=== PATIENT | male | born 1965 | race Caucasian/White ===

== ENCOUNTER 2020-03-08 07:31 | Inpatient (IN) | payer OTHER, SELFPAY ==
[2020-03-08] VITALS (8 sets, daily range): BP systolic 118–150; BP diastolic 80–86; PULSE 86–126; RESP 12–18; TEMP 37.1–37.5; O2SAT 96–98; BMI 35.8
--- NOTE | 2020-03-08 | ECG_ITS ---
Test Reason : TACHYCARDIA Blood Pressure : / mmHG Vent. Rate : 101 BPM Atrial Rate : 101 BPM P-R Int : 160 ms QRS Dur : 086 ms QT Int : 360 ms P-R-T Axes : 025 -28 022 degrees QTc Int : 466 ms Sinus tachycardia Inferior infarct , age undetermined Possible Anterior infarct , age undetermined Abnormal ECG No previous ECGs available Referred By: Dayne Reyes Electronically Signed By:POOL ROJAS
--- NOTE | 2020-03-08 07:58 | ED_ITS ---
HPI - Psych General Chief Complaint: Psychiatric Symptoms Stated Complaint: anxiety Time Seen by Provider: 03/08/20 07:55 Source: patient Mode of arrival: ambulatory Limitations: no limitations History of Present Illness HPI Narrative: patient's history of generalized anxiety disorder was at crisis stabilization unit for last 1 week broke the rule and left against medical advice yesterday was very anxious and depressed had vodka and took 400 mg of his trazodone between 1-7 pm. felt suicidal at that time still feels hopeless and looking for some help Related Data Allergies Allergy/AdvReac Type Severity Reaction Status Date / Time No Known Allergies Allergy Unverified 02/19/20 16:54 [No Known Allergies*] Review of Systems Review of Systems: Yes all other systems are reviewed and are negative Respiratory: Respiratory: Reports no additional respiratory complaints Gastrointestinal: Gastrointestinal: Reports no additional gastrointestinal complaints Genitourinary: Genitourinary: Reports no additional male genitourinary complaints Musculoskeletal: Musculoskeletal: Reports no additional musculoskeletal complaints Neurologic: Reports system reviewed and no additional complaints, except as documented and Reports Abnormal speech present Psychiatric: Psychiatric: Reports as per HPI, Reports anxiety, Reports depression, Reports difficulty concentrating, Reports hopelessness, Reports irritability, Reports anhedonia, Denies visual hallucinations, Denies hallucinations, Denies tactile hallucinations, Denies homicidal ideation and Denies suicidal ideation [facility] Past Medical History Attestation statement: The following information was validated with the patient. Medical History Depression Generalized anxiety disorder HTN (hypertension) Surgical History History of left hip replacement Social History Social History Alcohol intake: current Smoking Status: Current every day smoker Substance Use Type Other:: recovering opiate abuse Advance Directives: No Advance Directives Information Provided: Yes Suicidal Behavior: History of suicide attemps Current/Past Psychiatric Disorders: Psychotic disorder and Substance abuse [place] Symptoms: Anxiety Access to Firearms: No Physical Exam Vital Signs and I&O and Narrative: Vital Signs and I&O: Vital Signs Temp 99.0 F 03/08/20 15:33 Pulse 94 03/08/20 15:33 Resp 16 03/08/20 15:33 BP 118/83 03/08/20 15:33 Pulse Ox 96 03/08/20 15:33 Intake & Output 03/07/20 03/08/20 03/08/20 18:59 06:59 18:59 Weight 110.005 kg Body Mass Index 35.8 Const: General: cooperative and anxious Orientation/consciousness: oriented to person, oriented to place and oriented to time Limitations: no limitations HENMT: Head: Yes normal to inspection Ears: hearing grossly normal bilaterally General nose exam: Normal external nose present Eyes: General: appearance normal, both eyes and all related structures Neck: Neck: Yes normal visual inspection Resp: Effort & Inspection: normal respiratory effort Auscultation: clear to auscultation bilaterally Cardio: Palpation: normal PMI Rate: tachycardic Rhythm: regular rhythm Heart sounds: S1 normal heart sound present and S2 normal heart sound present GI: Inspection: Yes normal to inspection Palpation (GI): Soft to palpation and nontender Percussion: Yes normal to percussion Neuro: General: oriented to person, oriented to place and oriented to time Cranial nerves: Yes CN's II-XII intact bilaterally Cognition (Neuro): normal cognition Speech: Abnormal speech present Gait exam (Neuro): Normal gait present Motor exam (neuro): 5/5 motor strength present throughout Psych: Appearance: grossly normal Mental Status: mental status grossly normal Speech and movement: Normal speech and movement present Affect: Anxious affect present Attitude: cooperative Thought process: Normal thought process present Thought content: Normal thought content present Insight: Good insight present (Psych) Judgement: Good judgement present (Psych) Course Course Course Narrative: patient with depression and anxiety took a nontoxic dose of t razodone 400 mg yesterday with alcohol at that time patient was suicidal at this time patient is anxious denies any suicidal ideation. Scared of his home situation as he does not have any job him he lose apartment will consult crisis for evaluation Reevaluation(s) Reevaluation #1: patient seen by therapist will be admitted to for depression and anxiety patient is medically cleared MDM - Psych Restraints Face to Face Assessment: Face to Face Assessment: Current Situation: After assessment of the patient, a review of the pertinent medical record and a discussion with nursing staff, I feel the patient requires a restrain intervention. Reaction To: [] Medical Condition: [] Behavioral State: [] Continued Need: [] Lab Data Result diagrams: 03/08/20 08:43 10/05/20 08:43 Labs: Lab Results 03/08/20 03/08/20 03/08/20 Range/Units 08:43 08:43 08:43 WBC 9.9 (4.8-10.8) X10*3/uL RBC 5.29 (4.60-5.80) X10*6/uL Hgb 15.0 (14.0-18.0) g/dl Hct 44.0 (42-52) % MCV 83.2 (80-98) fL MCH 28.4 (27.0-33.0) pg MCHC 34.1 (31.0-36.0) g/dl RDW 13.4 (11.0-16.0) % Plt Count 231 (160-400) X10*3/uL MPV 10.3 (9.4-12.4) fL Immature Gran % (Auto) 0.7 H (0.0-0.4) % Neut % (Auto) 75.2 H (45-73) % Lymph % (Auto) 10.9 L (20-40) % [place] % (Auto) 8.9 (2-11) % Eos % (Auto) 4.1 H (0-4) % Baso % (Auto) 0.2 (0-2) % Neut # (Auto) 7.4 (2.0-8.3) X10*3/uL Lymph # (Auto) 1.1 L (1.2-4.9) X10*3/uL [place] # (Auto) 0.9 (0.1-1.2) X10*3/uL Eos # (Auto) 0.4 (0.0-0.4) X10*3/uL Baso # (Auto) 0.0 (0.0-0.2) X10*3/uL Abs Immat Gran (auto) 0.07 H (0.00-0.03) X10*3/uL Absolute Nucleated RBC 0.000 (0.0-0.012) X10*3/uL Nucleated RBC % (auto) 0.0 (0.0-0.2) /100WBC Sodium 140 (135-145) mmol/L Potassium 4.2 (3.3-5.1) mmol/l Chloride 108 (96-108) mmol/L Carbon Dioxide 23 (22-29) mmol/L Anion Gap 13 (12-20) BUN 27 H (9-16) mg/dL Creatinine 1.20 (0.5-1.4) mg/dL Estim Creat Clear Calc 88.0 Estimated GFR > 60 Random Glucose 103 (60-115) mg/dL Calcium 9.2 (8.4-10.2) mg/dL Total Bilirubin 1.8 H (0.0-1.0) mg/dL AST 20 (5-37) U/L ALT 39 (0-40) U/L Alkaline Phosphatase 131 H (39-117) U/L Total Protein 7.2 (6.5-8.0) g/dL Albumin 4.2 (3.5-5.0) g/dL Ethyl Alcohol < 10 mg/dL Coronavirus (PCR) (Negative) 03/08/20 Range/Units 12:39 WBC (4.8-10.8) X10*3/uL RBC (4.60-5.80) X10*6/uL Hgb (14.0-18.0) g/dl Hct (42-52) % MCV (80-98) fL MCH (27.0-33.0) pg MCHC (31.0-36.0) g/dl RDW (11.0-16.0) % Plt Count (160-400) X10*3/uL MPV (9.4-12.4) fL Immature Gran % (Auto) (0.0-0.4) % Neut % (Auto) (45-73) % Lymph % (Auto) (20-40) % [place] % (Auto) (2-11) % Eos % (Auto) (0-4) % Baso % (Auto) (0-2) % Neut # (Auto) (2.0-8.3) X10*3/uL Lymph # (Auto) (1.2-4.9) X10*3/uL [place] # (Auto) (0.1-1.2) X10*3/uL Eos # (Auto) (0.0-0.4) X10*3/uL Baso # (Auto) (0.0-0.2) X10*3/uL Abs Immat Gran (auto) (0.00-0.03) X10*3/uL Absolute Nucleated RBC (0.0-0.012) X10*3/uL Nucleated RBC % (auto) (0.0-0.2) /100WBC Sodium (135-145) mmol/L Potassium (3.3-5.1) mmol/l Chloride (96-108) mmol/L Carbon Dioxide (22-29) mmol/L Anion Gap (12-20) BUN (9-16) mg/dL Creatinine (0.5-1.4) mg/dL Estim Creat Clear Calc Estimated GFR Random Glucose (60-115) mg/dL Calcium (8.4-10.2) mg/dL Total Bilirubin (0.0-1.0) mg/dL AST (5-37) U/L ALT (0-40) U/L Alkaline Phosphatase (39-117) U/L Total Protein (6.5-8.0) g/dL Albumin (3.5-5.0) g/dL Ethyl Alcohol mg/dL Coronavirus (PCR) NEGATIVE (Negative) ECG Data Attestation: I personally reviewed and interpreted this ECG as follows: ECG interpretation date: 03/08/20 ECG interpretation time: 08:47 Prior ECG tracings: not available for review Interpretation: sinus tachycardia heart rate [address] T wave changes impression sinus tachycardia Discharge Plan Discharge Clinical Impression: Acute anxiety Depression Qualifiers: Depression Type: major depressive disorder Major depression recurrence: recurrent Active/Remission status: currently active Major depression episode severity: moderate Qualified Code(s): F33.1 - Major depressive disorder, recurrent, moderate Patient Disposition: er Psychiatric Hosp
--- NOTE | 2020-03-08 08:16 | PC.NURSE ---
PT ALERT AND ORIENTED X4. SKIN WPD. RESPIRATIONS EVEN AND NON LABORED. HYPERVERBAL, RESTLESS. REPORTS INCREASEING ANXIETY; UNABLE TO REPORT A CLEAR TIMELINE. PT ALSO EXPRESSED PARANOIA, FEELING NERVOUS ABOUT IDENTITY OF ED STAFF AROUND HIM. STATES HE WAS AT A PSYCHIATRIC STABILIZATION UNIT YESTERDAY, BUT WAS TRIGGERED BY STAFF REACTION AFTER BEING CAUGHT LENDING MONEY TO SOMEONE. STATES SI WITH PLAN TO OVERDOSE ON ANYTHING I CAN GET MY HANDS ON. REPORTS DRINKING 1L HARD ALCOHOL AND TAKING TOTAL 400MG TRAZADONE (LEFTOVER TABS FROM D/C'D PRESCRIPTION). SUPERFICIAL LACS TO LEFT LOWER ARM, OUTER SIDE; REPORTS CUTTING HIMSELF MANY TIMES WITH KNIFE YESTERDAY. PT CHANGED INTO HOSPTIAL ATTIRE. BELONGINGS LOCKED IN POD CLOSET. I NCLEAR VIEW OF 1:1 PATIENT OBSERVER. EV[address] DR. EAGLE. PLAN FOR EKG, BLOOD WORK.
[2020-03-08 08:50] LABS: MANUAL DIFF FLAG NO
[2020-03-08 08:52] LABS: Basophils Percent Auto 0.2 % (0-2); Eosinophils Absolute Auto 0.4 X10*3/uL (0.0-0.4); Eosinophils Percent Auto 4.1 % (0-4); Imm Gran Abs Auto 0.07 X10*3/uL (0.00-0.03); Imm Gran Pct Auto 0.7 % (0.0-0.4); Lymphocytes Absolute Auto 1.1 X10*3/uL (1.2-4.9); Lymphocytes Percent Auto 10.9 % (20-40); Mean Corpuscular HGB Conc 34.1 g/dl (31.0-36.0); Mean Corpuscular Hemoglobin 28.4 pg (27.0-33.0); Mean Corpuscular Volume 83.2 fL (80-98); Mean Platelet Volume 10.3 fL (9.4-12.4); Monocytes Absolute Auto 0.9 X10*3/uL (0.1-1.2); Monocytes Percent Auto 8.9 % (2-11); Neutrophils Absolute Auto 7.4 X10*3/uL (2.0-8.3); Neutrophils Percent Auto 75.2 % (45-73); Platelet Count 231 X10*3/uL (160-400); Red Blood Count 5.29 X10*6/uL (4.60-5.80); Red Cell Distribution Width 13.4 % (11.0-16.0); White Blood Count 9.9 X10*3/uL (4.8-10.8)
[2020-03-08 09:13] LABS: Ethanol < 10 mg/dL
[2020-03-08 09:15] LABS: Alanine Aminotransferase 39 U/L (0-40); Albumin Level 4.2 g/dL (3.5-5.0); Alkaline Phosphatase 131 U/L (39-117); Anion Gap 13 (12-20); Aspartate Amino Transferase 20 U/L (5-37); Bilirubin Total 1.8 mg/dL (0.0-1.0); Blood Urea Nitrogen 27 mg/dL (9-16); Calcium 9.2 mg/dL (8.4-10.2); Carbon Dioxide 23 mmol/L (22-29); Chloride 108 mmol/L (96-108); Estimated Glomerular Filt Rate > 60; Glucose Random 103 mg/dL (60-115); Potassium 4.2 mmol/l (3.3-5.1); Sodium 140 mmol/L (135-145); Total Protein 7.2 g/dL (6.5-8.0)
--- NOTE | 2020-03-08 09:32 | PC.NURSE ---
CARE TEAM AT BEDSIDE FOR EVAL
--- NOTE | 2020-03-08 12:55 | MHC.CARE ---
CARE Team met with Pt to review plan of care. Pt will be psychiatrically admitted to [facility]. Pt reitrated to t/w I can't be safe if I am discharged. RN and MD aware of plan of care.
[2020-03-08 14:00] LABS: SARS COV2 PCR INHOUSE NEGATIVE (Negative)
[2020-03-08] MEDS: LORazepam 1 MG TABLET 2 MG PO ×2 (14:28)
--- NOTE | 2020-03-08 16:13 | PC.NURSE ---
patient c/o continued chest discomfort, physician aware and repeat EKG obtained
--- NOTE | 2020-03-08 16:48 | ECG_ITS ---
Test Reason : CHEST DISCOMFORT Blood Pressure : / mmHG Vent. Rate : 088 BPM Atrial Rate : 088 BPM P-R Int : 160 ms QRS Dur : 088 ms QT Int : 372 ms P-R-T Axes : 043 -12 039 degrees QTc Int : 450 ms Normal sinus rhythm Low voltage QRS Nonspecific T wave abnormality Abnormal ECG When compared with ECG of 08-MAR-2020 08:30, Heart rate has decreased Nonspecific T wave abnormality is now Present Referred By: Dayne Reyes Electronically Signed By:POOL ROJAS
--- NOTE | 2020-03-08 18:40 | PC.NURSE ---
report given to Ava RAGLAND on [facility] patient admit. [facility] not ready for patient to be transferred at this time
--- NOTE | 2020-03-08 19:22 | PC.NURSE ---
RUSSO sent it the lab. Called [facility] for status of transferring to patient. Per [facility] RN, RUSSO needed to be done. Will await for the result.
[2020-03-08 19:49] LABS: Amphetamine Screen Urine Not Detected (Not Detect); Barbiturates, Urine Not Detected (Not Detect); Benzodiazepines Screen Urine Not Detected (Not Detect); Cannabinoid Screen Urine POSITIVE (Not Detect); Cocaine Screen Urine Not Detected (Not Detect); Opiate Screen Urine Not Detected (Not Detect); Phencyclidine Screen Urine Not Detected (Not Detect)
--- NOTE | 2020-03-08 20:10 | PC.NURSE ---
CALLED [facility]. WILL CALL PROVIDER TO PUT IN TRANSFER ORDERS.
[2020-03-09] VITALS (8 sets, daily range): BP systolic 118–137; BP diastolic 73–90; PULSE 79–106; RESP 18–20; TEMP 36.1–36.9; O2SAT 95–98; BMI 77.3
[2020-03-09] MEDS: LORazepam 1 MG TABLET PO ×5 (01:37→23:05)
[2020-03-09] MEDS: hydrOXYzine HCL 25 MG TABLET PO ×2 (01:37→22:16)
--- NOTE | 2020-03-09 01:40 | PC.ADMIT ---
patient is a 54 year old Slovak speaking male admitted to on 03/08/20. Patient arrived on the unit by 1950 and is admitted for anxiety and SI. Patient reports that he was drinking a pint of blackberry jordon and poping some pills which was 8 50 mg of his own trazadone on 03/07/20 and slept until 4 in the next morning, woke up and drove himself to ED for help. Patient also reports that he was at crisis stabbilization from past sunday to Sunday and left AMA. Patient reports that he has been experience increase in anxiety in the past 5 years but not receive any tx. Patient claims that his current job where he was mistreated made the anxiety worse. Patient has no contact with his 25 year-old daughter x1 year and he tried to call her the other day but she is not returning the call which makes him feel really sad. Patient feel stress about job security and has financial difficulty which all contribute to this presentation. Medical hx: HTN, high cholesterol, , rupture disk repair, insomnia, sleep apnea, L hip replacement. Psychiatric hx: mood disorder/depression, anxiety, opitate use d/o. Patient denies alcohol or drinking problems but smoke MJ daily. Patient reports that he has hx of 10 times detox admission for opiates: methadone, heroin, oxycodone, percecet, morphine, ecstasy, mushroom, samantha which patient reports that he is currently sober for couple years. Patient appears anxious, but pleasant and cooperative on admission. full range affect, no SI/HI/AH and do not appear to be psychotic. VSs stable and WNL, HR 106, denied pain or discomfort feeling. He denied SI/HI/AH/VH on admission, contracted for safety, agree to seek safe if he feels like hurting himself or others. Patient score moderate on universal suicide risk screening. Patient is on 15 min checks, signed CV, not sure nurse to nurse reports done by evening staff, nurse to DOC reports done by evening admitting nurse.
--- NOTE | 2020-03-09 02:15 | PC.NURSE ---
patient is patient, understandable for the delay for the admission process due to IT issues with the new systerm, cooperative. Patient is aware that he are fasting for morning labs. Given Ativan 1 mg and Atarax 25 mg prior to come to to bed around 0200. Continue to monitor for safety during 15 min checks
[2020-03-09 04:18] LABS: Estimated Average Glucose 108 mg/dL; Hemoglobin A1c % 5.4 %
--- NOTE | 2020-03-09 09:34 | HO.PSYADMNOT ---
HPI Chief Complaint: anxiety Sources of Information: patient interviewed, chart reviewed and crisis/core team assessment reviewed Additional Sources of Information: nursing assessment HPI Narrative: 54-year-old single man presented to the ED complaining of suicidality and increased anxiety patient had made multiple superficial cuts on his left forearm. Patient had drank a pt of liquor aunt taken extra tablets of trazodone with intent to overdose. 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 Also his 25-year-old daughter has been estranged from him. Patient endorses significant anxiety including for somatic and physical anxiety and marked apprehension patient's legs were bouncing throughout his interview. Patient endorses all symptoms of depression including anhedonia helplessness hopelessness and impulsively asked for ECT. Patient denies any psychotic symptoms or PTSD. Patient denies any panic attacks but describes generalized anxiety which appears to be of severe intensity. Past Psychiatric History: Patient has providers at [facility] in [place]. he was briefly at [facility] in [place] but left against medical advice after an argument with staff and he felt disrespected. Recently his provider had switched medications and increase Lexapro to 30 mg and added risperidone. Patient remembers being on Effexor which caused tinnitus. 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 Patient thinks he has lost his job. Patient is single has a 25-year-old daughter who does not return his calls. Patient is from [place] and has family in this area Substance History: history of heroin use many years ago and had been sober for 10 years till 2016 when he had relapse briefly after surgery and got back on the wagon. remains abstinent Trauma History: denies Diagnostics Vital Signs (24Hr): Vital Signs - 24 hr 03/08/20 10:51 03/08/20 11:49 03/08/20 13:58 Temperature 99.2 F 99.5 F Pulse Rate 112 H 99 90 Respiratory Rate 18 18 17 Blood Pressure 140/81 H 140/86 H 139/84 Pulse Oximetry 97 96 96 03/08/20 15:33 03/08/20 17:23 03/08/20 19:25 Temperature 99.0 F 99.0 F 99.1 F Pulse Rate 94 86 101 H Respiratory Rate 16 12 16 Blood Pressure 118/83 150/80 H 136/85 Pulse Oximetry 96 97 96 03/09/20 00:05 03/09/20 06:00 Temperature 97.8 F 98.4 F Pulse Rate 106 H 79 Respiratory Rate 18 18 Blood Pressure 118/85 129/73 Pulse Oximetry 98 Body Mass Index 77.3 Labs Results: 03/08/20 08:43 03/08/20 08:43 Labs: Laboratory Results - last 48 hr 03/08/20 03/08/20 03/08/20 08:43 08:43 08:43 WBC 9.9 RBC 5.29 Hgb 15.0 Hct 44.0 MCV 83.2 MCH 28.4 MCHC 34.1 RDW 13.4 Plt Count 231 MPV 10.3 Immature Gran % (Auto) 0.7 H Neut % (Auto) 75.2 H Lymph % (Auto) 10.9 L [place] % (Auto) 8.9 Eos % (Auto) 4.1 H Baso % (Auto) 0.2 Neut # (Auto) 7.4 Lymph # (Auto) 1.1 L [place] # (Auto) 0.9 Eos # (Auto) 0.4 Baso # (Auto) 0.0 Abs Immat Gran (auto) 0.07 H Absolute Nucleated RBC 0.000 Nucleated RBC % (auto) 0.0 Sodium 140 Potassium 4.2 Chloride 108 Carbon Dioxide 23 Anion Gap 13 BUN 27 H Creatinine 1.20 Estim Creat Clear Calc 88.0 Estimated GFR > 60 Random Glucose 103 Estimat Average Glucose Hemoglobin A1c % Calcium 9.2 Total Bilirubin 1.8 H AST 20 ALT 39 Alkaline Phosphatase 131 H Total Protein 7.2 Albumin 4.2 Urine Opiates Screen Ur Barbiturates Screen Ur Phencyclidine Scrn Ur Amphetamines Screen U Benzodiazepines Scrn Urine Cocaine Screen U Marijuana (THC) Screen Ethyl Alcohol < 10 Coronavirus (PCR) 03/08/20 03/08/20 03/08/20 12:39 19:13 23:21 WBC RBC Hgb Hct MCV MCH MCHC RDW Plt Count MPV Immature Gran % (Auto) Neut % (Auto) Lymph % (Auto) [place] % (Auto) Eos % (Auto) Baso % (Auto) Neut # (Auto) Lymph # (Auto) [place] # (Auto) Eos # (Auto) Baso # (Auto) Abs Immat Gran (auto) Absolute Nucleated RBC Nucleated RBC % (auto) Sodium Potassium Chloride Carbon Dioxide Anion Gap BUN Creatinine Estim Creat Clear Calc Estimated GFR Random Glucose Estimat Average Glucose 108 Hemoglobin A1c % 5.4 Calcium Total Bilirubin AST ALT Alkaline Phosphatase Total Protein Albumin Urine Opiates Screen Not Detected Ur Barbiturates Screen Not Detected Ur Phencyclidine Scrn Not Detected Ur Amphetamines Screen Not Detected U Benzodiazepines Scrn Not Detected Urine Cocaine Screen Not Detected U Marijuana (THC) Screen POSITIVE H Ethyl Alcohol Coronavirus (PCR) NEGATIVE Meds/Allergies Meds Home Medications Medication Instructions Recorded Confirmed Type atorvastatin 40 mg PO BEDTIME 03/09/20 03/09/20 History escitalopram oxalate 30 mg PO DAILY 03/09/20 03/09/20 History hydroxyzine HCl 50 mg PO TID PRN 03/09/20 03/09/20 History lisinopril 40 mg PO DAILY 03/09/20 03/09/20 History risperidone 1 mg PO BEDTIME 03/09/20 03/09/20 History Allergies Allergies Allergy/AdvReac Type Severity Reaction Status Date / Time No Known Allergies Allergy Unverified 02/19/20 16:54 [No Known Allergies*] Mental Status Exam Mental Status Exam Patient Appearance: Well Grooomed and Unkempt Patient Orientation: Person, Place, Time and Situation Level of Consciousness: Awake and Restless Patient Behavior: Restless and Anxious Mood Description: Depressed, Anxious, Labile and Sad Patient Cognition Impaired: No Ability to Follow Directions: Excellent Speech Pattern: Rapid and Excessive Memory Description: Intact Hallucinations: None Delusions: Not Present Thought Process: Intact, Racing and Linear Thought Content: positive for Intact, positive for Racing and positive for Suicidal Ideation Depressive Symptoms: Increased Anxiety, Diff. Making Decisions, Muscle Tension, Feelings of Worthlessness, Hopelessness, Feelings of Guilt, Unhappiness and Thoughts of /Suicide Judgement: Poor Assessment & Plan Assessment & Plan (1) Acute anxiety: Status: Acute Code(s): F41.9 - Anxiety disorder, unspecified Assessment and Plan: add propranolol taper off Lexapro increase risperidone start Cymbalta (2) Depression: Status: Acute Qualifiers: Active/Remission status: currently active Depression Type: major depressive disorder Major depression episode severity: moderate Major depression recurrence: recurrent Qualified Code(s): F33.1 - Major depressive disorder, recurrent, moderate Code(s): F32.9 - Major depressive disorder, single episode, unspecified Assessment and Plan: same as above Patient educated on: diagnosis Informed Consent: understands Reason for continued inpatient stay Substantial Risk for: harm to self, inability to function and rapid decompensation
[2020-03-09 11:27] LABS: Cholesterol 136 mg/dL; HDL Cholesterol 40 mg/dL; LDL Cholesterol Calculated 74 mg/dl; Triglycerides 114 mg/dL
[2020-03-09] MEDS: Propranolol HCL 10 MG TABLET PO ×2 (16:59→20:37)
[2020-03-09] MEDS: lisinopriL 40 MG TABLET PO (17:02)
[2020-03-09] MEDS: Atorvastatin Calcium 40 MG TABLET PO (20:37)
[2020-03-09] MEDS: risperiDONE 1 MG TABLET PO (20:38)
[2020-03-09] MEDS: traZODone HCL 50 MG TABLET PO (23:06)
[2020-03-10 06:05] VITALS: BP 137/74; PULSE 84; RESP 18; TEMP 36.2
[2020-03-10] MEDS: Escitalopram Oxalate 20 MG TABLET PO (08:41)
[2020-03-10] MEDS: DULoxetine HCl 20 MG CAPSULE.DR PO (08:41)
[2020-03-10 08:42] VITALS: BP 137/74; PULSE 84
[2020-03-10] MEDS: lisinopriL 40 MG TABLET PO (08:42)
[2020-03-10] MEDS: Propranolol HCL 10 MG TABLET PO ×3 (08:42→20:28)
[2020-03-10] MEDS: LORazepam 1 MG TABLET PO ×3 (09:10→17:12)
--- NOTE | 2020-03-10 09:31 | P.PNPSI_ITS ---
Assessment & Plan Assessment & Plan (1) Acute anxiety: Status: Acute Code(s): F41.9 - Anxiety disorder, unspecified Assessment and Plan: increase risperidone (2) Depression: Qualifiers: Active/Remission status: currently active Depression Type: major depressive disorder Major depression episode severity: moderate Major depression recurrence: recurrent Qualified Code(s): F33.1 - Major depressive disorder, recurrent, moderate Status: Acute Code(s): F32.9 - Major depressive disorder, single episode, unspecified Assessment and Plan: ct meds. early dw pt re ect Greater than 50% of the session was spent on counseling and/or coordination of c are Subjective Subjective Date of Service: 03/10/20 Reason For Visit: anxiety Subjective Notes: Conditional Voluntary Interim History: patient continues to exhibit marked agitation restlessness. His leg was bouncing. anhedonia helplessness hopelessness patient again inquires about ECT. Feels that his life will be destroyed if he does not improve. We discussed medication changes and will increase dose of risperidone. patient was noted to have cut himself yesterday with a plastic medication cup Medication Compliance: Yes Side effects from medications: No Attending Groups: Yes Mental Status Exam Mental Status Exam Patient Appearance: Disheveled Patient Orientation: Person, Place, Time and Situation Level of Consciousness: Awake Patient Behavior: Restless, Anxious and Fearful Mood Description: Depressed, Fearful and Labile Affect Description: Depressed and Fearful Patient Cognition Impaired: No Speech Pattern: Coherent, Excessive and Animated Memory Description: Intact Hallucinations: None Delusions: Not Present Thought Process: Intact and Rumination Thought Content: positive for Goal Oriented Depressive Symptoms: Muscle Tension, Crying Spells, Feelings of Worthlessness, Hopelessness and Thoughts of /Suicide Judgement: Poor Diagnostics Vital Signs (24Hr): Vital Signs - 24 hr 03/09/20 15:29 03/09/20 16:59 03/09/20 17:02 Temperature Pulse Rate 92 106 H 106 H Respiratory Rate Blood Pressure 137/90 H 126/84 126/84 Pulse Oximetry 03/09/20 18:00 03/09/20 20:37 03/09/20 21:21 Temperature 97.2 F 97 F Pulse Rate 106 H 106 H 106 H Respiratory Rate 20 Blood Pressure 126/84 126/84 126/84 Pulse Oximetry 95 03/10/20 06:05 03/10/20 08:42 Temperature 97.2 F Pulse Rate 84 84 Respiratory Rate 18 Blood Pressure 137/74 137/74 Pulse Oximetry Body Mass Index 77.3 Labs Results: 03/08/20 08:43 03/08/20 08:43 Labs: Laboratory Results - last 48 hr 03/08/20 03/08/20 03/08/20 12:39 19:13 23:21 Estimat Average Glucose 108 Hemoglobin A1c % 5.4 Triglycerides Cholesterol LDL Cholesterol, Calc HDL Cholesterol Urine Opiates Screen Not Detected Ur Barbiturates Screen Not Detected Ur Phencyclidine Scrn Not Detected Ur Amphetamines Screen Not Detected U Benzodiazepines Scrn Not Detected Urine Cocaine Screen Not Detected U Marijuana (THC) Screen POSITIVE H Coronavirus (PCR) NEGATIVE 03/08/20 23:22 Estimat Average Glucose Hemoglobin A1c % Triglycerides 114 Cholesterol 136 LDL Cholesterol, Calc 74 HDL Cholesterol 40 Urine Opiates Screen Ur Barbiturates Screen Ur Phencyclidine Scrn Ur Amphetamines Screen U Benzodiazepines Scrn Urine Cocaine Screen U Marijuana (THC) Screen Coronavirus (PCR) Medications Medications Current Medications Generic Name Dose Route Start Last Admin Trade Name Freq PRN Reason Stop Dose Admin Acetaminophen 650 mg 03/08/20 20:39 Acetaminophen 325 Mg Tablet PO Q6H PRN Headache/Pain Mild Scale (1-3) Al Hydroxide/Mg Hydroxide 30 ml 03/08/20 20:39 Magnesium Hydrox/Alum Hydrox 30 Ml Oral.Susp PO Q6H PRN Heartburn/Nausea Atorvastatin Calcium 40 mg 03/09/20 21:00 03/09/20 20:37 Atorvastatin Calcium 40 Mg Tablet PO 40 mg BEDTIME ASHISH Administration Duloxetine HCl 20 mg 03/10/20 09:00 03/10/20 08:41 Duloxetine Hcl 20 Mg Capsule.Dr PO 20 mg DAILY ASHISH Administration Escitalopram Oxalate 20 mg 03/10/20 09:00 03/10/20 08:41 Escitalopram Oxalate 20 Mg Tablet PO 20 mg DAILY ASHISH Administration Hydroxyzine HCl 25 mg 03/08/20 20:39 03/09/20 22:16 Hydroxyzine Hcl 25 Mg Tablet PO 25 mg BEDTIME PRN Administration Anxiety Lisinopril 40 mg 03/09/20 17:00 03/10/20 08:42 Lisinopril 40 Mg Tablet PO 40 mg DAILY ASHISH Administration Protocol Lorazepam 1 mg 03/08/20 22:59 03/10/20 09:10 Lorazepam 1 Mg Tablet PO 1 mg Q4H PRN Administration Anxiety Magnesium Hydroxide 30 ml 03/08/20 20:39 Milk Of Magnesia 30 Ml Oral.Susp PO DAILY PRN Constipation Propranolol HCl 10 mg 03/09/20 16:05 03/10/20 08:42 Propranolol Hcl 10 Mg Tablet PO 10 mg BID SAHISH Administration Protocol Risperidone 1 mg 03/09/20 21:00 03/09/20 20:38 Risperidone 1 Mg Tablet PO 1 mg BEDTIME ASHISH Administration Trazodone HCl 50 mg 03/08/20 20:39 03/09/20 23:06 Trazodone Hcl 50 Mg Tablet PO 50 mg BEDTIME PRN Administration Insomnia Allergies Allergies Allergy/AdvReac Type Severity Reaction Status Date / Time No Known Allergies Allergy Unverified 02/19/20 16:54 [No Known Allergies*]
[2020-03-10] MEDS: Bacitracin Oint 14 GM TUBE 1 APPL TOPICAL (14:31)
[2020-03-10] MEDS: risperiDONE 1 MG TABLET PO ×2 (17:00→20:28)
[2020-03-10 17:02] VITALS: BP 116/68; PULSE 108
[2020-03-10] MEDS: Flu Vacc QS2020-21(6mos up)/PF 0.5 ML SYRINGE IM (17:07)
[2020-03-10 18:00] VITALS: BP 114/63; PULSE 89; TEMP 36.3
[2020-03-10] MEDS: Atorvastatin Calcium 40 MG TABLET PO (20:27)
[2020-03-10 20:28] VITALS: BP 114/63; PULSE 89
[2020-03-10] MEDS: traZODone HCL 50 MG TABLET PO (20:50)
[2020-03-10] MEDS: hydrOXYzine HCL 25 MG TABLET PO (20:51)
[2020-03-11 06:30] VITALS: BP 111/57; PULSE 81; RESP 16; O2SAT 96
[2020-03-11 07:00] VITALS: BMI 35.6
--- NOTE | 2020-03-11 07:05 | P.PNPSI_ITS ---
Subjective Subjective Reason For Visit: anxiety Interim History: patient continues to exhibit marked agitation restlessness. His leg was bouncing. anhedonia helplessness hopelessness patient Feels that his life will be destroyed if he does not improve. Talks about wanting to be . We discussed medication changes and will switch to Haldol. Helpless/hopeless. Mental Status Exam Mental Status Exam Patient Appearance: Disheveled Patient Orientation: Person, Place, Time and Situation Level of Consciousness: Awake Patient Behavior: Restless, Anxious and Fearful Mood Description: Depressed, Fearful and Labile Affect Description: Depressed and Fearful Patient Cognition Impaired: No Ability to Follow Directions: Excellent Speech Pattern: Coherent, Excessive and Animated Memory Description: Intact Diagnostics Vital Signs (24Hr): Vital Signs - 24 hr 03/10/20 08:42 03/10/20 17:02 03/10/20 18:00 Temperature 97.4 F Pulse Rate 84 108 H 89 Blood Pressure 137/74 116/68 114/63 03/10/20 20:28 Temperature Pulse Rate 89 Blood Pressure 114/63 Body Mass Index 77.3 Labs Results: 03/08/20 08:43 03/08/20 08:43 Labs: Laboratory Results - last 48 hr 03/08/20 23:22 Triglycerides 114 Cholesterol 136 LDL Cholesterol, Calc 74 HDL Cholesterol 40 Medications Medications Current Medications Generic Name Dose Route Start Last Admin Trade Name Kipq PRN Reason Stop Dose Admin Acetaminophen 650 mg 03/08/20 20:39 Acetaminophen 325 Mg Tablet PO Q6H PRN Headache/Pain Mild Scale (1-3) Al Hydroxide/Mg Hydroxide 30 ml 03/08/20 20:39 Magnesium Hydrox/Alum Hydrox 30 Ml Oral.Susp PO Q6H PRN Heartburn/Nausea Atorvastatin Calcium 40 mg 03/09/20 21:00 03/10/20 20:27 Atorvastatin Calcium 40 Mg Tablet PO 40 mg BEDTIME ASHISH Administration Bacitracin 1 appl 03/10/20 10:40 03/10/20 23:37 Bacitracin Oint 14 Gm Tube TOPICAL Not Given BID [facility] Protocol Duloxetine HCl 20 mg 03/10/20 09:00 03/10/20 08:41 Duloxetine Hcl 20 Mg Capsule.Dr PO 20 mg DAILY ASHISH Administration Escitalopram Oxalate 15 mg 03/11/20 09:00 Escitalopram Oxalate 10 Mg Tablet PO DAILY ASHISH Hydroxyzine HCl 25 mg 03/08/20 20:39 03/10/20 20:51 Hydroxyzine Hcl 25 Mg Tablet PO 25 mg BEDTIME PRN Administration Anxiety Lisinopril 40 mg 03/09/20 17:00 03/10/20 08:42 Lisinopril 40 Mg Tablet PO 40 mg DAILY ASHISH Administration Protocol Lorazepam 1 mg 03/08/20 22:59 03/10/20 17:12 Lorazepam 1 Mg Tablet PO 1 mg Q4H PRN Administration Anxiety Magnesium Hydroxide 30 ml 03/08/20 20:39 Milk Of Magnesia 30 Ml Oral.Susp PO DAILY PRN Constipation Propranolol HCl 10 mg 03/10/20 16:30 03/10/20 20:28 Propranolol Hcl 10 Mg Tablet PO 10 mg TID ASHISH Administration Protocol Risperidone 1 mg 03/10/20 16:45 03/10/20 20:28 Risperidone 1 Mg Tablet PO 1 mg TID ASHISH Administration Trazodone HCl 50 mg 03/08/20 20:39 03/10/20 20:50 Trazodone Hcl 50 Mg Tablet PO 50 mg BEDTIME PRN Administration Insomnia Allergies Allergies Allergy/AdvReac Type Severity Reaction Status Date / Time No Known Allergies Allergy Unverified 02/19/20 16:54 [No Known Allergies*] Assessment & Plan Assessment & Plan (1) Acute anxiety: Status: Acute Code(s): F41.9 - Anxiety disorder, unspecified Assessment and Plan: increase risperidone (2) Depression: Qualifiers: Active/Remission status: currently active Depression Type: major depressive disorder Major depression episode severity: moderate Major depression recurrence: recurrent Qualified Code(s): F33.1 - Major depressive disorder, recurrent, moderate Status: Acute Code(s): F32.9 - Major depressive disorder, single episode, unspecified Assessment and Plan: ct meds. early dw pt re ect Greater than 50% of the session was spent on counseling and/or coordination of care
[2020-03-11 08:53] VITALS: BP 111/57; PULSE 81
[2020-03-11] MEDS: lisinopriL 40 MG TABLET PO (08:53)
[2020-03-11 08:54] VITALS: BP 111/57; PULSE 81
[2020-03-11] MEDS: risperiDONE 1 MG TABLET PO (08:54)
[2020-03-11] MEDS: Propranolol HCL 10 MG TABLET PO ×3 (08:54→20:07)
[2020-03-11] MEDS: Escitalopram Oxalate 10 MG TABLET PO (08:55)
[2020-03-11] MEDS: DULoxetine HCl 20 MG CAPSULE.DR PO (08:56)
[2020-03-11] MEDS: Bacitracin Oint 14 GM TUBE 1 APPL TOPICAL ×2 (09:55→20:14)
[2020-03-11] MEDS: LORazepam 1 MG TABLET PO ×3 (10:21→19:32)
[2020-03-11] MEDS: haloperidoL 5 MG TABLET PO ×2 (13:23→20:07)
[2020-03-11 14:59] VITALS: BP 105/66; PULSE 106
--- NOTE | 2020-03-11 17:13 | HO.PSYCHPN ---
Subjective Subjective Reason For Visit: anxiety Diagnostics Vital Signs (24Hr): Vital Signs - 24 hr 03/10/20 18:00 03/10/20 20:28 03/11/20 06:30 Temperature 97.4 F Pulse Rate 89 89 81 Respiratory Rate 16 Blood Pressure 114/63 114/63 111/57 L Pulse Oximetry 96 03/11/20 08:53 03/11/20 08:54 03/11/20 14:59 Temperature Pulse Rate 81 81 106 H Respiratory Rate Blood Pressure 111/57 L 111/57 L 105/66 Pulse Oximetry Body Mass Index 35.6 Labs Results: 03/08/20 08:43 03/08/20 08:43 Medications Medications Current Medications Generic Name Dose Route Start Last Admin Trade Name Freq PRN Reason Stop Dose Admin Acetaminophen 650 mg 03/08/20 20:39 Acetaminophen 325 Mg Tablet PO Q6H PRN Headache/Pain Mild Scale (1-3) Al Hydroxide/Mg Hydroxide 30 ml 03/08/20 20:39 Magnesium Hydrox/Alum Hydrox 30 Ml Oral.Susp PO Q6H PRN Heartburn/Nausea Atorvastatin Calcium 40 mg 03/09/20 21:00 03/10/20 20:27 Atorvastatin Calcium 40 Mg Tablet PO 40 mg BEDTIME ASHISH Administration Bacitracin 1 appl 03/10/20 10:40 03/11/20 09:55 Bacitracin Oint 14 Gm Tube TOPICAL 1 appl BID ASHISH Administration Protocol Benztropine Mesylate 1 mg 03/11/20 12:27 Benztropine Mesylate 1 Mg Tablet PO TID PRN Extrapyramidal Effects Duloxetine HCl 20 mg 03/10/20 09:00 03/11/20 08:56 Duloxetine Hcl 20 Mg Capsule.Dr PO 20 mg DAILY ASHISH Administration Escitalopram Oxalate 10 mg 03/11/20 09:00 03/11/20 08:55 Escitalopram Oxalate 10 Mg Tablet PO 10 mg DAILY ASHISH Administration Haloperidol 5 mg 03/11/20 13:15 03/11/20 13:23 Haloperidol 5 Mg Tablet PO 5 mg BID ASHISH Administration Haloperidol 2.5 mg 03/11/20 13:16 Haloperidol 5 Mg Tablet PO BID PRN Anxiety Hydroxyzine HCl 25 mg 03/08/20 20:39 03/10/20 20:51 Hydroxyzine Hcl 25 Mg Tablet PO 25 mg BEDTIME PRN Administration Anxiety Lisinopril 40 mg 03/09/20 17:00 03/11/20 08:53 Lisinopril 40 Mg Tablet PO 40 mg DAILY ASHISH Administration Protocol Lorazepam 1 mg 03/08/20 22:59 03/11/20 15:02 Lorazepam 1 Mg Tablet PO 1 mg Q4H PRN Administration Anxiety Magnesium Hydroxide 30 ml 03/08/20 20:39 Milk Of Magnesia 30 Ml Oral.Susp PO DAILY PRN Constipation Propranolol HCl 10 mg 03/10/20 16:30 03/11/20 14:59 Propranolol Hcl 10 Mg Tablet PO 10 mg TID ASHISH Administration Protocol Trazodone HCl 50 mg 03/08/20 20:39 03/10/20 20:50 Trazodone Hcl 50 Mg Tablet PO 50 mg BEDTIME PRN Administration Insomnia Allergies Allergies Allergy/AdvReac Type Severity Reaction Status Date / Time No Known Allergies Allergy Unverified 02/19/20 16:54 [No Known Allergies*] Assessment & Plan Greater than 50% of the session was spent on counseling and/or coordination of care
[2020-03-11 18:00] VITALS: BP 139/71; PULSE 100; RESP 18; TEMP 36.8
[2020-03-11] MEDS: Atorvastatin Calcium 40 MG TABLET PO (20:06)
[2020-03-11] MEDS: traZODone HCL 50 MG TABLET PO (20:06)
[2020-03-11 20:07] VITALS: BP 139/71; PULSE 100
[2020-03-11] MEDS: hydrOXYzine HCL 25 MG TABLET PO (20:07)
[2020-03-12 06:22] VITALS: BP 106/68; PULSE 69; RESP 16; TEMP 36.6; O2SAT 95
--- NOTE | 2020-03-12 08:03 | P.PNPSI_ITS ---
Subjective Subjective Date of Service: 03/12/20 Reason For Visit: anxiety Subjective Notes: Conditional Voluntary Interim History: Remains restless. HHW. Easily agitated. Bouncing legs. Racing thoughts. I have thoughts of dying....i need to feel better. Fears homel essness. No response yet to Haldol. May increase. Transition to [facility] Medication Compliance: Yes Side effects from medications: No Attending Groups: Yes Mental Status Exam Mental Status Exam Patient Appearance: Disheveled Patient Orientation: Person, Place, Time and Situation Level of Consciousness: Awake Patient Behavior: Restless, Anxious and Fearful Mood Description: Depressed, Fearful and Labile Affect Description: Depressed and Fearful Patient Cognition Impaired: No Ability to Follow Directions: Excellent Speech Pattern: Coherent, Excessive and Animated Memory Description: Intact Diagnostics Vital Signs (24Hr): Vital Signs - 24 hr 03/11/20 08:53 03/11/20 08:54 03/11/20 14:59 Temperature Pulse Rate 81 81 106 H Respiratory Rate Blood Pressure 111/57 L 111/57 L 105/66 Pulse Oximetry 03/11/20 18:00 03/11/20 20:07 03/12/20 06:22 Temperature 98.2 F 97.8 F Pulse Rate 100 100 69 Respiratory Rate 18 16 Blood Pressure 139/71 139/71 106/68 Pulse Oximetry 95 Body Mass Index 35.6 Labs Results: 03/08/20 08:43 03/08/20 08:43 Medications Medications Current Medications Generic Name Dose Route Start Last Admin Trade Name Freq PRN Reason Stop Dose Admin Acetaminophen 650 mg 03/08/20 20:39 Acetaminophen 325 Mg Tablet PO Q6H PRN Headache/Pain Mild Scale (1-3) Al Hydroxide/Mg Hydroxide 30 ml 03/08/20 20:39 Magnesium Hydrox/Alum Hydrox 30 Ml Oral.Susp PO Q6H PRN Heartburn/Nausea Atorvastatin Calcium 40 mg 03/09/20 21:00 03/11/20 20:06 Atorvastatin Calcium 40 Mg Tablet PO 40 mg BEDTIME ASHISH Administration Bacitracin 1 appl 03/10/20 10:40 03/11/20 20:14 Bacitracin Oint 14 Gm Tube TOPICAL 1 appl BID ASHISH Administration Protocol Benztropine Mesylate 1 mg 03/11/20 12:27 Benztropine Mesylate 1 Mg Tablet PO TID PRN Extrapyramidal Effects Duloxetine HCl 20 mg 03/10/20 09:00 03/11/20 08:56 Duloxetine Hcl 20 Mg Capsule.Dr PO 20 mg DAILY ASHISH Administration Escitalopram Oxalate 10 mg 03/11/20 09:00 03/11/20 08:55 Escitalopram Oxalate 10 Mg Tablet PO 10 mg DAILY ASHISH Administration Haloperidol 5 mg 03/11/20 13:15 03/11/20 20:07 Haloperidol 5 Mg Tablet PO 5 mg BID ASHISH Administration Haloperidol 2.5 mg 03/11/20 13:16 Haloperidol 5 Mg Tablet PO BID PRN Anxiety Hydroxyzine HCl 25 mg 03/08/20 20:39 03/11/20 20:07 Hydroxyzine Hcl 25 Mg Tablet PO 25 mg BEDTIME PRN Administration Anxiety Lisinopril 40 mg 03/09/20 17:00 03/11/20 08:53 Lisinopril 40 Mg Tablet PO 40 mg DAILY ASHISH Administration Protocol Lorazepam 1 mg 03/08/20 22:59 03/11/20 19:32 Lorazepam 1 Mg Tablet PO 1 mg Q4H PRN Administration Anxiety Magnesium Hydroxide 30 ml 03/08/20 20:39 Milk Of Magnesia 30 Ml Oral.Susp PO DAILY PRN Constipation Propranolol HCl 10 mg 03/10/20 16:30 03/11/20 20:07 Propranolol Hcl 10 Mg Tablet PO 10 mg TID ASHISH Administration Protocol Trazodone HCl 50 mg 03/08/20 20:39 03/11/20 20:06 Trazodone Hcl 50 Mg Tablet PO 50 mg BEDTIME PRN Administration Insomnia Allergies Allergies Allergy/AdvReac Type Severity Reaction Status Date / Time No Known Allergies Allergy Unverified 02/19/20 16:54 [No Known Allergies*] Assessment & Plan Assessment & Plan (1) Acute anxiety: Status: Acute Code(s): F41.9 - Anxiety disorder, unspecified Assessment and Plan: Monitor Haldol for agitation. (2) Depression: Qualifiers: Active/Remission status: currently active Depression Type: major depressive disorder Major depression episode severity: moderate Major depression recurrence: recurrent Qualified Code(s): F33.1 - Major depressive disorder, recurrent, moderate Status: Acute Code(s): F32.9 - Major depressive disorder, single episode, unspecified Assessment and Plan: ct meds. early dw pt re ect. Consult for Med clearance Greater than 50% of the session was spent on counseling and/or coordination of care
[2020-03-12 08:52] VITALS: BP 106/68; PULSE 69
[2020-03-12] MEDS: DULoxetine HCl 20 MG CAPSULE.DR PO (08:52)
[2020-03-12] MEDS: lisinopriL 40 MG TABLET PO (08:52)
[2020-03-12 08:53] VITALS: BP 106/68; PULSE 69
[2020-03-12] MEDS: Escitalopram Oxalate 10 MG TABLET PO (08:53)
[2020-03-12] MEDS: haloperidoL 5 MG TABLET PO ×2 (08:53→20:18)
[2020-03-12] MEDS: Propranolol HCL 10 MG TABLET PO ×3 (08:53→20:19)
[2020-03-12] MEDS: LORazepam 1 MG TABLET PO ×3 (10:13→18:37)
[2020-03-12] MEDS: Bacitracin Oint 14 GM TUBE 1 APPL TOPICAL ×2 (10:13→22:10)
--- NOTE | 2020-03-12 13:08 | P.PNPSI_ITS ---
Subjective Subjective Reason For Visit: anxiety Interim History: Remains restless. HHW. Easily agitated. Bouncing legs. Racing thoughts. I have thoughts of dying....i need to feel better. Fears homelessness. No response yet to Haldol. May increase. Transition to [facility] Mental Status Exam Mental Status Exam Patient Appearance: Disheveled Patient Orientation: Person, Place, Time and Situation Level of Consciousness: Awake Patient Behavior: Restless, Anxious and Fearful Mood Description: Depressed, Fearful and Labile Affect Description: Depressed and Fearful Patient Cognition Impaired: No Ability to Follow Directions: Excellent Speech Pattern: Coherent, Excessive and Animated Memory Description: Intact Diagnostics Vital Signs (24Hr): Vital Signs - 24 hr 03/11/20 14:59 03/11/20 18:00 03/11/20 20:07 Temperature 98.2 F Pulse Rate 106 H 100 100 Respiratory Rate 18 Blood Pressure 105/66 139/71 139/71 Pulse Oximetry 03/12/20 06:22 03/12/20 08:52 03/12/20 08:53 Temperature 97.8 F Pulse Rate 69 69 69 Respiratory Rate 16 Blood Pressure 106/68 106/68 106/68 Pulse Oximetry 95 Body Mass Index 35.6 Labs Results: 03/08/20 08:43 03/08/20 08:43 Medications Medications Current Medications Generic Name Dose Route Start Last Admin Trade Name Freq PRN Reason Stop Dose Admin Acetaminophen 650 mg 03/08/20 20:39 Acetaminophen 325 Mg Tablet PO Q6H PRN Headache/Pain Mild Scale (1-3) Al Hydroxide/Mg Hydroxide 30 ml 03/08/20 20:39 Magnesium Hydrox/Alum Hydrox 30 Ml Oral.Susp PO Q6H PRN Heartburn/Nausea Atorvastatin Calcium 40 mg 03/09/20 21:00 03/11/20 20:06 Atorvastatin Calcium 40 Mg Tablet PO 40 mg BEDTIME ASHISH Administration Bacitracin 1 appl 03/10/20 10:40 03/12/20 10:13 Bacitracin Oint 14 Gm Tube TOPICAL 1 appl BID ASHISH Administration Protocol Benztropine Mesylate 1 mg 03/11/20 12:27 Benztropine Mesylate 1 Mg Tablet PO TID PRN Extrapyramidal Effects Duloxetine HCl 20 mg 03/10/20 09:00 03/12/20 08:52 Duloxetine Hcl 20 Mg Capsule.Dr PO 20 mg DAILY ASHISH Administration Escitalopram Oxalate 5 mg 03/13/20 09:00 Escitalopram Oxalate 5 Mg Tablet PO DAILY ASHISH Haloperidol 5 mg 03/11/20 13:15 03/12/20 08:53 Haloperidol 5 Mg Tablet PO 5 mg BID ASHISH Administration Haloperidol 2.5 mg 03/11/20 13:16 Haloperidol 5 Mg Tablet PO BID PRN Anxiety Hydroxyzine HCl 25 mg 03/08/20 20:39 03/11/20 20:07 Hydroxyzine Hcl 25 Mg Tablet PO 25 mg BEDTIME PRN Administration Anxiety Lisinopril 40 mg 03/09/20 17:00 03/12/20 08:52 Lisinopril 40 Mg Tablet PO 40 mg DAILY ASHISH Administration Protocol Lorazepam 1 mg 03/08/20 22:59 03/12/20 10:13 Lorazepam 1 Mg Tablet PO 1 mg Q4H PRN Administration Anxiety Magnesium Hydroxide 30 ml 03/08/20 20:39 Milk Of Magnesia 30 Ml Oral.Susp PO DAILY PRN Constipation Propranolol HCl 10 mg 03/10/20 16:30 03/12/20 08:53 Propranolol Hcl 10 Mg Tablet PO 10 mg TID ASHISH Administration Protocol Trazodone HCl 50 mg 03/08/20 20:39 03/11/20 20:06 Trazodone Hcl 50 Mg Tablet PO 50 mg BEDTIME PRN Administration Insomnia Allergies Allergies Allergy/AdvReac Type Severity Reaction Status Date / Time No Known Allergies Allergy Unverified 02/19/20 16:54 [No Known Allergies*] Assessment & Plan Assessment & Plan (1) Acute anxiety: Status: Acute Code(s): F41.9 - Anxiety disorder, unspecified Assessment and Plan: Monitor Haldol for agitation. (2) Depression: Qualifiers: Active/Remission status: currently active Depression Type: major depressive disorder Major depression episode severity: moderate Major depression recurrence: recurrent Qualified Code(s): F33.1 - Major depressive disorder, recurrent, moderate Status: Acute Code(s): F32.9 - Major depressive disorder, single episode, unspecified Assessment and Plan: ct meds. early dw pt re ect. Consult for Med clearance Greater than 50% of the session was spent on counseling and/or coordination of care
[2020-03-12] MEDS: Benztropine Mesylate 1 MG TABLET PO (13:59)
[2020-03-12] MEDS: haloperidoL 5 MG TABLET 2.5 MG PO (13:59)
--- NOTE | 2020-03-12 13:59 | PM.IMCN ---
History of Present Illness Data of Consult Service Date: 03/12/20 <GARRETT Ricci - Last Filed: 03/12/20 14:29> Requesting physician: Rudi Manuel <GARRETT Ricci - Last Filed: 03/12/20 14:29> Primary Care Provider: Nael Muir MD <GARRETT Ricci - Last Filed: 03/12/20 14:29> HPI Reason for consult: Evaluation for ECT <GARRETT Ricci - Last Filed: 03/12/20 14:29> this is a 54-year-old male with a history of hypertension, dyslipidemia, ?CHF who is admitted to for management of anxiety, depression and suicidal ideation. the hospitalists were asked to see him in consultation for ECT evaluation. Patient has no history of seizures, CAD or lung disease. has had no adverse reaction to anesthesia. Denies chest pain or shortness of breath. <GARRETT Ricci - Last Filed: 03/12/20 14:29> Review of Systems Review of Systems: Yes all other systems are reviewed and are negative <GARRETT Ricci - Last Filed: 03/12/20 14:29> Constitutional: Constitutional: Denies chills and Denies fever(s) <GARRETT Ricci - Last Filed: 03/12/20 14:29> Cardiovascular: Cardiovascular: Denies chest pain <GARRETT Ricci - Last Filed: 03/12/20 14:29> Respiratory: Respiratory: Denies cough <GARRETT Ricci - Last Filed: 03/12/20 14:29> Gastrointestinal: Gastrointestinal: Denies abdominal pain <GARRETT Ricci - Last Filed: 03/12/20 14:29> Neurologic: Reports system reviewed and no additional complaints, except as documented and Reports Abnormal speech present <GARRETT Ricci - Last Filed: 03/12/20 14:29> ON LICENSE OF [facility] Medical History: Medical History CHF (congestive heart failure) Depression Essential hypertension Generalized anxiety disorder History of congestive heart failure HTN (hypertension) Hyperlipidemia <GARRETT Ricci - Last Filed: 03/12/20 14:29> Surgical History: Surgical History History of left hip replacement <GARRETT Ricci - Last Filed: 03/12/20 14:29> Social History: Social History Household Members: None Housing: House Do you presently have visiting nurse or other home services: No Alcohol intake: current Smoking Status: Light tobacco smoker Smoked in Last 30 Days: No Patient Interested in Nicotine Replacement: No Patient Given Instructions on How to Stop Smoking: No Date Education Initiated: 03/09/20 Second Hand Smoke Exposure: No Use of substances other than those prescribed or required for medical reasons: Yes Substance Use Type: Marijuana Substance Use Type Other:: recovering opiate abuse Substance Use Frequency: Monthly Last Used Substance: Just Prior to Admission Currently Displaying Signs/Symptoms of Drug Intoxication Withdrawal: No Any prior treatment program specific to substance use: Yes (was in detox facility for opiates use x10 times) Have you been hit, kicked, punched, or otherwise hurt by someone within the past year? If so, by whom?: No Do you feel safe in your current relationship?: No Current Relationship Is there a partner from a previous relationship who is making you feel unsafe now?: No Are you made to feel afraid or neglected: No Advance Directives: No Advance Directives Information Provided: Yes Advance Directives on File: No Suicidal Behavior: Self-injurious behavior Current/Past Psychiatric Disorders: Mood disorder and Substance abuse [place] Symptoms: Anxiety, Hopelessness and Impulsivity Access to Firearms: No Do you have thoughts of harming others: None Do you have a plan to hurt others: No Plan Recently lost weight without trying: No service: No Sexual orientation: Straight/Heterosexual <GARRETT Ricci - Last Filed: 03/12/20 14:29> Meds Allergies/Adverse reactions: Allergies Allergy/AdvReac Type Severity Reaction Status Date / Time No Known Allergies Allergy Verified 03/19/20 09:17 [No Known Allergies*] <GARRETT Ricci - Last Filed: 03/12/20 14:29> Home medications: Home Medications Medication Instructions Recorded Confirmed Type atorvastatin 40 mg PO BEDTIME 03/09/20 03/09/20 History escitalopram oxalate 30 mg PO DAILY 03/09/20 03/09/20 History hydroxyzine HCl 50 mg PO TID PRN 03/09/20 03/09/20 History lisinopril 40 mg PO DAILY 03/09/20 03/09/20 History risperidone 1 mg PO BEDTIME 03/09/20 03/09/20 History <GARRETT Ricci Last Filed: 03/12/20 14:29> Physical Exam Vital Signs and Narrative: Vital Signs: Last Vital Signs Temp 97.8 F 03/12/20 06:22 Pulse 69 03/12/20 08:53 Resp 16 03/12/20 06:22 BP 106/68 03/12/20 08:53 Pulse Ox 95 03/12/20 06:22 Body Mass Index 35.6 <GARRETT Ricci Last Filed: 03/12/20 14:29> Const: Nutritional Appearance: well nourished <GARRETT Ricci Last Filed: 03/12/20 14:29> Orientation/consciousness: patient oriented x3 <GARRETT Ricci Last Filed: 03/12/20 14:29> HENMT: Head: Yes normocephalic and Yes atraumatic <GARRETT Ricci Last Filed: 03/12/20 14:29> Eyes: Sclerae: sclerae normal <GARRETT Ricci Last Filed: 03/12/20 14:29> Chest: Chest palpation & inspection: normal inspection of the chest <GARRETT Ricci Last Filed: 03/12/20 14:29> Resp: Effort & Inspection: normal respiratory effort and no respiratory distress <GARRETT Ricci Last Filed: 03/12/20 14:29> Auscultation: clear to auscultation bilaterally <GARRETT Ricci Last Filed: 03/12/20 14:29> Cardio: Rate: regular rate <GARRETT Ricci Last Filed: 03/12/20 14:29> Rhythm: regular rhythm <GARRETT Ricci Last Filed: 03/12/20 14:29> Skin: General skin exam: no rashes or lesions noted <GARRETT Ricci - Last Filed: 03/12/20 14:29> Neuro: General: patient oriented x3 <GARRETT Ricci - Last Filed: 03/12/20 14:29> Cranial nerves: Yes CN's II-XII intact bilaterally and Yes Bilaterally intact EOM present <GARRETT Ricci Last Filed: 03/12/20 14:29> Speech: Abnormal speech present <GARRETT Ricci - Last Filed: 03/12/20 14:29> Results Labs Labs: Laboratory Tests 03/08/20 03/08/20 03/08/20 08:43 08:43 08:43 WBC 9.9 RBC 5.29 Hgb 15.0 Hct 44.0 MCV 83.2 MCH 28.4 MCHC 34.1 RDW 13.4 Plt Count 231 MPV 10.3 Immature Gran % (Auto) 0.7 H Neut % (Auto) 75.2 H Lymph % (Auto) 10.9 L [place] % (Auto) 8.9 Eos % (Auto) 4.1 H Baso % (Auto) 0.2 Neut # (Auto) 7.4 Lymph # (Auto) 1.1 L [place] # (Auto) 0.9 Eos # (Auto) 0.4 Baso # (Auto) 0.0 Abs Immat Gran (auto) 0.07 H Absolute Nucleated RBC 0.000 Nucleated RBC % (auto) 0.0 Sodium 140 Potassium 4.2 Chloride 108 Carbon Dioxide 23 Anion Gap 13 BUN 27 H Creatinine 1.20 Estim Creat Clear Calc 88.0 Estimated GFR > 60 Random Glucose 103 Estimat Average Glucose Hemoglobin A1c % Calcium 9.2 Total Bilirubin 1.8 H AST 20 ALT 39 Alkaline Phosphatase 131 H Total Protein 7.2 Albumin 4.2 Triglycerides Cholesterol LDL Cholesterol, Calc HDL Cholesterol Urine Opiates Screen Ur Barbiturates Screen Ur Phencyclidine Scrn Ur Amphetamines Screen U Benzodiazepines Scrn Urine Cocaine Screen U Marijuana (THC) Screen Ethyl Alcohol < 10 Coronavirus (PCR) 03/08/20 03/08/20 03/08/20 12:39 19:13 23:21 WBC RBC Hgb Hct MCV MCH MCHC RDW Plt Count MPV Immature Gran % (Auto) Neut % (Auto) Lymph % (Auto) [place] % (Auto) Eos % (Auto) Baso % (Auto) Neut # (Auto) Lymph # (Auto) [place] # (Auto) Eos # (Auto) Baso # (Auto) Abs Immat Gran (auto) Absolute Nucleated RBC Nucleated RBC % (auto) Sodium Potassium Chloride Carbon Dioxide Anion Gap BUN Creatinine Estim Creat Clear Calc Estimated GFR Random Glucose Estimat Average Glucose 108 Hemoglobin A1c % 5.4 Calcium Total Bilirubin AST ALT Alkaline Phosphatase Total Protein Albumin Triglycerides Cholesterol LDL Cholesterol, Calc HDL Cholesterol Urine Opiates Screen Not Detected Ur Barbiturates Screen Not Detected Ur Phencyclidine Scrn Not Detected Ur Amphetamines Screen Not Detected U Benzodiazepines Scrn Not Detected Urine Cocaine Screen Not Detected U Marijuana (THC) Screen POSITIVE H Ethyl Alcohol Coronavirus (PCR) NEGATIVE 03/08/20 23:22 WBC RBC Hgb Hct MCV MCH MCHC RDW Plt Count MPV Immature Gran % (Auto) Neut % (Auto) Lymph % (Auto) [place] % (Auto) Eos % (Auto) Baso % (Auto) Neut # (Auto) Lymph # (Auto) [place] # (Auto) Eos # (Auto) Baso # (Auto) Abs Immat Gran (auto) Absolute Nucleated RBC Nucleated RBC % (auto) Sodium Potassium Chloride Carbon Dioxide Anion Gap BUN Creatinine Estim Creat Clear Calc Estimated GFR Random Glucose Estimat Average Glucose Hemoglobin A1c % Calcium Total Bilirubin AST ALT Alkaline Phosphatase Total Protein Albumin Triglycerides 114 Cholesterol 136 LDL Cholesterol, Calc 74 HDL Cholesterol 40 Urine Opiates Screen Ur Barbiturates Screen Ur Phencyclidine Scrn Ur Amphetamines Screen U Benzodiazepines Scrn Urine Cocaine Screen U Marijuana (THC) Screen Ethyl Alcohol Coronavirus (PCR) <GARRETT Ricci - Last Filed: 03/12/20 14:29> Assessment and Plan (1) Depression: Qualifiers: Active/Remission status: currently active Depression Type: major depressive disorder Major depression episode severity: moderate Major depression recurrence: recurrent Qualified Code(s): F33.1 - Major depressive disorder, recurrent, moderate <GARRETT Ricci - Last Filed: 03/12/20 14:29> Status: Acute <GARRETT Ricci - Last Filed: 03/12/20 14:29> (2) Acute anxiety: Status: Acute <GARRETT Ricci - Last Filed: 03/12/20 14:29> This is a 54 year old male admitted to for management of anxiety, depression and suicidal ideation being evaluated for ECT treatments. ECT No known history of cad. Reports a history of CHF although does not take diuretics. Cardiac risk factors including HTN, HLD and obesity. EKG showing twave inversions. No previous EKGs for comparison. Would recommend cardiology evaluation prior to ECT. Thank you for allowing us to participate in the care of this patient. This case was discussed with Dr. Saleem <Ana Jaramillo, PA - Last Filed: 03/12/20 14:29>
[2020-03-12 14:00] VITALS: PULSE 100
[2020-03-12 18:00] VITALS: BP 105/61; PULSE 101; TEMP 36.3
[2020-03-12 20:19] VITALS: BP 105/61; PULSE 101
[2020-03-12] MEDS: Atorvastatin Calcium 40 MG TABLET PO (20:19)
[2020-03-13 08:41] VITALS: BP 116/73; PULSE 76
[2020-03-13] MEDS: Propranolol HCL 10 MG TABLET PO ×3 (08:41→20:37)
[2020-03-13] MEDS: Escitalopram Oxalate 5 MG TABLET PO (08:41)
[2020-03-13 08:42] VITALS: BP 116/73; PULSE 76
[2020-03-13] MEDS: haloperidoL 5 MG TABLET PO ×2 (08:42→20:37)
[2020-03-13] MEDS: lisinopriL 40 MG TABLET PO (08:42)
[2020-03-13] MEDS: DULoxetine HCl 20 MG CAPSULE.DR PO (08:42)
[2020-03-13] MEDS: Bacitracin Oint 14 GM TUBE 1 APPL TOPICAL ×2 (08:43→20:36)
[2020-03-13] MEDS: LORazepam 1 MG TABLET PO ×2 (11:00→22:28)
[2020-03-13 12:00] VITALS: BP 116/73; PULSE 76; TEMP 36.1
[2020-03-13] MEDS: Benztropine Mesylate 1 MG TABLET PO (14:09)
[2020-03-13] MEDS: haloperidoL 5 MG TABLET 2.5 MG PO (14:09)
[2020-03-13 14:10] VITALS: PULSE 100
[2020-03-13 18:00] VITALS: BP 105/55; PULSE 101; TEMP 36.3
--- NOTE | 2020-03-13 19:25 | HO.PSYCHPN ---
Subjective Subjective Date of Service: 03/13/20 Reason For Visit: anxiety Subjective Notes: Conditional Voluntary Interim History: Juan was focused on his depression and determined that he would get ECT He had no psychotic symptoms. He had many appropriate quesitons about ECT Cardiology consult is pending Medication Compliance: Yes Side effects from medications: No Attending Groups: Intermittent Review of Systems Acute medical concerns: No Medical Review of Systems: unchanged Review of Systems Review of Systems Yes all other systems are reviewed and are negative Reports system reviewed and no additional complaints, except as documented and Reports Abnormal speech present Mental Status Exam Mental Status Exam Patient Appearance: Disheveled Patient Orientation: Person, Place, Time and Situation Level of Consciousness: Awake Patient Behavior: Restless, Anxious and Fearful Mood Description: Depressed, Fearful and Labile Affect Description: Depressed and Fearful Patient Cognition Impaired: No Ability to Follow Directions: Excellent Speech Pattern: Coherent, Excessive and Animated Memory Description: Intact Hallucinations: None Delusions: Not Present Thought Process: Intact and Goal Oriented Thought Content: positive for Intact, positive for Circumstantial, negative for Suicidal Ideation and negative for Homicidal Ideation Depressive Symptoms: Increased Anxiety, Insomnia, Diff. Making Decisions, Difficulty Sleeping, Feelings of Worthlessness and Hopelessness Judgement: Fair Diagnostics Vital Signs (24Hr): Vital Signs - 24 hr 03/12/20 20:19 03/13/20 08:41 03/13/20 08:42 Temperature Pulse Rate 101 H 76 76 Blood Pressure 105/61 116/73 116/73 03/13/20 12:00 03/13/20 14:10 Temperature 96.9 F Pulse Rate 76 100 Blood Pressure 116/73 Body Mass Index 35.6 Labs Results: 03/08/20 08:43 03/08/20 08:43 Medications Medications Current Medications Generic Name Dose Route Start Last Admin Trade Name Freq PRN Reason Stop Dose Admin Acetaminophen 650 mg 03/08/20 20:39 Acetaminophen 325 Mg Tablet PO Q6H PRN Headache/Pain Mild Scale (1-3) Al Hydroxide/Mg Hydroxide 30 ml 03/08/20 20:39 Magnesium Hydrox/Alum Hydrox 30 Ml Oral.Susp PO Q6H PRN Heartburn/Nausea Atorvastatin Calcium 40 mg 03/09/20 21:00 03/12/20 20:19 Atorvastatin Calcium 40 Mg Tablet PO 40 mg BEDTIME ASHISH Administration Bacitracin 1 appl 03/10/20 10:40 03/13/20 08:43 Bacitracin Oint 14 Gm Tube TOPICAL 1 appl BID ASHISH Administration Protocol Benztropine Mesylate 1 mg 03/11/20 12:27 03/13/20 14:09 Benztropine Mesylate 1 Mg Tablet PO 1 mg TID PRN Administration Extrapyramidal Effects Duloxetine HCl 20 mg 03/10/20 09:00 03/13/20 08:42 Duloxetine Hcl 20 Mg Capsule.Dr PO 20 mg DAILY ASHISH Administration Escitalopram Oxalate 5 mg 03/13/20 09:00 03/13/20 08:41 Escitalopram Oxalate 5 Mg Tablet PO 5 mg DAILY ASHISH Administration Haloperidol 5 mg 03/11/20 13:15 03/13/20 08:42 Haloperidol 5 Mg Tablet PO 5 mg BID ASHISH Administration Haloperidol 2.5 mg 03/11/20 13:16 03/13/20 14:09 Haloperidol 5 Mg Tablet PO 2.5 mg BID PRN Administration Anxiety Hydroxyzine HCl 25 mg 03/08/20 20:39 03/11/20 20:07 Hydroxyzine Hcl 25 Mg Tablet PO 25 mg BEDTIME PRN Administration Anxiety Lisinopril 40 mg 03/09/20 17:00 03/13/20 08:42 Lisinopril 40 Mg Tablet PO 40 mg DAILY ASHISH Administration Protocol Lorazepam 1 mg 03/08/20 22:59 03/13/20 11:00 Lorazepam 1 Mg Tablet PO 1 mg Q4H PRN Administration Anxiety Magnesium Hydroxide 30 ml 03/08/20 20:39 Milk Of Magnesia 30 Ml Oral.Susp PO DAILY PRN Constipation Propranolol HCl 10 mg 03/10/20 16:30 03/13/20 14:10 Propranolol Hcl 10 Mg Tablet PO 10 mg TID ASHISH Administration Protocol Trazodone HCl 50 mg 03/08/20 20:39 03/11/20 20:06 Trazodone Hcl 50 Mg Tablet PO 50 mg BEDTIME PRN Administration Insomnia Allergies Allergies Allergy/AdvReac Type Severity Reaction Status Date / Time No Known Allergies Allergy Unverified 02/19/20 16:54 [No Known Allergies*] Assessment & Plan Assessment & Plan (1) Major depression: Status: Acute Code(s): F32.9 - Major depressive disorder, single episode, unspecified Assessment and Plan: CT medications Consider ECT Greater than 50% of the session was spent on counseling and/or coordination of care
[2020-03-13 20:37] VITALS: BP 105/55; PULSE 101
[2020-03-13] MEDS: Atorvastatin Calcium 40 MG TABLET PO (20:37)
[2020-03-13] MEDS: traZODone HCL 50 MG TABLET PO (21:32)
[2020-03-14 07:18] VITALS: BP 111/68; PULSE 62; TEMP 36.6
[2020-03-14 08:50] VITALS: BP 111/60; PULSE 62
[2020-03-14] MEDS: Propranolol HCL 10 MG TABLET PO ×3 (08:50→20:54)
[2020-03-14 08:51] VITALS: BP 111/60; PULSE 62
[2020-03-14] MEDS: haloperidoL 5 MG TABLET PO ×2 (08:51→20:54)
[2020-03-14] MEDS: Escitalopram Oxalate 5 MG TABLET PO (08:51)
[2020-03-14] MEDS: lisinopriL 40 MG TABLET PO (08:51)
[2020-03-14] MEDS: DULoxetine HCl 20 MG CAPSULE.DR PO (08:51)
[2020-03-14] MEDS: Bacitracin Oint 14 GM TUBE 1 APPL TOPICAL ×2 (08:52→20:55)
[2020-03-14] MEDS: LORazepam 1 MG TABLET PO ×3 (10:30→18:04)
--- NOTE | 2020-03-14 12:06 | PM.CNCAR ---
History of Present Illness History of Present Illness Date of Consult: March 14, 2020 Requesting physician: Rudi Manuel Consult reason: pre-op evaluation Chief complaint: anxiety Narrative: This is a cardiology consultation regarding preoperative risk stratification for ECT therapy. Patient has a history of depression. From the cardiac standpoint, there is a question of congestive heart failure. Patient states that he had seen a beef selector in [place] many years ago. At that time, apparently underwent stress testing. The reasoning was that he was getting short of breath during went at times. However, he is no longer having any shortness of breath or angina or any other cardiac symptoms. Based on the stress test in many years ago, he was told to have ' low EF'. However, patient is not really able to give any further information in this regard. There is no history of any coronary disease or myocardial infarction. Review of Systems Review of Systems: Cardiology-negative for angina, shortness of breath, palpitations, dizzy spells or syncopal episodes. Psychiatric -positive for anxiety and depression. Remainder of the 10 system review is negative. FOR[facility]LY [facility], [facility] Past Medical History Medical History CHF (congestive heart failure) Depression Generalized anxiety disorder HTN (hypertension) Hyperlipidemia Family History Pertinent family history: Per patient, cardiac issues run in his father side but he is not able to give any further details. Surgical History Surgical History History of left hip replacement Social History Social History Household Members: None Housing: House Do you presently have visiting nurse or other home services: No Alcohol intake: current Smoking Status: Light tobacco smoker Patient Interested in Nicotine Replacement: No Patient Given Instructions on How to Stop Smoking: No Date Education Initiated: 03/09/20 Second Hand Smoke Exposure: No Use of substances other than those prescribed or required for medical reasons: Yes Substance Use Type: Marijuana Substance Use Type Other:: recovering opiate abuse Substance Use Frequency: Daily Last Used Substance: Just Prior to Admission Currently Displaying Signs/Symptoms of Drug Intoxication Withdrawal: No Any prior treatment program specific to substance use: Yes (was in detox facility for opiates use x10 times) Have you been hit, kicked, punched, or otherwise hurt by someone within the past year? If so, by whom?: No Do you feel safe in your current relationship?: No Current Relationship Is there a partner from a previous relationship who is making you feel unsafe now?: No Are you made to feel afraid or neglected: No Advance Directives: No Advance Directives Information Provided: Yes Advance Directives on File: No Suicidal Behavior: Self-injurious behavior Current/Past Psychiatric Disorders: Mood disorder and Substance abuse [place] Symptoms: Anxiety, Hopelessness and Impulsivity Access to Firearms: No Do you have thoughts of harming others: None Do you have a plan to hurt others: No Plan Recently lost weight without trying: Yes service: No Sexual orientation: Straight/Heterosexual Meds Allergies Allergy/AdvReac Type Severity Reaction Status Date / Time No Known Allergies Allergy Unverified 02/19/20 16:54 [No Known Allergies*] Home Medications Medication Instructions Recorded Confirmed Type atorvastatin 40 mg PO BEDTIME 03/09/20 03/09/20 History escitalopram oxalate 30 mg PO DAILY 03/09/20 03/09/20 History hydroxyzine HCl 50 mg PO TID PRN 03/09/20 03/09/20 History lisinopril 40 mg PO DAILY 03/09/20 03/09/20 History risperidone 1 mg PO BEDTIME 03/09/20 03/09/20 History Physical Exam Vital Signs: Vital Signs: Vital Signs Temp Pulse BP 03/14/20 08:51 62 111/60 03/14/20 08:50 62 111/60 03/14/20 07:18 97.9 F 62 111/68 03/13/20 20:37 101 H 105/55 L 03/13/20 18:00 97.3 F 101 H 105/55 L 03/13/20 14:10 100 Body Mass Index 35.6 Comfortable, no distress No pallor, icterus or cyanosis HEENT -unremarkable JVD- normal Cardiac- normal heart sounds, no murmurs, gallops or rubs, normal PMI Respiratory-normal breath sounds bilaterally, no crackles, no wheeze Abdomen- soft, nontender Neuro- alert and oriented Lower extremities- no significant edema, warm well perfused Results Labs and Meds Result diagrams: 03/08/20 08:43 03/08/20 08:43 Cardiology Testing Echo: pending EKG Interpretation EKG Comments: EKG was reviewed by me. Underlying rhythm is sinus at 88/Min. Cannot exclude old inferior infarct but could also be from body habitus. Assessment and Plan (1) Preoperative cardiovascular examination: Status: Acute (2) History of congestive heart failure: Status: Acute (3) Essential hypertension: Status: Acute (4) Depression: Qualifiers: Active/Remission status: currently active Depression Type: major depressive disorder Major depression episode severity: moderate Major depression recurrence: recurrent Qualified Code(s): F33.1 - Major depressive disorder, recurrent, moderate Status: Acute Clinically, no evidence of any congestive heart failure. Will need to obtain records from [facility] where he apparently had a stress test few years ago (requested [facility] staff). Echocardiogram can be performed here on Sunday. We will follow up with you.
[2020-03-14] MEDS: haloperidoL 5 MG TABLET 2.5 MG PO (14:07)
[2020-03-14 14:18] VITALS: PULSE 88
[2020-03-14 18:00] VITALS: BP 123/88; PULSE 88; TEMP 36.3
--- NOTE | 2020-03-14 19:06 | HO.PSYCHPN ---
Subjective Subjective Date of Service: 03/14/20 Reason For Visit: anxiety Subjective Notes: Conditional Voluntary Interim History: Juan was focused on his depression and determined that he would get ECT He had no psychotic symptoms. He was seen by cardiology, and will be having a stress test. Medication Compliance: Yes Side effects from medications: No Attending Groups: Intermittent Review of Systems Acute medical concerns: No Medical Review of Systems: unchanged Review of Systems Review of Systems Yes all other systems are reviewed and are negative Reports system reviewed and no additional complaints, except as documented and Reports Abnormal speech present Diagnostics Vital Signs (24Hr): Vital Signs - 24 hr 03/13/20 20:37 03/14/20 07:18 03/14/20 08:50 Temperature 97.9 F Pulse Rate 101 H 62 62 Blood Pressure 105/55 L 111/68 111/60 03/14/20 08:51 03/14/20 14:18 Temperature Pulse Rate 62 88 Blood Pressure 111/60 Body Mass Index 35.6 Labs Results: 03/08/20 08:43 03/08/20 08:43 Medications Medications Current Medications Generic Name Dose Route Start Last Admin Trade Name Freq PRN Reason Stop Dose Admin Acetaminophen 650 mg 03/08/20 20:39 Acetaminophen 325 Mg Tablet PO Q6H PRN Headache/Pain Mild Scale (1-3) Al Hydroxide/Mg Hydroxide 30 ml 03/08/20 20:39 Magnesium Hydrox/Alum Hydrox 30 Ml Oral.Susp PO Q6H PRN Heartburn/Nausea Atorvastatin Calcium 40 mg 03/09/20 21:00 03/13/20 20:37 Atorvastatin Calcium 40 Mg Tablet PO 40 mg BEDTIME ASHISH Administration Bacitracin 1 appl 03/10/20 10:40 03/14/20 08:52 Bacitracin Oint 14 Gm Tube TOPICAL 1 appl BID ASHISH Administration Protocol Benztropine Mesylate 1 mg 03/11/20 12:27 03/13/20 14:09 Benztropine Mesylate 1 Mg Tablet PO 1 mg TID PRN Administration Extrapyramidal Effects Duloxetine HCl 20 mg 03/10/20 09:00 03/14/20 08:51 Duloxetine Hcl 20 Mg Capsule.Dr PO 20 mg DAILY ASHISH Administration Escitalopram Oxalate 5 mg 03/13/20 09:00 03/14/20 08:51 Escitalopram Oxalate 5 Mg Tablet PO 5 mg DAILY ASHISH Administration Haloperidol 5 mg 03/11/20 13:15 03/14/20 08:51 Haloperidol 5 Mg Tablet PO 5 mg BID ASHISH Administration Haloperidol 2.5 mg 03/11/20 13:16 03/14/20 14:07 Haloperidol 5 Mg Tablet PO 2.5 mg BID PRN Administration Anxiety Hydroxyzine HCl 25 mg 03/08/20 20:39 03/11/20 20:07 Hydroxyzine Hcl 25 Mg Tablet PO 25 mg BEDTIME PRN Administration Anxiety Lisinopril 40 mg 03/09/20 17:00 03/14/20 08:51 Lisinopril 40 Mg Tablet PO 40 mg DAILY ASHISH Administration Protocol Lorazepam 1 mg 03/08/20 22:59 03/14/20 18:04 Lorazepam 1 Mg Tablet PO 1 mg Q4H PRN Administration Anxiety Magnesium Hydroxide 30 ml 03/08/20 20:39 Milk Of Magnesia 30 Ml Oral.Susp PO DAILY PRN Constipation Propranolol HCl 10 mg 03/10/20 16:30 03/14/20 14:18 Propranolol Hcl 10 Mg Tablet PO 10 mg TID ASHISH Administration Protocol Trazodone HCl 50 mg 03/08/20 20:39 03/13/20 21:32 Trazodone Hcl 50 Mg Tablet PO 50 mg BEDTIME PRN Administration Insomnia Allergies Allergies Allergy/AdvReac Type Severity Reaction Status Date / Time No Known Allergies Allergy Unverified 02/19/20 16:54 [No Known Allergies*] Assessment & Plan Assessment & Plan (1) Major depression: Status: Acute Code(s): F32.9 - Major depressive disorder, single episode, unspecified Assessment and Plan: Continue medication without change. Cardiac RAHMAN in process Greater than 50% of the session was spent on counseling and/or coordination of care Patient educated on: diagnosis, medication risk/benefits, ECT and therapeutic strategies Informed Consent: further education needed Reason for contiued inpatient stay Substantial Risk for: harm to self, inability to function and rapid decompensation
[2020-03-14] MEDS: traZODone HCL 50 MG TABLET PO (20:53)
[2020-03-14 20:54] VITALS: BP 123/88; PULSE 88
[2020-03-14] MEDS: Atorvastatin Calcium 40 MG TABLET PO (20:54)
[2020-03-15 06:30] VITALS: BP 103/64; PULSE 71; RESP 18; TEMP 36.6
[2020-03-15 08:53] VITALS: BP 103/64; PULSE 71
[2020-03-15] MEDS: Escitalopram Oxalate 5 MG TABLET PO (08:53)
[2020-03-15] MEDS: lisinopriL 40 MG TABLET PO (08:53)
[2020-03-15] MEDS: Propranolol HCL 10 MG TABLET PO ×3 (08:53→21:08)
[2020-03-15] MEDS: haloperidoL 5 MG TABLET PO ×2 (08:53→21:09)
[2020-03-15] MEDS: DULoxetine HCl 20 MG CAPSULE.DR PO (08:53)
--- NOTE | 2020-03-15 10:17 | P.PNPSI_ITS ---
Subjective Subjective Reason For Visit: anxiety Interim History: Juan was focused on his depression and determined that he would get ECT He had no psychotic symptoms. patient ruminating quite anxious. He seemed to have limited insight had not been treated for an extended period of time unclear why he he was focused on ECT He was seen by cardiology, and will be having a stress test. Review of Systems Reports system reviewed and no additional complaints, except as documented and Reports Abnormal speech present Mental Status Exam Mental Status Exam Patient Appearance: Disheveled Patient Orientation: Person, Place, Time and Situation Level of Consciousness: Awake Patient Behavior: Restless, Anxious and Fearful Mood Description: Depressed, Fearful and Labile Affect Description: Depressed and Fearful Patient Cognition Impaired: No Ability to Follow Directions: Excellent Speech Pattern: Coherent, Excessive and Animated Memory Description: Intact Diagnostics Vital Signs (24Hr): Vital Signs - 24 hr 03/14/20 14:18 03/14/20 18:00 03/14/20 20:54 Temperature 97.4 F Pulse Rate 88 88 88 Respiratory Rate Blood Pressure 123/88 123/88 03/15/20 06:30 03/15/20 08:53 Temperature 97.8 F Pulse Rate 71 71 Respiratory Rate 18 Blood Pressure 103/64 103/64 Body Mass Index 35.6 Labs Results: 03/08/20 08:43 03/08/20 08:43 Medications Medications Current Medications Generic Name Dose Route Start Last Admin Trade Name Freq PRN Reason Stop Dose Admin Acetaminophen 650 mg 03/08/20 20:39 Acetaminophen 325 Mg Tablet PO Q6H PRN Headache/Pain Mild Scale (1-3) Al Hydroxide/Mg Hydroxide 30 ml 03/08/20 20:39 Magnesium Hydrox/Alum Hydrox 30 Ml Oral.Susp PO Q6H PRN Heartburn/Nausea Atorvastatin Calcium 40 mg 03/09/20 21:00 03/14/20 20:54 Atorvastatin Calcium 40 Mg Tablet PO 40 mg BEDTIME ASHISH Administration Bacitracin 1 appl 03/10/20 10:40 03/15/20 08:55 Bacitracin Oint 14 Gm Tube TOPICAL Not Given BID [facility] Protocol Benztropine Mesylate 1 mg 03/11/20 12:27 03/13/20 14:09 Benztropine Mesylate 1 Mg Tablet PO 1 mg TID PRN Administration Extrapyramidal Effects Duloxetine HCl 20 mg 03/10/20 09:00 03/15/20 08:53 Duloxetine Hcl 20 Mg Capsule. PO 20 mg DAILY ASHISH Administration Escitalopram Oxalate 5 mg 03/13/20 09:00 03/15/20 08:53 Escitalopram Oxalate 5 Mg Tablet PO 5 mg DAILY ASHISH Administration Haloperidol 5 mg 03/11/20 13:15 03/15/20 08:53 Haloperidol 5 Mg Tablet PO 5 mg BID ASHISH Administration Haloperidol 2.5 mg 03/11/20 13:16 03/14/20 14:07 Haloperidol 5 Mg Tablet PO 2.5 mg BID PRN Administration Anxiety Hydroxyzine HCl 25 mg 03/08/20 20:39 03/11/20 20:07 Hydroxyzine Hcl 25 Mg Tablet PO 25 mg BEDTIME PRN Administration Anxiety Lisinopril 40 mg 03/09/20 17:00 03/15/20 08:53 Lisinopril 40 Mg Tablet PO 40 mg DAILY ASHISH Administration Protocol Lorazepam 1 mg 03/08/20 22:59 03/14/20 18:04 Lorazepam 1 Mg Tablet PO 1 mg Q4H PRN Administration Anxiety Magnesium Hydroxide 30 ml 03/08/20 20:39 Milk Of Magnesia 30 Ml Oral.Susp PO DAILY PRN Constipation Propranolol HCl 10 mg 03/10/20 16:30 03/15/20 08:53 Propranolol Hcl 10 Mg Tablet PO 10 mg TID ASHISH Administration Protocol Trazodone HCl 50 mg 03/08/20 20:39 03/14/20 20:53 Trazodone Hcl 50 Mg Tablet PO 50 mg BEDTIME PRN Administration Insomnia Allergies Allergies Allergy/AdvReac Type Severity Reaction Status Date / Time No Known Allergies Allergy Unverified 02/19/20 16:54 [No Known Allergies*] Assessment & Plan Assessment & Plan (1) Major depression: Status: Acute Code(s): F32.9 - Major depressive disorder, single episode, unspecified Assessment and Plan: Continue medication without change. Cardiac RAHMAN in process patient is focused on ECT has not had many medication trials unclear will why he has such intense focus at this time. Somewhat pressured agitated Finding it difficult to take an information. Cardiac workup in place obsessional and ruminating. Might benefit from Zyprexa failed trial of escitalopram Greater than 50% of the session was spent on counseling and/or coordination of care
[2020-03-15] MEDS: LORazepam 1 MG TABLET PO ×3 (10:41→21:08)
[2020-03-15] MEDS: Benztropine Mesylate 1 MG TABLET PO (11:43)
[2020-03-15] MEDS: haloperidoL 5 MG TABLET 2.5 MG PO (11:43)
--- NOTE | 2020-03-15 12:00 | CA_ITS ---
Transthoracic Echocardiogram Patient (Last, First, Middle): Juan Morgan, Gender: Male Date of : 1965 Age: 54 Procedure Date: 03/15/2020 Procedure Type: Transthoracic Echocardiogram Location: M5 Height: 175.26 cm Weight: 108.86 kg BSA: 2.23 m2 Heart Rate: bpm BP: 103 / 64 mmHg Buncher Machine: Referring MD: Corey Lozada MD Symptoms: PREOP, CHF Study Quality: Fair ECG Rhythm: Sinus Conclusions: - The left ventricular systolic function is normal. The visually estimated ejection fraction is between 60-65%. - No obvious valvular pathology seen on this study. Findings Left Ventricle Normal left ventricular cavity size. There is mildly increased left ventricular wall thickness. The left ventricular systolic function is normal. The visually estimated ejection fraction is between 60-65%. There is no evidence of regional wall motion abnormalities. Diastolic function is normal for age. Right Ventricle Normal right ventricular cavity size and systolic function. Atria The left atrium is normal in size. The right atrium is normal in size. Aortic Valve There is a normal trileaflet aortic valve. There is no aortic valve stenosis. There is no aortic valve regurgitation. Mitral Valve The mitral valve appears normal. There is trace mitral valve regurgitation. There is no mitral valve stenosis. Pulmonic Valve The pulmonic valve was not well visualized. Tricuspid Valve Normal tricuspid valve structure. There is trace tricuspid valve regurgitation. The pulmonary artery systolic pressure is normal. Great Vessels The aortic annulus, sinuses of valsalva, and asc aorta are normal in size. Venous The inferior vena cava is normal in size and collapses greater than 50% with inspiration. Pericardium/Pleural There is no evidence of pericardial effusion. Prior Study Comparison No prior study available for comparison. Recommendations, Care & Conclusions No obvious valvular pathology seen on this study. Measurements 2D Linear Measurements IVSd: 1.21 0.6-0.9/0.6-1.0 cm LVIDd: 4.35 3.9-5.3/4.2-5.9 cm LVIDd Index: 1.95 2.4-3.2/2.2-3.1 cm/m2 LVIDs: 2.69 2.0-3.6 cm LVPWd: 1.20 0.7-1.1 cm Ao Root: 3.90 2.1-3.5 cm LA Diam: 3.60 2.7-3.8/3.0-4.0 cm LAIDs Index: 1.61 1.5-2.3 cm/m2 LV Mass: 235.67 67-162/88-224 g LV Mass Index: 105.68 43-95/49-115 g/m2 LVOT Diam: 2.50 3.0+(-)1.3 cm Mitral Valve MV Pk E: 0.58 MV PK A: 0.60 MV Decel Time: 227.00 E/A: 1.00 E'Lateral: 10.50 E'Medial: 7.45 E/E' Med: 7.80 E/E' Lat: 5.50 PHT: 67.00 MVA PHT: 3.28 Decel Woodson: 2.56 Aortic Valve AoV Pk Demetri: 1.28 AoV Mn Demetri: 0.79 AoV VTI: 0.27 AoV Pk Grad: 7.00 Aov Mn Grad: 3.00 RADHA Cont.VTI: 3.36 LVOT LVOT Pk Demetri: 0.82 LVOT Mn Demetri: 0.52 LVOT VTI: 0.19 LVOT Pk Grad: 3.00 LVOT Mn Grad: 1.00 LVOT Diam: 2.50 LVOT Area: 4.91 Diastolic Function MV Pk E: 0.58 MV Pk A: 0.60 E/A: 1.00 E'Medial: 7.45 E/E' Med: 7.80 E' Laterial: 10.50 E/E' Lat: 5.50 Tricuspid Valve TR Pk Demetri: 1.85 TR Pk Grad: 14.00 RA Press: 3.00 RVSP: 17.00 Great Vessels Aorta Ao Root-2D: 3.90 2.0-3.7 cm Ao Asc: 3.40 2.1-3.4 cm Pulmonary Valve PV Pk Demetri: 1.10 Peak PV Grad: 5.00 Updated in Other Vendor System with Status of Final Corey Lozada MD electronically signed on 03/15/2020 12:50:22 PM with status of Final
--- NOTE | 2020-03-15 13:10 | PC.NURSE ---
Cardiology called inquiring about status of information that was requested from [facility]. Requests were sent on 03/14/2020. This automatic typewriter inspector called [facility] about the release of the pulmonary stress test & electrocardiogram. [facility] to fax over requests by the end of the day.
[2020-03-15 14:54] VITALS: BP 105/70; PULSE 99
[2020-03-15 16:27] VITALS: BP 121/71; PULSE 87; TEMP 36.5
[2020-03-15 21:08] VITALS: BP 121/71; PULSE 87
[2020-03-15] MEDS: Atorvastatin Calcium 40 MG TABLET PO (21:08)
[2020-03-15] MEDS: traZODone HCL 50 MG TABLET PO (21:12)
[2020-03-16 06:21] VITALS: BP 106/67; PULSE 54; RESP 16; TEMP 36.4; O2SAT 97
[2020-03-16 08:43] VITALS: BP 106/67; PULSE 54
[2020-03-16] MEDS: Propranolol HCL 10 MG TABLET PO ×3 (08:43→20:44)
[2020-03-16] MEDS: DULoxetine HCl 20 MG CAPSULE.DR PO (08:43)
[2020-03-16] MEDS: haloperidoL 5 MG TABLET PO ×2 (08:43→20:44)
[2020-03-16] MEDS: lisinopriL 40 MG TABLET PO (08:43)
[2020-03-16] MEDS: Escitalopram Oxalate 5 MG TABLET PO (08:43)
--- NOTE | 2020-03-16 09:21 | P.PNPSI_ITS ---
Subjective Subjective Date of Service: 03/16/20 Reason For Visit: anxiety Subjective Notes: Conditional Voluntary Interim History: Pt remains very depressed. More dysphoric. Feels safe here but clearly suicidal if home. I cannot be by myself at home . vividly describes depression as overwhelming and a big weight on him. Marked agitation/perturbation. [employer] pt was in [facility] x 2 in short order. Left [facility] after argument with staff, went home OD on ETOH and Trazodone and drove to ED in [facility]. Last hospitalization 14 yrs ago at [facility] after OD on [place]. Past Trials: Lexapro 30 mg December to Mar 2020: no response. Fluvoxamine Brief in January: Dcd ? reason Effexor 2017: tinnitus Zoloft Many years ago, many months. No response Wellbutrin XL in past ? dates , X months no response. Seroquel added to Wellbutrin : too much sedation Risperidone from [facility]. recent. No response. Haldol : presently on it. Medication Compliance: Yes Side effects from medications: No Attending Groups: Yes Review of Systems Acute medical concerns: No Medical Review of Systems: unchanged Review of Systems Reports system reviewed and no additional complaints, except as documented and Reports Abnormal speech present Mental Status Exam Mental Status Exam Patient Appearance: Perspiring Patient Orientation: Person, Place, Time and Situation Level of Consciousness: Appropriate and Restless Patient Behavior: Cooperative, Restless and Anxious Mood Description: Depressed and Anxious Affect Description: Depressed and Anxious Patient Cognition Impaired: No Ability to Follow Directions: Good Speech Pattern: Clear and Appropriate Hallucinations: None Delusions: Not Present Thought Process: Intact Thought Content: positive for Suicidal Ideation Depressive Symptoms: Increased Anxiety, Insomnia, Diff. Making Decisions, Low Self Esteem and Difficulty Concentrating Abnormal Motor Activity Signs and Symptoms: Agitation Judgement: Poor Judgement and Insight: Poor impulse control Diagnostics Vital Signs (24Hr): Vital Signs - 24 hr 03/15/20 14:54 03/15/20 16:27 03/15/20 21:08 Temperature 97.7 F Pulse Rate 99 87 87 Respiratory Rate Blood Pressure 105/70 121/71 121/71 Pulse Oximetry 03/16/20 06:21 03/16/20 08:43 Temperature 97.6 F Pulse Rate 54 54 Respiratory Rate 16 Blood Pressure 106/67 106/67 Pulse Oximetry 97 Body Mass Index 35.6 Labs Results: 03/08/20 08:43 10/05/20 08:43 Medications Medications Current Medications Generic Name Dose Route Start Last Admin Trade Name Freq PRN Reason Stop Dose Admin Acetaminophen 650 mg 03/08/20 20:39 Acetaminophen 325 Mg Tablet PO Q6H PRN Headache/Pain Mild Scale (1-3) Al Hydroxide/Mg Hydroxide 30 ml 03/08/20 20:39 Magnesium Hydrox/Alum Hydrox 30 Ml Oral.Susp PO Q6H PRN Heartburn/Nausea Atorvastatin Calcium 40 mg 03/09/20 21:00 03/15/20 21:08 Atorvastatin Calcium 40 Mg Tablet PO 40 mg BEDTIME ASHISH Administration Bacitracin 1 appl 03/10/20 10:40 03/16/20 08:45 Bacitracin Oint 14 Gm Tube TOPICAL Not Given BID ASH[facility] Protocol Benztropine Mesylate 1 mg 03/11/20 12:27 03/15/20 11:43 Benztropine Mesylate 1 Mg Tablet PO 1 mg TID PRN Administration Extrapyramidal Effects Duloxetine HCl 20 mg 03/10/20 09:00 03/16/20 08:43 Duloxetine Hcl 20 Mg Capsule.Dr PO 20 mg DAILY ASHISH Administration Escitalopram Oxalate 5 mg 03/13/20 09:00 03/16/20 08:43 Escitalopram Oxalate 5 Mg Tablet PO 5 mg DAILY ASHISH Administration Haloperidol 5 mg 03/11/20 13:15 03/16/20 08:43 Haloperidol 5 Mg Tablet PO 5 mg BID ASHISH Administration Haloperidol 2.5 mg 03/11/20 13:16 03/15/20 11:43 Haloperidol 5 Mg Tablet PO 2.5 mg BID PRN Administration Anxiety Hydroxyzine HCl 25 mg 03/08/20 20:39 03/11/20 20:07 Hydroxyzine Hcl 25 Mg Tablet PO 25 mg BEDTIME PRN Administration Anxiety Lisinopril 40 mg 03/09/20 17:00 03/16/20 08:43 Lisinopril 40 Mg Tablet PO 40 mg DAILY ASHISH Administration Protocol Lorazepam 1 mg 03/08/20 22:59 03/15/20 21:08 Lorazepam 1 Mg Tablet PO 1 mg Q4H PRN Administration Anxiety Magnesium Hydroxide 30 ml 03/08/20 20:39 Milk Of Magnesia 30 Ml Oral.Susp PO DAILY PRN Constipation Propranolol HCl 10 mg 03/10/20 16:30 10/13/20 08:43 Propranolol Hcl 10 Mg Tablet PO 10 mg TID ASHISH Administration Protocol Trazodone HCl 50 mg 03/08/20 20:39 03/15/20 21:12 Trazodone Hcl 50 Mg Tablet PO 50 mg BEDTIME PRN Administration Insomnia Allergies Allergies Allergy/AdvReac Type Severity Reaction Status Date / Time No Known Allergies Allergy Unverified 02/19/20 16:54 [No Known Allergies*] Assessment & Plan Assessment & Plan (1) Essential hypertension: Status: Acute Code(s): I10 - Essential (primary) hypertension (2) History of congestive heart failure: Status: Acute Code(s): Z86.79 - Personal history of other diseases of the circulatory system (3) Preoperative cardiovascular examination: Status: Acute Code(s): Z01.810 - Encounter for preprocedural cardiovascular examination (4) Major depression: Status: Acute Code(s): F32.9 - Major depressive disorder, single episode, unspecified Greater than 50% of the session was spent on counseling and/or coordination of care Remains agitated/dysphoric. Appreciate Cardiology consult. Await records from [facility] Ct meds. Increase Cym. Monitor for Haldol response. Change to q5 with ULBR Patient educated on: diagnosis Informed Consent: understands Reason for contiued inpatient stay Substantial Risk for: harm to self and rapid decompensation
[2020-03-16] MEDS: LORazepam 1 MG TABLET PO ×3 (09:46→20:49)
[2020-03-16 15:04] VITALS: PULSE 80
[2020-03-16 18:00] VITALS: BP 118/79; PULSE 76; TEMP 36.1
[2020-03-16 20:44] VITALS: BP 118/79; PULSE 76
[2020-03-16] MEDS: Atorvastatin Calcium 40 MG TABLET PO (20:44)
[2020-03-16] MEDS: traZODone HCL 50 MG TABLET PO (20:50)
--- NOTE | 2020-03-17 | ECG_ITS ---
Test Reason : CHECK QTC Blood Pressure : / mmHG Vent. Rate : 060 BPM Atrial Rate : 060 BPM P-R Int : 166 ms QRS Dur : 086 ms QT Int : 426 ms P-R-T Axes : 023 013 037 degrees QTc Int : 426 ms Normal sinus rhythm QRS Of low voltage Otherwise normal ECG When compared with ECG of 08-MAR-2020 16:05, No significant change was found Referred By: Nicolas Brown Electronically Signed By:RADHA FINN MD
[2020-03-17 06:27] VITALS: BP 106/66; PULSE 70; RESP 16; TEMP 36.2; O2SAT 97
[2020-03-17 08:20] VITALS: BP 106/66; PULSE 70
[2020-03-17] MEDS: lisinopriL 40 MG TABLET PO (08:20)
[2020-03-17] MEDS: haloperidoL 5 MG TABLET PO (08:20)
[2020-03-17] MEDS: Propranolol HCL 10 MG TABLET PO ×3 (08:20→20:13)
[2020-03-17] MEDS: DULoxetine HCl 30 MG CAPSULE.DR PO (08:21)
[2020-03-17] MEDS: LORazepam 1 MG TABLET PO ×2 (09:47→17:44)
[2020-03-17] MEDS: Benztropine Mesylate 1 MG TABLET PO (11:25)
[2020-03-17] MEDS: haloperidoL 5 MG TABLET 2.5 MG PO ×2 (11:25→20:14)
[2020-03-17 14:49] VITALS: PULSE 84
[2020-03-17 18:00] VITALS: BP 121/75; PULSE 77; TEMP 36.6
[2020-03-17] MEDS: Magnesium Hydrox/Alum Hydrox 30 ML ORAL.SUSP PO (18:42)
[2020-03-17 20:13] VITALS: BP 121/75; PULSE 77
[2020-03-17] MEDS: traZODone HCL 50 MG TABLET PO (20:13)
[2020-03-17] MEDS: Atorvastatin Calcium 40 MG TABLET PO (20:13)
[2020-03-17] MEDS: hydrOXYzine HCL 25 MG TABLET PO (21:09)
--- NOTE | 2020-03-17 23:23 | HO.PSYCHPN ---
Subjective Subjective Reason For Visit: anxiety Interim History: patient seen in coverage for Dr. Manuel. Patient agreeable to ECT has been quite depressed multiple medication trial failures. Reported history of low ejection fraction echocardiogram completed patient denies active self-harm in this setting hopeless depressed Risperidone from [facility]. recent. No response. Haldol : presently on it. Review of Systems Reports system reviewed and no additional complaints, except as documented and Reports Abnormal speech present Mental Status Exam Mental Status Exam Patient Appearance: Perspiring Patient Orientation: Person, Place, Time and Situation Level of Consciousness: Appropriate and Restless Patient Behavior: Cooperative, Restless and Anxious Mood Description: Depressed, Anxious, Nervous and Apprehensive Affect Description: Depressed and Anxious Patient Cognition Impaired: No Ability to Follow Directions: Good Speech Pattern: Clear and Appropriate Memory Description: Intact Diagnostics Vital Signs (24Hr): Vital Signs - 24 hr 03/17/20 06:27 03/17/20 08:20 03/17/20 14:49 Temperature 97.1 F Pulse Rate 70 70 84 Respiratory Rate 16 Blood Pressure 106/66 106/66 Pulse Oximetry 97 03/17/20 18:00 03/17/20 20:13 Temperature 97.9 F Pulse Rate 77 77 Respiratory Rate Blood Pressure 121/75 121/75 Pulse Oximetry Body Mass Index 35.6 Labs Results: 03/08/20 08:43 03/08/20 08:43 Medications Medications Current Medications Generic Name Dose Route Start Last Admin Trade Name Freq PRN Reason Stop Dose Admin Acetaminophen 650 mg 03/08/20 20:39 Acetaminophen 325 Mg Tablet PO Q6H PRN Headache/Pain Mild Scale (1-3) Al Hydroxide/Mg Hydroxide 30 ml 03/08/20 20:39 03/17/20 18:42 Magnesium Hydrox/Alum Hydrox 30 Ml Oral.Susp PO 30 ml Q6H PRN Administration Heartburn/Nausea Atorvastatin Calcium 40 mg 03/09/20 21:00 03/17/20 20:13 Atorvastatin Calcium 40 Mg Tablet PO 40 mg BEDTIME ASHISH Administration Bacitracin 1 appl 03/10/20 10:40 03/17/20 20:21 Bacitracin Oint 14 Gm Tube TOPICAL Not Given BID ASH[facility] Protocol Benztropine Mesylate 1 mg 03/11/20 12:27 03/17/20 11:25 Benztropine Mesylate 1 Mg Tablet PO 1 mg TID PRN Administration Extrapyramidal Effects Duloxetine HCl 30 mg 03/17/20 09:00 03/17/20 08:21 Duloxetine Hcl 30 Mg Capsule.Dr PO 30 mg DAILY ASHISH Administration Haloperidol 2.5 mg 03/11/20 13:16 03/17/20 11:25 Haloperidol 5 Mg Tablet PO 2.5 mg BID PRN Administration Anxiety Haloperidol 2.5 mg 03/17/20 21:00 03/17/20 20:14 Haloperidol 5 Mg Tablet PO 2.5 mg BID ASHISH Administration Hydroxyzine HCl 25 mg 03/08/20 20:39 03/17/20 21:09 Hydroxyzine Hcl 25 Mg Tablet PO 25 mg BEDTIME PRN Administration Anxiety Lisinopril 40 mg 03/09/20 17:00 03/17/20 08:20 Lisinopril 40 Mg Tablet PO 40 mg DAILY ASHISH Administration Protocol Lorazepam 1 mg 03/08/20 22:59 03/17/20 17:44 Lorazepam 1 Mg Tablet PO 1 mg Q4H PRN Administration Anxiety Magnesium Hydroxide 30 ml 03/08/20 20:39 Milk Of Magnesia 30 Ml Oral.Susp PO DAILY PRN Constipation Propranolol HCl 10 mg 03/10/20 16:30 03/17/20 20:13 Propranolol Hcl 10 Mg Tablet PO 10 mg TID ASHISH Administration Protocol Trazodone HCl 50 mg 03/08/20 20:39 03/17/20 20:13 Trazodone Hcl 50 Mg Tablet PO 50 mg BEDTIME PRN Administration Insomnia Allergies Allergies Allergy/AdvReac Type Severity Reaction Status Date / Time No Known Allergies Allergy Unverified 02/19/20 16:54 [No Known Allergies*] Assessment & Plan Assessment & Plan (1) Essential hypertension: Status: Acute Code(s): I10 - Essential (primary) hypertension Assessment and Plan: continue lisinopril (2) History of congestive heart failure: Status: Acute Code(s): Z86.79 - Personal history of other diseases of the circulatory system Assessment and Plan: cardiology consult on propranolol (3) Preoperative cardiovascular examination: Status: Acute Code(s): Z01.810 - Encounter for preprocedural cardiovascular examination (4) Major depression: Status: Acute Code(s): F32.9 - Major depressive disorder, single episode, unspecified Assessment and Plan: patient will be scheduled for ECT medical clearance for ECT echocardiogram unremarkable case reviewed with Dr. Manuel patient has failed multiple medication trials acutely depressed hopeless helpless agreeable to ECT informed consent Greater than 50% of the session was spent on counseling and/or coordination of care
[2020-03-18 06:00] VITALS: BP 124/69; PULSE 91; TEMP 36
[2020-03-18] MEDS: haloperidoL 5 MG TABLET 2.5 MG PO ×3 (08:49→20:05)
[2020-03-18] MEDS: DULoxetine HCl 30 MG CAPSULE.DR PO (08:49)
[2020-03-18 08:50] VITALS: BP 124/69; PULSE 91
[2020-03-18] MEDS: Propranolol HCL 10 MG TABLET PO ×2 (08:50→21:57)
[2020-03-18] MEDS: lisinopriL 40 MG TABLET PO (08:50)
--- NOTE | 2020-03-18 11:18 | P.PNPSI_ITS ---
Subjective Subjective Reason For Visit: anxiety Interim History: Patient agreeable to ECT has been quite depressed multiple medication trial failures. ECHO here was [facility]NL. Cardiology OKed for ECT. Will write addendum. Records from [facility] report PFT and JOSE Hx but no Stress test results or Echo. Will try to get. ECT ed done. Pt feels ready for ECT. denies active self-harm in this setting hopeless depressed Haldol : presently on it. Review of Systems Acute medical concerns: No Cleared by Cardiology for ECT / Dr Escobar Medical Review of Systems: unchanged Review of Systems Reports system reviewed and no additional complaints, except as documented and Reports Abnormal speech present Mental Status Exam Mental Status Exam Patient Appearance: Perspiring Patient Orientation: Person, Place, Time and Situation Level of Consciousness: Appropriate and Restless Patient Behavior: Cooperative, Restless and Anxious Mood Description: Depressed, Anxious, Nervous and Apprehensive Affect Description: Depressed and Anxious Patient Cognition Impaired: No Ability to Follow Directions: Good Speech Pattern: Clear and Appropriate Memory Description: Intact Depressive Symptoms: Increased Anxiety, Insomnia and Unhappiness Abnormal Motor Activity Signs and Symptoms: Restlessness Judgement: Poor Diagnostics Vital Signs (24Hr): Vital Signs - 24 hr 03/17/20 14:49 03/17/20 18:00 03/17/20 20:13 Temperature 97.9 F Pulse Rate 84 77 77 Blood Pressure 121/75 121/75 03/18/20 06:00 03/18/20 08:50 Temperature 96.8 F Pulse Rate 91 91 Blood Pressure 124/69 124/69 Body Mass Index 35.6 Labs Results: 03/08/20 08:43 03/08/20 08:43 Medications Medications Current Medications Generic Name Dose Route Start Last Admin Trade Name Freq PRN Reason Stop Dose Admin Acetaminophen 650 mg 03/08/20 20:39 Acetaminophen 325 Mg Tablet PO Q6H PRN Headache/Pain Mild Scale (1-3) Al Hydroxide/Mg Hydroxide 30 ml 03/08/20 20:39 03/17/20 18:42 Magnesium Hydrox/Alum Hydrox 30 Ml Oral.Susp PO 30 ml Q6H PRN Administration Heartburn/Nausea Atorvastatin Calcium 40 mg 03/09/20 21:00 03/17/20 20:13 Atorvastatin Calcium 40 Mg Tablet PO 40 mg BEDTIME ASHISH Administration Bacitracin 1 appl 03/10/20 10:40 03/18/20 08:51 Bacitracin Oint 14 Gm Tube TOPICAL Not Given BID [facility] Protocol Benztropine Mesylate 1 mg 03/11/20 12:27 03/17/20 11:25 Benztropine Mesylate 1 Mg Tablet PO 1 mg TID PRN Administration Extrapyramidal Effects Duloxetine HCl 30 mg 03/17/20 09:00 03/18/20 08:49 Duloxetine Hcl 30 Mg Capsule.Dr PO 30 mg DAILY ASHISH Administration Haloperidol 2.5 mg 03/11/20 13:16 03/17/20 11:25 Haloperidol 5 Mg Tablet PO 2.5 mg BID PRN Administration Anxiety Haloperidol 2.5 mg 03/17/20 21:00 03/18/20 08:49 Haloperidol 5 Mg Tablet PO 2.5 mg BID ASHISH Administration Hydroxyzine HCl 25 mg 03/08/20 20:39 03/17/20 21:09 Hydroxyzine Hcl 25 Mg Tablet PO 25 mg BEDTIME PRN Administration Anxiety Lisinopril 40 mg 03/09/20 17:00 03/18/20 08:50 Lisinopril 40 Mg Tablet PO 40 mg DAILY ASHISH Administration Protocol Lorazepam 1 mg 03/08/20 22:59 03/17/20 17:44 Lorazepam 1 Mg Tablet PO 1 mg Q4H PRN Administration Anxiety Magnesium Hydroxide 30 ml 03/08/20 20:39 Milk Of Magnesia 30 Ml Oral.Susp PO DAILY PRN Constipation Propranolol HCl 10 mg 03/10/20 16:30 03/18/20 08:50 Propranolol Hcl 10 Mg Tablet PO 10 mg TID ASHISH Administration Protocol Trazodone HCl 50 mg 03/08/20 20:39 03/17/20 20:13 Trazodone Hcl 50 Mg Tablet PO 50 mg BEDTIME PRN Administration Insomnia Allergies Allergies Allergy/AdvReac Type Severity Reaction Status Date / Time No Known Allergies Allergy Unverified 02/19/20 16:54 [No Known Allergies*] Assessment & Plan Assessment & Plan (1) Essential hypertension: Status: Acute Code(s): I10 - Essential (primary) hypertension Assessment and Plan: continue lisinopril (2) History of congestive heart failure: Status: Acute Code(s): Z86.79 - Personal history of other diseases of the circulatory system Assessment and Plan: cardiology consult on propranolol. Cleared or ECT (3) Preoperative cardiovascular examination: Status: Acute Code(s): Z01.810 - Encounter for preprocedural cardiovascular examination Assessment and Plan: Cardiology consult appreciated. OK for ECT (4) Major depression: Status: Acute Code(s): F32.9 - Major depressive disorder, single episode, unspecified Assessment and Plan: patient will be scheduled for ECT medical clearance for ECT echocardiogram unremarkable case reviewed with Dr. Manuel patient has failed multiple medication trials acutely depressed hopeless helpless agreeable to ECT informed consent Greater than 50% of the session was spent on counseling and/or coordination of care
[2020-03-18 11:24] VITALS: BMI 35.4
[2020-03-18 12:52] VITALS: BMI 35.4
[2020-03-18] MEDS: Acetaminophen 325 MG TABLET 650 MG PO (13:49)
--- NOTE | 2020-03-18 14:58 | PM.PNCARD ---
Subjective Subjective Interval history: Preop for ECT. Cardiology evaluation is being completed. Pt is feeling well with no CP, sob, palpitation. He expresses some mild anxiety about the procedure. Review of Systems Review of Systems Yes all other systems are reviewed and are negative Cardiovascular: Denies chest pain, Denies chest pain at rest, Denies chest pain with activity, Denies Epigastric Pain, Denies claudication, Denies lightheadedness and Denies orthopnea Respiratory: Reports no additional respiratory complaints Physical Exam Vital Signs: Vital Signs Temp Pulse BP 03/18/20 08:50 91 124/69 03/18/20 06:00 96.8 F 91 124/69 03/17/20 20:13 77 121/75 03/17/20 18:00 97.9 F 77 121/75 Intake and Output 03/18/20 03/18/20 03/18/20 06:59 14:59 22:59 Other: Weight 239 lb 15.994 oz Patient Weight 03/19/20 06:59 Weight 239 lb 15.994 oz Const General: no acute distress, alert, awake and anxious Neck Neck: Yes no JVD Carotids: normal carotid upstroke Resp Effort & Inspection: normal respiratory effort, able to speak in complete sentences and not labored Auscultation: clear to auscultation bilaterally, no crackles, no rales, no rhonchi and no wheezes Cardio Palpation: normal PMI Rate: regular rate Rhythm: regular rhythm Heart sounds: S1 normal heart sound present and S2 normal heart sound present Extrem General: No edema Progress Note: A&P Assessment and plan (1) Preoperative cardiovascular examination: Status: Acute Assessment and Plan: Preop for ECT tomorrow. Reported hx of reduced EF. Records from [facility] received and reviewed. Stress echo completed there on 08/28/17 showed exercise 9.7 METS, achieving 94% MPHR, no EKG ischemia, no echo evidence of ischemia, EF 50%. He does not recall being told of EF any lower than 50%, which is low normal. Notes do indicated that he had sleep study 2013 and was diagnosed with moderate JOSE and was not interested in treatment. Records available do not indicate diagnosis of CMP or CHF. He does have HTN and has been on Lisinopril. Echo done this admission shows EF 60-65%, no regional WMA, no valve abn. He has no symptoms of angina or CHF. EKG shows SR, no ischemia. Pt may proceed with ECT procedure as low cardiac risk. We will follow as needed. (2) Essential hypertension: Status: Acute Assessment and Plan: Controlled with Lisinopril. Continue current tx. (3) Major depression: Status: Acute Fall Risk Details Current Medications: Current Medications Generic Name Dose Route Start Last Admin Trade Name Freq PRN Reason Stop Dose Admin Acetaminophen 650 mg 03/08/20 20:39 03/18/20 13:49 Acetaminophen 325 Mg Tablet PO 650 mg Q6H PRN Administration Headache/Pain Mild Scale (1-3) Al Hydroxide/Mg Hydroxide 30 ml 03/08/20 20:39 03/17/20 18:42 Magnesium Hydrox/Alum Hydrox 30 Ml Oral.Susp PO 30 ml Q6H PRN Administration Heartburn/Nausea Atorvastatin Calcium 40 mg 03/09/20 21:00 03/17/20 20:13 Atorvastatin Calcium 40 Mg Tablet PO 40 mg BEDTIME ASHISH Administration Bacitracin 1 appl 03/10/20 10:40 03/18/20 08:51 Bacitracin Oint 14 Gm Tube TOPICAL Not Given BID ASHISH Protocol Benztropine Mesylate 1 mg 03/11/20 12:27 03/17/20 11:25 Benztropine Mesylate 1 Mg Tablet PO 1 mg TID PRN Administration Extrapyramidal Effects Duloxetine HCl 30 mg 03/17/20 09:00 03/18/20 08:49 Duloxetine Hcl 30 Mg Capsule.Dr PO 30 mg DAILY ASHISH Administration Haloperidol 2.5 mg 03/11/20 13:16 03/18/20 13:49 Haloperidol 5 Mg Tablet PO 2.5 mg BID PRN Administration Anxiety Haloperidol 2.5 mg 03/17/20 21:00 03/18/20 08:49 Haloperidol 5 Mg Tablet PO 2.5 mg BID ASHISH Administration Hydroxyzine HCl 25 mg 03/08/20 20:39 03/17/20 21:09 Hydroxyzine Hcl 25 Mg Tablet PO 25 mg BEDTIME PRN Administration Anxiety Lisinopril 40 mg 03/09/20 17:00 03/18/20 08:50 Lisinopril 40 Mg Tablet PO 40 mg DAILY ASHISH Administration Protocol Magnesium Hydroxide 30 ml 03/08/20 20:39 Milk Of Magnesia 30 Ml Oral.Susp PO DAILY PRN Constipation Propranolol HCl 10 mg 10/15/20 21:00 Propranolol Hcl 10 Mg Tablet PO BID@1300,2200 [facility] Protocol Propranolol HCl 10 mg 03/18/20 11:30 Propranolol Hcl 10 Mg Tablet PO PRE PROCEDURE [facility] Protocol Propranolol HCl 10 mg 03/19/20 09:00 Propranolol Hcl 10 Mg Tablet PO DAILY [facility] Protocol Trazodone HCl 50 mg 03/08/20 20:39 03/17/20 20:13 Trazodone Hcl 50 Mg Tablet PO 50 mg BEDTIME PRN Administration Insomnia Time Spent With Patient Time: Total time spent 15 min Time with patient: 15 - 24 minutes
[2020-03-18 18:00] VITALS: BP 133/82; PULSE 92; TEMP 36.1
[2020-03-18] MEDS: Atorvastatin Calcium 40 MG TABLET PO (20:05)
[2020-03-18] MEDS: traZODone HCL 50 MG TABLET PO (20:15)
[2020-03-18 21:57] VITALS: BP 133/82; PULSE 92
[2020-03-19] VITALS (16 sets, daily range): BP systolic 100–130; BP diastolic 66–89; PULSE 61–86; RESP 16–20; TEMP 36.2–36.8; O2SAT 94–99; BMI 35.4
--- NOTE | 2020-03-19 | ECG_ITS ---
Test Reason : HTN, Dyslipidemia, Inverted T waves on monitor Blood Pressure : / mmHG Vent. Rate : 061 BPM Atrial Rate : 061 BPM P-R Int : 170 ms QRS Dur : 092 ms QT Int : 418 ms P-R-T Axes : 044 021 040 degrees QTc Int : 420 ms Normal sinus rhythm Normal ECG When compared with ECG of 18-MAR-2020 08:18, No significant change was found Referred By: Nithya Matthews Electronically Signed By:RADHA FINN MD
[2020-03-19] MEDS: traZODone HCL 50 MG TABLET PO ×2 (00:14→20:31)
[2020-03-19] MEDS: hydrOXYzine HCL 25 MG TABLET PO ×2 (00:14→21:38)
[2020-03-19] MEDS: Propranolol HCL 10 MG TABLET PO ×4 (05:56→20:24)
--- NOTE | 2020-03-19 06:24 | HO.PSYCHPN ---
Subjective Subjective Date of Service: 03/19/20 Reason For Visit: anxiety Subjective Notes: Conditional Voluntary Interim History: Tolerated first ECT. Monitor constipation and sleep Medication Compliance: Yes Side effects from medications: No Attending Groups: Yes Review of Systems Reports system reviewed and no additional complaints, except as documented and Reports Abnormal speech present Mental Status Exam Mental Status Exam Patient Appearance: Well Grooomed Patient Orientation: Person, Place, Time and Situation Level of Consciousness: Awake Patient Behavior: Appropriate Mood Description: Depressed, Fearful and Apprehensive Affect Description: Depressed Patient Cognition Impaired: No Ability to Follow Directions: Excellent Speech Pattern: Clear Memory Description: Intact Hallucinations: None Delusions: Not Present Thought Content: positive for Suicidal Ideation Depressive Symptoms: Increased Anxiety Abnormal Motor Activity Signs and Symptoms: Agitation Judgement: Poor Diagnostics Vital Signs (24Hr): Vital Signs - 24 hr 03/18/20 08:50 03/18/20 18:00 03/18/20 21:57 Temperature 97 F Pulse Rate 91 92 92 Respiratory Rate Blood Pressure 124/69 133/82 133/82 Pulse Oximetry 03/19/20 05:56 03/19/20 06:00 03/19/20 06:04 Temperature 97.2 F 97.2 F Pulse Rate 80 80 Respiratory Rate 20 20 Blood Pressure 100/72 100/72 100/72 Pulse Oximetry 99 99 Body Mass Index 35.4 Labs Results: 03/08/20 08:43 03/08/20 08:43 Medications Medications Current Medications Generic Name Dose Route Start Last Admin Trade Name Freq PRN Reason Stop Dose Admin Acetaminophen 650 mg 03/08/20 20:39 03/18/20 13:49 Acetaminophen 325 Mg Tablet PO 650 mg Q6H PRN Administration Headache/Pain Mild Scale (1-3) Al Hydroxide/Mg Hydroxide 30 ml 03/08/20 20:39 03/17/20 18:42 Magnesium Hydrox/Alum Hydrox 30 Ml Oral.Susp PO 30 ml Q6H PRN Administration Heartburn/Nausea Atorvastatin Calcium 40 mg 03/09/20 21:00 03/18/20 20:05 Atorvastatin Calcium 40 Mg Tablet PO 40 mg BEDTIME ASHISH Administration Bacitracin 1 appl 03/10/20 10:40 03/18/20 20:08 Bacitracin Oint 14 Gm Tube TOPICAL Not Given BID [facility] Protocol Benztropine Mesylate 1 mg 03/11/20 12:27 03/17/20 11:25 Benztropine Mesylate 1 Mg Tablet PO 1 mg TID PRN Administration Extrapyramidal Effects Duloxetine HCl 30 mg 03/17/20 09:00 03/18/20 08:49 Duloxetine Hcl 30 Mg Capsule.Dr PO 30 mg DAILY ASHISH Administration Haloperidol 2.5 mg 03/11/20 13:16 03/18/20 13:49 Haloperidol 5 Mg Tablet PO 2.5 mg BID PRN Administration Anxiety Haloperidol 2.5 mg 03/17/20 21:00 03/18/20 20:05 Haloperidol 5 Mg Tablet PO 2.5 mg BID ASHISH Administration Hydroxyzine HCl 25 mg 03/08/20 20:39 03/19/20 00:14 Hydroxyzine Hcl 25 Mg Tablet PO 25 mg BEDTIME PRN Administration Anxiety Lisinopril 40 mg 03/09/20 17:00 03/18/20 08:50 Lisinopril 40 Mg Tablet PO 40 mg DAILY ASHISH Administration Protocol Magnesium Hydroxide 30 ml 03/08/20 20:39 Milk Of Magnesia 30 Ml Oral.Susp PO DAILY PRN Constipation Propranolol HCl 10 mg 03/18/20 21:00 03/18/20 21:57 Propranolol Hcl 10 Mg Tablet PO 10 mg BID@1300,2200 ASHISH Administration Protocol Propranolol HCl 10 mg 03/18/20 11:30 03/19/20 05:56 Propranolol Hcl 10 Mg Tablet PO 10 mg PRE PROCEDURE ASHISH Administration Protocol Propranolol HCl 10 mg 03/19/20 09:00 Propranolol Hcl 10 Mg Tablet PO DAILY ASHISH Protocol Trazodone HCl 50 mg 03/08/20 20:39 03/19/20 00:14 Trazodone Hcl 50 Mg Tablet PO 50 mg BEDTIME PRN Administration Insomnia Allergies Allergies Allergy/AdvReac Type Severity Reaction Status Date / Time No Known Allergies Allergy Unverified 02/19/20 16:54 [No Known Allergies*] Assessment & Plan Greater than 50% of the session was spent on counseling and/or coordination of care Ct ECT and meds. Increase Trazodone Ct Groups Patient educated on: diagnosis and ECT (Also discussed risk to dental crown and precautions we take. ) Informed Consent: understands Reason for contiued inpatient stay Substantial Risk for: harm to self
--- NOTE | 2020-03-19 06:28 | HO.ECTPROC ---
ECT Procedure Note Diagnosis/Treatment Diagnosis: Major Depressive Disorder Current Treatment Number: 1 Treatment: Series Interval Clinical Notes: Depressed mood. Hopeful ECT will help. Flipped T on monitor but not on 12 lead paper EKG. ECT Settings Device: THYMATRON DGx Electrode Placement: Right Unilateral Program/Pulse Width: 0.25 Energy Percent: 80 Seizure Duration By EEG (in seconds): 58 By Motor Observation (in seconds): 42 Medications Administration General Anesthetic: Etomidate (18) Muscle Relaxant: Succinylcholine (140) Ancillary Medications Analgesics: Torodol - Pre ECT (15) Anti-emetics: Zofran - Pre ECT (4) Miscillaneous Medications: Propofol (30 mg) Airway Management Airway Management: Bag Mask Ventilation Treatment Recommendations Electrode Placement: Right Unilateral Program/Pulse Width: 0.25 Notes: increase Succ to 160. Do not give propranolol prior to ECT as his HR dropped briefly to 40s. Review if needs Lisinopril prior to ECT. Bite block tested while pt awake to patients satisfaction. Ensure upper crown abuts mouth guard not lower tooth Pt Tolerated Procedure w/o Issue: Yes
--- NOTE | 2020-03-19 09:33 | MHC.SHP ---
Pre-Procedural Eval Section A The patient is an INPATIENT: Yes Changes since office visit: Yes Patient answered all questions The History & Physical has been completed within 30 days and I have reviewed it.: No Section B Chief Complaint: anxiety Allergies: Allergies Allergy/AdvReac Type Severity Reaction Status Date / Time No Known Allergies Allergy Verified 03/19/20 09:17 [No Known Allergies*] Plan Diagnosis/Plan: Unchanged Patient has been examined and remains a candidate for the planned procedure Pt cleared by cardiology. Low cardiac risk
--- NOTE | 2020-03-19 09:54 | HO.ANESPROP2 ---
HPI - Anesthesia Eval Consult details Narrative: Major Depression, suicide attempt. For ECT [facility] Past Medical History Medical History (Updated 03/19/20 @ 10:11 by Nithya Matthews) CHF (congestive heart failure) Depression Essential hypertension Generalized anxiety disorder History of congestive heart failure HTN (hypertension) Hyperlipidemia Cognitive capacity: Awake, alert, oriented Family History Family history of problems with anesthesia: No Surgical History Surgical History History of left hip replacement History of Problems with Anesthesia: No Social History Social History Household Members: None Housing: House Do you presently have visiting nurse or other home services: No Alcohol intake: current Smoking Status: Light tobacco smoker Patient Interested in Nicotine Replacement: No Patient Given Instructions on How to Stop Smoking: No Date Education Initiated: 03/09/20 Second Hand Smoke Exposure: No Use of substances other than those prescribed or required for medical reasons: Yes Substance Use Type: Marijuana Substance Use Type Other:: recovering opiate abuse Substance Use Frequency: Daily Last Used Substance: Just Prior to Admission Currently Displaying Signs/Symptoms of Drug Intoxication Withdrawal: No Any prior treatment program specific to substance use: Yes (was in detox facility for opiates use x10 times) Have you been hit, kicked, punched, or otherwise hurt by someone within the past year? If so, by whom?: No Do you feel safe in your current relationship?: No Current Relationship Is there a partner from a previous relationship who is making you feel unsafe now?: No Are you made to feel afraid or neglected: No Advance Directives: No Advance Directives Information Provided: Yes Advance Directives on File: No Suicidal Behavior: Self-injurious behavior Current/Past Psychiatric Disorders: Mood disorder and Substance abuse [place] Symptoms: Anxiety, Hopelessness and Impulsivity Access to Firearms: No Do you have thoughts of harming others: None Do you have a plan to hurt others: No Plan Recently lost weight without trying: Yes service: No Sexual orientation: Straight/Heterosexual Meds Allergies Allergy/AdvReac Type Severity Reaction Status Date / Time No Known Allergies Allergy Verified 03/19/20 09:17 [No Known Allergies*] Home Medications Medication Instructions Recorded Confirmed Type atorvastatin 40 mg PO BEDTIME 03/09/20 03/09/20 History escitalopram oxalate 30 mg PO DAILY 03/09/20 03/09/20 History hydroxyzine HCl 50 mg PO TID PRN 03/09/20 03/09/20 History lisinopril 40 mg PO DAILY 03/09/20 03/09/20 History risperidone 1 mg PO BEDTIME 03/09/20 03/09/20 History Exam Exam Date and Time: March 19, 2020 0954 Height,Weight and Vital Signs: EKG: T wave inversion noted on monitor. Different from pre-op EKG. 12 lead EKG obtained. Showed NSR 61. T waves upright. Will proceed with ECT. Height 5 ft 9 in Weight 109 kg Last Vital Signs Temp 97.3 F 03/19/20 08:59 Pulse 68 03/19/20 08:59 Resp 16 03/19/20 08:59 BP 118/72 03/19/20 08:59 Pulse Ox 98 03/19/20 08:59 Pertinent Lab Results Pertinent Lab Results: Laboratory Tests 03/08/20 03/08/20 03/08/20 08:43 08:43 08:43 WBC 9.9 RBC 5.29 Hgb 15.0 Hct 44.0 MCV 83.2 MCH 28.4 MCHC 34.1 RDW 13.4 Plt Count 231 MPV 10.3 Immature Gran % (Auto) 0.7 H Neut % (Auto) 75.2 H Lymph % (Auto) 10.9 L [place] % (Auto) 8.9 Eos % (Auto) 4.1 H Baso % (Auto) 0.2 Neut # (Auto) 7.4 Lymph # (Auto) 1.1 L [place] # (Auto) 0.9 Eos # (Auto) 0.4 Baso # (Auto) 0.0 Abs Immat Gran (auto) 0.07 H Absolute Nucleated RBC 0.000 Nucleated RBC % (auto) 0.0 Sodium 140 Potassium 4.2 Chloride 108 Carbon Dioxide 23 Anion Gap 13 BUN 27 H Creatinine 1.20 Estim Creat Clear Calc 88.0 Estimated GFR > 60 Random Glucose 103 Estimat Average Glucose Hemoglobin A1c % Calcium 9.2 Total Bilirubin 1.8 H AST 20 ALT 39 Alkaline Phosphatase 131 H Total Protein 7.2 Albumin 4.2 Triglycerides Cholesterol LDL Cholesterol, Calc HDL Cholesterol Urine Opiates Screen Ur Barbiturates Screen Ur Phencyclidine Scrn Ur Amphetamines Screen U Benzodiazepines Scrn Urine Cocaine Screen U Marijuana (THC) Screen Ethyl Alcohol < 10 Coronavirus (PCR) 03/08/20 03/08/20 03/08/20 12:39 19:13 23:21 WBC RBC Hgb Hct MCV MCH MCHC RDW Plt Count MPV Immature Gran % (Auto) Neut % (Auto) Lymph % (Auto) [place] % (Auto) Eos % (Auto) Baso % (Auto) Neut # (Auto) Lymph # (Auto) [place] # (Auto) Eos # (Auto) Baso # (Auto) Abs Immat Gran (auto) Absolute Nucleated RBC Nucleated RBC % (auto) Sodium Potassium Chloride Carbon Dioxide Anion Gap BUN Creatinine Estim Creat Clear Calc Estimated GFR Random Glucose Estimat Average Glucose 108 Hemoglobin A1c % 5.4 Calcium Total Bilirubin AST ALT Alkaline Phosphatase Total Protein Albumin Triglycerides Cholesterol LDL Cholesterol, Calc HDL Cholesterol Urine Opiates Screen Not Detected Ur Barbiturates Screen Not Detected Ur Phencyclidine Scrn Not Detected Ur Amphetamines Screen Not Detected U Benzodiazepines Scrn Not Detected Urine Cocaine Screen Not Detected U Marijuana (THC) Screen POSITIVE H Ethyl Alcohol Coronavirus (PCR) NEGATIVE 03/08/20 23:22 WBC RBC Hgb Hct MCV MCH MCHC RDW Plt Count MPV Immature Gran % (Auto) Neut % (Auto) Lymph % (Auto) [place] % (Auto) Eos % (Auto) Baso % (Auto) Neut # (Auto) Lymph # (Auto) [place] # (Auto) Eos # (Auto) Baso # (Auto) Abs Immat Gran (auto) Absolute Nucleated RBC Nucleated RBC % (auto) Sodium Potassium Chloride Carbon Dioxide Anion Gap BUN Creatinine Estim Creat Clear Calc Estimated GFR Random Glucose Estimat Average Glucose Hemoglobin A1c % Calcium Total Bilirubin AST ALT Alkaline Phosphatase Total Protein Albumin Triglycerides 114 Cholesterol 136 LDL Cholesterol, Calc 74 HDL Cholesterol 40 Urine Opiates Screen Ur Barbiturates Screen Ur Phencyclidine Scrn Ur Amphetamines Screen U Benzodiazepines Scrn Urine Cocaine Screen U Marijuana (THC) Screen Ethyl Alcohol Coronavirus (PCR) Airway Mallampati Class: III TM Dist: >3cm Neck ROM: Full Partial: Upper Loose/Missing/Broken Teeth: Yes ([place] top left. Patient worried about support for crown if dentures out. Tested with foam bite block with patient awake. Good support. Patient ok with bite block) Heart: RRR Lungs: CTAB Assessment and Plan Assessment Anesthesia Assessment: Anesthesia Plan Discussed and Chart Reviewed Final Anesthetic Review NPO: Yes (Except for meds) ASA Class: III Final Preanesthetic Review: No Changes in Pt Med Stat, Meds/Allgs Chart Reviewed, Consent Obtained/Reviewed and Anes Risks/Benef Reviewed Patient Risk: Intermediate Procedure Risk: Intermediate Anesthetic Plan Anesthetic Plan: GA Disposition: Standard PACU
--- NOTE | 2020-03-19 11:18 | HO.POSTANES ---
Post Anesthesia Evaluation Post Anesthesia Evaluation Vital Signs: Vital Signs Temp Pulse Resp BP Pulse Ox 03/19/20 11:00 98 F 81 20 128/66 95 03/19/20 10:53 66 20 107/68 98 03/19/20 10:48 67 20 107/81 95 03/19/20 10:43 61 20 111/69 95 03/19/20 10:38 98.3 F 63 20 122/70 94 03/19/20 08:59 97.3 F 68 16 118/72 98 03/19/20 06:04 97.2 F 20 100/72 99 03/19/20 06:00 97.2 F 80 20 100/72 99 03/19/20 05:56 80 100/72 Anesthesia: General Mental Status: Awake Pain Control: Satisfactory Nausea/Vomiting: None Hydration: Adequate Anesthesia-Related Issues: No Anes. Related Issues
[2020-03-19] MEDS: DULoxetine HCl 30 MG CAPSULE.DR PO (11:30)
[2020-03-19] MEDS: haloperidoL 5 MG TABLET 2.5 MG PO ×2 (11:31→20:25)
[2020-03-19] MEDS: lisinopriL 40 MG TABLET PO (11:31)
[2020-03-19] MEDS: Bacitracin Oint 14 GM TUBE 1 APPL TOPICAL (11:32)
[2020-03-19] MEDS: Acetaminophen 325 MG TABLET 650 MG PO (13:58)
[2020-03-19] MEDS: Atorvastatin Calcium 40 MG TABLET PO (20:24)
[2020-03-19] MEDS: Magnesium Hydrox/Alum Hydrox 30 ML ORAL.SUSP PO (20:24)
--- NOTE | 2020-03-20 | XR_ITS ---
EXAMINATION: XR HAND, RIGHT CLINICAL INFORMATION: Pain. Inflammation COMPARISON: None TECHNIQUE: PA, lateral, and oblique views of the right hand. FINDINGS: The bones are normal anatomic alignment. I do not appreciate any acute fracture or dislocation. No bony destructive lesions or periosteal reaction. No radiopaque foreign body. Minimal degenerative changes at the first carpometacarpal joint. IMPRESSION: No acute fracture or dislocation seen. No acute bony destructive lesions
[2020-03-20 06:58] VITALS: BP 138/64; PULSE 64; RESP 18; TEMP 35.9
[2020-03-20 09:29] VITALS: BP 138/64; PULSE 64
[2020-03-20] MEDS: DULoxetine HCl 30 MG CAPSULE.DR PO (09:29)
[2020-03-20] MEDS: lisinopriL 40 MG TABLET PO (09:29)
[2020-03-20] MEDS: haloperidoL 5 MG TABLET 2.5 MG PO (09:33)
[2020-03-20] MEDS: Bacitracin Oint 14 GM TUBE 1 APPL TOPICAL (09:35)
[2020-03-20 10:19] VITALS: BP 138/64; PULSE 64
[2020-03-20] MEDS: Benztropine Mesylate 1 MG TABLET PO (14:03)
[2020-03-20 14:04] VITALS: BP 111/65; PULSE 92
[2020-03-20] MEDS: Propranolol HCL 10 MG TABLET PO ×2 (14:04→20:10)
--- NOTE | 2020-03-20 14:34 | HO.PSYCHPN ---
Subjective Subjective Reason For Visit: anxiety depression Subjective Notes: Conditional Voluntary Interim History: patient states he feels better after 1st ECT. He tolerated it well. Feels tremulous from Haldol asking to go back on Risperdal Medication Compliance: Yes Side effects from medications: Yes Review of Systems Reports system reviewed and no additional complaints, except as documented and Reports Abnormal speech present Mental Status Exam Mental Status Exam Patient Appearance: Well Grooomed Patient Orientation: Person, Place, Time and Situation Level of Consciousness: Awake Patient Behavior: Appropriate, Cooperative and Anxious Mood Description: Depressed and Apprehensive Affect Description: Depressed, Anxious and Apprehensive Patient Cognition Impaired: No Ability to Follow Directions: Excellent Speech Pattern: Clear Memory Description: Intact Hallucinations: None Delusions: Not Present Thought Process: Goal Oriented Thought Content: positive for Suicidal Ideation Depressive Symptoms: Increased Anxiety Abnormal Motor Activity Signs and Symptoms: Agitation Judgement: Fair Judgement and Insight: some improvement noted Diagnostics Vital Signs (24Hr): Vital Signs - 24 hr 03/19/20 15:16 03/19/20 20:24 03/20/20 06:58 Temperature 96.7 F L Pulse Rate 86 72 64 Respiratory Rate 18 Blood Pressure 114/75 130/89 138/64 03/20/20 09:29 03/20/20 10:19 03/20/20 14:04 Temperature Pulse Rate 64 64 92 Respiratory Rate Blood Pressure 138/64 138/64 111/65 Body Mass Index 35.4 Labs Results: 03/08/20 08:43 03/08/20 08:43 Medications Medications Current Medications Generic Name Dose Route Start Last Admin Trade Name Freq PRN Reason Stop Dose Admin Acetaminophen 650 mg 03/08/20 20:39 03/19/20 13:58 Acetaminophen 325 Mg Tablet PO 650 mg Q6H PRN Administration Headache/Pain Mild Scale (1-3) Al Hydroxide/Mg Hydroxide 30 ml 03/08/20 20:39 03/19/20 20:24 Magnesium Hydrox/Alum Hydrox 30 Ml Oral.Susp PO 30 ml Q6H PRN Administration Heartburn/Nausea Atorvastatin Calcium 40 mg 03/09/20 21:00 03/19/20 20:24 Atorvastatin Calcium 40 Mg Tablet PO 40 mg BEDTIME ASHISH Administration Bacitracin 1 appl 03/10/20 10:40 03/20/20 09:35 Bacitracin Oint 14 Gm Tube TOPICAL 1 appl BID ASHISH Administration Protocol Benztropine Mesylate 1 mg 03/11/20 12:27 03/20/20 14:03 Benztropine Mesylate 1 Mg Tablet PO 1 mg TID PRN Administration Extrapyramidal Effects Duloxetine HCl 30 mg 03/17/20 09:00 03/20/20 09:29 Duloxetine Hcl 30 Mg Capsule.Dr PO 30 mg DAILY ASHISH Administration Haloperidol 2.5 mg 03/11/20 13:16 03/18/20 13:49 Haloperidol 5 Mg Tablet PO 2.5 mg BID PRN Administration Anxiety Haloperidol 2.5 mg 03/17/20 21:00 03/20/20 09:33 Haloperidol 5 Mg Tablet PO 2.5 mg BID ASHISH Administration Hydroxyzine HCl 25 mg 03/08/20 20:39 03/19/20 21:38 Hydroxyzine Hcl 25 Mg Tablet PO 25 mg BEDTIME PRN Administration Anxiety Lisinopril 40 mg 03/09/20 17:00 03/20/20 09:29 Lisinopril 40 Mg Tablet PO 40 mg DAILY ASHISH Administration Protocol Magnesium Hydroxide 30 ml 03/08/20 20:39 Milk Of Magnesia 30 Ml Oral.Susp PO DAILY PRN Constipation Propranolol HCl 10 mg 03/19/20 15:00 03/20/20 14:04 Propranolol Hcl 10 Mg Tablet PO 10 mg TID ASHISH Administration Protocol Trazodone HCl 100 mg 03/20/20 04:31 Trazodone Hcl 50 Mg Tablet PO BEDTIME PRN Insomnia Allergies Allergies Allergy/AdvReac Type Severity Reaction Status Date / Time No Known Allergies Allergy Verified 03/19/20 09:17 [No Known Allergies*] Assessment & Plan Assessment & Plan (1) Essential hypertension: Status: Acute Code(s): I10 - Essential (primary) hypertension (2) Major depression: Status: Acute Code(s): F32.9 - Major depressive disorder, single episode, unspecified Assessment and Plan: Assessment & Plan Greater than 50% of the session was spent on counseling and/or coordination of care Ct ECT and meds. right hand x-ray [facility] Patient educated on: diagnosis and ECT (Also discussed risk to dental crown and precautions we take. Informed Consent: understands Reason for contiued inpatient stay Substantial Risk for: harm to self Greater than 50% of the session was spent on counseling and/or coordination of care
[2020-03-20] MEDS: LORazepam 0.5 MG TABLET PO (14:50)
[2020-03-20 20:10] VITALS: BP 128/79; PULSE 90
[2020-03-20] MEDS: Atorvastatin Calcium 40 MG TABLET PO (20:10)
[2020-03-20] MEDS: risperiDONE 1 MG TABLET PO (20:12)
[2020-03-20] MEDS: hydrOXYzine HCL 25 MG TABLET PO (22:01)
[2020-03-21] MEDS: LORazepam 0.5 MG TABLET PO ×2 (06:09→13:49)
[2020-03-21 06:56] VITALS: BP 126/74; PULSE 91; RESP 18; TEMP 36.3
[2020-03-21] MEDS: DULoxetine HCl 30 MG CAPSULE.DR PO (08:20)
[2020-03-21 08:21] VITALS: BP 126/74; PULSE 91
[2020-03-21] MEDS: lisinopriL 40 MG TABLET PO (08:21)
[2020-03-21] MEDS: Propranolol HCL 10 MG TABLET PO ×3 (08:21→21:02)
[2020-03-21] MEDS: Bacitracin Oint 14 GM TUBE 1 APPL TOPICAL (08:48)
[2020-03-21 13:28] LABS: MANUAL DIFF FLAG NO
[2020-03-21 13:32] LABS: Basophils Percent Auto 0.2 % (0-2); Eosinophils Percent Auto 9.9 % (0-4); Hematocrit 41.5 % (42-52); Hemoglobin 14.2 g/dl (14.0-18.0); Imm Gran Abs Auto 0.03 X10*3/uL (0.00-0.03); Imm Gran Pct Auto 0.3 % (0.0-0.4); Lymphocytes Absolute Auto 2.1 X10*3/uL (1.2-4.9); Lymphocytes Percent Auto 20.6 % (20-40); Mean Corpuscular HGB Conc 34.2 g/dl (31.0-36.0); Mean Corpuscular Hemoglobin 28.5 pg (27.0-33.0); Mean Corpuscular Volume 83.3 fL (80-98); Mean Platelet Volume 10.9 fL (9.4-12.4); Monocytes Absolute Auto 0.9 X10*3/uL (0.1-1.2); Monocytes Percent Auto 9.3 % (2-11); Neutrophils Absolute Auto 6.1 X10*3/uL (2.0-8.3); Neutrophils Percent Auto 59.7 % (45-73); Platelet Count 268 X10*3/uL (160-400); Red Blood Count 4.98 X10*6/uL (4.60-5.80); Red Cell Distribution Width 13.4 % (11.0-16.0); White Blood Count 10.1 X10*3/uL (4.8-10.8)
[2020-03-21 13:49] VITALS: BP 103/83; PULSE 83
--- NOTE | 2020-03-21 17:07 | P.PNPSI_ITS ---
Subjective Subjective Reason For Visit: anxiety depression Interim History: patient tolerated 1st ECT well. Feels better on Risperdal then Haldol. Continues on Cymbaltal hand x-ray reviewed Review of Systems Reports Abnormal speech present Mental Status Exam Mental Status Exam Patient Appearance: Well Grooomed Patient Orientation: Person, Place, Time and Situation Level of Consciousness: Awake Patient Behavior: Appropriate, Cooperative and Anxious Mood Description: Depressed and Apprehensive Affect Description: Depressed, Anxious and Apprehensive Patient Cognition Impaired: No Ability to Follow Directions: Excellent Speech Pattern: Clear Memory Description: Intact Diagnostics Vital Signs (24Hr): Vital Signs - 24 hr 03/20/20 20:10 03/21/20 06:56 03/21/20 08:21 Temperature 97.4 F Pulse Rate 90 91 91 Respiratory Rate 18 Blood Pressure 128/79 126/74 126/74 03/21/20 13:49 Temperature Pulse Rate 83 Respiratory Rate Blood Pressure 103/83 Body Mass Index 35.4 Labs Results: 03/21/20 13:19 03/08/20 08:43 Labs: Laboratory Results - last 48 hr 03/21/20 13:19 WBC 10.1 RBC 4.98 Hgb 14.2 Hct 41.5 L MCV 83.3 MCH 28.5 MCHC 34.2 RDW 13.4 Plt Count 268 MPV 10.9 Immature Gran % (Auto) 0.3 Neut % (Auto) 59.7 Lymph % (Auto) 20.6 [place] % (Auto) 9.3 Eos % (Auto) 9.9 H Baso % (Auto) 0.2 Lymph # (Auto) 2.1 [place] # (Auto) 0.9 Eos # (Auto) 1.0 H Baso # (Auto) 0.0 Abs Immat Gran (auto) 0.03 Absolute Neuts (auto) 6.1 Absolute Nucleated RBC 0.000 Nucleated RBC % (auto) 0.0 Medications Medications Current Medications Generic Name Dose Route Start Last Admin Trade Name Freq PRN Reason Stop Dose Admin Acetaminophen 650 mg 03/08/20 20:39 03/19/20 13:58 Acetaminophen 325 Mg Tablet PO 650 mg Q6H PRN Administration Headache/Pain Mild Scale (1-3) Al Hydroxide/Mg Hydroxide 30 ml 03/08/20 20:39 03/19/20 20:24 Magnesium Hydrox/Alum Hydrox 30 Ml Oral.Susp PO 30 ml Q6H PRN Administration Heartburn/Nausea Atorvastatin Calcium 40 mg 03/09/20 21:00 03/20/20 20:10 Atorvastatin Calcium 40 Mg Tablet PO 40 mg BEDTIME ASHISH Administration Bacitracin 1 appl 03/10/20 10:40 03/21/20 08:48 Bacitracin Oint 14 Gm Tube TOPICAL 1 appl BID ASHISH Administration Protocol Benztropine Mesylate 1 mg 03/11/20 12:27 03/20/20 14:03 Benztropine Mesylate 1 Mg Tablet PO 1 mg TID PRN Administration Extrapyramidal Effects Duloxetine HCl 30 mg 03/17/20 09:00 03/21/20 08:20 Duloxetine Hcl 30 Mg Capsule.Dr PO 30 mg DAILY ASHISH Administration Hydroxyzine HCl 25 mg 03/08/20 20:39 03/20/20 22:01 Hydroxyzine Hcl 25 Mg Tablet PO 25 mg BEDTIME PRN Administration Anxiety Lisinopril 40 mg 03/09/20 17:00 03/21/20 08:21 Lisinopril 40 Mg Tablet PO 40 mg DAILY ASHISH Administration Protocol Lorazepam 0.5 mg 03/20/20 14:32 03/21/20 13:49 Lorazepam 0.5 Mg Tablet PO 0.5 mg Q8H PRN Administration anxiety/restlessness Magnesium Hydroxide 30 ml 03/08/20 20:39 Milk Of Magnesia 30 Ml Oral.Susp PO DAILY PRN Constipation Propranolol HCl 10 mg 03/19/20 15:00 03/21/20 13:49 Propranolol Hcl 10 Mg Tablet PO 10 mg TID ASHISH Administration Protocol Risperidone 1 mg 03/20/20 21:00 03/20/20 20:12 Risperidone 1 Mg Tablet PO 1 mg BEDTIME ASHISH Administration Risperidone 0.25 mg 03/20/20 19:44 Risperidone 0.25 Mg Tablet PO Q4H PRN anxiety/restlessness Trazodone HCl 100 mg 03/21/20 21:00 Trazodone Hcl 50 Mg Tablet PO BEDTIME ASHISH Allergies Allergies Allergy/AdvReac Type Severity Reaction Status Date / Time No Known Allergies Allergy Verified 03/19/20 09:17 [No Known Allergies*] Assessment & Plan Assessment & Plan (1) Essential hypertension: Status: Acute Code(s): I10 - Essential (primary) hypertension (2) Major depression: Status: Acute Code(s): F32.9 - Major depressive disorder, single episode, unspecified Assessment and Plan: Assessment & Plan Greater than 50% of the session was spent on counseling and/or coordination of care Ct ECT and meds. right hand x-ray ok dominick Mcclendon change back to [facility] patient request Ct Groups Patient educated on: diagnosis and ECT (Also discussed risk to dental crown and precautions we take. Informed Consent: understands Reason for contiued inpatient stay Substantial Risk for: harm to self Greater than 50% of the session was spent on counseling and/or coordination of care
[2020-03-21] MEDS: traZODone HCL 50 MG TABLET 100 MG PO (21:01)
[2020-03-21] MEDS: Atorvastatin Calcium 40 MG TABLET PO (21:01)
[2020-03-21] MEDS: risperiDONE 1 MG TABLET PO (21:01)
[2020-03-21] MEDS: hydrOXYzine HCL 25 MG TABLET PO (21:01)
[2020-03-21 21:02] VITALS: BP 119/71; PULSE 74
[2020-03-22] VITALS (9 sets, daily range): BP systolic 108–131; BP diastolic 65–78; PULSE 75–97; RESP 18–20; TEMP 35.9–36.6; O2SAT 96–98
[2020-03-22] MEDS: lisinopriL 40 MG TABLET PO (08:49)
--- NOTE | 2020-03-22 10:16 | HO.ECTPROC ---
ECT Procedure Note Diagnosis/Treatment Diagnosis: Major Depressive Disorder Current Treatment Number: 2 Treatment: Series Interval Clinical Notes: Depressed mood. Tolerated 1 st ect ECT Settings Device: THYMATRON DGx Electrode Placement: Right Unilateral Program/Pulse Width: 0.25 Energy Percent: 80 Seizure Duration By EEG (in seconds): 45 By Motor Observation (in seconds): 42 Medications Administration General Anesthetic: Etomidate (18) Muscle Relaxant: Succinylcholine (160) Ancillary Medications Analgesics: Torodol - Post ECT (30) Anti-emetics: Zofran - Post ECT (4) Miscillaneous Medications: Propofol (30 mg) Airway Management Airway Management: Bag Mask Ventilation Treatment Recommendations Electrode Placement: Right Unilateral Program/Pulse Width: 0.25 Notes: pt did well with inc succ 160 mg some transient ectopy post ect give zofran post propofol 30 mg post flumazenil 0.5 Pt Tolerated Procedure w/o Issue: Yes
--- NOTE | 2020-03-22 10:32 | MHC.SHP ---
Pre-Procedural Eval Section A The patient is an INPATIENT: Yes Changes since office visit: Yes Patient answered all questions The History & Physical has been completed within 30 days and I have reviewed it.: Yes Section B Chief Complaint: anxiety depression Allergies: Allergies Allergy/AdvReac Type Severity Reaction Status Date / Time No Known Allergies Allergy Verified 03/19/20 09:17 [No Known Allergies*] Plan Patient has been examined and remains a candidate for the planned procedure
--- NOTE | 2020-03-22 10:37 | HO.ANESPROP2 ---
HPI - Anesthesia Eval Consult details Narrative: 54 M with MDD pf second ECT. No issues with anesthetic on 03/19/20 PENDING SALE TO [facility] Past Medical History Medical History CHF (congestive heart failure) Depression Essential hypertension Generalized anxiety disorder History of congestive heart failure HTN (hypertension) Hyperlipidemia Surgical History Surgical History History of left hip replacement Social History Social History Household Members: None Housing: House Do you presently have visiting nurse or other home services: No Alcohol intake: current Smoking Status: Light tobacco smoker Patient Interested in Nicotine Replacement: No Patient Given Instructions on How to Stop Smoking: No Date Education Initiated: 03/09/20 Second Hand Smoke Exposure: No Use of substances other than those prescribed or required for medical reasons: Yes Substance Use Type: Marijuana Substance Use Type Other:: recovering opiate abuse Substance Use Frequency: Daily Last Used Substance: Just Prior to Admission Currently Displaying Signs/Symptoms of Drug Intoxication Withdrawal: No Any prior treatment program specific to substance use: Yes (was in detox facility for opiates use x10 times) Have you been hit, kicked, punched, or otherwise hurt by someone within the past year? If so, by whom?: No Do you feel safe in your current relationship?: No Current Relationship Is there a partner from a previous relationship who is making you feel unsafe now?: No Are you made to feel afraid or neglected: No Advance Directives: No Advance Directives Information Provided: Yes Advance Directives on File: No Suicidal Behavior: Self-injurious behavior Current/Past Psychiatric Disorders: Mood disorder and Substance abuse [place] Symptoms: Anxiety, Hopelessness and Impulsivity Access to Firearms: No Do you have thoughts of harming others: None Do you have a plan to hurt others: No Plan Recently lost weight without trying: Yes service: No Sexual orientation: Straight/Heterosexual Meds Allergies Allergy/AdvReac Type Severity Reaction Status Date / Time No Known Allergies Allergy Verified 03/19/20 09:17 [No Known Allergies*] Home Medications Medication Instructions Recorded Confirmed Type atorvastatin 40 mg PO BEDTIME 03/09/20 03/09/20 History escitalopram oxalate 30 mg PO DAILY 03/09/20 03/09/20 History hydroxyzine HCl 50 mg PO TID PRN 03/09/20 03/09/20 History lisinopril 40 mg PO DAILY 03/09/20 03/09/20 History risperidone 1 mg PO BEDTIME 03/09/20 03/09/20 History Exam Exam Date and Time: March 22, 2020 1037 Height,Weight and Vital Signs: Height 5 ft 9 in Weight 109 kg Last Vital Signs Temp 96.7 F L 03/22/20 07:05 Pulse 97 03/22/20 08:49 Resp 18 03/22/20 07:05 BP 108/73 03/22/20 08:49 Pulse Ox 98 03/22/20 07:05 Pertinent Lab Results Pertinent Lab Results: Laboratory Tests 03/08/20 03/08/20 03/08/20 08:43 08:43 08:43 WBC 9.9 RBC 5.29 Hgb 15.0 Hct 44.0 MCV 83.2 MCH 28.4 MCHC 34.1 RDW 13.4 Plt Count 231 MPV 10.3 Immature Gran % (Auto) 0.7 H Neut % (Auto) 75.2 H Lymph % (Auto) 10.9 L [place] % (Auto) 8.9 Eos % (Auto) 4.1 H Baso % (Auto) 0.2 Neut # (Auto) 7.4 Lymph # (Auto) 1.1 L [place] # (Auto) 0.9 Eos # (Auto) 0.4 Baso # (Auto) 0.0 Abs Immat Gran (auto) 0.07 H Absolute Neuts (auto) Absolute Nucleated RBC 0.000 Nucleated RBC % (auto) 0.0 Sodium 140 Potassium 4.2 Chloride 108 Carbon Dioxide 23 Anion Gap 13 BUN 27 H Creatinine 1.20 Estim Creat Clear Calc 88.0 Estimated GFR > 60 Random Glucose 103 Estimat Average Glucose Hemoglobin A1c % Calcium 9.2 Total Bilirubin 1.8 H AST 20 ALT 39 Alkaline Phosphatase 131 H Total Protein 7.2 Albumin 4.2 Triglycerides Cholesterol LDL Cholesterol, Calc HDL Cholesterol Urine Opiates Screen Ur Barbiturates Screen Ur Phencyclidine Scrn Ur Amphetamines Screen U Benzodiazepines Scrn Urine Cocaine Screen U Marijuana (THC) Screen Ethyl Alcohol < 10 Coronavirus (PCR) 03/08/20 03/08/20 03/08/20 12:39 19:13 23:21 WBC RBC Hgb Hct MCV MCH MCHC RDW Plt Count MPV Immature Gran % (Auto) Neut % (Auto) Lymph % (Auto) [place] % (Auto) Eos % (Auto) Baso % (Auto) Neut # (Auto) Lymph # (Auto) [place] # (Auto) Eos # (Auto) Baso # (Auto) Abs Immat Gran (auto) Absolute Neuts (auto) Absolute Nucleated RBC Nucleated RBC % (auto) Sodium Potassium Chloride Carbon Dioxide Anion Gap BUN Creatinine Estim Creat Clear Calc Estimated GFR Random Glucose Estimat Average Glucose 108 Hemoglobin A1c % 5.4 Calcium Total Bilirubin AST ALT Alkaline Phosphatase Total Protein Albumin Triglycerides Cholesterol LDL Cholesterol, Calc HDL Cholesterol Urine Opiates Screen Not Detected Ur Barbiturates Screen Not Detected Ur Phencyclidine Scrn Not Detected Ur Amphetamines Screen Not Detected U Benzodiazepines Scrn Not Detected Urine Cocaine Screen Not Detected U Marijuana (THC) Screen POSITIVE H Ethyl Alcohol Coronavirus (PCR) NEGATIVE 03/08/20 03/21/20 23:22 13:19 WBC 10.1 RBC 4.98 Hgb 14.2 Hct 41.5 L MCV 83.3 MCH 28.5 MCHC 34.2 RDW 13.4 Plt Count 268 MPV 10.9 Immature Gran % (Auto) 0.3 Neut % (Auto) 59.7 Lymph % (Auto) 20.6 [place] % (Auto) 9.3 Eos % (Auto) 9.9 H Baso % (Auto) 0.2 Neut # (Auto) Lymph # (Auto) 2.1 [place] # (Auto) 0.9 Eos # (Auto) 1.0 H Baso # (Auto) 0.0 Abs Immat Gran (auto) 0.03 Absolute Neuts (auto) 6.1 Absolute Nucleated RBC 0.000 Nucleated RBC % (auto) 0.0 Sodium Potassium Chloride Carbon Dioxide Anion Gap BUN Creatinine Estim Creat Clear Calc Estimated GFR Random Glucose Estimat Average Glucose Hemoglobin A1c % Calcium Total Bilirubin AST ALT Alkaline Phosphatase Total Protein Albumin Triglycerides 114 Cholesterol 136 LDL Cholesterol, Calc 74 HDL Cholesterol 40 Urine Opiates Screen Ur Barbiturates Screen Ur Phencyclidine Scrn Ur Amphetamines Screen U Benzodiazepines Scrn Urine Cocaine Screen U Marijuana (THC) Screen Ethyl Alcohol Coronavirus (PCR) Airway Mallampati Class: II TM Dist: >3cm Neck ROM: Full Loose/Missing/Broken Teeth: Upper (Upper ceramic crown, not loose) Heart: rrr Lungs: nl Other: ao Assessment and Plan Assessment Anesthesia Assessment: Anesthesia Plan Discussed and Chart Reviewed Final Anesthetic Review NPO: Yes ASA Class: III Final Preanesthetic Review: No Changes in Pt Med Stat, Meds/Allgs Chart Reviewed, Consent Obtained/Reviewed and Anes Risks/Benef Reviewed Patient Risk: Intermediate Procedure Risk: Intermediate Anesthetic Plan Anesthetic Plan: GA Disposition: Standard PACU
[2020-03-22] MEDS: Propranolol HCL 10 MG TABLET PO ×3 (11:38→20:20)
[2020-03-22] MEDS: DULoxetine HCl 30 MG CAPSULE.DR PO (11:38)
[2020-03-22] MEDS: LORazepam 0.5 MG TABLET PO ×2 (11:38→19:40)
[2020-03-22] MEDS: Acetaminophen 325 MG TABLET 650 MG PO (17:51)
[2020-03-22] MEDS: traZODone HCL 50 MG TABLET 100 MG PO (20:20)
[2020-03-22] MEDS: Atorvastatin Calcium 40 MG TABLET PO (20:21)
[2020-03-22] MEDS: risperiDONE 1 MG TABLET PO (20:21)
--- NOTE | 2020-03-22 23:20 | P.PNPSI_ITS ---
Subjective Subjective Reason For Visit: anxiety depression Interim History: patient tolerated 1st ECT well. Feels better on Risperdal then Haldol. Continues on Cymbaltal hand x-ray reviewed improving mood Review of Systems Reports system reviewed and no additional complaints, except as documented and Reports Abnormal speech present Mental Status Exam Mental Status Exam Patient Appearance: Well Grooomed Patient Orientation: Person, Place, Time and Situation Level of Consciousness: Awake Patient Behavior: Appropriate, Cooperative and Anxious Mood Description: Depressed and Apprehensive Affect Description: Depressed, Anxious and Apprehensive Patient Cognition Impaired: No Ability to Follow Directions: Excellent Speech Pattern: Clear Memory Description: Intact Diagnostics Vital Signs (24Hr): Vital Signs - 24 hr 03/22/20 04:45 03/22/20 07:05 03/22/20 08:49 Temperature 96.7 F L 96.7 F L Pulse Rate 97 97 97 Respiratory Rate 18 18 Blood Pressure 108/73 108/73 108/73 Pulse Oximetry 98 98 03/22/20 11:04 03/22/20 11:09 03/22/20 11:14 Temperature 97.9 F Pulse Rate 80 81 75 Respiratory Rate 20 20 20 Blood Pressure 131/78 130/76 114/73 Pulse Oximetry 98 98 96 03/22/20 11:38 03/22/20 14:36 03/22/20 20:20 Temperature Pulse Rate 75 75 82 Respiratory Rate Blood Pressure 111/76 111/76 108/65 Pulse Oximetry Body Mass Index 35.4 Labs Results: 03/21/20 13:19 03/08/20 08:43 Labs: Laboratory Results - last 48 hr 03/21/20 13:19 WBC 10.1 RBC 4.98 Hgb 14.2 Hct 41.5 L MCV 83.3 MCH 28.5 MCHC 34.2 RDW 13.4 Plt Count 268 MPV 10.9 Immature Gran % (Auto) 0.3 Neut % (Auto) 59.7 Lymph % (Auto) 20.6 [place] % (Auto) 9.3 Eos % (Auto) 9.9 H Baso % (Auto) 0.2 Lymph # (Auto) 2.1 [place] # (Auto) 0.9 Eos # (Auto) 1.0 H Baso # (Auto) 0.0 Abs Immat Gran (auto) 0.03 Absolute Neuts (auto) 6.1 Absolute Nucleated RBC 0.000 Nucleated RBC % (auto) 0.0 Medications Medications Current Medications Generic Name Dose Route Start Last Admin Trade Name Freq PRN Reason Stop Dose Admin Acetaminophen 650 mg 03/08/20 20:39 03/22/20 17:51 Acetaminophen 325 Mg Tablet PO 650 mg Q6H PRN Administration Headache/Pain Mild Scale (1-3) Al Hydroxide/Mg Hydroxide 30 ml 03/08/20 20:39 03/19/20 20:24 Magnesium Hydrox/Alum Hydrox 30 Ml Oral.Susp PO 30 ml Q6H PRN Administration Heartburn/Nausea Atorvastatin Calcium 40 mg 03/09/20 21:00 03/22/20 20:21 Atorvastatin Calcium 40 Mg Tablet PO 40 mg BEDTIME ASHISH Administration Bacitracin 1 appl 03/10/20 10:40 03/22/20 22:11 Bacitracin Oint 14 Gm Tube TOPICAL Not Given BID ASHISH Protocol Benztropine Mesylate 1 mg 03/11/20 12:27 03/20/20 14:03 Benztropine Mesylate 1 Mg Tablet PO 1 mg TID PRN Administration Extrapyramidal Effects Duloxetine HCl 30 mg 03/17/20 09:00 03/22/20 11:38 Duloxetine Hcl 30 Mg Capsule.Dr PO 30 mg DAILY ASHISH Administration Hydroxyzine HCl 25 mg 03/08/20 20:39 03/21/20 21:01 Hydroxyzine Hcl 25 Mg Tablet PO 25 mg BEDTIME PRN Administration Anxiety Lisinopril 40 mg 03/09/20 17:00 03/22/20 08:49 Lisinopril 40 Mg Tablet PO 40 mg DAILY ASHISH Administration Protocol Lorazepam 0.5 mg 03/20/20 14:32 03/22/20 19:40 Lorazepam 0.5 Mg Tablet PO 0.5 mg Q8H PRN Administration anxiety/restlessness Magnesium Hydroxide 30 ml 03/08/20 20:39 Milk Of Magnesia 30 Ml Oral.Susp PO DAILY PRN Constipation Propranolol HCl 10 mg 03/19/20 15:00 03/22/20 20:20 Propranolol Hcl 10 Mg Tablet PO 10 mg TID ASHISH Administration Protocol Risperidone 1 mg 03/20/20 21:00 03/22/20 20:21 Risperidone 1 Mg Tablet PO 1 mg BEDTIME ASHISH Administration Risperidone 0.25 mg 03/20/20 19:44 Risperidone 0.25 Mg Tablet PO Q4H PRN anxiety/restlessness Trazodone HCl 100 mg 03/21/20 21:00 03/22/20 20:20 Trazodone Hcl 50 Mg Tablet PO 100 mg BEDTIME ASHISH Administration Allergies Allergies Allergy/AdvReac Type Severity Reaction Status Date / Time No Known Allergies Allergy Verified 03/19/20 09:17 [No Known Allergies*] Assessment & Plan Assessment & Plan (1) Essential hypertension: Status: Acute Code(s): I10 - Essential (primary) hypertension (2) Major depression: Status: Acute Code(s): F32.9 - Major depressive disorder, single episode, unspecified Assessment and Plan: ct ect Assessment & Plan Greater than 50% of the session was spent on counseling and/or coordination of care Ct ECT and meds. right hand x-ray ok [facility] Patient educated on: diagnosis and ECT (Also discussed risk to dental crown and precautions we take. Informed Consent: understands Reason for contiued inpatient stay Substantial Risk for: harm to self Greater than 50% of the session was spent on counseling and/or coordination of care
[2020-03-23 06:35] VITALS: BP 127/67; PULSE 67; RESP 18; TEMP 37
[2020-03-23 08:29] VITALS: BP 127/67; PULSE 67
[2020-03-23] MEDS: LORazepam 0.5 MG TABLET PO (08:29)
[2020-03-23] MEDS: lisinopriL 40 MG TABLET PO (08:29)
[2020-03-23] MEDS: DULoxetine HCl 30 MG CAPSULE.DR PO (08:29)
[2020-03-23] MEDS: Propranolol HCL 10 MG TABLET PO ×3 (08:29→20:19)
[2020-03-23 14:45] VITALS: PULSE 104
[2020-03-23] MEDS: Acetaminophen 325 MG TABLET 650 MG PO (18:04)
[2020-03-23] MEDS: risperiDONE 1 MG TABLET PO (20:18)
[2020-03-23 20:19] VITALS: BP 104/58; PULSE 92
[2020-03-23] MEDS: traZODone HCL 50 MG TABLET 100 MG PO (20:19)
[2020-03-23] MEDS: Atorvastatin Calcium 40 MG TABLET PO (20:19)
--- NOTE | 2020-03-23 22:35 | HO.PSYCHPN ---
Subjective Subjective Reason For Visit: anxiety depression Interim History: patient tolerating ECT well. Feels better on Risperdal then Haldol. Continues on Cymbalta inc dose 60 mg improving mood can be anxious ruminating hopeful re ect Review of Systems Reports system reviewed and no additional complaints, except as documented Mental Status Exam Mental Status Exam Patient Appearance: Well Grooomed Patient Orientation: Person, Place, Time and Situation Level of Consciousness: Awake Patient Behavior: Appropriate, Cooperative and Anxious Mood Description: Depressed and Apprehensive Affect Description: Depressed, Anxious and Apprehensive Patient Cognition Impaired: No Ability to Follow Directions: Excellent Speech Pattern: Clear Memory Description: Intact Diagnostics Vital Signs (24Hr): Vital Signs - 24 hr 03/23/20 06:35 03/23/20 08:29 03/23/20 14:45 Temperature 98.6 F Pulse Rate 67 67 104 H Respiratory Rate 18 Blood Pressure 127/67 127/67 03/23/20 20:19 Temperature Pulse Rate 92 Respiratory Rate Blood Pressure 104/58 L Body Mass Index 35.4 Labs Results: 03/21/20 13:19 03/08/20 08:43 Medications Medications Current Medications Generic Name Dose Route Start Last Admin Trade Name Freq PRN Reason Stop Dose Admin Acetaminophen 650 mg 03/08/20 20:39 03/23/20 18:04 Acetaminophen 325 Mg Tablet PO 650 mg Q6H PRN Administration Headache/Pain Mild Scale (1-3) Al Hydroxide/Mg Hydroxide 30 ml 03/08/20 20:39 03/19/20 20:24 Magnesium Hydrox/Alum Hydrox 30 Ml Oral.Susp PO 30 ml Q6H PRN Administration Heartburn/Nausea Atorvastatin Calcium 40 mg 03/09/20 21:00 03/23/20 20:19 Atorvastatin Calcium 40 Mg Tablet PO 40 mg BEDTIME ASHISH Administration Bacitracin 1 appl 03/10/20 10:40 03/23/20 20:26 Bacitracin Oint 14 Gm Tube TOPICAL Not Given BID ASHISH Protocol Benztropine Mesylate 1 mg 03/11/20 12:27 03/20/20 14:03 Benztropine Mesylate 1 Mg Tablet PO 1 mg TID PRN Administration Extrapyramidal Effects Duloxetine HCl 30 mg 03/17/20 09:00 03/23/20 08:29 Duloxetine Hcl 30 Mg Capsule.Dr PO 30 mg DAILY ASHISH Administration Hydroxyzine HCl 25 mg 03/08/20 20:39 03/21/20 21:01 Hydroxyzine Hcl 25 Mg Tablet PO 25 mg BEDTIME PRN Administration Anxiety Lisinopril 40 mg 03/09/20 17:00 03/23/20 08:29 Lisinopril 40 Mg Tablet PO 40 mg DAILY ASHISH Administration Protocol Lorazepam 0.5 mg 03/20/20 14:32 03/23/20 08:29 Lorazepam 0.5 Mg Tablet PO 0.5 mg Q8H PRN Administration anxiety/restlessness Magnesium Hydroxide 30 ml 03/08/20 20:39 Milk Of Magnesia 30 Ml Oral.Susp PO DAILY PRN Constipation Propranolol HCl 10 mg 03/19/20 15:00 03/23/20 20:19 Propranolol Hcl 10 Mg Tablet PO 10 mg TID ASHISH Administration Protocol Risperidone 1 mg 03/20/20 21:00 03/23/20 20:18 Risperidone 1 Mg Tablet PO 1 mg BEDTIME ASHISH Administration Risperidone 0.25 mg 03/20/20 19:44 Risperidone 0.25 Mg Tablet PO Q4H PRN anxiety/restlessness Trazodone HCl 100 mg 03/21/20 21:00 03/23/20 20:19 Trazodone Hcl 50 Mg Tablet PO 100 mg BEDTIME ASHISH Administration Allergies Allergies Allergy/AdvReac Type Severity Reaction Status Date / Time No Known Allergies Allergy Verified 03/19/20 09:17 [No Known Allergies*] Assessment & Plan Assessment & Plan (1) Essential hypertension: Status: Acute Code(s): I10 - Essential (primary) hypertension (2) Major depression: Status: Acute Code(s): F32.9 - Major depressive disorder, single episode, unspecified Assessment and Plan: ct ect Assessment & Plan Greater than 50% of the session was spent on counseling and/or coordination of care Ct ECT and meds. right hand x-ray ok stop Haldol change back to Risperdal patient request Ct Groups Patient educated on: diagnosis and ECT (Also discussed risk to dental crown and precautions we take. Informed Consent: understands Reason for contiued inpatient stay Substantial Risk for: rapid decompensation Greater than 50% of the session was spent on counseling and/or coordination of care
[2020-03-24] VITALS (12 sets, daily range): BP systolic 100–139; BP diastolic 54–76; PULSE 68–92; RESP 7–20; TEMP 36.1–36.3; O2SAT 93–99; BMI 35.4
--- NOTE | 2020-03-24 07:23 | HO.ANESPROP2 ---
FORMERLY [facility], 1928–1983 Past Medical History Medical History CHF (congestive heart failure) Depression Essential hypertension Generalized anxiety disorder History of congestive heart failure HTN (hypertension) Hyperlipidemia Surgical History Surgical History History of left hip replacement Social History Social History Household Members: None Housing: House Do you presently have visiting nurse or other home services: No Alcohol intake: current Smoking Status: Light tobacco smoker Smoked in Last 30 Days: No Patient Interested in Nicotine Replacement: No Patient Given Instructions on How to Stop Smoking: No Date Education Initiated: 03/09/20 Second Hand Smoke Exposure: No Use of substances other than those prescribed or required for medical reasons: Yes Substance Use Type: Marijuana Substance Use Type Other:: recovering opiate abuse Substance Use Frequency: Daily Last Used Substance: Just Prior to Admission Currently Displaying Signs/Symptoms of Drug Intoxication Withdrawal: No Any prior treatment program specific to substance use: Yes (was in detox facility for opiates use x10 times) Have you been hit, kicked, punched, or otherwise hurt by someone within the past year? If so, by whom?: No Do you feel safe in your current relationship?: No Current Relationship Is there a partner from a previous relationship who is making you feel unsafe now?: No Are you made to feel afraid or neglected: No Advance Directives: No Advance Directives Information Provided: Yes Advance Directives on File: No Suicidal Behavior: Self-injurious behavior Current/Past Psychiatric Disorders: Mood disorder and Substance abuse [place] Symptoms: Anxiety, Hopelessness and Impulsivity Access to Firearms: No Do you have thoughts of harming others: None Do you have a plan to hurt others: No Plan Recently lost weight without trying: No service: No Sexual orientation: Straight/Heterosexual Meds Allergies Allergy/AdvReac Type Severity Reaction Status Date / Time No Known Allergies Allergy Verified 03/19/20 09:17 [No Known Allergies*] Home Medications Medication Instructions Recorded Confirmed Type atorvastatin 40 mg PO BEDTIME 03/09/20 03/09/20 History escitalopram oxalate 30 mg PO DAILY 03/09/20 03/09/20 History hydroxyzine HCl 50 mg PO TID PRN 03/09/20 03/09/20 History lisinopril 40 mg PO DAILY 03/09/20 03/09/20 History risperidone 1 mg PO BEDTIME 03/09/20 03/09/20 History Exam Exam Date and Time: March 24, 2020722 Height,Weight and Vital Signs: Height 5 ft 9 in Weight 109 kg Last Vital Signs Temp 97.0 F 03/24/20 06:31 Pulse 68 03/24/20 06:31 Resp 7 L 03/24/20 06:31 BP 109/67 03/24/20 06:31 Pulse Ox 96 03/24/20 06:31 Pertinent Lab Results Pertinent Lab Results: Laboratory Tests 03/08/20 03/08/20 03/08/20 08:43 08:43 08:43 WBC 9.9 RBC 5.29 Hgb 15.0 Hct 44.0 MCV 83.2 MCH 28.4 MCHC 34.1 RDW 13.4 Plt Count 231 MPV 10.3 Immature Gran % (Auto) 0.7 H Neut % (Auto) 75.2 H Lymph % (Auto) 10.9 L [place] % (Auto) 8.9 Eos % (Auto) 4.1 H Baso % (Auto) 0.2 Neut # (Auto) 7.4 Lymph # (Auto) 1.1 L [place] # (Auto) 0.9 Eos # (Auto) 0.4 Baso # (Auto) 0.0 Abs Immat Gran (auto) 0.07 H Absolute Neuts (auto) Absolute Nucleated RBC 0.000 Nucleated RBC % (auto) 0.0 Sodium 140 Potassium 4.2 Chloride 108 Carbon Dioxide 23 Anion Gap 13 BUN 27 H Creatinine 1.20 Estim Creat Clear Calc 88.0 Estimated GFR > 60 Random Glucose 103 Estimat Average Glucose Hemoglobin A1c % Calcium 9.2 Total Bilirubin 1.8 H AST 20 ALT 39 Alkaline Phosphatase 131 H Total Protein 7.2 Albumin 4.2 Triglycerides Cholesterol LDL Cholesterol, Calc HDL Cholesterol Urine Opiates Screen Ur Barbiturates Screen Ur Phencyclidine Scrn Ur Amphetamines Screen U Benzodiazepines Scrn Urine Cocaine Screen U Marijuana (THC) Screen Ethyl Alcohol < 10 Coronavirus (PCR) 03/08/20 03/08/20 03/08/20 12:39 19:13 23:21 WBC RBC Hgb Hct MCV MCH MCHC RDW Plt Count MPV Immature Gran % (Auto) Neut % (Auto) Lymph % (Auto) [place] % (Auto) Eos % (Auto) Baso % (Auto) Neut # (Auto) Lymph # (Auto) [place] # (Auto) Eos # (Auto) Baso # (Auto) Abs Immat Gran (auto) Absolute Neuts (auto) Absolute Nucleated RBC Nucleated RBC % (auto) Sodium Potassium Chloride Carbon Dioxide Anion Gap BUN Creatinine Estim Creat Clear Calc Estimated GFR Random Glucose Estimat Average Glucose 108 Hemoglobin A1c % 5.4 Calcium Total Bilirubin AST ALT Alkaline Phosphatase Total Protein Albumin Triglycerides Cholesterol LDL Cholesterol, Calc HDL Cholesterol Urine Opiates Screen Not Detected Ur Barbiturates Screen Not Detected Ur Phencyclidine Scrn Not Detected Ur Amphetamines Screen Not Detected U Benzodiazepines Scrn Not Detected Urine Cocaine Screen Not Detected U Marijuana (THC) Screen POSITIVE H Ethyl Alcohol Coronavirus (PCR) NEGATIVE 03/08/20 03/21/20 23:22 13:19 WBC 10.1 RBC 4.98 Hgb 14.2 Hct 41.5 L MCV 83.3 MCH 28.5 MCHC 34.2 RDW 13.4 Plt Count 268 MPV 10.9 Immature Gran % (Auto) 0.3 Neut % (Auto) 59.7 Lymph % (Auto) 20.6 [place] % (Auto) 9.3 Eos % (Auto) 9.9 H Baso % (Auto) 0.2 Neut # (Auto) Lymph # (Auto) 2.1 [place] # (Auto) 0.9 Eos # (Auto) 1.0 H Baso # (Auto) 0.0 Abs Immat Gran (auto) 0.03 Absolute Neuts (auto) 6.1 Absolute Nucleated RBC 0.000 Nucleated RBC % (auto) 0.0 Sodium Potassium Chloride Carbon Dioxide Anion Gap BUN Creatinine Estim Creat Clear Calc Estimated GFR Random Glucose Estimat Average Glucose Hemoglobin A1c % Calcium Total Bilirubin AST ALT Alkaline Phosphatase Total Protein Albumin Triglycerides 114 Cholesterol 136 LDL Cholesterol, Calc 74 HDL Cholesterol 40 Urine Opiates Screen Ur Barbiturates Screen Ur Phencyclidine Scrn Ur Amphetamines Screen U Benzodiazepines Scrn Urine Cocaine Screen U Marijuana (THC) Screen Ethyl Alcohol Coronavirus (PCR) Airway Mallampati Class: II TM Dist: >3cm Neck ROM: Full Partial: Upper (Loose top tooth) Heart: RRR Lungs: CTA BL Assessment and Plan Assessment Anesthesia Assessment: Anesthesia Plan Discussed and Chart Reviewed Final Anesthetic Review NPO: Yes ASA Class: III Final Preanesthetic Review: Meds/Allgs Chart Reviewed and Consent Obtained/Reviewed Patient Risk: Intermediate Procedure Risk: Intermediate Anesthetic Plan Anesthetic Plan: GA and Regional Block
--- NOTE | 2020-03-24 07:33 | HO.ECTPROC ---
ECT Procedure Note Diagnosis/Treatment Diagnosis: Major Depressive Disorder Previous ECT Date: 03/22/20 Current Treatment Number: 3 Treatment: Series Interval Clinical Notes: tobias affect no c/o side effects ECT Settings Device: THYMATRON DGx Electrode Placement: Right Unilateral Program/Pulse Width: 0.25 Energy Percent: 80 Seizure Duration By EEG (in seconds): 24 Medications Administration General Anesthetic: Etomidate (18) Muscle Relaxant: Succinylcholine (160) Ancillary Medications Analgesics: Torodol - Pre ECT (30) Anti-emetics: Zofran - Post ECT (4) Miscillaneous Medications: Propofol (30 mg) Airway Management Airway Management: Bag Mask Ventilation Treatment Recommendations Electrode Placement: Right Unilateral Program/Pulse Width: 0.25 Energy Percent: 100 Notes: consider decrease etom 16 inc energy
[2020-03-24] MEDS: DULoxetine HCl 30 MG CAPSULE.DR 60 MG PO (08:48)
[2020-03-24] MEDS: lisinopriL 40 MG TABLET PO (08:49)
[2020-03-24] MEDS: Propranolol HCL 10 MG TABLET PO ×3 (08:49→21:04)
[2020-03-24] MEDS: LORazepam 0.5 MG TABLET PO ×2 (14:40→22:37)
[2020-03-24] MEDS: risperiDONE 0.25 MG TABLET PO (18:44)
[2020-03-24] MEDS: traZODone HCL 50 MG TABLET 100 MG PO (21:03)
[2020-03-24] MEDS: Atorvastatin Calcium 40 MG TABLET PO (21:03)
[2020-03-24] MEDS: risperiDONE 1 MG TABLET PO (21:03)
[2020-03-24] MEDS: Bacitracin Oint 14 GM TUBE 1 APPL TOPICAL (21:37)
[2020-03-24] MEDS: Magnesium Hydrox/Alum Hydrox 30 ML ORAL.SUSP PO (21:46)
--- NOTE | 2020-03-24 22:24 | HO.PSYCHPN ---
Subjective Subjective Reason For Visit: anxiety depression Subjective Notes: Conditional Voluntary Interim History: pt gradually improving Medication Compliance: Yes Side effects from medications: No Review of Systems Reports system reviewed and no additional complaints, except as documented and Reports Abnormal speech present Mental Status Exam Mental Status Exam Patient Appearance: Well Grooomed Patient Orientation: Person, Place, Time and Situation Level of Consciousness: Awake and Alert Patient Behavior: Appropriate and Cooperative Affect Description: Depressed (improving), Anxious and Apprehensive Memory Description: Intact Delusions: Not Present Thought Process: Rumination Abnormal Motor Activity Signs and Symptoms: Psychomotor Retardation Diagnostics Vital Signs (24Hr): Vital Signs - 24 hr 03/24/20 06:05 03/24/20 06:20 03/24/20 06:31 Temperature 97.2 F 97.2 F 97.0 F Pulse Rate 92 92 68 Respiratory Rate 18 18 7 L Blood Pressure 107/76 107/76 109/67 Pulse Oximetry 99 99 96 03/24/20 07:42 03/24/20 07:47 03/24/20 07:52 Temperature 97.4 F Pulse Rate 92 75 75 Respiratory Rate 18 16 20 Blood Pressure 139/69 134/74 120/54 L Pulse Oximetry 96 93 03/24/20 07:57 03/24/20 08:49 03/24/20 09:46 Temperature 97.3 F Pulse Rate 75 75 71 Respiratory Rate 18 Blood Pressure 117/69 117/69 100/67 Pulse Oximetry 94 03/24/20 11:12 03/24/20 14:40 03/24/20 21:04 Temperature 97.2 F Pulse Rate 71 86 75 Respiratory Rate Blood Pressure 100/67 126/62 Pulse Oximetry 98 Body Mass Index 35.4 Labs Results: 03/21/20 13:19 03/08/20 08:43 Medications Medications Current Medications Generic Name Dose Route Start Last Admin Trade Name Freq PRN Reason Stop Dose Admin Acetaminophen 650 mg 03/08/20 20:39 03/23/20 18:04 Acetaminophen 325 Mg Tablet PO 650 mg Q6H PRN Administration Headache/Pain Mild Scale (1-3) Al Hydroxide/Mg Hydroxide 30 ml 03/08/20 20:39 03/24/20 21:46 Magnesium Hydrox/Alum Hydrox 30 Ml Oral.Susp PO 30 ml Q6H PRN Administration Heartburn/Nausea Atorvastatin Calcium 40 mg 03/09/20 21:00 03/24/20 21:03 Atorvastatin Calcium 40 Mg Tablet PO 40 mg BEDTIME ASHSIH Administration Bacitracin 1 appl 03/10/20 10:40 03/24/20 21:37 Bacitracin Oint 14 Gm Tube TOPICAL 1 appl BID ASHISH Administration Protocol Benztropine Mesylate 1 mg 03/11/20 12:27 03/20/20 14:03 Benztropine Mesylate 1 Mg Tablet PO 1 mg TID PRN Administration Extrapyramidal Effects Duloxetine HCl 60 mg 03/24/20 09:00 03/24/20 08:48 Duloxetine Hcl 30 Mg Capsule.Dr PO 60 mg DAILY ASHISH Administration Hydroxyzine HCl 25 mg 03/08/20 20:39 03/21/20 21:01 Hydroxyzine Hcl 25 Mg Tablet PO 25 mg BEDTIME PRN Administration Anxiety Lisinopril 40 mg 03/09/20 17:00 03/24/20 08:49 Lisinopril 40 Mg Tablet PO 40 mg DAILY ASHISH Administration Protocol Lorazepam 0.5 mg 03/20/20 14:32 03/24/20 14:40 Lorazepam 0.5 Mg Tablet PO 0.5 mg Q8H PRN Administration anxiety/restlessness Magnesium Hydroxide 30 ml 03/08/20 20:39 Milk Of Magnesia 30 Ml Oral.Susp PO DAILY PRN Constipation Ondansetron HCl 4 mg 03/24/20 09:30 03/24/20 09:59 Ondansetron Odt 4 Mg Tab.Rapdis TRANSLINGU 4 mg Q6H PRN Administration Nausea Propranolol HCl 10 mg 03/19/20 15:00 03/24/20 21:04 Propranolol Hcl 10 Mg Tablet PO 10 mg TID ASHISH Administration Protocol Risperidone 1 mg 03/20/20 21:00 03/24/20 21:03 Risperidone 1 Mg Tablet PO 1 mg BEDTIME ASHISH Administration Risperidone 0.25 mg 03/20/20 19:44 03/24/20 18:44 Risperidone 0.25 Mg Tablet PO 0.25 mg Q4H PRN Administration anxiety/restlessness Trazodone HCl 100 mg 03/21/20 21:00 03/24/20 21:03 Trazodone Hcl 50 Mg Tablet PO 100 mg BEDTIME ASHISH Administration Allergies Allergies Allergy/AdvReac Type Severity Reaction Status Date / Time No Known Allergies Allergy Verified 03/19/20 09:17 [No Known Allergies*] Assessment & Plan Assessment & Plan (1) Major depression: Qualifiers: Major depression recurrence: recurrent Active/Remission status: currently active Major depression episode severity: severe Status: Acute Code(s): F32.9 - Major depressive disorder, single episode, unspecified Assessment and Plan: cont ect cymbalta Greater than 50% of the session was spent on counseling and/or coordination of care Patient educated on: ECT Informed Consent: understands Reason for contiued inpatient stay Substantial Risk for: rapid decompensation
[2020-03-25] MEDS: Magnesium Hydrox/Alum Hydrox 30 ML ORAL.SUSP PO (04:44)
[2020-03-25 04:49] VITALS: BP 96/65; PULSE 95; RESP 18
[2020-03-25 09:05] VITALS: BP 105/54; PULSE 57
[2020-03-25] MEDS: Propranolol HCL 10 MG TABLET PO ×3 (09:05→19:54)
[2020-03-25] MEDS: Bacitracin Oint 14 GM TUBE 1 APPL TOPICAL ×2 (09:05→19:56)
[2020-03-25] MEDS: DULoxetine HCl 30 MG CAPSULE.DR 60 MG PO (09:05)
[2020-03-25 09:06] VITALS: BP 98/65; PULSE 95
[2020-03-25] MEDS: lisinopriL 40 MG TABLET PO (09:06)
[2020-03-25] MEDS: LORazepam 0.5 MG TABLET PO (09:20)
[2020-03-25] MEDS: risperiDONE 0.25 MG TABLET PO (13:11)
[2020-03-25 14:12] VITALS: BP 100/68; PULSE 100
[2020-03-25] MEDS: Omeprazole 20 MG CAPSULE.DR PO (16:44)
[2020-03-25] MEDS: Atorvastatin Calcium 40 MG TABLET PO (19:52)
[2020-03-25 19:54] VITALS: BP 112/74; PULSE 76
[2020-03-25] MEDS: traZODone HCL 50 MG TABLET 100 MG PO (19:55)
[2020-03-25] MEDS: risperiDONE 1 MG TABLET PO (19:55)
--- NOTE | 2020-03-25 20:45 | P.PNPSI_ITS ---
Subjective Subjective Reason For Visit: anxiety depression Subjective Notes: Conditional Voluntary Interim History: patient anxious with generally improved mood less depressed Cymbalta at 60 mg tolerating tolerating ECT well Medication Compliance: Yes Review of Systems Reports system reviewed and no additional complaints, except as documented and Reports Abnormal speech present Mental Status Exam Mental Status Exam Narrative: patient tends to ruminate Patient Appearance: Well Grooomed Patient Orientation: Person, Place, Time and Situation Level of Consciousness: Awake and Alert Patient Behavior: Appropriate and Cooperative Affect Description: Depressed (improving), Anxious and Apprehensive Patient Cognition Impaired: No Ability to Follow Directions: Good Memory Description: Intact Delusions: Not Present Thought Process: Rumination Thought Content: positive for Preoccupation Depressive Symptoms: Increased Anxiety and Thoughts of /Suicide ( much decr eased) Abnormal Motor Activity Signs and Symptoms: Psychomotor Retardation Judgement: Good Judgement and Insight: improving insight and judgment Diagnostics Vital Signs (24Hr): Vital Signs - 24 hr 03/24/20 21:04 03/25/20 04:49 03/25/20 09:05 Pulse Rate 75 95 57 Respiratory Rate 18 Blood Pressure 126/62 96/65 105/54 L 03/25/20 09:06 03/25/20 14:12 03/25/20 19:54 Pulse Rate 95 100 76 Respiratory Rate Blood Pressure 98/65 100/68 112/74 Body Mass Index 35.4 Labs Results: 03/21/20 13:19 03/08/20 08:43 Medications Medications Current Medications Generic Name Dose Route Start Last Admin Trade Name Freq PRN Reason Stop Dose Admin Acetaminophen 650 mg 03/08/20 20:39 03/23/20 18:04 Acetaminophen 325 Mg Tablet PO 650 mg Q6H PRN Administration Headache/Pain Mild Scale (1-3) Al Hydroxide/Mg Hydroxide 30 ml 03/08/20 20:39 03/25/20 04:44 Magnesium Hydrox/Alum Hydrox 30 Ml Oral.Susp PO 30 ml Q6H PRN Administration Heartburn/Nausea Atorvastatin Calcium 40 mg 03/09/20 21:00 03/25/20 19:52 Atorvastatin Calcium 40 Mg Tablet PO 40 mg BEDTIME ASHISH Administration Bacitracin 1 appl 03/10/20 10:40 03/25/20 19:56 Bacitracin Oint 14 Gm Tube TOPICAL 1 appl BID ASHISH Administration Protocol Benztropine Mesylate 1 mg 03/11/20 12:27 03/20/20 14:03 Benztropine Mesylate 1 Mg Tablet PO 1 mg TID PRN Administration Extrapyramidal Effects Duloxetine HCl 60 mg 03/24/20 09:00 03/25/20 09:05 Duloxetine Hcl 30 Mg Capsule. PO 60 mg DAILY ASHISH Administration Hydroxyzine HCl 25 mg 03/08/20 20:39 03/21/20 21:01 Hydroxyzine Hcl 25 Mg Tablet PO 25 mg BEDTIME PRN Administration Anxiety Lisinopril 40 mg 03/09/20 17:00 03/25/20 09:06 Lisinopril 40 Mg Tablet PO 40 mg DAILY ASHISH Administration Protocol Magnesium Hydroxide 30 ml 03/08/20 20:39 Milk Of Magnesia 30 Ml Oral.Susp PO DAILY PRN Constipation Omeprazole 20 mg 03/25/20 16:30 03/25/20 16:44 Omeprazole 20 Mg Capsule. PO 20 mg DAILY@0630 ASHISH Administration Ondansetron HCl 4 mg 03/24/20 09:30 03/24/20 22:35 Ondansetron Odt 4 Mg Tab.Rapdis TRANSLINGU 4 mg Q6H PRN Administration Nausea Propranolol HCl 10 mg 03/19/20 15:00 03/25/20 19:54 Propranolol Hcl 10 Mg Tablet PO 10 mg TID ASHISH Administration Protocol Risperidone 1 mg 03/20/20 21:00 03/25/20 19:55 Risperidone 1 Mg Tablet PO 1 mg BEDTIME ASHISH Administration Risperidone 0.25 mg 03/20/20 19:44 03/25/20 13:11 Risperidone 0.25 Mg Tablet PO 0.25 mg Q4H PRN Administration anxiety/restlessness Trazodone HCl 100 mg 03/21/20 21:00 03/25/20 19:55 Trazodone Hcl 50 Mg Tablet PO 100 mg BEDTIME ASHISH Administration Allergies Allergies Allergy/AdvReac Type Severity Reaction Status Date / Time No Known Allergies Allergy Verified 03/19/20 09:17 [No Known Allergies*] Assessment & Plan Assessment & Plan (1) Major depression: Qualifiers: Major depression recurrence: recurrent Active/Remission status: cur rently active Major depression episode severity: severe Status: Acute Code(s): F32.9 - Major depressive disorder, single episode, unspecified Assessment and Plan: continue ECT and Cymbalta would benefit from eventual outpatient psychotherapy and medication (2) Generalized anxiety disorder: Status: Acute Code(s): F41.1 - Generalized anxiety disorder Greater than 50% of the session was spent on counseling and/or coordination of care Patient educated on: medication risk/benefits Guardian/Caregiver educated on: ECT Reason for contiued inpatient stay Substantial Risk for: rapid decompensation
[2020-03-26] VITALS (9 sets, daily range): BP systolic 98–151; BP diastolic 77–90; PULSE 72–102; RESP 16–23; TEMP 36–36.2; O2SAT 93–98; BMI 35.4
--- NOTE | 2020-03-26 07:06 | HO.ECTPROC ---
ECT Procedure Note Diagnosis/Treatment Diagnosis: Major Depressive Disorder Previous ECT Date: 03/24/20 Current Treatment Number: 4 Treatment: Series Interval Clinical Notes: Remains suicidal and depressed ECT Settings Device: THYMATRON DGx Electrode Placement: Bifrontal Program/Pulse Width: 0.50 Energy Percent: 100 Seizure Duration By EEG (in seconds): 0 By Motor Observation (in seconds): 58 Medications Administration General Anesthetic: Etomidate (16) Muscle Relaxant: Succinylcholine (160) Ancillary Medications Analgesics: Torodol - Pre ECT (15) Anti-emetics: Zofran - Pre ECT (4) Miscillaneous Medications: Propofol (30 mg post) Airway Management Airway Management: Bag Mask Ventilation Treatment Recommendations No Changes Recommended: No change Electrode Placement: Bifrontal Program/Pulse Width: 0.50 Energy Percent: 100 Pt Tolerated Procedure w/o Issue: Yes
--- NOTE | 2020-03-26 07:06 | MHC.SHP ---
Pre-Procedural Eval Section A The patient is an INPATIENT: Yes Changes since office visit: No Cold of Flu in the past 2 weeks, No New Medical Problems, No Changes in Medication and No Patient answered all questions The History & Physical has been completed within 30 days and I have reviewed it.: Yes Section B Chief Complaint: anxiety depression Allergies: Allergies Allergy/AdvReac Type Severity Reaction Status Date / Time No Known Allergies Allergy Verified 03/19/20 09:17 [No Known Allergies*] Plan Diagnosis/Plan: Unchanged Patient has been examined and remains a candidate for the planned procedure
--- NOTE | 2020-03-26 08:06 | HO.ANESPROP2 ---
[facility] Past Medical History Medical History CHF (congestive heart failure) Depression Essential hypertension Generalized anxiety disorder History of congestive heart failure HTN (hypertension) Hyperlipidemia Surgical History Surgical History History of left hip replacement Social History Social History Household Members: None Housing: House Do you presently have visiting nurse or other home services: No Alcohol intake: current Smoking Status: Light tobacco smoker Smoked in Last 30 Days: No Patient Interested in Nicotine Replacement: No Patient Given Instructions on How to Stop Smoking: No Date Education Initiated: 03/09/20 Second Hand Smoke Exposure: No Use of substances other than those prescribed or required for medical reasons: Yes Substance Use Type: Marijuana Substance Use Type Other:: recovering opiate abuse Substance Use Frequency: Daily Last Used Substance: Just Prior to Admission Currently Displaying Signs/Symptoms of Drug Intoxication Withdrawal: No Any prior treatment program specific to substance use: Yes (was in detox facility for opiates use x10 times) Have you been hit, kicked, punched, or otherwise hurt by someone within the past year? If so, by whom?: No Do you feel safe in your current relationship?: No Current Relationship Is there a partner from a previous relationship who is making you feel unsafe now?: No Are you made to feel afraid or neglected: No Advance Directives: No Advance Directives Information Provided: Yes Advance Directives on File: No Suicidal Behavior: Self-injurious behavior Current/Past Psychiatric Disorders: Mood disorder and Substance abuse [place] Symptoms: Anxiety, Hopelessness and Impulsivity Access to Firearms: No Do you have thoughts of harming others: None Do you have a plan to hurt others: No Plan Recently lost weight without trying: No service: No Sexual orientation: Straight/Heterosexual Meds Allergies Allergy/AdvReac Type Severity Reaction Status Date / Time No Known Allergies Allergy Verified 03/19/20 09:17 [No Known Allergies*] Home Medications Medication Instructions Recorded Confirmed Type atorvastatin 40 mg PO BEDTIME 03/09/20 03/09/20 History escitalopram oxalate 30 mg PO DAILY 03/09/20 03/09/20 History hydroxyzine HCl 50 mg PO TID PRN 03/09/20 03/09/20 History lisinopril 40 mg PO DAILY 03/09/20 03/09/20 History risperidone 1 mg PO BEDTIME 03/09/20 03/09/20 History Exam Exam Date and Time: March 26, 2020805 Height,Weight and Vital Signs: Height 5 ft 9 in Weight 109 kg Last Vital Signs Temp 97.1 F 03/26/20 07:53 Pulse 76 03/26/20 07:53 Resp 18 03/26/20 07:53 BP 98/81 03/26/20 07:53 Pulse Ox 98 03/26/20 07:53 Pertinent Lab Results Pertinent Lab Results: Laboratory Tests 03/08/20 03/08/20 03/08/20 08:43 08:43 08:43 WBC 9.9 RBC 5.29 Hgb 15.0 Hct 44.0 MCV 83.2 MCH 28.4 MCHC 34.1 RDW 13.4 Plt Count 231 MPV 10.3 Immature Gran % (Auto) 0.7 H Neut % (Auto) 75.2 H Lymph % (Auto) 10.9 L [place] % (Auto) 8.9 Eos % (Auto) 4.1 H Baso % (Auto) 0.2 Neut # (Auto) 7.4 Lymph # (Auto) 1.1 L [place] # (Auto) 0.9 Eos # (Auto) 0.4 Baso # (Auto) 0.0 Abs Immat Gran (auto) 0.07 H Absolute Neuts (auto) Absolute Nucleated RBC 0.000 Nucleated RBC % (auto) 0.0 Sodium 140 Potassium 4.2 Chloride 108 Carbon Dioxide 23 Anion Gap 13 BUN 27 H Creatinine 1.20 Estim Creat Clear Calc 88.0 Estimated GFR > 60 Random Glucose 103 Estimat Average Glucose Hemoglobin A1c % Calcium 9.2 Total Bilirubin 1.8 H AST 20 ALT 39 Alkaline Phosphatase 131 H Total Protein 7.2 Albumin 4.2 Triglycerides Cholesterol LDL Cholesterol, Calc HDL Cholesterol Urine Opiates Screen Ur Barbiturates Screen Ur Phencyclidine Scrn Ur Amphetamines Screen U Benzodiazepines Scrn Urine Cocaine Screen U Marijuana (THC) Screen Ethyl Alcohol < 10 Coronavirus (PCR) 03/08/20 03/08/20 03/08/20 12:39 19:13 23:21 WBC RBC Hgb Hct MCV MCH MCHC RDW Plt Count MPV Immature Gran % (Auto) Neut % (Auto) Lymph % (Auto) [place] % (Auto) Eos % (Auto) Baso % (Auto) Neut # (Auto) Lymph # (Auto) [place] # (Auto) Eos # (Auto) Baso # (Auto) Abs Immat Gran (auto) Absolute Neuts (auto) Absolute Nucleated RBC Nucleated RBC % (auto) Sodium Potassium Chloride Carbon Dioxide Anion Gap BUN Creatinine Estim Creat Clear Calc Estimated GFR Random Glucose Estimat Average Glucose 108 Hemoglobin A1c % 5.4 Calcium Total Bilirubin AST ALT Alkaline Phosphatase Total Protein Albumin Triglycerides Cholesterol LDL Cholesterol, Calc HDL Cholesterol Urine Opiates Screen Not Detected Ur Barbiturates Screen Not Detected Ur Phencyclidine Scrn Not Detected Ur Amphetamines Screen Not Detected U Benzodiazepines Scrn Not Detected Urine Cocaine Screen Not Detected U Marijuana (THC) Screen POSITIVE H Ethyl Alcohol Coronavirus (PCR) NEGATIVE 03/08/20 03/21/20 23:22 13:19 WBC 10.1 RBC 4.98 Hgb 14.2 Hct 41.5 L MCV 83.3 MCH 28.5 MCHC 34.2 RDW 13.4 Plt Count 268 MPV 10.9 Immature Gran % (Auto) 0.3 Neut % (Auto) 59.7 Lymph % (Auto) 20.6 [place] % (Auto) 9.3 Eos % (Auto) 9.9 H Baso % (Auto) 0.2 Neut # (Auto) Lymph # (Auto) 2.1 [place] # (Auto) 0.9 Eos # (Auto) 1.0 H Baso # (Auto) 0.0 Abs Immat Gran (auto) 0.03 Absolute Neuts (auto) 6.1 Absolute Nucleated RBC 0.000 Nucleated RBC % (auto) 0.0 Sodium Potassium Chloride Carbon Dioxide Anion Gap BUN Creatinine Estim Creat Clear Calc Estimated GFR Random Glucose Estimat Average Glucose Hemoglobin A1c % Calcium Total Bilirubin AST ALT Alkaline Phosphatase Total Protein Albumin Triglycerides 114 Cholesterol 136 LDL Cholesterol, Calc 74 HDL Cholesterol 40 Urine Opiates Screen Ur Barbiturates Screen Ur Phencyclidine Scrn Ur Amphetamines Screen U Benzodiazepines Scrn Urine Cocaine Screen U Marijuana (THC) Screen Ethyl Alcohol Coronavirus (PCR) Airway Mallampati Class: II TM Dist: >3cm Neck ROM: Full Assessment and Plan Assessment Anesthesia Assessment: Anesthesia Plan Discussed and Chart Reviewed Final Anesthetic Review NPO: Yes ASA Class: II Final Preanesthetic Review: No Changes in Pt Med Stat, Meds/Allgs Chart Reviewed, Consent Obtained/Reviewed and Anes Risks/Benef Reviewed Patient Risk: Low Procedure Risk: Low Assessment/Block/Sedation in SS: Assess/Block/Sedation-SS Anesthetic Plan Anesthetic Plan: GA Disposition: Standard PACU
--- NOTE | 2020-03-26 09:12 | P.PNPSI_ITS ---
Subjective Subjective Reason For Visit: anxiety depression Interim History: tolerating ECT well. Reported nausea post ECT. Zofran PRN. In PACU pt told RN his rotten thoughts are returning w SI. Later told TW how his suicide method will combine OD, hanging and CO poisoning. I dont want to think like this but these thoughts just enter my head . Remains ambivalent about living. S/P ECT #4. See ECT note Review of Systems Reports system reviewed and no additional complaints, except as documented and Reports Abnormal speech present Mental Status Exam Mental Status Exam Patient Appearance: Well Grooomed Patient Orientation: Person, Place, Time and Situation Level of Consciousness: Awake and Alert Patient Behavior: Appropriate and Cooperative Mood Description: Depressed and Apprehensive Affect Description: Depressed (improving), Anxious and Apprehensive Patient Cognition Impaired: No Ability to Follow Directions: Good Speech Pattern: Clear Memory Description: Intact Diagnostics Vital Signs (24Hr): Vital Signs - 24 hr 03/25/20 14:12 03/25/20 19:54 03/26/20 06:23 Temperature 96.8 F Pulse Rate 100 76 72 Respiratory Rate 16 Blood Pressure 100/68 112/74 115/77 Pulse Oximetry 97 03/26/20 07:53 03/26/20 08:25 03/26/20 08:30 Temperature 97.1 F 97.0 F Pulse Rate 76 93 93 Respiratory Rate 18 23 H 21 H Blood Pressure 98/81 151/77 H 125/77 Pulse Oximetry 98 94 94 03/26/20 08:35 03/26/20 08:40 03/26/20 08:55 Temperature Pulse Rate 98 98 102 H Respiratory Rate 21 H 20 20 Blood Pressure 138/87 129/79 136/90 H Pulse Oximetry 93 93 94 Body Mass Index 35.4 Labs Results: 03/21/20 13:19 03/08/20 08:43 Medications Medications Current Medications Generic Name Dose Route Start Last Admin Trade Name Freq PRN Reason Stop Dose Admin Hydroxyzine HCl 50 mg 03/26/20 08:55 Hydroxyzine Hcl 50 Mg Tablet PO TID PRN Anxiety Lactated Ringer's 1,000 ml in 1,000 mls @ 20 mls/hr 03/26/20 08:10 03/26/20 09:01 Lr IVCONT 0 mls/hr .Q24H ASHISH Infusion Allergies Allergies Allergy/AdvReac Type Severity Reaction Status Date / Time No Known Allergies Allergy Verified 03/19/20 09:17 [No Known Allergies*] Assessment & Plan Assessment & Plan (1) Major depression: Qualifiers: Major depression recurrence: recurrent Active/Remission status: curr ently active Major depression episode severity: severe Status: Acute Code(s): F32.9 - Major depressive disorder, single episode, unspecified Assessment and Plan: continue ECT and Cymbalta would benefit from eventual outpatient psychotherapy and medication Remains at high risk outside of hospital setting due to high level of perturb ation (2) Generalized anxiety disorder: Status: Acute Code(s): F41.1 - Generalized anxiety disorder Greater than 50% of the session was spent on counseling and/or coordination of care
--- NOTE | 2020-03-26 09:12 | P.DS_ITS ---
DS: Providers Provider Date of admission: 03/08/20 20:39 Primary care physician: Nael Muir MD DS: Diagnosis Discharge Diagnosis (1) Major depression: Status: Acute (2) Generalized anxiety disorder: Status: Acute Discharge Plan Discharge Discharge Medications: No Action hydroxyzine HCl 50 mg Tablet 50 mg PO TID PRN (Reason: Anxiety) RF: 0 lisinopril 40 mg Tablet 40 mg PO DAILY RF: 0 risperidone 1 mg Tablet 1 mg PO BEDTIME RF: 0 atorvastatin 40 mg Tablet 40 mg PO BEDTIME RF: 0 escitalopram oxalate 20 mg Tablet 30 mg PO DAILY RF: 0 Data Data Completed and Pending Completed studies during hospitalization [Text1]: 03/21/20 13:19 WBC 10.1 RBC 4.98 Hgb 14.2 Hct 41.5 L MCV 83.3 MCH 28.5 MCHC 34.2 RDW 13.4 Plt Count 268 MPV 10.9 Immature Gran % (Auto) 0.3 Neut % (Auto) 59.7 Lymph % (Auto) 20.6 [place] % (Auto) 9.3 Eos % (Auto) 9.9 H Baso % (Auto) 0.2 Lymph # (Auto) 2.1 [place] # (Auto) 0.9 Eos # (Auto) 1.0 H Baso # (Auto) 0.0 Abs Immat Gran (auto) 0.03 Absolute Neuts (auto) 6.1 Absolute Nucleated RBC 0.000 Nucleated RBC % (auto) 0.0 DS: Summary Time Spent with Patient Time attestation: Total time spent providing and/or coordinating discharge services:
--- NOTE | 2020-03-26 09:16 | HO.POSTANES ---
Post Anesthesia Evaluation Post Anesthesia Evaluation Vital Signs: Vital Signs Temp Pulse Resp BP Pulse Ox 03/26/20 08:55 102 H 20 136/90 H 94 03/26/20 08:40 98 20 129/79 93 03/26/20 08:35 98 21 H 138/87 93 03/26/20 08:30 93 21 H 125/77 94 03/26/20 08:25 97.0 F 93 23 H 151/77 H 94 03/26/20 07:53 97.1 F 76 18 98/81 98 03/26/20 06:23 96.8 F 72 16 115/77 97 Anesthesia: General Mental Status: Awake Pain Control: Satisfactory Nausea/Vomiting: None Hydration: Adequate Anesthesia-Related Issues: No Anes. Related Issues
[2020-03-26] MEDS: hydrOXYzine HCL 50 MG TABLET PO (10:44)
[2020-03-26] MEDS: DULoxetine HCl 60 MG CAPSULE.DR PO (11:48)
[2020-03-26] MEDS: Omeprazole 20 MG CAPSULE.DR PO (11:49)
[2020-03-26] MEDS: lisinopriL 40 MG TABLET PO (14:42)
[2020-03-26] MEDS: Acetaminophen 325 MG TABLET 650 MG PO (18:18)
[2020-03-26] MEDS: Atorvastatin Calcium 40 MG TABLET PO (20:19)
[2020-03-26] MEDS: LORazepam 0.5 MG TABLET PO (20:19)
[2020-03-26] MEDS: traZODone HCL 100 MG TABLET PO (20:19)
[2020-03-26] MEDS: risperiDONE 1 MG TABLET PO (20:20)
[2020-03-26] MEDS: Bacitracin Oint 14 GM TUBE 1 APPL TOPICAL (20:42)
[2020-03-27] MEDS: Omeprazole 20 MG CAPSULE.DR PO (06:41)
[2020-03-27 08:55] VITALS: BP 128/77; PULSE 75; TEMP 36.1; O2SAT 93
[2020-03-27 09:05] VITALS: BP 128/77; PULSE 75
[2020-03-27] MEDS: lisinopriL 40 MG TABLET PO (09:05)
[2020-03-27] MEDS: DULoxetine HCl 60 MG CAPSULE.DR PO (09:05)
[2020-03-27] MEDS: LORazepam 0.5 MG TABLET PO ×2 (11:45→20:00)
[2020-03-27] MEDS: Atorvastatin Calcium 40 MG TABLET PO (20:00)
[2020-03-27] MEDS: traZODone HCL 100 MG TABLET PO (20:00)
[2020-03-27] MEDS: risperiDONE 1 MG TABLET PO (20:01)
--- NOTE | 2020-03-27 20:02 | HO.POSTANES ---
Post Anesthesia Evaluation Post Anesthesia Evaluation Vital Signs: Vital Signs Temp Pulse BP Pulse Ox 03/27/20 09:05 75 128/77 03/27/20 08:55 97.0 F 75 128/77 93 Anesthesia: General Mental Status: Awake Nausea/Vomiting: None Hydration: Adequate Anesthesia-Related Issues: No Anes. Related Issues
[2020-03-27] MEDS: Bacitracin Oint 14 GM TUBE 1 APPL TOPICAL (20:04)
--- NOTE | 2020-03-27 21:40 | HO.PSYCHPN ---
Subjective Subjective Reason For Visit: anxiety depression Interim History: tolerating ECT well. Reported nausea post ECT. Zofran PRNwith good effect attending groups and denying SI today Review of Systems Review of Systems no changes to ROS Yes all other systems are reviewed and are negative Reports system reviewed and no additional complaints, except as documented and Reports Abnormal speech present Mental Status Exam Mental Status Exam Patient Appearance: Well Grooomed Patient Orientation: Person, Place, Time and Situation Level of Consciousness: Awake and Alert Patient Behavior: Appropriate and Cooperative Mood Description: Depressed and Apprehensive Affect Description: Depressed (improving), Anxious and Apprehensive Patient Cognition Impaired: No Ability to Follow Directions: Good Speech Pattern: Clear Memory Description: Intact Diagnostics Vital Signs (24Hr): Vital Signs - 24 hr 03/27/20 08:55 03/27/20 09:05 Temperature 97.0 F Pulse Rate 75 75 Blood Pressure 128/77 128/77 Pulse Oximetry 93 Body Mass Index 35.4 Labs Results: 03/21/20 13:19 03/08/20 08:43 Medications Medications Current Medications Generic Name Dose Route Start Last Admin Trade Name Freq PRN Reason Stop Dose Admin Acetaminophen 650 mg 03/26/20 16:18 03/26/20 18:18 Acetaminophen 325 Mg Tablet PO 650 mg Q6H PRN Administration Pain, Moderate (Pain Scale 4-6 Al Hydroxide/Mg Hydroxide 30 ml 03/26/20 16:18 Magnesium Hydrox/Alum Hydrox 30 Ml Oral.Susp PO Q4H PRN Heartburn Atorvastatin Calcium 40 mg 03/26/20 21:00 03/27/20 20:00 Atorvastatin Calcium 40 Mg Tablet PO 40 mg BEDTIME ASHISH Administration Bacitracin 1 appl 03/26/20 21:00 03/27/20 20:04 Bacitracin Oint 14 Gm Tube TOPICAL 1 appl BID ASHISH Administration Protocol Duloxetine HCl 60 mg 03/26/20 10:35 03/27/20 09:05 Duloxetine Hcl 60 Mg Capsule.Dr PO 60 mg DAILY ASHISH Administration Hydroxyzine HCl 50 mg 03/26/20 08:55 03/26/20 10:44 Hydroxyzine Hcl 50 Mg Tablet PO 50 mg TID PRN Administration Anxiety Lisinopril 40 mg 03/27/20 09:00 03/27/20 09:05 Lisinopril 40 Mg Tablet PO 40 mg DAILY ASHISH Administration Protocol Lorazepam 0.5 mg 03/26/20 10:34 03/27/20 20:00 Lorazepam 0.5 Mg Tablet PO 0.5 mg Q8H PRN Administration Anxiety Magnesium Hydroxide 30 ml 03/26/20 16:18 Milk Of Magnesia 30 Ml Oral.Susp PO BID PRN Constipation Omeprazole 20 mg 03/26/20 10:45 03/27/20 06:41 Omeprazole 20 Mg Capsule.Dr PO 20 mg DAILY@0630 ASHISH Administration Ondansetron HCl 4 mg 03/26/20 10:16 03/26/20 10:44 Ondansetron Odt 4 Mg Tab.Rapdis TRANSLINGU 4 mg Q6H PRN Administration Nausea Risperidone 1 mg 03/26/20 21:00 03/27/20 20:01 Risperidone 1 Mg Tablet PO 1 mg BEDTIME ASHISH Administration Risperidone 0.25 mg 03/26/20 10:29 Risperidone 0.25 Mg Tablet PO Q4H PRN Anxiety Trazodone HCl 100 mg 03/26/20 21:00 03/27/20 20:00 Trazodone Hcl 100 Mg Tablet PO 100 mg BEDTIME ASHISH Administration Trazodone HCl 100 mg 03/26/20 10:34 Trazodone Hcl 100 Mg Tablet PO BEDTIME PRN Insomnia Allergies Allergies Allergy/AdvReac Type Severity Reaction Status Date / Time No Known Allergies Allergy Verified 03/19/20 09:17 [No Known Allergies*] Assessment & Plan Assessment & Plan (1) Generalized anxiety disorder: Status: Acute Code(s): F41.1 - Generalized anxiety disorder (2) Major depression: Qualifiers: Major depression recurrence: recurrent Active/Remission status: currently active Major depression episode severity: severe Status: Acute Code(s): F32.9 - Major depressive disorder, single episode, unspecified (3) Acute anxiety: Status: Acute Code(s): F41.9 - Anxiety disorder, unspecified Assessment and Plan: responding well to current treatment continue with treatment plan Greater than 50% of the session was spent on counseling and/or coordination of care Patient educated on: diagnosis, medication risk/benefits and substance abuse Informed Consent: further education needed Reason for contiued inpatient stay Substantial Risk for: inability to function and rapid decompensation Greater than 50% of the session was spent on counseling and/or coordination of care
[2020-03-28] MEDS: Omeprazole 20 MG CAPSULE.DR PO (06:11)
[2020-03-28 07:34] VITALS: BP 122/69; PULSE 57; TEMP 35.9
[2020-03-28 08:38] VITALS: BP 122/69; PULSE 57
[2020-03-28] MEDS: DULoxetine HCl 60 MG CAPSULE.DR PO (08:38)
[2020-03-28] MEDS: lisinopriL 40 MG TABLET PO (08:38)
--- NOTE | 2020-03-28 10:57 | HO.PSYCHPN ---
Subjective Subjective Reason For Visit: anxiety depression Interim History: tolerating ECT well. mood a bit more irritable attending groups and denying SI today Review of Systems Review of Systems no changes to ROS Yes all other systems are reviewed and are negative Reports system reviewed and no additional complaints Reports system reviewed and no additional complaints, except as documented and Reports Abnormal speech present Mental Status Exam Mental Status Exam Patient Appearance: Well Grooomed Patient Orientation: Person, Place, Time and Situation Level of Consciousness: Awake and Alert Patient Behavior: Appropriate and Cooperative Mood Description: Depressed and Apprehensive Affect Description: Depressed (improving), Anxious and Apprehensive Patient Cognition Impaired: No Ability to Follow Directions: Good Speech Pattern: Clear Memory Description: Intact Diagnostics Vital Signs (24Hr): Vital Signs - 24 hr 03/28/20 07:34 03/28/20 08:38 Temperature 96.6 F L Pulse Rate 57 57 Blood Pressure 122/69 122/69 Body Mass Index 35.4 Labs Results: 03/21/20 13:19 03/08/20 08:43 Medications Medications Current Medications Generic Name Dose Route Start Last Admin Trade Name Freq PRN Reason Stop Dose Admin Acetaminophen 650 mg 03/26/20 16:18 03/26/20 18:18 Acetaminophen 325 Mg Tablet PO 650 mg Q6H PRN Administration Pain, Moderate (Pain Scale 4-6 Al Hydroxide/Mg Hydroxide 30 ml 03/26/20 16:18 Magnesium Hydrox/Alum Hydrox 30 Ml Oral.Susp PO Q4H PRN Heartburn Atorvastatin Calcium 40 mg 03/26/20 21:00 03/27/20 20:00 Atorvastatin Calcium 40 Mg Tablet PO 40 mg BEDTIME ASHISH Administration Bacitracin 1 appl 03/26/20 21:00 03/28/20 08:39 Bacitracin Oint 14 Gm Tube TOPICAL Not Given BID ASHISH Protocol Duloxetine HCl 60 mg 03/26/20 10:35 03/28/20 08:38 Duloxetine Hcl 60 Mg Capsule.Dr PO 60 mg DAILY ASHISH Administration Hydroxyzine HCl 50 mg 03/26/20 08:55 03/26/20 10:44 Hydroxyzine Hcl 50 Mg Tablet PO 50 mg TID PRN Administration Anxiety Lisinopril 40 mg 03/27/20 09:00 03/28/20 08:38 Lisinopril 40 Mg Tablet PO 40 mg DAILY ASHISH Administration Protocol Lorazepam 0.5 mg 03/26/20 10:34 03/27/20 20:00 Lorazepam 0.5 Mg Tablet PO 0.5 mg Q8H PRN Administration Anxiety Magnesium Hydroxide 30 ml 03/26/20 16:18 Milk Of Magnesia 30 Ml Oral.Susp PO BID PRN Constipation Omeprazole 20 mg 03/26/20 10:45 03/28/20 06:11 Omeprazole 20 Mg Capsule.Dr PO 20 mg DAILY@0630 ASHISH Administration Ondansetron HCl 4 mg 03/26/20 10:16 03/26/20 10:44 Ondansetron Odt 4 Mg Tab.Rapdis TRANSLINGU 4 mg Q6H PRN Administration Nausea Risperidone 1 mg 03/26/20 21:00 03/27/20 20:01 Risperidone 1 Mg Tablet PO 1 mg BEDTIME ASHISH Administration Risperidone 0.25 mg 03/26/20 10:29 Risperidone 0.25 Mg Tablet PO Q4H PRN Anxiety Trazodone HCl 100 mg 03/26/20 21:00 03/27/20 20:00 Trazodone Hcl 100 Mg Tablet PO 100 mg BEDTIME ASHISH Administration Trazodone HCl 100 mg 03/26/20 10:34 Trazodone Hcl 100 Mg Tablet PO BEDTIME PRN Insomnia Allergies Allergies Allergy/AdvReac Type Severity Reaction Status Date / Time No Known Allergies Allergy Verified 03/19/20 09:17 [No Known Allergies*] Assessment & Plan Assessment & Plan (1) Generalized anxiety disorder: Status: Acute Code(s): F41.1 - Generalized anxiety disorder (2) Major depression: Qualifiers: Active/Remission status: currently active Major depression episode severity: severe Major depression recurrence: recurrent Status: Acute Code(s): F32.9 - Major depressive disorder, single episode, unspecified Assessment and Plan: continue ECT treatment Informed Consent: understands Reason for contiued inpatient stay Substantial Risk for: rapid decompensation Greater than 50% of the session was spent on counseling and/or coordination of care
[2020-03-28] MEDS: risperiDONE 0.25 MG TABLET PO (14:33)
[2020-03-28] MEDS: LORazepam 0.5 MG TABLET PO (14:33)
[2020-03-28] MEDS: Atorvastatin Calcium 40 MG TABLET PO (20:30)
[2020-03-28] MEDS: traZODone HCL 100 MG TABLET PO (20:31)
[2020-03-28] MEDS: risperiDONE 1 MG TABLET PO (20:31)
[2020-03-29] VITALS (10 sets, daily range): BP systolic 97–144; BP diastolic 54–83; PULSE 74–120; RESP 14–16; TEMP 36.4–36.7; O2SAT 95–98; BMI 35.4
--- NOTE | 2020-03-29 07:07 | HO.ECTPROC ---
ECT Procedure Note Diagnosis/Treatment Diagnosis: Major Depressive Disorder Previous ECT Date: 03/26/20 Current Treatment Number: 5 Treatment: Series Interval Clinical Notes: Depressed. I dont care responses ECT Settings Device: THYMATRON DGx Electrode Placement: Bifrontal Program/Pulse Width: 0.50 Energy Percent: 100 Seizure Duration By EEG (in seconds): 47 By Motor Observation (in seconds): 38 Medications Administration General Anesthetic: Etomidate (16) Muscle Relaxant: Succinylcholine (170) Ancillary Medications Analgesics: Torodol - Pre ECT (15) Anti-emetics: Zofran - Pre ECT (4) Miscillaneous Medications: Propofol (30) Airway Management Airway Management: Bag Mask Ventilation Treatment Recommendations Electrode Placement: Bifrontal Program/Pulse Width: 0.50 Energy Percent: 100 Notes: Keep to 160 mg Succinylcholine but wait longer for effect Pt Tolerated Procedure w/o Issue: Yes
--- NOTE | 2020-03-29 07:53 | P.PNPSI_ITS ---
Subjective Subjective Date of Service: 03/29/20 Reason For Visit: anxiety depression Subjective Notes: Conditional Voluntary Interim History: S/P ECT x 6 today. Remains dysphoric. Expresses a lot of anger towards employer and stated homicidal thoughts. [place] appropriate and will be given prior to DC. Ct ECT. See ECT note Review of Systems Comments: nausea post ect Reports system reviewed and no additional complaints, except as documented and Reports Abnormal speech present Mental Status Exam Mental Status Exam Patient Appearance: Well Grooomed Patient Orientation: Person, Place, Time and Situation Level of Consciousness: Awake and Alert Patient Behavior: Appropriate and Cooperative Mood Description: Depressed and Apprehensive Affect Description: Depressed (improving), Anxious and Apprehensive Patient Cognition Impaired: No Ability to Follow Directions: Good Speech Pattern: Clear Memory Description: Intact Diagnostics Vital Signs (24Hr): Vital Signs - 24 hr 03/28/20 08:38 03/29/20 05:40 03/29/20 06:02 Temperature 98.0 F 98 F Pulse Rate 57 74 74 Respiratory Rate 16 16 Blood Pressure 122/69 97/54 L 97/54 L Pulse Oximetry 98 Body Mass Index 35.4 Labs Results: 03/21/20 13:19 03/08/20 08:43 Medications Medications Current Medications Generic Name Dose Route Start Last Admin Trade Name Freq PRN Reason Stop Dose Admin Acetaminophen 650 mg 03/26/20 16:18 03/26/20 18:18 Acetaminophen 325 Mg Tablet PO 650 mg Q6H PRN Administration Pain, Moderate (Pain Scale 4-6 Al Hydroxide/Mg Hydroxide 30 ml 03/26/20 16:18 Magnesium Hydrox/Alum Hydrox 30 Ml Oral.Susp PO Q4H PRN Heartburn Atorvastatin Calcium 40 mg 03/26/20 21:00 03/28/20 20:30 Atorvastatin Calcium 40 Mg Tablet PO 40 mg BEDTIME ASHISH Administration Bacitracin 1 appl 03/26/20 21:00 03/28/20 20:33 Bacitracin Oint 14 Gm Tube TOPICAL Not Given BID [facility] Protocol Duloxetine HCl 60 mg 03/26/20 10:35 03/28/20 08:38 Duloxetine Hcl 60 Mg Capsule.Dr PO 60 mg DAILY ASHISH Administration Hydroxyzine HCl 50 mg 03/26/20 08:55 03/26/20 10:44 Hydroxyzine Hcl 50 Mg Tablet PO 50 mg TID PRN Administration Anxiety Lisinopril 40 mg 03/27/20 09:00 03/28/20 08:38 Lisinopril 40 Mg Tablet PO 40 mg DAILY ASHISH Administration Protocol Lorazepam 0.5 mg 03/26/20 10:34 03/28/20 14:33 Lorazepam 0.5 Mg Tablet PO 0.5 mg Q8H PRN Administration Anxiety Magnesium Hydroxide 30 ml 03/26/20 16:18 Milk Of Magnesia 30 Ml Oral.Susp PO BID PRN Constipation Omeprazole 20 mg 03/26/20 10:45 03/28/20 06:11 Omeprazole 20 Mg Capsule.Dr PO 20 mg DAILY@0630 ASHISH Administration Ondansetron HCl 4 mg 03/26/20 10:16 03/26/20 10:44 Ondansetron Odt 4 Mg Tab.Rapdis TRANSLINGU 4 mg Q6H PRN Administration Nausea Risperidone 1 mg 03/26/20 21:00 03/28/20 20:31 Risperidone 1 Mg Tablet PO 1 mg BEDTIME ASHISH Administration Risperidone 0.25 mg 03/26/20 10:29 03/28/20 14:33 Risperidone 0.25 Mg Tablet PO 0.25 mg Q4H PRN Administration Anxiety Trazodone HCl 100 mg 03/26/20 21:00 03/28/20 20:31 Trazodone Hcl 100 Mg Tablet PO 100 mg BEDTIME ASHISH Administration Trazodone HCl 100 mg 03/26/20 10:34 Trazodone Hcl 100 Mg Tablet PO BEDTIME PRN Insomnia Allergies Allergies Allergy/AdvReac Type Severity Reaction Status Date / Time No Known Allergies Allergy Verified 03/19/20 09:17 [No Known Allergies*] Assessment & Plan Assessment & Plan (1) Generalized anxiety disorder: Status: Acute Code(s): F41.1 - Generalized anxiety disorder (2) Major depression: Qualifiers: Active/Remission status: currently active Major depression episode severity: severe Major depression recurrence: recurrent Status: Acute Code(s): F32.9 - Major depressive disorder, single episode, unspecified Assessment and Plan: continue ECT treatment Informed Consent: understands Reason for contiued inpatient stay Substantial Risk for: rapid decompensation Greater than 50% of the session was spent on counseling and/or coordination of care
--- NOTE | 2020-03-29 07:55 | HO.ANESPROP2 ---
[facility] Past Medical History Medical History CHF (congestive heart failure) Depression Essential hypertension Generalized anxiety disorder History of congestive heart failure HTN (hypertension) Hyperlipidemia Surgical History Surgical History History of left hip replacement Social History Social History Household Members: None Housing: House Do you presently have visiting nurse or other home services: No Alcohol intake: current Smoking Status: Light tobacco smoker Smoked in Last 30 Days: No Patient Interested in Nicotine Replacement: No Patient Given Instructions on How to Stop Smoking: No Date Education Initiated: 03/09/20 Second Hand Smoke Exposure: No Use of substances other than those prescribed or required for medical reasons: Yes Substance Use Type: Marijuana Substance Use Type Other:: recovering opiate abuse Substance Use Frequency: Daily Last Used Substance: Just Prior to Admission Currently Displaying Signs/Symptoms of Drug Intoxication Withdrawal: No Any prior treatment program specific to substance use: Yes (was in detox facility for opiates use x10 times) Have you been hit, kicked, punched, or otherwise hurt by someone within the past year? If so, by whom?: No Do you feel safe in your current relationship?: No Current Relationship Is there a partner from a previous relationship who is making you feel unsafe now?: No Are you made to feel afraid or neglected: No Advance Directives: No Advance Directives Information Provided: Yes Advance Directives on File: No Suicidal Behavior: Self-injurious behavior Current/Past Psychiatric Disorders: Mood disorder and Substance abuse [place] Symptoms: Anxiety, Hopelessness and Impulsivity Access to Firearms: No Do you have thoughts of harming others: None Do you have a plan to hurt others: No Plan Recently lost weight without trying: No service: No Sexual orientation: Straight/Heterosexual Meds Allergies Allergy/AdvReac Type Severity Reaction Status Date / Time No Known Allergies Allergy Verified 03/19/20 09:17 [No Known Allergies*] Home Medications Medication Instructions Recorded Confirmed Type atorvastatin 40 mg PO BEDTIME 03/09/20 03/09/20 History escitalopram oxalate 30 mg PO DAILY 03/09/20 03/09/20 History hydroxyzine HCl 50 mg PO TID PRN 03/09/20 03/09/20 History lisinopril 40 mg PO DAILY 03/09/20 03/09/20 History risperidone 1 mg PO BEDTIME 03/09/20 03/09/20 History Exam Exam Date and Time: March 29, 2020 [id number] Height,Weight and Vital Signs: Height 5 ft 9 in Weight 109 kg Last Vital Signs Temp 98 F 03/29/20 06:02 Pulse 74 03/29/20 06:02 Resp 16 03/29/20 06:02 BP 97/54 L 03/29/20 06:02 Pulse Ox 98 03/29/20 06:02 Pertinent Lab Results Pertinent Lab Results: Laboratory Tests 03/08/20 03/08/20 03/08/20 08:43 08:43 08:43 WBC 9.9 RBC 5.29 Hgb 15.0 Hct 44.0 MCV 83.2 MCH 28.4 MCHC 34.1 RDW 13.4 Plt Count 231 MPV 10.3 Immature Gran % (Auto) 0.7 H Neut % (Auto) 75.2 H Lymph % (Auto) 10.9 L [place] % (Auto) 8.9 Eos % (Auto) 4.1 H Baso % (Auto) 0.2 Neut # (Auto) 7.4 Lymph # (Auto) 1.1 L [place] # (Auto) 0.9 Eos # (Auto) 0.4 Baso # (Auto) 0.0 Abs Immat Gran (auto) 0.07 H Absolute Neuts (auto) Absolute Nucleated RBC 0.000 Nucleated RBC % (auto) 0.0 Sodium 140 Potassium 4.2 Chloride 108 Carbon Dioxide 23 Anion Gap 13 BUN 27 H Creatinine 1.20 Estim Creat Clear Calc 88.0 Estimated GFR > 60 Random Glucose 103 Estimat Average Glucose Hemoglobin A1c % Calcium 9.2 Total Bilirubin 1.8 H AST 20 ALT 39 Alkaline Phosphatase 131 H Total Protein 7.2 Albumin 4.2 Triglycerides Cholesterol LDL Cholesterol, Calc HDL Cholesterol Urine Opiates Screen Ur Barbiturates Screen Ur Phencyclidine Scrn Ur Amphetamines Screen U Benzodiazepines Scrn Urine Cocaine Screen U Marijuana (THC) Screen Ethyl Alcohol < 10 Coronavirus (PCR) 03/08/20 03/08/20 03/08/20 12:39 19:13 23:21 WBC RBC Hgb Hct MCV MCH MCHC RDW Plt Count MPV Immature Gran % (Auto) Neut % (Auto) Lymph % (Auto) [place] % (Auto) Eos % (Auto) Baso % (Auto) Neut # (Auto) Lymph # (Auto) [place] # (Auto) Eos # (Auto) Baso # (Auto) Abs Immat Gran (auto) Absolute Neuts (auto) Absolute Nucleated RBC Nucleated RBC % (auto) Sodium Potassium Chloride Carbon Dioxide Anion Gap BUN Creatinine Estim Creat Clear Calc Estimated GFR Random Glucose Estimat Average Glucose 108 Hemoglobin A1c % 5.4 Calcium Total Bilirubin AST ALT Alkaline Phosphatase Total Protein Albumin Triglycerides Cholesterol LDL Cholesterol, Calc HDL Cholesterol Urine Opiates Screen Not Detected Ur Barbiturates Screen Not Detected Ur Phencyclidine Scrn Not Detected Ur Amphetamines Screen Not Detected U Benzodiazepines Scrn Not Detected Urine Cocaine Screen Not Detected U Marijuana (THC) Screen POSITIVE H Ethyl Alcohol Coronavirus (PCR) NEGATIVE 03/08/20 03/21/20 23:22 13:19 WBC 10.1 RBC 4.98 Hgb 14.2 Hct 41.5 L MCV 83.3 MCH 28.5 MCHC 34.2 RDW 13.4 Plt Count 268 MPV 10.9 Immature Gran % (Auto) 0.3 Neut % (Auto) 59.7 Lymph % (Auto) 20.6 [place] % (Auto) 9.3 Eos % (Auto) 9.9 H Baso % (Auto) 0.2 Neut # (Auto) Lymph # (Auto) 2.1 [place] # (Auto) 0.9 Eos # (Auto) 1.0 H Baso # (Auto) 0.0 Abs Immat Gran (auto) 0.03 Absolute Neuts (auto) 6.1 Absolute Nucleated RBC 0.000 Nucleated RBC % (auto) 0.0 Sodium Potassium Chloride Carbon Dioxide Anion Gap BUN Creatinine Estim Creat Clear Calc Estimated GFR Random Glucose Estimat Average Glucose Hemoglobin A1c % Calcium Total Bilirubin AST ALT Alkaline Phosphatase Total Protein Albumin Triglycerides 114 Cholesterol 136 LDL Cholesterol, Calc 74 HDL Cholesterol 40 Urine Opiates Screen Ur Barbiturates Screen Ur Phencyclidine Scrn Ur Amphetamines Screen U Benzodiazepines Scrn Urine Cocaine Screen U Marijuana (THC) Screen Ethyl Alcohol Coronavirus (PCR) Airway Mallampati Class: IV TM Dist: >3cm Heart: RRR Lungs: CTA BL
--- NOTE | 2020-03-29 08:49 | HO.POSTANES ---
Post Anesthesia Evaluation Post Anesthesia Evaluation Vital Signs: Vital Signs Temp Pulse Resp BP Pulse Ox 03/29/20 08:43 106 H 16 121/77 03/29/20 08:38 120 H 16 116/61 97 03/29/20 08:33 112 H 14 104/83 97 03/29/20 08:28 97.5 F 107 H 16 122/64 96 03/29/20 06:02 98 F 74 16 97/54 L 98 03/29/20 05:40 98.0 F 74 16 97/54 L Anesthesia: General Mental Status: Awake Pain Control: Satisfactory Nausea/Vomiting: None Hydration: Adequate Anesthesia-Related Issues: No Anes. Related Issues
[2020-03-29] MEDS: Omeprazole 20 MG CAPSULE.DR PO (09:12)
[2020-03-29] MEDS: lisinopriL 40 MG TABLET PO (09:13)
[2020-03-29] MEDS: DULoxetine HCl 60 MG CAPSULE.DR PO (09:13)
[2020-03-29] MEDS: LORazepam 0.5 MG TABLET PO (14:33)
[2020-03-29] MEDS: risperiDONE 0.25 MG TABLET PO (15:50)
[2020-03-29] MEDS: hydrOXYzine HCL 50 MG TABLET PO (16:50)
[2020-03-29] MEDS: traZODone HCL 100 MG TABLET PO (20:35)
[2020-03-29] MEDS: Atorvastatin Calcium 40 MG TABLET PO (20:36)
[2020-03-29] MEDS: risperiDONE 1 MG TABLET PO (20:36)
[2020-03-29] MEDS: Bacitracin Oint 14 GM TUBE 1 APPL TOPICAL (20:52)
--- NOTE | 2020-03-30 05:03 | HO.PSYCHPN ---
Subjective Subjective Date of Service: 03/30/20 Reason For Visit: anxiety depression Subjective Notes: Conditional Voluntary and 3 Day Interim History: Pt remains dysphoric, irritable. Isolating but legs are constantly going. Tolerating ECT well. Some STM deficits. Hopeless but also hopeful. States ECT helps reduce intensity of distress Disability paperwork done. He acknowledged he had made statements of cutting bosses arms legs and dropping a bus on them but states he was simply venting and its only a fantasy with no intent. A Tarasoff warning will be given prior to DC. Medication Compliance: No Side effects from medications: No Attending Groups: No Review of Systems Review of Systems Yes all other systems are reviewed and are negative Reports system reviewed and no additional complaints, except as documented Mental Status Exam Mental Status Exam Patient Appearance: Well Grooomed Patient Orientation: Person, Place, Time and Situation Level of Consciousness: Awake and Alert Patient Behavior: Appropriate and Cooperative Mood Description: Depressed and Apprehensive Affect Description: Depressed (improving), Anxious and Apprehensive Patient Cognition Impaired: No Ability to Follow Directions: Good Speech Pattern: Clear Thought Process: Rumination Depressive Symptoms: Increased Anxiety and Diff. Making Decisions Abnormal Motor Activity Signs and Symptoms: Agitation Judgement: Poor Diagnostics Vital Signs (24Hr): Vital Signs - 24 hr 03/29/20 05:40 03/29/20 06:02 03/29/20 08:28 Temperature 98.0 F 98 F 97.5 F Pulse Rate 74 74 107 H Respiratory Rate 16 16 16 Blood Pressure 97/54 L 97/54 L 122/64 Pulse Oximetry 98 96 03/29/20 08:33 03/29/20 08:38 03/29/20 08:43 Temperature Pulse Rate 112 H 120 H 106 H Respiratory Rate 14 16 16 Blood Pressure 104/83 116/61 121/77 Pulse Oximetry 97 97 03/29/20 08:58 03/29/20 09:13 03/29/20 09:23 Temperature Pulse Rate 110 H 107 H 107 H Respiratory Rate 16 16 Blood Pressure 121/73 144/77 H 144/77 H Pulse Oximetry 95 97 03/29/20 17:38 Temperature 97.6 F Pulse Rate 83 Respiratory Rate Blood Pressure 134/76 Pulse Oximetry Body Mass Index 35.4 Labs Results: 03/21/20 13:19 03/08/20 08:43 Medications Medications Current Medications Generic Name Dose Route Start Last Admin Trade Name Freq PRN Reason Stop Dose Admin Acetaminophen 650 mg 03/26/20 16:18 03/26/20 18:18 Acetaminophen 325 Mg Tablet PO 650 mg Q6H PRN Administration Pain, Moderate (Pain Scale 4-6 Al Hydroxide/Mg Hydroxide 30 ml 03/26/20 16:18 Magnesium Hydrox/Alum Hydrox 30 Ml Oral.Susp PO Q4H PRN Heartburn Atorvastatin Calcium 40 mg 03/26/20 21:00 03/29/20 20:36 Atorvastatin Calcium 40 Mg Tablet PO 40 mg BEDTIME ASHISH Administration Bacitracin 1 appl 03/26/20 21:00 03/29/20 20:52 Bacitracin Oint 14 Gm Tube TOPICAL 1 appl BID ASHISH Administration Protocol Duloxetine HCl 60 mg 03/26/20 10:35 03/29/20 09:13 Duloxetine Hcl 60 Mg Capsule.Dr PO 60 mg DAILY ASHISH Administration Hydroxyzine HCl 50 mg 03/26/20 08:55 03/29/20 16:50 Hydroxyzine Hcl 50 Mg Tablet PO 50 mg TID PRN Administration Anxiety Lisinopril 40 mg 03/27/20 09:00 03/29/20 09:13 Lisinopril 40 Mg Tablet PO 40 mg DAILY ASHISH Administration Protocol Lorazepam 0.5 mg 03/26/20 10:34 03/29/20 14:33 Lorazepam 0.5 Mg Tablet PO 0.5 mg Q8H PRN Administration Anxiety Magnesium Hydroxide 30 ml 03/26/20 16:18 Milk Of Magnesia 30 Ml Oral.Susp PO BID PRN Constipation Omeprazole 20 mg 03/26/20 10:45 03/29/20 09:12 Omeprazole 20 Mg Capsule. PO 20 mg DAILY@0630 ASHISH Administration Ondansetron HCl 4 mg 03/26/20 10:16 03/26/20 10:44 Ondansetron Odt 4 Mg Tab.Rapdis TRANSLINGU 4 mg Q6H PRN Administration Nausea Risperidone 1 mg 03/26/20 21:00 03/29/20 20:36 Risperidone 1 Mg Tablet PO 1 mg BEDTIME ASHISH Administration Risperidone 0.25 mg 03/26/20 10:29 03/29/20 15:50 Risperidone 0.25 Mg Tablet PO 0.25 mg Q4H PRN Administration Anxiety Trazodone HCl 100 mg 03/26/20 21:00 03/29/20 20:35 Trazodone Hcl 100 Mg Tablet PO 100 mg BEDTIME ASHISH Administration Trazodone HCl 100 mg 03/26/20 10:34 Trazodone Hcl 100 Mg Tablet PO BEDTIME PRN Insomnia Allergies Allergies Allergy/AdvReac Type Severity Reaction Status Date / Time No Known Allergies Allergy Verified 03/19/20 09:17 [No Known Allergies*] Assessment & Plan Assessment & Plan (1) Generalized anxiety disorder: Status: Acute Code(s): F41.1 - Generalized anxiety disorder (2) Major depression: Qualifiers: Active/Remission status: currently active Major depression episode severity: severe Major depression recurrence: recurrent Status: Acute Code(s): F32.9 - Major depressive disorder, single episode, unspecified Assessment and Plan: continue ECT treatment Informed Consent: understands Reason for contiued inpatient stay Substantial Risk for: rapid decompensation Greater than 50% of the session was spent on counseling and/or coordination of care
[2020-03-30] MEDS: Omeprazole 20 MG CAPSULE.DR PO (05:56)
[2020-03-30 06:30] VITALS: BP 112/74; PULSE 82; RESP 16; TEMP 36.4; O2SAT 97
[2020-03-30 08:55] VITALS: BP 112/74; PULSE 82
[2020-03-30] MEDS: DULoxetine HCl 60 MG CAPSULE.DR PO (08:55)
[2020-03-30] MEDS: lisinopriL 40 MG TABLET PO (08:55)
[2020-03-30] MEDS: LORazepam 0.5 MG TABLET PO ×2 (13:28→18:41)
[2020-03-30] MEDS: risperiDONE 0.25 MG TABLET PO ×2 (14:59→18:41)
[2020-03-30] MEDS: hydrOXYzine HCL 50 MG TABLET PO (14:59)
[2020-03-30] MEDS: traZODone HCL 100 MG TABLET PO (20:26)
[2020-03-30] MEDS: Atorvastatin Calcium 40 MG TABLET PO (20:26)
[2020-03-30] MEDS: risperiDONE 1 MG TABLET PO (20:26)
[2020-03-31] VITALS (8 sets, daily range): BP systolic 117–150; BP diastolic 65–83; PULSE 88–112; RESP 16–20; TEMP 35.5–36.5; O2SAT 93–98; BMI 35.4
--- NOTE | 2020-03-31 07:47 | MHC.SHP ---
Pre-Procedural Eval Section A The patient is an INPATIENT: Yes Changes since office visit: Yes Patient answered all questions; No Cold of Flu in the past 2 weeks, No New Medical Problems and No Changes in Medication The History & Physical has been completed within 30 days and I have reviewed it.: Yes Section B Chief Complaint: anxiety depression Allergies: Allergies Allergy/AdvReac Type Severity Reaction Status Date / Time No Known Allergies Allergy Verified 03/19/20 09:17 [No Known Allergies*] Plan Patient has been examined and remains a candidate for the planned procedure
--- NOTE | 2020-03-31 07:48 | HO.ECTPROC ---
ECT Procedure Note Diagnosis/Treatment Diagnosis: Major Depressive Disorder Previous ECT Date: 03/29/20 Current Treatment Number: 6 Treatment: Series Interval Clinical Notes: anxious and dysphoric ? tenormin ECT Settings Device: THYMATRON DGx Electrode Placement: Bifrontal Program/Pulse Width: 0.50 Energy Percent: 100 Seizure Duration By EEG (in seconds): 41 Medications Administration General Anesthetic: Etomidate (16) Muscle Relaxant: Succinylcholine (160) Ancillary Medications Analgesics: Torodol - Pre ECT (15) Anti-emetics: Zofran - Pre ECT (4) Miscillaneous Medications: Propofol (30 mg) Airway Management Airway Management: Bag Mask Ventilation Treatment Recommendations No Changes Recommended: No change Pt Tolerated Procedure w/o Issue: Yes
--- NOTE | 2020-03-31 08:00 | HO.ANESPROP2 ---
[facility] Past Medical History Medical History CHF (congestive heart failure) Depression Essential hypertension Generalized anxiety disorder History of congestive heart failure HTN (hypertension) Hyperlipidemia Surgical History Surgical History History of left hip replacement Social History Social History Household Members: None Housing: House Do you presently have visiting nurse or other home services: No Alcohol intake: current Smoking Status: Light tobacco smoker Smoked in Last 30 Days: No Patient Interested in Nicotine Replacement: No Patient Given Instructions on How to Stop Smoking: No Date Education Initiated: 03/09/20 Second Hand Smoke Exposure: No Use of substances other than those prescribed or required for medical reasons: Yes Substance Use Type: Marijuana Substance Use Type Other:: recovering opiate abuse Substance Use Frequency: Monthly Last Used Substance: Just Prior to Admission Currently Displaying Signs/Symptoms of Drug Intoxication Withdrawal: No Any prior treatment program specific to substance use: Yes (was in detox facility for opiates use x10 times) Have you been hit, kicked, punched, or otherwise hurt by someone within the past year? If so, by whom?: No Do you feel safe in your current relationship?: No Current Relationship Is there a partner from a previous relationship who is making you feel unsafe now?: No Are you made to feel afraid or neglected: No Advance Directives: No Advance Directives Information Provided: Yes Advance Directives on File: No Suicidal Behavior: Self-injurious behavior Current/Past Psychiatric Disorders: Mood disorder and Substance abuse [place] Symptoms: Anxiety, Hopelessness and Impulsivity Access to Firearms: No Do you have thoughts of harming others: None Do you have a plan to hurt others: No Plan Recently lost weight without trying: No service: No Sexual orientation: Straight/Heterosexual Meds Allergies Allergy/AdvReac Type Severity Reaction Status Date / Time No Known Allergies Allergy Verified 03/19/20 09:17 [No Known Allergies*] Home Medications Medication Instructions Recorded Confirmed Type atorvastatin 40 mg PO BEDTIME 03/09/20 03/09/20 History escitalopram oxalate 30 mg PO DAILY 03/09/20 03/09/20 History hydroxyzine HCl 50 mg PO TID PRN 03/09/20 03/09/20 History lisinopril 40 mg PO DAILY 03/09/20 03/09/20 History risperidone 1 mg PO BEDTIME 03/09/20 03/09/20 History Exam Exam Date and Time: March 31, 2020 0800 Height,Weight and Vital Signs: Height 5 ft 9 in Weight 109 kg Last Vital Signs Temp 96 F L 03/31/20 07:26 Pulse 88 03/31/20 07:26 Resp 20 03/31/20 06:39 BP 125/70 03/31/20 07:26 Pulse Ox 98 03/31/20 07:26 Pertinent Lab Results Pertinent Lab Results: Laboratory Tests 03/08/20 03/08/20 03/08/20 08:43 08:43 08:43 WBC 9.9 RBC 5.29 Hgb 15.0 Hct 44.0 MCV 83.2 MCH 28.4 MCHC 34.1 RDW 13.4 Plt Count 231 MPV 10.3 Immature Gran % (Auto) 0.7 H Neut % (Auto) 75.2 H Lymph % (Auto) 10.9 L [place] % (Auto) 8.9 Eos % (Auto) 4.1 H Baso % (Auto) 0.2 Neut # (Auto) 7.4 Lymph # (Auto) 1.1 L [place] # (Auto) 0.9 Eos # (Auto) 0.4 Baso # (Auto) 0.0 Abs Immat Gran (auto) 0.07 H Absolute Neuts (auto) Absolute Nucleated RBC 0.000 Nucleated RBC % (auto) 0.0 Sodium 140 Potassium 4.2 Chloride 108 Carbon Dioxide 23 Anion Gap 13 BUN 27 H Creatinine 1.20 Estim Creat Clear Calc 88.0 Estimated GFR > 60 Random Glucose 103 Estimat Average Glucose Hemoglobin A1c % Calcium 9.2 Total Bilirubin 1.8 H AST 20 ALT 39 Alkaline Phosphatase 131 H Total Protein 7.2 Albumin 4.2 Triglycerides Cholesterol LDL Cholesterol, Calc HDL Cholesterol Urine Opiates Screen Ur Barbiturates Screen Ur Phencyclidine Scrn Ur Amphetamines Screen U Benzodiazepines Scrn Urine Cocaine Screen U Marijuana (THC) Screen Ethyl Alcohol < 10 Coronavirus (PCR) 03/08/20 03/08/20 03/08/20 12:39 19:13 23:21 WBC RBC Hgb Hct MCV MCH MCHC RDW Plt Count MPV Immature Gran % (Auto) Neut % (Auto) Lymph % (Auto) [place] % (Auto) Eos % (Auto) Baso % (Auto) Neut # (Auto) Lymph # (Auto) [place] # (Auto) Eos # (Auto) Baso # (Auto) Abs Immat Gran (auto) Absolute Neuts (auto) Absolute Nucleated RBC Nucleated RBC % (auto) Sodium Potassium Chloride Carbon Dioxide Anion Gap BUN Creatinine Estim Creat Clear Calc Estimated GFR Random Glucose Estimat Average Glucose 108 Hemoglobin A1c % 5.4 Calcium Total Bilirubin AST ALT Alkaline Phosphatase Total Protein Albumin Triglycerides Cholesterol LDL Cholesterol, Calc HDL Cholesterol Urine Opiates Screen Not Detected Ur Barbiturates Screen Not Detected Ur Phencyclidine Scrn Not Detected Ur Amphetamines Screen Not Detected U Benzodiazepines Scrn Not Detected Urine Cocaine Screen Not Detected U Marijuana (THC) Screen POSITIVE H Ethyl Alcohol Coronavirus (PCR) NEGATIVE 03/08/20 03/21/20 23:22 13:19 WBC 10.1 RBC 4.98 Hgb 14.2 Hct 41.5 L MCV 83.3 MCH 28.5 MCHC 34.2 RDW 13.4 Plt Count 268 MPV 10.9 Immature Gran % (Auto) 0.3 Neut % (Auto) 59.7 Lymph % (Auto) 20.6 [place] % (Auto) 9.3 Eos % (Auto) 9.9 H Baso % (Auto) 0.2 Neut # (Auto) Lymph # (Auto) 2.1 [place] # (Auto) 0.9 Eos # (Auto) 1.0 H Baso # (Auto) 0.0 Abs Immat Gran (auto) 0.03 Absolute Neuts (auto) 6.1 Absolute Nucleated RBC 0.000 Nucleated RBC % (auto) 0.0 Sodium Potassium Chloride Carbon Dioxide Anion Gap BUN Creatinine Estim Creat Clear Calc Estimated GFR Random Glucose Estimat Average Glucose Hemoglobin A1c % Calcium Total Bilirubin AST ALT Alkaline Phosphatase Total Protein Albumin Triglycerides 114 Cholesterol 136 LDL Cholesterol, Calc 74 HDL Cholesterol 40 Urine Opiates Screen Ur Barbiturates Screen Ur Phencyclidine Scrn Ur Amphetamines Screen U Benzodiazepines Scrn Urine Cocaine Screen U Marijuana (THC) Screen Ethyl Alcohol Coronavirus (PCR) Assessment and Plan Assessment Anesthesia Assessment: Anesthesia Plan Discussed and Chart Reviewed Final Anesthetic Review NPO: Yes ASA Class: II Final Preanesthetic Review: No Changes in Pt Med Stat, Meds/Allgs Chart Reviewed, Consent Obtained/Reviewed and Anes Risks/Benef Reviewed Patient Risk: Low Procedure Risk: Low Assessment/Block/Sedation in SS: Assess/Block/Sedation-SS Anesthetic Plan Anesthetic Plan: GA Disposition: Standard PACU
--- NOTE | 2020-03-31 08:59 | HO.PSYCHPN ---
Subjective Subjective Reason For Visit: anxiety depression Interim History: See ECT note: S/p ECT # 6 today. MOCA pending. STM deficits noted From 03/30/20: Pt remains dysphoric, irritable. Isolating but legs are constantly going. Tolerating ECT well. Some STM deficits. Hopeless but also hopeful. States ECT helps reduce intensity of distress Disability paperwork done. He acknowledged he had made statements of cutting bosses arms legs and dropping a bus on them but states he was simply venting and its only a fantasy with no intent. A Tarasoff warning will be given prior to DC. Review of Systems Reports system reviewed and no additional complaints, except as documented and Reports Abnormal speech present Mental Status Exam Mental Status Exam Patient Appearance: Well Grooomed Patient Orientation: Person, Place, Time and Situation Level of Consciousness: Awake and Alert Patient Behavior: Appropriate and Cooperative Mood Description: Depressed and Apprehensive Affect Description: Depressed (improving), Anxious and Apprehensive Patient Cognition Impaired: No Ability to Follow Directions: Good Speech Pattern: Clear Memory Description: Intact Diagnostics Vital Signs (24Hr): Vital Signs - 24 hr 03/31/20 06:09 03/31/20 06:39 03/31/20 07:26 Temperature 96.0 F L 97.1 F 96 F L Pulse Rate 88 88 88 Respiratory Rate 16 20 Blood Pressure 125/70 124/83 125/70 Pulse Oximetry 98 98 98 03/31/20 08:08 03/31/20 08:13 03/31/20 08:27 Temperature 97.7 F Pulse Rate 110 H 112 H 106 H Respiratory Rate 16 17 18 Blood Pressure 150/80 H 138/65 117/69 Pulse Oximetry 97 96 93 Body Mass Index 35.4 Labs Results: 03/21/20 13:19 03/08/20 08:43 Medications Medications Current Medications Generic Name Dose Route Start Last Admin Trade Name Freq PRN Reason Stop Dose Admin Acetaminophen 650 mg 03/26/20 16:18 03/26/20 18:18 Acetaminophen 325 Mg Tablet PO 650 mg Q6H PRN Administration Pain, Moderate (Pain Scale 4-6 Al Hydroxide/Mg Hydroxide 30 ml 03/26/20 16:18 Magnesium Hydrox/Alum Hydrox 30 Ml Oral.Susp PO Q4H PRN Heartburn Atorvastatin Calcium 40 mg 03/26/20 21:00 03/30/20 20:26 Atorvastatin Calcium 40 Mg Tablet PO 40 mg BEDTIME ASHISH Administration Bacitracin 1 appl 03/26/20 21:00 03/30/20 20:33 Bacitracin Oint 14 Gm Tube TOPICAL Not Given BID ASHISH Protocol Duloxetine HCl 60 mg 03/26/20 10:35 03/30/20 08:55 Duloxetine Hcl 60 Mg Capsule. PO 60 mg DAILY ASHISH Administration Hydroxyzine HCl 50 mg 03/26/20 08:55 03/30/20 14:59 Hydroxyzine Hcl 50 Mg Tablet PO 50 mg TID PRN Administration Anxiety Lisinopril 40 mg 03/27/20 09:00 03/30/20 08:55 Lisinopril 40 Mg Tablet PO 40 mg DAILY ASHISH Administration Protocol Lorazepam 0.5 mg 03/26/20 10:34 03/30/20 13:28 Lorazepam 0.5 Mg Tablet PO 0.5 mg Q8H PRN Administration Anxiety Magnesium Hydroxide 30 ml 03/26/20 16:18 Milk Of Magnesia 30 Ml Oral.Susp PO BID PRN Constipation Omeprazole 20 mg 03/26/20 10:45 03/30/20 05:56 Omeprazole 20 Mg Capsule. PO 20 mg DAILY@0630 ASHISH Administration Ondansetron HCl 4 mg 03/26/20 10:16 03/26/20 10:44 Ondansetron Odt 4 Mg Tab.Rapdis TRANSLINGU 4 mg Q6H PRN Administration Nausea Risperidone 1 mg 03/26/20 21:00 03/30/20 20:26 Risperidone 1 Mg Tablet PO 1 mg BEDTIME ASHISH Administration Risperidone 0.25 mg 03/26/20 10:29 03/30/20 18:41 Risperidone 0.25 Mg Tablet PO 0.25 mg Q4H PRN Administration Anxiety Trazodone HCl 100 mg 03/26/20 21:00 03/30/20 20:26 Trazodone Hcl 100 Mg Tablet PO 100 mg BEDTIME ASHISH Administration Trazodone HCl 100 mg 03/26/20 10:34 Trazodone Hcl 100 Mg Tablet PO BEDTIME PRN Insomnia Allergies Allergies Allergy/AdvReac Type Severity Reaction Status Date / Time No Known Allergies Allergy Verified 03/19/20 09:17 [No Known Allergies*] Assessment & Plan Assessment & Plan (1) Generalized anxiety disorder: Status: Acute Code(s): F41.1 - Generalized anxiety disorder (2) Major depression: Qualifiers: Active/Remission status: currently active Major depression episode severity: severe Major depression recurrence: recurrent Status: Acute Code(s): F32.9 - Major depressive disorder, single episode, unspecified Assessment and Plan: continue ECT treatment Informed Consent: understands Reason for contiued inpatient stay Substantial Risk for: rapid decompensation Greater than 50% of the session was spent on counseling and/or coordination of care
[2020-03-31] MEDS: lisinopriL 40 MG TABLET PO (09:22)
[2020-03-31] MEDS: DULoxetine HCl 60 MG CAPSULE.DR PO (09:22)
[2020-03-31] MEDS: Omeprazole 20 MG CAPSULE.DR PO (09:22)
[2020-03-31] MEDS: LORazepam 0.5 MG TABLET 1 MG PO ×2 (11:12→20:10)
--- NOTE | 2020-03-31 12:15 | HO.PSYCHPN ---
Subjective Subjective Reason For Visit: anxiety depression Review of Systems Reports system reviewed and no additional complaints, except as documented and Reports Abnormal speech present Diagnostics Vital Signs (24Hr): Vital Signs - 24 hr 03/31/20 06:09 03/31/20 06:39 03/31/20 07:26 Temperature 96.0 F L 97.1 F 96 F L Pulse Rate 88 88 88 Respiratory Rate 16 20 Blood Pressure 125/70 124/83 125/70 Pulse Oximetry 98 98 98 03/31/20 08:08 03/31/20 08:13 03/31/20 08:27 Temperature 97.7 F Pulse Rate 110 H 112 H 106 H Respiratory Rate 16 17 18 Blood Pressure 150/80 H 138/65 117/69 Pulse Oximetry 97 96 93 03/31/20 09:22 03/31/20 09:28 Temperature 97.3 F Pulse Rate 106 H 93 Respiratory Rate Blood Pressure 117/69 120/82 Pulse Oximetry Body Mass Index 35.4 Labs Results: 03/21/20 13:19 03/08/20 08:43 Medications Medications Current Medications Generic Name Dose Route Start Last Admin Trade Name Freq PRN Reason Stop Dose Admin Acetaminophen 650 mg 03/26/20 16:18 03/26/20 18:18 Acetaminophen 325 Mg Tablet PO 650 mg Q6H PRN Administration Pain, Moderate (Pain Scale 4-6 Al Hydroxide/Mg Hydroxide 30 ml 03/26/20 16:18 Magnesium Hydrox/Alum Hydrox 30 Ml Oral.Susp PO Q4H PRN Heartburn Atorvastatin Calcium 40 mg 03/26/20 21:00 03/30/20 20:26 Atorvastatin Calcium 40 Mg Tablet PO 40 mg BEDTIME ASHISH Administration Duloxetine HCl 60 mg 03/26/20 10:35 03/31/20 09:22 Duloxetine Hcl 60 Mg Capsule.Dr PO 60 mg DAILY ASHISH Administration Hydroxyzine HCl 50 mg 03/26/20 08:55 03/30/20 14:59 Hydroxyzine Hcl 50 Mg Tablet PO 50 mg TID PRN Administration Anxiety Lisinopril 40 mg 03/27/20 09:00 03/31/20 09:22 Lisinopril 40 Mg Tablet PO 40 mg DAILY ASHISH Administration Protocol Lorazepam 1 mg 03/31/20 10:09 03/31/20 11:12 Lorazepam 0.5 Mg Tablet PO 1 mg Q8H PRN Administration Anxiety Magnesium Hydroxide 30 ml 03/26/20 16:18 Milk Of Magnesia 30 Ml Oral.Susp PO BID PRN Constipation Omeprazole 20 mg 03/26/20 10:45 03/31/20 09:22 Omeprazole 20 Mg Capsule.Dr PO 20 mg DAILY@0630 ASHISH Administration Ondansetron HCl 4 mg 03/26/20 10:16 03/26/20 10:44 Ondansetron Odt 4 Mg Tab.Rapdis TRANSLINGU 4 mg Q6H PRN Administration Nausea Risperidone 0.25 mg 03/26/20 10:29 03/30/20 18:41 Risperidone 0.25 Mg Tablet PO 0.25 mg Q4H PRN Administration Anxiety Risperidone 1 mg 03/31/20 21:00 Risperidone 1 Mg Tablet PO BID ASHISH Trazodone HCl 100 mg 03/26/20 21:00 03/30/20 20:26 Trazodone Hcl 100 Mg Tablet PO 100 mg BEDTIME ASHISH Administration Trazodone HCl 100 mg 03/26/20 10:34 Trazodone Hcl 100 Mg Tablet PO BEDTIME PRN Insomnia Allergies Allergies Allergy/AdvReac Type Severity Reaction Status Date / Time No Known Allergies Allergy Verified 03/19/20 09:17 [No Known Allergies*] Assessment & Plan Greater than 50% of the session was spent on counseling and/or coordination of care
--- NOTE | 2020-03-31 12:15 | HO.ECTPROC ---
ECT Procedure Note ECT Settings Device: THYMATRON DGx
[2020-03-31] MEDS: risperiDONE 0.25 MG TABLET PO (12:47)
[2020-03-31] MEDS: Atorvastatin Calcium 40 MG TABLET PO (20:08)
[2020-03-31] MEDS: risperiDONE 1 MG TABLET PO (20:09)
[2020-03-31] MEDS: traZODone HCL 100 MG TABLET PO (20:09)
--- NOTE | 2020-04-01 05:54 | HO.PSYCHPN ---
Subjective Subjective Reason For Visit: anxiety depression Interim History: S/p ECT # 6 today. MOCA pending. STM deficits noted. STM 0/5. States he feels like in a fog. Depression and anxiety better. We discussed pros and cons of ct ECT and DC ECT for tomorrow. Review of Systems Review of Systems Yes all other systems are reviewed and are negative Reports system reviewed and no additional complaints, except as documented and Reports Abnormal speech present Mental Status Exam Mental Status Exam Patient Appearance: Well Grooomed Patient Orientation: Person, Place, Time and Situation Level of Consciousness: Awake and Alert Patient Behavior: Appropriate and Cooperative Mood Description: Depressed and Apprehensive Affect Description: Depressed (improving), Anxious and Apprehensive Patient Cognition Impaired: No Ability to Follow Directions: Good Speech Pattern: Clear Memory Description: Intact Diagnostics Vital Signs (24Hr): Vital Signs - 24 hr 03/31/20 06:09 03/31/20 06:39 03/31/20 07:26 Temperature 96.0 F L 97.1 F 96 F L Pulse Rate 88 88 88 Respiratory Rate 16 20 Blood Pressure 125/70 124/83 125/70 Pulse Oximetry 98 98 98 03/31/20 08:08 03/31/20 08:13 03/31/20 08:27 Temperature 97.7 F Pulse Rate 110 H 112 H 106 H Respiratory Rate 16 17 18 Blood Pressure 150/80 H 138/65 117/69 Pulse Oximetry 97 96 93 03/31/20 09:22 03/31/20 09:28 Temperature 97.3 F Pulse Rate 106 H 93 Respiratory Rate Blood Pressure 117/69 120/82 Pulse Oximetry Body Mass Index 35.4 Labs Results: 03/21/20 13:19 03/08/20 08:43 Medications Medications Current Medications Generic Name Dose Route Start Last Admin Trade Name Freq PRN Reason Stop Dose Admin Acetaminophen 650 mg 03/26/20 16:18 03/26/20 18:18 Acetaminophen 325 Mg Tablet PO 650 mg Q6H PRN Administration Pain, Moderate (Pain Scale 4-6 Al Hydroxide/Mg Hydroxide 30 ml 03/26/20 16:18 Magnesium Hydrox/Alum Hydrox 30 Ml Oral.Susp PO Q4H PRN Heartburn Atorvastatin Calcium 40 mg 03/26/20 21:00 03/31/20 20:08 Atorvastatin Calcium 40 Mg Tablet PO 40 mg BEDTIME ASHISH Administration Duloxetine HCl 60 mg 03/26/20 10:35 03/31/20 09:22 Duloxetine Hcl 60 Mg Capsule. PO 60 mg DAILY ASHISH Administration Hydroxyzine HCl 50 mg 03/26/20 08:55 03/30/20 14:59 Hydroxyzine Hcl 50 Mg Tablet PO 50 mg TID PRN Administration Anxiety Lisinopril 40 mg 03/27/20 09:00 03/31/20 09:22 Lisinopril 40 Mg Tablet PO 40 mg DAILY ASHISH Administration Protocol Lorazepam 1 mg 03/31/20 10:09 03/31/20 20:10 Lorazepam 0.5 Mg Tablet PO 1 mg Q8H PRN Administration Anxiety Magnesium Hydroxide 30 ml 03/26/20 16:18 Milk Of Magnesia 30 Ml Oral.Susp PO BID PRN Constipation Omeprazole 20 mg 03/26/20 10:45 03/31/20 09:22 Omeprazole 20 Mg Capsule.Dr PO 20 mg DAILY@0630 ASHISH Administration Ondansetron HCl 4 mg 03/26/20 10:16 03/26/20 10:44 Ondansetron Odt 4 Mg Tab.Rapdis TRANSLINGU 4 mg Q6H PRN Administration Nausea Risperidone 0.25 mg 03/26/20 10:29 03/31/20 12:47 Risperidone 0.25 Mg Tablet PO 0.25 mg Q4H PRN Administration Anxiety Risperidone 1 mg 03/31/20 21:00 03/31/20 20:09 Risperidone 1 Mg Tablet PO 1 mg BID ASHISH Administration Trazodone HCl 100 mg 03/26/20 21:00 03/31/20 20:09 Trazodone Hcl 100 Mg Tablet PO 100 mg BEDTIME ASHISH Administration Trazodone HCl 100 mg 03/26/20 10:34 Trazodone Hcl 100 Mg Tablet PO BEDTIME PRN Insomnia Allergies Allergies Allergy/AdvReac Type Severity Reaction Status Date / Time No Known Allergies Allergy Verified 03/19/20 09:17 [No Known Allergies*] Assessment & Plan Assessment & Plan (1) Generalized anxiety disorder: Status: Acute Code(s): F41.1 - Generalized anxiety disorder (2) Major depression: Qualifiers: Major depression recurrence: recurrent Active/Remission status: currently active Major depression episode severity: severe Status: Acute Code(s): F32.9 - Major depressive disorder, single episode, unspecified Assessment and Plan: HOLD ECT treatment. Monitor confusion Informed Consent: understands Reason for contiued inpatient stay Substantial Risk for: rapid decompensation Greater than 50% of the session was spent on counseling and/or coordination of care
[2020-04-01 07:00] VITALS: BP 106/64; PULSE 84; RESP 16; TEMP 36.4
[2020-04-01 08:41] VITALS: BP 106/64; PULSE 84
[2020-04-01] MEDS: DULoxetine HCl 60 MG CAPSULE.DR PO (08:41)
[2020-04-01] MEDS: risperiDONE 1 MG TABLET PO ×2 (08:41→20:25)
[2020-04-01] MEDS: lisinopriL 40 MG TABLET PO (08:41)
[2020-04-01] MEDS: Omeprazole 20 MG CAPSULE.DR PO (08:42)
[2020-04-01 09:56] VITALS: BMI 35.7
[2020-04-01] MEDS: LORazepam 0.5 MG TABLET 1 MG PO (10:51)
--- NOTE | 2020-04-01 14:53 | PC.NURSE ---
Pt participated in [employer] screen on this date, scored 26/30. Pt received extra point due to not finishing high school. Difficulty was noted in delayed recall, pt unable to remember any of the 5 words in the screen. MD aware of results.
[2020-04-01] MEDS: risperiDONE 0.5 MG TABLET PO ×2 (14:57→18:54)
[2020-04-01] MEDS: traZODone HCL 100 MG TABLET PO (20:25)
[2020-04-01] MEDS: Atorvastatin Calcium 40 MG TABLET PO (20:25)
[2020-04-02 06:32] VITALS: BP 124/67; PULSE 112; RESP 16; TEMP 36.5; O2SAT 97
[2020-04-02] MEDS: DULoxetine HCl 60 MG CAPSULE.DR PO (08:54)
[2020-04-02] MEDS: risperiDONE 1 MG TABLET PO ×2 (08:54→19:57)
[2020-04-02] MEDS: Omeprazole 20 MG CAPSULE.DR PO (08:54)
[2020-04-02 08:55] VITALS: BP 124/67; PULSE 112
[2020-04-02] MEDS: lisinopriL 40 MG TABLET PO (08:55)
--- NOTE | 2020-04-02 09:09 | HO.PSYCHPN ---
Subjective Subjective Reason For Visit: anxiety depression Interim History: Improving mood and anxiety but often incongruence between subj/objective. Pre-DC anxiety expected. Serial &s were excellent. Still c/o STM deficits. Repeat MOCA on Sun. Anticipate DC on Sun. Review of Systems Review of Systems Yes all other systems are reviewed and are negative Reports system reviewed and no additional complaints, except as documented and Reports Abnormal speech present Mental Status Exam Mental Status Exam Patient Appearance: Well Grooomed Patient Orientation: Person, Place, Time and Situation Level of Consciousness: Awake and Alert Patient Behavior: Appropriate and Cooperative Mood Description: Depressed (better) and Apprehensive Affect Description: Depressed (improving), Anxious and Apprehensive Patient Cognition Impaired: No Ability to Follow Directions: Excellent Speech Pattern: Clear Memory Description: Recent Impaired Hallucinations: None Delusions: Not Present Thought Process: Intact Thought Content: positive for Suicidal Ideation (denies) and positive for Homicidal Ideation (denied to ex employers) Depressive Symptoms: Thoughts of /Suicide (denies) Judgement: Fair Diagnostics Vital Signs (24Hr): Vital Signs - 24 hr 04/02/20 06:32 04/02/20 08:55 Temperature 97.7 F Pulse Rate 112 H 112 H Respiratory Rate 16 Blood Pressure 124/67 124/67 Pulse Oximetry 97 Body Mass Index 35.7 Labs Results: 03/21/20 13:19 03/08/20 08:43 Medications Medications Current Medications Generic Name Dose Route Start Last Admin Trade Name Freq PRN Reason Stop Dose Admin Acetaminophen 650 mg 03/26/20 16:18 03/26/20 18:18 Acetaminophen 325 Mg Tablet PO 650 mg Q6H PRN Administration Pain, Moderate (Pain Scale 4-6 Al Hydroxide/Mg Hydroxide 30 ml 03/26/20 16:18 Magnesium Hydrox/Alum Hydrox 30 Ml Oral.Susp PO Q4H PRN Heartburn Atorvastatin Calcium 40 mg 03/26/20 21:00 04/01/20 20:25 Atorvastatin Calcium 40 Mg Tablet PO 40 mg BEDTIME ASHISH Administration Duloxetine HCl 60 mg 03/26/20 10:35 04/02/20 08:54 Duloxetine Hcl 60 Mg Capsule.Dr PO 60 mg DAILY ASHISH Administration Hydroxyzine HCl 50 mg 03/26/20 08:55 03/30/20 14:59 Hydroxyzine Hcl 50 Mg Tablet PO 50 mg TID PRN Administration Anxiety Lisinopril 40 mg 03/27/20 09:00 04/02/20 08:55 Lisinopril 40 Mg Tablet PO 40 mg DAILY ASHISH Administration Protocol Lorazepam 1 mg 03/31/20 10:09 04/01/20 10:51 Lorazepam 0.5 Mg Tablet PO 1 mg Q8H PRN Administration Anxiety Magnesium Hydroxide 30 ml 03/26/20 16:18 Milk Of Magnesia 30 Ml Oral.Susp PO BID PRN Constipation Omeprazole 20 mg 03/26/20 10:45 04/02/20 08:54 Omeprazole 20 Mg Capsule.Dr PO 20 mg DAILY@0630 ASHISH Administration Ondansetron HCl 4 mg 03/26/20 10:16 03/26/20 10:44 Ondansetron Odt 4 Mg Tab.Rapdis TRANSLINGU 4 mg Q6H PRN Administration Nausea Risperidone 1 mg 03/31/20 21:00 04/02/20 08:54 Risperidone 1 Mg Tablet PO 1 mg BID ASHISH Administration Risperidone 0.5 mg 04/01/20 07:08 04/01/20 18:54 Risperidone 0.5 Mg Tablet PO 0.5 mg Q4H PRN Administration Anxiety Trazodone HCl 100 mg 03/26/20 21:00 04/01/20 20:25 Trazodone Hcl 100 Mg Tablet PO 100 mg BEDTIME ASHISH Administration Trazodone HCl 100 mg 03/26/20 10:34 Trazodone Hcl 100 Mg Tablet PO BEDTIME PRN Insomnia Allergies Allergies Allergy/AdvReac Type Severity Reaction Status Date / Time No Known Allergies Allergy Verified 03/19/20 09:17 [No Known Allergies*] Assessment & Plan Assessment & Plan (1) Generalized anxiety disorder: Status: Acute Code(s): F41.1 - Generalized anxiety disorder (2) Major depression: Qualifiers: Major depression recurrence: recurrent Active/Remission status: currently active Major depression episode severity: severe Status: Acute Code(s): F32.9 - Major depressive disorder, single episode, unspecified Assessment and Plan: HOLD ECT treatment. Monitor confusion. MOCA on Mon. DC likely Mon Informed Consent: understands Reason for contiued inpatient stay Substantial Risk for: rapid decompensation Greater than 50% of the session was spent on counseling and/or coordination of care
[2020-04-02] MEDS: LORazepam 0.5 MG TABLET 1 MG PO (14:38)
[2020-04-02] MEDS: traZODone HCL 100 MG TABLET PO (19:57)
[2020-04-02] MEDS: Atorvastatin Calcium 40 MG TABLET PO (19:57)
[2020-04-03] MEDS: LORazepam 0.5 MG TABLET 1 MG PO ×2 (06:37→14:44)
[2020-04-03 06:45] VITALS: BP 118/70; PULSE 111; RESP 18; TEMP 36.8; O2SAT 97
[2020-04-03] MEDS: Omeprazole 20 MG CAPSULE.DR PO (06:51)
[2020-04-03] MEDS: DULoxetine HCl 60 MG CAPSULE.DR PO (09:41)
[2020-04-03] MEDS: lisinopriL 40 MG TABLET PO (09:42)
[2020-04-03] MEDS: risperiDONE 1 MG TABLET PO ×2 (09:42→21:59)
--- NOTE | 2020-04-03 10:57 | HO.PSYCHPN ---
Subjective Subjective Date of Service: 04/03/20 Reason For Visit: anxiety depression Subjective Notes: Conditional Voluntary Interim History: lying sideways on bed- leg shaking co anxiety - looking to me Sunday - has to address things- with his bills/ has outpatient providers to go to still depressed, Medication Compliance: Yes Side effects from medications: No Attending Groups: Intermittent Review of Systems Constitutional: Reports fatigue Reports system reviewed and no additional complaints, except as documented and Reports restless legs Endocrine: Reports fatigue Mental Status Exam Mental Status Exam Narrative: fairly kempt Patient Appearance: Fatigued Patient Orientation: Person, Place, Time and Situation Level of Consciousness: Awake and Appropriate Patient Behavior: Appropriate and Guarded Mood Description: Anxious Affect Description: Depressed and Blunted Patient Cognition Impaired: No Ability to Follow Directions: Good Speech Pattern: Clear Hallucinations: None Delusions: Not Present Thought Process: Intact and Goal Oriented Thought Content: positive for Intact and positive for Suicidal Ideation (no plan/intent) Depressive Symptoms: Increased Anxiety and Muscle Tension Judgement: Fair Diagnostics Vital Signs (24Hr): Vital Signs - 24 hr 04/03/20 06:45 Temperature 98.2 F Pulse Rate 111 H Respiratory Rate 18 Blood Pressure 118/70 Pulse Oximetry 97 Body Mass Index 35.7 Labs Results: 03/21/20 13:19 03/08/20 08:43 Medications Medications Current Medications Generic Name Dose Route Start Last Admin Trade Name Freq PRN Reason Stop Dose Admin Acetaminophen 650 mg 03/26/20 16:18 03/26/20 18:18 Acetaminophen 325 Mg Tablet PO 650 mg Q6H PRN Administration Pain, Moderate (Pain Scale 4-6 Al Hydroxide/Mg Hydroxide 30 ml 03/26/20 16:18 Magnesium Hydrox/Alum Hydrox 30 Ml Oral.Susp PO Q4H PRN Heartburn Atorvastatin Calcium 40 mg 03/26/20 21:00 04/02/20 19:57 Atorvastatin Calcium 40 Mg Tablet PO 40 mg BEDTIME ASHISH Administration Duloxetine HCl 60 mg 03/26/20 10:35 04/03/20 09:41 Duloxetine Hcl 60 Mg Capsule.Dr PO 60 mg DAILY ASHISH Administration Hydroxyzine HCl 50 mg 03/26/20 08:55 03/30/20 14:59 Hydroxyzine Hcl 50 Mg Tablet PO 50 mg TID PRN Administration Anxiety Lisinopril 40 mg 03/27/20 09:00 04/03/20 09:42 Lisinopril 40 Mg Tablet PO 40 mg DAILY ASHISH Administration Protocol Lorazepam 1 mg 03/31/20 10:09 04/03/20 06:37 Lorazepam 0.5 Mg Tablet PO 1 mg Q8H PRN Administration Anxiety Magnesium Hydroxide 30 ml 03/26/20 16:18 Milk Of Magnesia 30 Ml Oral.Susp PO BID PRN Constipation Omeprazole 20 mg 03/26/20 10:45 04/03/20 06:51 Omeprazole 20 Mg Capsule.Dr PO 20 mg DAILY@0630 ASIHSH Administration Ondansetron HCl 4 mg 03/26/20 10:16 03/26/20 10:44 Ondansetron Odt 4 Mg Tab.Rapdis TRANSLINGU 4 mg Q6H PRN Administration Nausea Risperidone 1 mg 03/31/20 21:00 04/03/20 09:42 Risperidone 1 Mg Tablet PO 1 mg BID ASHISH Administration Risperidone 0.5 mg 04/01/20 07:08 04/01/20 18:54 Risperidone 0.5 Mg Tablet PO 0.5 mg Q4H PRN Administration Anxiety Trazodone HCl 100 mg 03/26/20 21:00 04/02/20 19:57 Trazodone Hcl 100 Mg Tablet PO 100 mg BEDTIME ASHISH Administration Trazodone HCl 100 mg 03/26/20 10:34 Trazodone Hcl 100 Mg Tablet PO BEDTIME PRN Insomnia Allergies Allergies Allergy/AdvReac Type Severity Reaction Status Date / Time No Known Allergies Allergy Verified 03/19/20 09:17 [No Known Allergies*] Assessment & Plan Assessment & Plan (1) Depression: Qualifiers: Active/Remission status: currently active Depression Type: major depressive disorder Major depression episode severity: moderate Major depression recurrence: recurrent Qualified Code(s): F33.1 - Major depressive disorder, recurrent, moderate Status: Acute Code(s): F32.9 - Major depressive disorder, single episode, unspecified Assessment and Plan: ongoing medication s/p ECT (2) Acute anxiety: Status: Acute Code(s): F41.9 - Anxiety disorder, unspecified Assessment and Plan: discussed ? trial of low dose clonidine tid prn Greater than 50% of the session was spent on counseling and/or coordination of care
[2020-04-03 13:02] VITALS: BP 121/69; PULSE 130
[2020-04-03] MEDS: cloNIDine HCL 0.1 MG TABLET 0.05 MG PO (13:02)
[2020-04-03] MEDS: risperiDONE 0.5 MG TABLET PO (14:44)
[2020-04-03] MEDS: Atorvastatin Calcium 40 MG TABLET PO (21:59)
[2020-04-03] MEDS: traZODone HCL 100 MG TABLET PO (21:59)
[2020-04-04 06:05] VITALS: BP 112/80; PULSE 115; RESP 18; TEMP 36.2; O2SAT 98
[2020-04-04] MEDS: cloNIDine HCL 0.1 MG TABLET 0.05 MG PO (06:05)
[2020-04-04] MEDS: Omeprazole 20 MG CAPSULE.DR PO (06:05)
[2020-04-04] MEDS: LORazepam 0.5 MG TABLET 1 MG PO ×2 (06:07→15:35)
[2020-04-04] MEDS: risperiDONE 1 MG TABLET PO ×2 (09:10→21:56)
[2020-04-04] MEDS: DULoxetine HCl 60 MG CAPSULE.DR PO (09:10)
[2020-04-04] MEDS: lisinopriL 40 MG TABLET PO (09:10)
[2020-04-04 12:05] VITALS: BP 127/76; PULSE 134
[2020-04-04] MEDS: atenoloL 25 MG TABLET 12.5 MG PO ×2 (12:05→21:56)
--- NOTE | 2020-04-04 15:04 | HO.PSYCHPN ---
Subjective Subjective Date of Service: 04/04/20 Reason For Visit: anxiety depression Subjective Notes: Conditional Voluntary Interim History: Pt hoping for help with his anxiety, denies current si around dc tomorrow Medication Compliance: Yes Side effects from medications: No Attending Groups: Yes Review of Systems Acute medical concerns: No but will observe for 24 hr on atenlol 12.5mg bid since he has hx asthma Medical Review of Systems: unchanged Review of Systems Reports Abnormal speech present and Reports restless legs Mental Status Exam Mental Status Exam Narrative: Alert and cooperative Patient Appearance: Appropriate Patient Orientation: Person, Place, Time and Situation Level of Consciousness: Awake Patient Behavior: Appropriate Mood Description: Anxious Affect Description: Blunted Patient Cognition Impaired: No Ability to Follow Directions: Fair Speech Pattern: Clear Hallucinations: None Delusions: Not Present Thought Process: Intact Thought Content: positive for Intact and positive for Obsessional Thoughts Depressive Symptoms: Diff. Making Decisions Judgement: Fair Diagnostics Vital Signs (24Hr): Vital Signs - 24 hr 04/04/20 06:05 04/04/20 12:05 Temperature 97.2 F Pulse Rate 115 H 134 H Respiratory Rate 18 Blood Pressure 112/80 127/76 Pulse Oximetry 98 Body Mass Index 35.7 Labs Results: 03/21/20 13:19 03/08/20 08:43 Medications Medications Current Medications Generic Name Dose Route Start Last Admin Trade Name Freq PRN Reason Stop Dose Admin Acetaminophen 650 mg 03/26/20 16:18 03/26/20 18:18 Acetaminophen 325 Mg Tablet PO 650 mg Q6H PRN Administration Pain, Moderate (Pain Scale 4-6 Al Hydroxide/Mg Hydroxide 30 ml 03/26/20 16:18 Magnesium Hydrox/Alum Hydrox 30 Ml Oral.Susp PO Q4H PRN Heartburn Atenolol 12.5 mg 04/04/20 21:00 Atenolol 25 Mg Tablet PO BID ASHISH Protocol Atorvastatin Calcium 40 mg 03/26/20 21:00 04/03/20 21:59 Atorvastatin Calcium 40 Mg Tablet PO 40 mg BEDTIME ASHISH Administration Duloxetine HCl 60 mg 03/26/20 10:35 04/04/20 09:10 Duloxetine Hcl 60 Mg Capsule.Dr PO 60 mg DAILY ASHISH Administration Hydroxyzine HCl 50 mg 03/26/20 08:55 03/30/20 14:59 Hydroxyzine Hcl 50 Mg Tablet PO 50 mg TID PRN Administration Anxiety Lisinopril 40 mg 03/27/20 09:00 04/04/20 09:10 Lisinopril 40 Mg Tablet PO 40 mg DAILY ASHISH Administration Protocol Lorazepam 1 mg 03/31/20 10:09 04/04/20 06:07 Lorazepam 0.5 Mg Tablet PO 1 mg Q8H PRN Administration Anxiety Magnesium Hydroxide 30 ml 03/26/20 16:18 Milk Of Magnesia 30 Ml Oral.Susp PO BID PRN Constipation Omeprazole 20 mg 03/26/20 10:45 04/04/20 06:05 Omeprazole 20 Mg Capsule.Dr PO 20 mg DAILY@0630 ASHISH Administration Ondansetron HCl 4 mg 03/26/20 10:16 03/26/20 10:44 Ondansetron Odt 4 Mg Tab.Rapdis TRANSLINGU 4 mg Q6H PRN Administration Nausea Risperidone 1 mg 03/31/20 21:00 04/04/20 09:10 Risperidone 1 Mg Tablet PO 1 mg BID ASHISH Administration Risperidone 0.5 mg 04/01/20 07:08 04/03/20 14:44 Risperidone 0.5 Mg Tablet PO 0.5 mg Q4H PRN Administration Anxiety Trazodone HCl 100 mg 03/26/20 21:00 04/03/20 21:59 Trazodone Hcl 100 Mg Tablet PO 100 mg BEDTIME ASHISH Administration Trazodone HCl 100 mg 03/26/20 10:34 Trazodone Hcl 100 Mg Tablet PO BEDTIME PRN Insomnia Allergies Allergies Allergy/AdvReac Type Severity Reaction Status Date / Time No Known Allergies Allergy Verified 03/19/20 09:17 [No Known Allergies*] Assessment & Plan Assessment & Plan (1) Major depression: Qualifiers: Active/Remission status: currently active Major depression episode severity: severe Major depression recurrence: recurrent Status: Acute Code(s): F32.9 - Major depressive disorder, single episode, unspecified Assessment and Plan: taking risperidone and duloxetine (2) Acute anxiety: Status: Acute Code(s): F41.9 - Anxiety disorder, unspecified Assessment and Plan: trying low dose atenolol 12.5mg bid , pt aware of risk with hx asthma clonidine 0.05 tid didn't seem to do much Greater than 50% of the session was spent on counseling and/or coordination of care
[2020-04-04 16:40] VITALS: BP 101/70; PULSE 72; TEMP 36.5
[2020-04-04 21:52] VITALS: BP 101/66; PULSE 89; RESP 18; TEMP 36.2
[2020-04-04 21:56] VITALS: BP 101/66; PULSE 89
[2020-04-04] MEDS: traZODone HCL 100 MG TABLET PO (21:57)
[2020-04-04] MEDS: Atorvastatin Calcium 40 MG TABLET PO (21:57)
[2020-04-05 06:10] VITALS: BP 107/69; PULSE 74; RESP 16; TEMP 36.8
[2020-04-05] MEDS: Omeprazole 20 MG CAPSULE.DR PO (06:46)
[2020-04-05 08:09] VITALS: BP 107/69; PULSE 74
[2020-04-05] MEDS: atenoloL 25 MG TABLET 12.5 MG PO (08:09)
[2020-04-05] MEDS: risperiDONE 1 MG TABLET PO ×2 (08:09→21:49)
[2020-04-05 08:11] VITALS: BP 107/69; PULSE 74
[2020-04-05] MEDS: DULoxetine HCl 60 MG CAPSULE.DR PO (08:11)
[2020-04-05] MEDS: lisinopriL 40 MG TABLET PO (08:11)
[2020-04-05] MEDS: LORazepam 0.5 MG TABLET 1 MG PO ×2 (08:11→16:40)
--- NOTE | 2020-04-05 14:54 | PC.NURSE ---
Pt approached by this promotion writer to participate in [employer] screen. Pt stated he was not doing well and that he would purposely fail the test. staff and MD aware. Screen not administered.
[2020-04-05 16:45] VITALS: BP 105/65; PULSE 79; TEMP 36.3
--- NOTE | 2020-04-05 18:15 | P.PNPSI_ITS ---
Subjective Subjective Date of Service: 04/05/20 Reason For Visit: anxiety depression Subjective Notes: Conditional Voluntary Interim History: DC was deferred due to pt starting to scratch himself after was told re Tarasoff warning to employer. Stated he does not care anymore. Tarasoff context was given but he got reactive and fell silent and angry. Defer DC to renea gomez and reevaluate. Refused MOCA Review of Systems Review of Systems Yes all other systems are reviewed and are negative Reports system reviewed and no additional complaints, except as documented, Reports Abnormal speech present and Reports restless legs Mental Status Exam Mental Status Exam Narrative: Alert and cooperative Patient Appearance: Appropriate Patient Orientation: Person, Place, Time and Situation Level of Consciousness: Awake Patient Behavior: Appropriate Mood Description: Anxious Affect Description: Blunted Patient Cognition Impaired: No Ability to Follow Directions: Fair Speech Pattern: Clear Memory Description: Intact Diagnostics Vital Signs (24Hr): Vital Signs - 24 hr 04/04/20 21:52 04/04/20 21:56 04/05/20 06:10 Temperature 97.1 F 98.3 F Pulse Rate 89 89 74 Respiratory Rate 18 16 Blood Pressure 101/66 101/66 107/69 04/05/20 08:09 04/05/20 08:11 Temperature Pulse Rate 74 74 Respiratory Rate Blood Pressure 107/69 107/69 Body Mass Index 35.7 Labs Results: 03/21/20 13:19 03/08/20 08:43 Medications Medications Current Medications Generic Name Dose Route Start Last Admin Trade Name Freq PRN Reason Stop Dose Admin Acetaminophen 650 mg 03/26/20 16:18 03/26/20 18:18 Acetaminophen 325 Mg Tablet PO 650 mg Q6H PRN Administration Pain, Moderate (Pain Scale 4-6 Al Hydroxide/Mg Hydroxide 30 ml 03/26/20 16:18 Magnesium Hydrox/Alum Hydrox 30 Ml Oral.Susp PO Q4H PRN Heartburn Atenolol 12.5 mg 04/04/20 21:00 04/05/20 08:09 Atenolol 25 Mg Tablet PO 12.5 mg BID ASHISH Administration Protocol Atorvastatin Calcium 40 mg 03/26/20 21:00 04/04/20 21:57 Atorvastatin Calcium 40 Mg Tablet PO 40 mg BEDTIME ASHISH Administration Duloxetine HCl 60 mg 03/26/20 10:35 04/05/20 08:11 Duloxetine Hcl 60 Mg Capsule.Dr PO 60 mg DAILY ASHISH Administration Hydroxyzine HCl 50 mg 03/26/20 08:55 03/30/20 14:59 Hydroxyzine Hcl 50 Mg Tablet PO 50 mg TID PRN Administration Anxiety Lisinopril 40 mg 03/27/20 09:00 04/05/20 08:11 Lisinopril 40 Mg Tablet PO 40 mg DAILY ASHISH Administration Protocol Lorazepam 1 mg 03/31/20 10:09 04/05/20 16:40 Lorazepam 0.5 Mg Tablet PO 1 mg Q8H PRN Administration Anxiety Magnesium Hydroxide 30 ml 03/26/20 16:18 Milk Of Magnesia 30 Ml Oral.Susp PO BID PRN Constipation Omeprazole 20 mg 03/26/20 10:45 04/05/20 06:46 Omeprazole 20 Mg Capsule. PO 20 mg DAILY@0630 ASHISH Administration Ondansetron HCl 4 mg 03/26/20 10:16 03/26/20 10:44 Ondansetron Odt 4 Mg Tab.Rapdis TRANSLINGU 4 mg Q6H PRN Administration Nausea Risperidone 1 mg 03/31/20 21:00 04/05/20 08:09 Risperidone 1 Mg Tablet PO 1 mg BID ASHISH Administration Risperidone 0.5 mg 04/01/20 07:08 04/03/20 14:44 Risperidone 0.5 Mg Tablet PO 0.5 mg Q4H PRN Administration Anxiety Trazodone HCl 100 mg 03/26/20 21:00 04/04/20 21:57 Trazodone Hcl 100 Mg Tablet PO 100 mg BEDTIME ASHISH Administration Trazodone HCl 100 mg 03/26/20 10:34 Trazodone Hcl 100 Mg Tablet PO BEDTIME PRN Insomnia Allergies Allergies Allergy/AdvReac Type Severity Reaction Status Date / Time No Known Allergies Allergy Verified 03/19/20 09:17 [No Known Allergies*] Assessment & Plan Assessment & Plan (1) Major depression: Qualifiers: Major depression recurrence: recurrent Active/Remission status: currently active Major depression episode severity: severe Status: Acute Code(s): F32.9 - Major depressive disorder, single episode, unspecified Assessment and Plan: taking risperidone and duloxetine. Defer DC to tomorrow (2) Acute anxiety: Status: Acute Code(s): F41.9 - Anxiety disorder, unspecified Assessment and Plan: trying low dose atenolol 12.5mg bid , pt aware of risk with hx asthma Greater than 50% of the session was spent on counseling and/or coordination of care
[2020-04-05] MEDS: Atorvastatin Calcium 40 MG TABLET PO (21:48)
[2020-04-05] MEDS: traZODone HCL 100 MG TABLET PO (21:49)
[2020-04-05 21:51] VITALS: BP 92/53; PULSE 76
[2020-04-06 06:10] VITALS: BP 107/67; PULSE 76; RESP 18; TEMP 36.9
[2020-04-06] MEDS: Omeprazole 20 MG CAPSULE.DR PO (08:43)
[2020-04-06] MEDS: DULoxetine HCl 60 MG CAPSULE.DR PO (08:43)
[2020-04-06] MEDS: risperiDONE 1 MG TABLET PO (08:43)
[2020-04-06 08:44] VITALS: BP 107/67; PULSE 76
[2020-04-06] MEDS: atenoloL 25 MG TABLET 12.5 MG PO (08:44)
[2020-04-06] MEDS: lisinopriL 40 MG TABLET PO (08:44)
--- NOTE | 2020-04-06 15:45 | PM.PSYDC ---
DS: Providers Provider Date of admission: 03/08/20 20:39 Primary care physician: Nael Muir MD DS: Diagnosis Discharge Diagnosis (1) Major depression: Status: Acute (2) Acute anxiety: Status: Acute Discharge Plan Discharge Patient Disposition: Home, Self-Care Referrals: Sue Desir, therapist [Other] - 04/12/20 3:00 pm Stefania nurse practitioner (psychiatry) [Other] - 04/15/20 10:00 am (Appointments by telehealth) Nael Muir MD [Primary Care Provider] - 04/14/20 2:30 pm (PT. HAS AN APPOINTMENT WITH DR. MASTERS [employer] GREG CASTANEDA IN OFFICE.) Discharge Medications: New atorvastatin 40 mg Tablet 40 mg PO BEDTIME 30 Days Qty: 30 RF: 0 atenolol 25 mg Tablet 12.5 mg PO BID 30 Days Qty: 30 RF: 0 hydroxyzine HCl 50 mg Tablet 50 mg PO TID PRN (Reason: Anxiety) 30 Days Qty: 90 RF: 0 lorazepam 0.5 mg Tablet 1 mg PO Q8H PRN (Reason: Anxiety) 30 Days Qty: 60 RF: 0 trazodone 100 mg Tablet 100 mg PO BEDTIME 30 Days Qty: 30 RF: 0 omeprazole 20 mg Capsule,Delayed Release(Dr/Ec) 20 mg PO DAILY@0630 30 Days Qty: 30 RF: 0 lisinopril 40 mg Tablet 40 mg PO DAILY 30 Days Qty: 30 RF: 0 risperidone 1 mg Tablet 1 mg PO BID 30 Days Qty: 60 RF: 0 duloxetine 60 mg Capsule,Delayed Release(Dr/Ec) 60 mg PO DAILY 30 Days Qty: 30 RF: 0 Discontinued hydroxyzine HCl 50 mg Tablet 50 mg PO TID PRN (Reason: Anxiety) RF: 0 lisinopril 40 mg Tablet 40 mg PO DAILY RF: 0 risperidone 1 mg Tablet 1 mg PO BEDTIME RF: 0 atorvastatin 40 mg Tablet 40 mg PO BEDTIME RF: 0 escitalopram oxalate 20 mg Tablet 30 mg PO DAILY RF: 0 Discharge Orders: Discharge Order (Routine); Ordered 04/06/20 Ordered By: Rudi Manuel Diet: advance to your usual diet Activity on Discharge: As tolerated Stand Alone Forms: Community Support Discharge Date/Time: 04/06/20 13:45 Visit Report Forms: Patient Portal Discharge page Care Plan Goals: Improve mood Safety plan Health Concerns: Low mood High anxiety Suicidal/aggressive thoughts Plan of Treatment: Med Mx Therapy M-ECT if possible PHP when able Mental Status Exam Mental Status Exam Patient Appearance: Well Grooomed Patient Orientation: Person, Place, Time and Situation Level of Consciousness: Awake Patient Behavior: Appropriate and Anxious Mood Description: Depressed and Nervous Affect Description: Depressed (better) Patient Cognition Impaired: No Ability to Follow Directions: Excellent Speech Pattern: Clear Memory Description: Intact Hallucinations: None Delusions: Not Present Thought Process: Intact Thought Content: positive for Intact, positive for Suicidal Ideation (denied) and positive for Homicidal Ideation (denied towards ex-bosses) Depressive Symptoms: Muscle Tension and Increased Irritability Judgement: Fair DS: Summary Hospital Course Hospital Course: 54-year-old single man presented to the ED complaining of suicidality and increased anxiety patient had made multiple superficial cuts on his left forearm. Patient had drank a pt of liquor aunt taken extra tablets of trazodone with intent to overdose. 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 Also his 25-year-old daughter has been estranged from him. Patient endorses significant anxiety including for somatic and physical anxiety and marked apprehension patient's legs were bouncing throughout his interview. Patient endorses all symptoms of depression including anhedonia helplessness hopelessness and impulsively asked for ECT. Patient denies any psychotic symptoms or PTSD. Patient denies any panic attacks but describes generalized anxiety which appears to be of severe intensity. Past Psychiatric History: Patient has providers at [facility] in [place]. he was briefly at [facility] in [place] but left against medical advice after an argument with staff and he felt disrespected. Recently his provider had switched medications and increase Lexapro to 30 mg and added risperidone. Patient remembers being on Effexor which caused tinnitus. He was also on Luvox and Seroquel which made him tired no history of ECT in the past Pt remained agitated and profoundly depressed. He was switched to Cymbalta and Risperidone but eventually ECT was considered as depression was intense with HHW cognitions and intense suicidality. Pt received 6 ECTs with good response. Pt reported decrease in anxiety and depression with decreased SI. His focus was his job which had been problematic . He felt targeted by his bosses and reported homicidal ideation and violent thoughts towards them. Later stated he was just venting and had no intent. It was a fantasy. In any case a Tarasoff warning was conveyed to his employer which was upsetting to him. Discharge was delayed by a day as he scratched himself in anger. At [place] he denied SI. ECT was stopped at #6 as he had STM deficits and MOCA of 26/30. He recovered at [place] but refused another MOCA. He was encouraged to seek M-ECT at [facility]. Status at Discharge Functional status at discharge: independent ambulation Overall status at discharge: patient is back to baseline Time Spent with Patient Time attestation: Total time spent providing and/or coordinating discharge services: Time spent: Greater than 30 minutes
== END 2020-04-06 13:45 | disposition home or self-care (01) | DRG 751 ==
LOC: HO.ED 19:58 → HO.PM5 22:56
PROVIDERS: Psychiatry & Neurology Psychiatry; Admitting Provider Psychiatry & Neurology Psychiatry; Emergency Provider Internal Medicine; PCP Internal Medicine; Visit Provider Psychiatry & Neurology Psychiatry
PROC: GZB4ZZZ Other Electroconvulsive Therapy (ICD-10-PCS; CPT 90870; principal; 2020-03-19 09:00)
DX: F33.1 Major depressive disorder, recurrent, moderate (principal); R45.851 Suicidal ideations; I50.9 Heart failure, unspecified; I11.0 Hypertensive heart disease with heart failure; F41.9 Anxiety disorder, unspecified; F11.11 Opioid abuse, in remission; E78.5 Hyperlipidemia, unspecified; Z23 Encounter for immunization; Z91.5 Personal history of self-harm; Z20.828 Contact with and (suspected) exposure to other viral communicable diseases; Z96.642 Presence of left artificial hip joint; Z79.899 Other long term (current) drug therapy
CPT/HCPCS: 36415; 73130; 80053; 80061; 80307; 80320; 83036; 83695; 85025; 87635; 90686; 90870; 93005; 93010; 93306; 99223; 99232; 99233; 99239; 99285; J0330; J1885; J2250; J2405

== ENCOUNTER 2022-11-09 19:14 | Inpatient (IN) | payer MEDICARE, MEDICAID, SELFPAY ==
[2022-11-09 19:43] VITALS: BP 116/113; PULSE 90; RESP 24; TEMP 35.3; O2SAT 96; BMI 42.2
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
--- NOTE | 2022-11-09 20:18 | PC.NURSE ---
pt present to ED diaphoretic and tremulous. sts that his roommate is a diagnosed schizophrenic and has not been taking his medications. Patient reports that he has had hospitalizations in the pst for his anxiety, and his roommates behavior has caused it to increase greatly. Pt reports he is anxious to the point that he is sleeping with an axe next to his bed. Denies Si/HI at this time
[2022-11-09] MEDS: LORazepam 1 MG TABLET 2 MG PO (20:53)
--- NOTE | 2022-11-09 21:28 | PC.NURSE ---
pt medicated per MAR for anxiety, gave pt warm blanket, and dimmed lights. pt is willing to see if medication will help his anxiety, awaiting care team consult. call serna within reach
[2022-11-09 22:09] VITALS: BP 143/110; PULSE 88; RESP 18; O2SAT 98
--- NOTE | 2022-11-09 22:12 | PC.NURSE ---
rounded on pt, vitals updated. pt sts that his hand tremors have calmed since adm of medication, tremors have reduced, no longer diaphoretic. pt resting on [facility] awaiting care team, NEO
[2022-11-09 22:22] VITALS: TEMP 36.9
--- NOTE | 2022-11-09 22:46 | PC.NURSE ---
labs pending, pt awaiting care team eval
[2022-11-09 22:50] LABS: MANUAL DIFF FLAG NO
[2022-11-09 22:52] LABS: Basophils Percent Auto 0.2 % (0-2); Eosinophils Absolute Auto 0.2 X10*3/uL (0.0-0.4); Eosinophils Percent Auto 1.4 % (0-4); Hematocrit 47.3 % (42.0-52.0); Hemoglobin 16.9 g/dl (14.0-18.0); Imm Gran Abs Auto 0.06 X10*3/uL (0.00-0.03); Imm Gran Pct Auto 0.5 % (0.0-0.4); Lymphocytes Absolute Auto 1.5 X10*3/uL (1.2-4.9); Lymphocytes Percent Auto 12.6 % (20-40); Mean Corpuscular HGB Conc 35.7 g/dl (31.0-36.0); Mean Corpuscular Hemoglobin 29.9 pg (27.0-33.0); Mean Corpuscular Volume 83.6 fL (80.0-98.0); Mean Platelet Volume 10.9 fL (9.4-12.4); Monocytes Absolute Auto 0.8 X10*3/uL (0.1-1.2); Monocytes Percent Auto 6.9 % (2-11); Neutrophils Absolute Auto 9.4 x10*3/uL (2.0-8.3); Neutrophils Percent Auto 78.4 % (45-73); Platelet Count 302 X10*3/uL (160-400); Red Blood Count 5.66 X10*6/uL (4.60-5.80); Red Cell Distribution Width 13.7 % (11.0-16.0)
[2022-11-09 23:05] LABS: Appearance Urine Clear; Color Urine Yellow; Glucose Urine UA Negative (Negative); Leukocyte Esterase Urine Negative (Negative); Nitrite Urine Negative (Negative); Specific Gravity - Urine <= 1.005 (1.005-1.025); Urine Blood Negative (Negative); Urine Ketones Negative (Negative); Urine Protein Negative (Neg-Trace)
[2022-11-09 23:13] LABS: Amphetamine Screen Urine Not Detected (Not Detect); Barbiturates, Urine Not Detected (Not Detect); Benzodiazepines Screen Urine Not Detected (Not Detect); Cannabinoid Screen Urine POSITIVE (Not Detect); Cocaine Screen Urine Not Detected (Not Detect); Fentanyl, urine Not Detected (Not Detect); Opiate Screen Urine Not Detected (Not Detect); Phencyclidine Screen Urine Not Detected (Not Detect)
[2022-11-09 23:14] LABS: Alanine Aminotransferase 44 U/L (0-40); Albumin Level 4.3 g/dL (3.5-5.0); Alkaline Phosphatase 100 U/L (39-117); Anion Gap 13 (12-20); Aspartate Amino Transferase 25 U/L (5-37); Bilirubin Total 1.6 mg/dL (0.0-1.0); Blood Urea Nitrogen 13 mg/dL (9-16); Carbon Dioxide 22 mmol/L (22-29); Chloride 107 mmol/L (96-108); Creatinine Clr Calc Pharmacy 103.7; Estimated Glomerular Filt Rate > 60; Ethanol < 10 mg/dL; Glucose Random 115 mg/dL (60-115); Potassium 4.1 mmol/L (3.3-5.1); Sodium 138 mmol/L (135-145); Total Protein 7.2 g/dL (6.5-8.0)
[2022-11-10] MEDS: QUEtiapine Fumarate 200 MG TABLET PO ×2 (00:41→19:35)
[2022-11-10 00:43] VITALS: BP 141/108; PULSE 91; RESP 19; TEMP 36.4; O2SAT 96
[2022-11-10 00:48] LABS: COVID-19 Test Negative (Negative); IDNOW Serial# BCCEAD1C
--- NOTE | 2022-11-10 05:41 | PC.NURSE ---
Patient slept through the night, no distress observed/reported, med rec completed/pending provider's approval, Seroquel 200 mg, prescribed dose, administered at 0041 with + effect, disposition per care team is section 12 inpatient bed search, behavior non concerning, labs completed/reported, no safety concerns at this time, VSS, will continue to monitor.
[2022-11-10 08:34] VITALS: BP 125/89; PULSE 93; RESP 18; TEMP 36.6; O2SAT 95
--- NOTE | 2022-11-10 08:48 | ECG_ITS ---
Test Reason : check qt Blood Pressure : / mmHG Vent. Rate : 088 BPM Atrial Rate : 088 BPM P-R Int : 160 ms QRS Dur : 086 ms QT Int : 370 ms P-R-T Axes : 035 003 040 degrees QTc Int : 447 ms Normal sinus rhythm Possible Inferior infarct , age undetermined Abnormal ECG When compared with ECG of 19-MAR-2020 10:14, Nonspecific T wave abnormality now evident in Anterior leads Referred By: Dayne Lopez Electronically Signed By:Jericho Segura
[2022-11-10 18:36] VITALS: BP 135/102; PULSE 114; RESP 16; TEMP 36.5; O2SAT 96; BMI 41.6
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
[2022-11-10 22:00] VITALS: BP 138/86; PULSE 110; RESP 16; TEMP 36.6; O2SAT 98
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
[2022-11-11 07:45] LABS: Estimated Average Glucose 103 mg/dL; Hemoglobin A1c % 5.2 %
[2022-11-11 07:50] VITALS: BP 135/85; PULSE 83; RESP 16; TEMP 37; O2SAT 95
[2022-11-11 08:07] LABS: Alanine Aminotransferase 46 U/L (0-40); Albumin Level 4.3 g/dL (3.5-5.0); Alkaline Phosphatase 105 U/L (39-117); Anion Gap 15 (12-20); Aspartate Amino Transferase 28 U/L (5-37); Bilirubin Total 2.2 mg/dL (0.0-1.0); Blood Urea Nitrogen 18 mg/dL (9-16); Carbon Dioxide 20 mmol/L (22-29); Chloride 110 mmol/L (96-108); Cholesterol 237 mg/dL; Creatinine Clr Calc Pharmacy 86.9; Estimated Glomerular Filt Rate > 60; Glucose Fasting 121 mg/dL (60-99); HDL Cholesterol 28 mg/dL; LDL Cholesterol Calculated 180 mg/dl; Potassium 4.5 mmol/L (3.3-5.1); Sodium 140 mmol/L (135-145); Total Protein 7.4 g/dL (6.5-8.0); Triglycerides 148 mg/dL
[2022-11-11] MEDS: atenoloL 25 MG TABLET PO (08:28)
[2022-11-11] MEDS: Atorvastatin Calcium 10 MG TABLET PO (08:28)
[2022-11-11] MEDS: Acetaminophen 325 MG TABLET 650 MG PO (08:28)
[2022-11-11] MEDS: PARoxetine HCL 40 MG TABLET PO (08:29)
[2022-11-11] MEDS: lisinopriL 40 MG TABLET PO (08:29)
[2022-11-11 08:35] LABS: Folate 6.6 ng/mL (> or = 4.0); Thyroid Stimulating Hormone 1.93 uIU/mL (0.32-4.0); Vitamin B12 320 pg/mL (200-900)
[2022-11-11] MEDS: Gabapentin 100 MG CAPSULE PO ×2 (14:56→20:14)
[2022-11-11] MEDS: hydrOXYzine HCL 25 MG TABLET PO (15:08)
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
[2022-11-11 17:25] VITALS: BP 128/84; PULSE 85; TEMP 36.2
[2022-11-11] MEDS: QUEtiapine Fumarate 200 MG TABLET PO (20:14)
[2022-11-12 08:10] VITALS: BP 140/95; PULSE 102; RESP 16; TEMP 36.4; O2SAT 95
[2022-11-12] MEDS: PARoxetine HCL 40 MG TABLET PO (09:07)
[2022-11-12] MEDS: Atorvastatin Calcium 10 MG TABLET PO (09:08)
[2022-11-12] MEDS: atenoloL 25 MG TABLET PO (09:08)
[2022-11-12] MEDS: lisinopriL 40 MG TABLET PO (09:08)
[2022-11-12] MEDS: Gabapentin 100 MG CAPSULE PO (09:08)
[2022-11-12] MEDS: QUEtiapine Fumarate 25 MG TABLET PO ×2 (14:21→19:26)
[2022-11-12] MEDS: Gabapentin 100 MG CAPSULE 200 MG PO ×2 (14:22→19:25)
[2022-11-12 17:30] VITALS: BP 126/73; PULSE 77; TEMP 36.9
[2022-11-12] MEDS: QUEtiapine Fumarate 200 MG TABLET PO (19:27)
--- NOTE | 2022-11-12 19:44 | P.PNPSI_ITS ---
Subjective Subjective Date of Service: 11/12/22 Reason For Visit: SI Interim History: Patient seen and discussed with team. Patient continues anxious. He reports he has racing thoughts and anxiety. He hasn't been eating well. He is asking for ensures. Didn't notice benefit from GBP. No side effects and no sedation. Denies SI. Review of Systems Review of Systems Anxious Yes all other systems are reviewed and are negative Mental Status Exam Mental Status Exam Patient Appearance: Unkempt Patient Orientation: Person, Place, Time and Situation Level of Consciousness: Awake and Alert Patient Behavior: Talkative, Restless, Anxious and Fearful Mood Description: Fearful, Anxious and Nervous Affect Description: Anxious Patient Cognition Impaired: No Ability to Follow Directions: Excellent Speech Pattern: Clear Memory Description: Intact Diagnostics Vital Signs (24Hr): Vital Signs - 24 hr 11/12/22 08:10 Temperature 97.6 F Pulse Rate 102 H Respiratory Rate 16 Blood Pressure 140/95 H Pulse Oximetry 95 Oxygen Delivery Method Room Air BMI result Body Mass Index 41.6 Labs 11/09/22 22:42 11/11/22 07:30 Labs: Laboratory Results - last 48 hr 11/11/22 11/11/22 07:30 07:30 Sodium 140 Potassium 4.5 Chloride 110 H Carbon Dioxide 20 L Anion Gap 15 BUN 18 H Creatinine 1.23 Estim Creat Clear Calc 86.9 Estimated GFR > 60 Fasting Glucose 121 H Estimat Average Glucose 103 Hemoglobin A1c % 5.2 Calcium 10.0 Total Bilirubin 2.2 H AST 28 ALT 46 H Alkaline Phosphatase 105 Total Protein 7.4 Albumin 4.3 Triglycerides 148 Cholesterol 237 LDL Cholesterol, Calc 180 HDL Cholesterol 28 Vitamin B12 320 Folate 6.6 TSH 1.93 Medications Medications Current Medications Acetaminophen (Acetaminophen 325 Mg Tablet) 650 mg PO Q6H PRN PRN Reason: Headache/Pain Mild Scale (1-3) Last Admin: 11/11/22 08:28 Dose: 650 mg Al Hydroxide/Mg Hydroxide (Magnesium Hydrox/Alum Hydrox 30 Ml Oral.Susp) 30 ml PO Q6H PRN PRN Reason: Heartburn/Nausea Atenolol (Atenolol 25 Mg Tablet) 25 mg PO DAILY [facility]; Protocol Last Admin: 11/12/22 09:08 Dose: 25 mg Atorvastatin Calcium (Atorvastatin Calcium 10 Mg Tablet) 10 mg PO DAILY [facility] Last Admin: 11/12/22 09:08 Dose: 10 mg Gabapentin (Gabapentin 100 Mg Capsule) 200 mg PO TID [facility] Last Admin: 11/12/22 19:25 Dose: 200 mg Hydroxyzine HCl (Hydroxyzine Hcl 25 Mg Tablet) 25 mg PO Q6H PRN PRN Reason: Anxiety Last Admin: 11/11/22 15:08 Dose: 25 mg Lisinopril (Lisinopril 40 Mg Tablet) 40 mg PO DAILY [facility]; Protocol Last Admin: 11/12/22 09:08 Dose: 40 mg Magnesium Hydroxide (Milk Of Magnesia 30 Ml Oral.Susp) 30 ml PO DAILY PRN PRN Reason: Constipation Paroxetine HCl (Paroxetine Hcl 40 Mg Tablet) 40 mg PO DAILY [facility] Last Admin: 11/12/22 09:07 Dose: 40 mg Quetiapine Fumarate (Quetiapine Fumarate 200 Mg Tablet) 200 mg PO BEDTIME [facility] Last Admin: 11/12/22 19:27 Dose: 200 mg Quetiapine Fumarate (Quetiapine Fumarate 25 Mg Tablet) 25 mg PO BID [facility] Last Admin: 11/12/22 19:26 Dose: 25 mg Trazodone HCl (Trazodone Hcl 50 Mg Tablet) 50 mg PO BEDTIME PRN PRN Reason: Insomnia Allergies Allergies Allergy/AdvReac Type Severity Reaction Status Date / Time No Known Allergies Allergy Verified 11/10/22 08:43 [No Known Allergies*] Assessment & Plan Assessment & Plan (1) Acute anxiety: Status: Acute Code(s): F41.9 - Anxiety disorder, unspecified (2) Adjustment disorder with anxiety: Status: Acute Code(s): F43.22 - Adjustment disorder with anxiety Plan Admit to [facility]. Restart outpatient medications. Add GBP 100 mg for anxiety. Milieu and group therapy. DC planning. 11/12: Increase GBP to 200 mg TID. Will add Seroquel 25 mg BID during the day in addition to HS Seroquel. Reason for continued inpatient stay Substantial Risk for: inability to function and rapid decompensation Time Spent With Patient Time: Total time managing care of this patient today ____ minutes.
[2022-11-13 08:15] VITALS: BP 142/76; PULSE 99; TEMP 36.1; O2SAT 95
[2022-11-13] MEDS: PARoxetine HCL 40 MG TABLET PO (09:10)
[2022-11-13] MEDS: Gabapentin 100 MG CAPSULE 200 MG PO ×3 (09:10→20:35)
[2022-11-13] MEDS: QUEtiapine Fumarate 25 MG TABLET PO (09:10)
[2022-11-13] MEDS: atenoloL 25 MG TABLET PO (09:10)
[2022-11-13] MEDS: Atorvastatin Calcium 10 MG TABLET PO (09:10)
[2022-11-13] MEDS: lisinopriL 40 MG TABLET PO (09:10)
[2022-11-13 14:00] VITALS: BP 129/87; PULSE 93; RESP 20; TEMP 524.4; TEMP 976; O2SAT 99
--- NOTE | 2022-11-13 17:22 | P.PNPSI_ITS ---
Subjective Subjective Date of Service: 11/13/22 Reason For Visit: SI Interim History: met with patient; discussed with team; reviewed notes pt w/ mildly pressured speech was says is due to being anxious; says he's anxious all the time but especially so since a nurse just asked him why which he as a kid learned was an argumentative question. Denies AVH but says earlier he was talking to his imaginary friend. Pt says bedtime seroquel helps sleep and cannot sleep w/ out it but asks for Seroquel 25mg Bid to be available in afternoon. Agrees to trial of clonidine for anxiety. Mental Status Exam Mental Status Exam Narrative: Pt is alert and oriented; behavior is cooperative, friendly but anxious and talkative; patient is not in distress; dressed in casual attire with adequate hygiene; mood is described as anxious and affect congruent; eye contact appropriate; Speech is a little pressured and verbose; normal volume and prosody; no psychomotor agitation/retardation present; thought process is goal directed and circumstantial; Thought content is on treatment, anxiety; otherwise pertinent to relevant topics; no delusional content expressed; denies any SI/HI. There is no evidence of perceptual disturbance. Patients insight and judgment are impaired. Diagnostics Vital Signs (24Hr): Vital Signs - 24 hr 11/12/22 17:30 11/13/22 08:15 Temperature 98.4 F 97.0 F Pulse Rate 77 99 Blood Pressure 126/73 142/76 H Pulse Oximetry 95 Oxygen Delivery Method Nasal Cannula BMI result Body Mass Index 41.6 Labs 11/09/22 22:42 11/11/22 07:30 Medications Medications Current Medications Acetaminophen (Acetaminophen 325 Mg Tablet) 650 mg PO Q6H PRN PRN Reason: Headache/Pain Mild Scale (1-3) Last Admin: 11/11/22 08:28 Dose: 650 mg Al Hydroxide/Mg Hydroxide (Magnesium Hydrox/Alum Hydrox 30 Ml Oral.Susp) 30 ml PO Q6H PRN PRN Reason: Heartburn/Nausea Atenolol (Atenolol 25 Mg Tablet) 25 mg PO DAILY [facility]; Protocol Last Admin: 11/13/22 09:10 Dose: 25 mg Atorvastatin Calcium (Atorvastatin Calcium 10 Mg Tablet) 10 mg PO DAILY [facility] Last Admin: 11/13/22 09:10 Dose: 10 mg Gabapentin (Gabapentin 100 Mg Capsule) 200 mg PO TID [facility] Last Admin: 11/13/22 14:27 Dose: 200 mg Hydroxyzine HCl (Hydroxyzine Hcl 25 Mg Tablet) 25 mg PO Q6H PRN PRN Reason: Anxiety Last Admin: 11/11/22 15:08 Dose: 25 mg Lisinopril (Lisinopril 40 Mg Tablet) 40 mg PO DAILY [facility]; Protocol Last Admin: 11/13/22 09:10 Dose: 40 mg Magnesium Hydroxide (Milk Of Magnesia 30 Ml Oral.Susp) 30 ml PO DAILY PRN PRN Reason: Constipation Paroxetine HCl (Paroxetine Hcl 40 Mg Tablet) 40 mg PO DAILY [facility] Last Admin: 11/13/22 09:10 Dose: 40 mg Quetiapine Fumarate (Quetiapine Fumarate 200 Mg Tablet) 200 mg PO BEDTIME [facility] Last Admin: 11/12/22 19:27 Dose: 200 mg Quetiapine Fumarate (Quetiapine Fumarate 25 Mg Tablet) 25 mg PO BID [facility] Last Admin: 11/13/22 09:10 Dose: 25 mg Trazodone HCl (Trazodone Hcl 50 Mg Tablet) 50 mg PO BEDTIME PRN PRN Reason: Insomnia Allergies Allergies Allergy/AdvReac Type Severity Reaction Status Date / Time No Known Allergies Allergy Verified 11/10/22 08:43 [No Known Allergies*] Assessment & Plan Assessment & Plan (1) Acute anxiety: Status: Acute Code(s): F41.9 - Anxiety disorder, unspecified (2) Adjustment disorder with anxiety: Status: Acute Code(s): F43.22 - Adjustment disorder with anxiety Plan PLAN: q15 CV add Clonidine prn for anxiety continue seroquel 200mg qhs continue Seroquel 25mg BID@0900,1400 continue paxil 40mg qhs will review med hx [facility]. Restart outpatient medications. Add GBP 100 mg for anxiety. Milieu and group therapy. DC planning. 11/12: Increase GBP to 200 mg TID. Will add Seroquel 25 mg BID during the day in addition to HS Seroquel. 11/13 remains very anxious; added Clondine prn; will review med hx Patient educated on: diagnosis and medication risk/benefits Informed Consent: understands Reason for continued inpatient stay Substantial Risk for: rapid decompensation Time Spent With Patient Time: Total time managing care of this patient today ____ minutes.
[2022-11-13] MEDS: cloNIDine HCL 0.1 MG TABLET PO (17:34)
[2022-11-13] MEDS: QUEtiapine Fumarate 200 MG TABLET PO (20:35)
[2022-11-13 22:00] VITALS: BP 126/78; PULSE 84; RESP 18; TEMP 36.6; O2SAT 98
[2022-11-14 08:24] VITALS: BP 138/90; PULSE 75; RESP 18; TEMP 36
[2022-11-14] MEDS: cloNIDine HCL 0.1 MG TABLET PO ×4 (08:27→21:16)
[2022-11-14] MEDS: Atorvastatin Calcium 10 MG TABLET PO (08:27)
[2022-11-14] MEDS: PARoxetine HCL 40 MG TABLET PO (08:27)
[2022-11-14] MEDS: Gabapentin 100 MG CAPSULE 200 MG PO ×3 (08:27→21:15)
[2022-11-14] MEDS: lisinopriL 40 MG TABLET PO (08:27)
[2022-11-14] MEDS: QUEtiapine Fumarate 25 MG TABLET PO ×2 (08:28→14:21)
[2022-11-14] MEDS: atenoloL 25 MG TABLET PO (09:07)
--- NOTE | 2022-11-14 14:42 | P.PNPSI_ITS ---
Subjective Subjective Date of Service: 11/14/22 Reason For Visit: SI Interim History: met with patient; discussed with team; reviewed past admission notes and reviewed med hx pt reports he's feeling a little better and that Clonidine might be helping take edge off anxiety. Discussed med hx which is numerous and patient agreed that maybe clonidine would be enough, however wanted to give it another day to see. Pt tied a bedsheet into a make-shift rope and gave it to staff to show how it's possible to harm oneself. Pt denied having any SI at all and reiterates he was just helping staff realize the risks...which he says he's done at past admissions -afraid of going back to house given threatening umer Mental Status Exam Mental Status Exam Narrative: Pt is alert and oriented; behavior is cooperative, friendly but anxious and talkative; patient is not in distress; dressed in casual attire with adequate hygiene; mood is described as anxious and affect congruent; eye contact appropriate; Speech is a little pressured and verbose; normal volume and prosody; no psychomotor agitation/retardation present; thought process is goal directed and circumstantial; Thought content is on treatment, anxiety; otherwise pertinent to relevant topics; no delusional content expressed; denies any SI/HI. There is no evidence of perceptual disturbance. Patients insight and judgment are impaired but improving. Diagnostics Vital Signs (24Hr): Vital Signs - 24 hr 11/13/22 22:00 11/14/22 08:24 Temperature 97.8 F 96.8 F Pulse Rate 84 75 Respiratory Rate 18 18 Blood Pressure 126/78 138/90 H Pulse Oximetry 98 Oxygen Delivery Method Room Air BMI result Body Mass Index 41.6 Labs 11/09/22 22:42 11/11/22 07:30 Medications Medications Current Medications Acetaminophen (Acetaminophen 325 Mg Tablet) 650 mg PO Q6H PRN PRN Reason: Headache/Pain Mild Scale (1-3) Last Admin: 11/11/22 08:28 Dose: 650 mg Al Hydroxide/Mg Hydroxide (Magnesium Hydrox/Alum Hydrox 30 Ml Oral.Susp) 30 ml PO Q6H PRN PRN Reason: Heartburn/Nausea Atenolol (Atenolol 25 Mg Tablet) 25 mg PO DAILY [facility]; Protocol Last Admin: 11/14/22 09:07 Dose: 25 mg Atorvastatin Calcium (Atorvastatin Calcium 10 Mg Tablet) 10 mg PO DAILY [facility] Last Admin: 11/14/22 08:27 Dose: 10 mg Clonidine HCl (Clonidine Hcl 0.1 Mg Tablet) 0.1 mg PO Q4H PRN; Protocol PRN Reason: anxiety Last Admin: 11/14/22 12:56 Dose: 0.1 mg Gabapentin (Gabapentin 100 Mg Capsule) 200 mg PO TID [facility] Last Admin: 11/14/22 14:21 Dose: 200 mg Hydroxyzine HCl (Hydroxyzine Hcl 50 Mg Tablet) 50 mg PO Q6H PRN PRN Reason: Anxiety Lisinopril (Lisinopril 40 Mg Tablet) 40 mg PO DAILY [facility]; Protocol Last Admin: 11/14/22 08:27 Dose: 40 mg Magnesium Hydroxide (Milk Of Magnesia 30 Ml Oral.Susp) 30 ml PO DAILY PRN PRN Reason: Constipation Paroxetine HCl (Paroxetine Hcl 40 Mg Tablet) 40 mg PO DAILY [facility] Last Admin: 11/14/22 08:27 Dose: 40 mg Quetiapine Fumarate (Quetiapine Fumarate 200 Mg Tablet) 200 mg PO BEDTIME [facility] Last Admin: 11/13/22 20:35 Dose: 200 mg Quetiapine Fumarate (Quetiapine Fumarate 25 Mg Tablet) 25 mg PO BID@0900,1400 [facility] Last Admin: 11/14/22 14:21 Dose: 25 mg Trazodone HCl (Trazodone Hcl 50 Mg Tablet) 50 mg PO BEDTIME PRN PRN Reason: Insomnia Allergies Allergies Allergy/AdvReac Type Severity Reaction Status Date / Time No Known Allergies Allergy Verified 11/10/22 08:43 [No Known Allergies*] Assessment & Plan Assessment & Plan (1) Acute anxiety: Status: Acute Code(s): F41.9 - Anxiety disorder, unspecified (2) Adjustment disorder with anxiety: Status: Acute Code(s): F43.22 - Adjustment disorder with anxiety Plan PLAN: q15 CV add Clonidine prn for anxiety continue seroquel 200mg qhs Increase Seroquel 50mg BID@0900,1400 continue paxil 40mg qhs will review med hx [facility]. Restart outpatient medications. Add GBP 100 mg for anxiety. Milieu and group therapy. DC planning. 11/12: Increase GBP to 200 mg TID. Will add Seroquel 25 mg BID during the day in addition to HS Seroquel. 11/13 remains very anxious; added Clondine prn; will review med hx 11/14 continue w/ clondine which is helping; numerous med trials including ssri/snri/antipsychotics/ECT... pt asked for increase in Seroquel to 50mg BID which may also help -says not sure Paxil is helping -afraid of going back to house given threatening umre Patient educated on: diagnosis and medication risk/benefits Informed Consent: understands Reason for continued inpatient stay Substantial Risk for: rapid decompensation Time Spent With Patient Time: Total time managing care of this patient today ____ minutes.
--- NOTE | 2022-11-14 15:51 | PC.NURSE ---
Pt ripped green elastic off of a fitted sheet to show staff how easily it could be to harm oneself if wanted. Pt said that he did this also during a prior hospitalization because he was mad that he was sectioned. Pt also stated that the checks for 15 minutes are set due to the fact that that is how long it would take to hang successfully if the neck didn't brake. MD was informed and pt was put on 5 minute checks.
[2022-11-14 18:00] VITALS: BP 125/71; PULSE 70; RESP 18; TEMP 36.6; O2SAT 96
[2022-11-14] MEDS: QUEtiapine Fumarate 200 MG TABLET PO (21:16)
[2022-11-15 08:15] VITALS: BP 120/71; PULSE 88; RESP 16; TEMP 36.4; O2SAT 96
[2022-11-15] MEDS: QUEtiapine Fumarate 50 MG TABLET PO ×2 (09:08→14:20)
[2022-11-15] MEDS: PARoxetine HCL 40 MG TABLET PO (09:08)
[2022-11-15] MEDS: atenoloL 25 MG TABLET PO (09:08)
[2022-11-15] MEDS: Gabapentin 100 MG CAPSULE 200 MG PO ×3 (09:08→21:03)
[2022-11-15] MEDS: Atorvastatin Calcium 10 MG TABLET PO (09:08)
[2022-11-15] MEDS: lisinopriL 40 MG TABLET PO (09:08)
--- NOTE | 2022-11-15 10:01 | HO.PSYCHPN ---
Subjective Subjective Date of Service: 11/15/22 Reason For Visit: SI Interim History: Met with patient; discussed with team Patient reports that overall he is doing a little better and less anxious which he is noticing consistently when he takes clonidine. Still he asks if Paxil could be increased since he still has an over all baseline of anxiety that he would like to reduce. Patient says he has been 6 months at Paxil 40 mg; he has come off of it in the past and denies ever getting discontinuation syndrome. Patient slept well enough last night not as good as the night before but overall feels rested Mental Status Exam Mental Status Exam Narrative: Pt is alert and oriented; behavior is cooperative, friendly but anxious and talkative; patient is not in distress; dressed in casual attire with adequate hygiene; mood is described as little better and affect congruent; eye contact appropriate; Speech is a little pressured and verbose; normal volume and prosody; no psychomotor agitation/retardation present; thought process is goal directed and circumstantial; Thought content is on treatment, anxiety; otherwise pertinent to relevant topics; no delusional content expressed; denies any SI/HI. There is no evidence of perceptual disturbance. Patients insight and judgment are fair. Diagnostics Vital Signs (24Hr): Vital Signs - 24 hr 11/14/22 18:00 Temperature 98 F Pulse Rate 70 Respiratory Rate 18 Blood Pressure 125/71 Pulse Oximetry 96 Oxygen Delivery Method Room Air BMI result Body Mass Index 41.6 Labs 11/09/22 22:42 11/11/22 07:30 Medications Medications Current Medications Acetaminophen (Acetaminophen 325 Mg Tablet) 650 mg PO Q6H PRN PRN Reason: Headache/Pain Mild Scale (1-3) Last Admin: 11/11/22 08:28 Dose: 650 mg Al Hydroxide/Mg Hydroxide (Magnesium Hydrox/Alum Hydrox 30 Ml Oral.Susp) 30 ml PO Q6H PRN PRN Reason: Heartburn/Nausea Atenolol (Atenolol 25 Mg Tablet) 25 mg PO DAILY [facility]; Protocol Last Admin: 11/15/22 09:08 Dose: 25 mg Atorvastatin Calcium (Atorvastatin Calcium 10 Mg Tablet) 10 mg PO DAILY [facility] Last Admin: 11/15/22 09:08 Dose: 10 mg Clonidine HCl (Clonidine Hcl 0.1 Mg Tablet) 0.1 mg PO Q4H PRN; Protocol PRN Reason: anxiety Last Admin: 11/14/22 21:16 Dose: 0.1 mg Gabapentin (Gabapentin 100 Mg Capsule) 200 mg PO TID [facility] Last Admin: 11/15/22 09:08 Dose: 200 mg Hydroxyzine HCl (Hydroxyzine Hcl 50 Mg Tablet) 50 mg PO Q6H PRN PRN Reason: Anxiety Lisinopril (Lisinopril 40 Mg Tablet) 40 mg PO DAILY [facility]; Protocol Last Admin: 11/15/22 09:08 Dose: 40 mg Magnesium Hydroxide (Milk Of Magnesia 30 Ml Oral.Susp) 30 ml PO DAILY PRN PRN Reason: Constipation Paroxetine HCl (Paroxetine Hcl 40 Mg Tablet) 40 mg PO DAILY [facility] Last Admin: 11/15/22 09:08 Dose: 40 mg Quetiapine Fumarate (Quetiapine Fumarate 200 Mg Tablet) 200 mg PO BEDTIME [facility] Last Admin: 11/14/22 21:16 Dose: 200 mg Quetiapine Fumarate (Quetiapine Fumarate 50 Mg Tablet) 50 mg PO BID@0900,1500 [facility] Last Admin: 11/15/22 09:08 Dose: 50 mg Trazodone HCl (Trazodone Hcl 50 Mg Tablet) 50 mg PO BEDTIME PRN PRN Reason: Insomnia Allergies Allergies Allergy/AdvReac Type Severity Reaction Status Date / Time No Known Allergies Allergy Verified 11/10/22 08:43 [No Known Allergies*] Assessment & Plan Assessment & Plan (1) Acute anxiety: Status: Acute Code(s): F41.9 - Anxiety disorder, unspecified (2) Adjustment disorder with anxiety: Status: Acute Code(s): F43.22 - Adjustment disorder with anxiety Plan 57 year old male with history of depression, anxiety. He is on disability. 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 Patient presented yesterday to the ED with increased anxiety and feeling unsafe. He reports his neighbor at the rooming house where he lives has schizophrenia and has been increasingly threatening and paranoid towards him. He told him that he could knock his door down and was alluding to damaging his car saying I will take care of the car at night. This? caused severe anxiety and feeling unsafe for patient and he decided to come to the ED. PLAN: q15 CV Continue Clonidine prn for anxiety continue seroquel 200mg qhs Increase Seroquel 50mg BID@0900,1400 Increased to paxil 60 mg qhs will review med hx Collaterals. Restart outpatient medications. Add GBP 100 mg for anxiety. Milieu and group therapy. DC planning. Hospital course: 11/12: Increase GBP to 200 mg TID. Will add Seroquel 25 mg BID during the day in addition to HS Seroquel. 11/13 remains very anxious; added Clondine prn; will review med hx 11/14 continue w/ clondine which is helping; numerous med trials including ssri/snri/antipsychotics/ECT... pt asked for increase in Seroquel to 50mg BID which may also help -says not sure Paxil is helping -afraid of going back to house given threatening umer 11/15 patient continues to feel overall better with anxiety reduced however would like to have Paxil increased to address chronic baseline anxiety; hand sign writer reviewed risks/side effects of increasing dose which patient understood and wants to continue with Patient educated on: diagnosis and medication risk/benefits Informed Consent: understands Reason for continued inpatient stay Substantial Risk for: stable for discharge Time Spent With Patient Time: Total time managing care of this patient today ____ minutes.
[2022-11-15 13:09] VITALS: BP 118/72; PULSE 78; O2SAT 98
[2022-11-15] MEDS: cloNIDine HCL 0.1 MG TABLET PO ×2 (13:09→17:03)
[2022-11-15 14:00] VITALS: BP 122/70; PULSE 76; RESP 16; TEMP 36.6; O2SAT 98
[2022-11-15] MEDS: PARoxetine HCL 10 MG TABLET PO (14:21)
[2022-11-15 17:00] VITALS: BP 102/63; PULSE 80; TEMP 36.2
[2022-11-15] MEDS: QUEtiapine Fumarate 200 MG TABLET PO (21:03)
[2022-11-16 07:00] VITALS: BMI 41.9
[2022-11-16 08:16] VITALS: BP 119/78; PULSE 78; RESP 16; TEMP 36.3; O2SAT 97
[2022-11-16] MEDS: atenoloL 25 MG TABLET PO (09:12)
[2022-11-16] MEDS: Gabapentin 100 MG CAPSULE 200 MG PO ×3 (09:12→19:54)
[2022-11-16] MEDS: PARoxetine HCL 30 MG TABLET 60 MG PO (09:12)
[2022-11-16] MEDS: Atorvastatin Calcium 10 MG TABLET PO (09:12)
[2022-11-16] MEDS: lisinopriL 40 MG TABLET PO (09:12)
[2022-11-16] MEDS: QUEtiapine Fumarate 50 MG TABLET PO ×2 (09:12→14:08)
[2022-11-16] MEDS: cloNIDine HCL 0.1 MG TABLET PO ×3 (09:25→18:44)
--- NOTE | 2022-11-16 10:20 | P.PNPSI_ITS ---
Subjective Subjective Date of Service: 11/16/22 Reason For Visit: SI Interim History: Met with patient; discussed with team Patient reports feeling better. Patient excited that the troublesome person living in the housing apartment has been arrested and removed; property was destroyed but association is going to put him up in a hotel. Patient tolerating increased dose of Paxil Mental Status Exam Mental Status Exam Narrative: Pt is alert and oriented; behavior is cooperative, friendly but anxious and talkative; patient is not in distress; dressed in casual attire with adequate hygiene; mood is described as good and affect congruent; eye contact appropriate; Speech is verbose; normal volume and prosody; not pressured; no psychomotor agitation/retardation present; thought process is goal directed and circumstantial; Thought content is on treatment, anxiety; otherwise pertinent to relevant topics; no delusional content expressed; denies any SI/HI. There is no evidence of perceptual disturbance. Patients insight and judgment are fair. Diagnostics Vital Signs (24Hr): Vital Signs - 24 hr 11/15/22 13:09 11/15/22 14:00 11/15/22 17:00 Temperature 97.8 F 97.1 F Pulse Rate 78 76 80 Respiratory Rate 16 Blood Pressure 118/72 122/70 102/63 Pulse Oximetry 98 98 Oxygen Delivery Method Room Air Room Air 11/16/22 08:16 Temperature 97.4 F Pulse Rate 78 Respiratory Rate 16 Blood Pressure 119/78 Pulse Oximetry 97 Oxygen Delivery Method Room Air BMI result Body Mass Index 41.6 Labs 11/09/22 22:42 11/11/22 07:30 Medications Medications Current Medications Acetaminophen (Acetaminophen 325 Mg Tablet) 650 mg PO Q6H PRN PRN Reason: Headache/Pain Mild Scale (1-3) Last Admin: 11/11/22 08:28 Dose: 650 mg Al Hydroxide/Mg Hydroxide (Magnesium Hydrox/Alum Hydrox 30 Ml Oral.Susp) 30 ml PO Q6H PRN PRN Reason: Heartburn/Nausea Atenolol (Atenolol 25 Mg Tablet) 25 mg PO DAILY [facility]; Protocol Last Admin: 11/16/22 09:12 Dose: 25 mg Atorvastatin Calcium (Atorvastatin Calcium 10 Mg Tablet) 10 mg PO DAILY [facility] Last Admin: 11/16/22 09:12 Dose: 10 mg Clonidine HCl (Clonidine Hcl 0.1 Mg Tablet) 0.1 mg PO Q4H PRN; Protocol PRN Reason: anxiety Last Admin: 11/16/22 09:25 Dose: 0.1 mg Gabapentin (Gabapentin 100 Mg Capsule) 200 mg PO TID [facility] Last Admin: 11/16/22 09:12 Dose: 200 mg Hydroxyzine HCl (Hydroxyzine Hcl 50 Mg Tablet) 50 mg PO Q6H PRN PRN Reason: Anxiety Lisinopril (Lisinopril 40 Mg Tablet) 40 mg PO DAILY [facility]; Protocol Last Admin: 11/16/22 09:12 Dose: 40 mg Magnesium Hydroxide (Milk Of Magnesia 30 Ml Oral.Susp) 30 ml PO DAILY PRN PRN Reason: Constipation Paroxetine HCl (Paroxetine Hcl 30 Mg Tablet) 60 mg PO DAILY [facility] Last Admin: 11/16/22 09:12 Dose: 60 mg Quetiapine Fumarate (Quetiapine Fumarate 200 Mg Tablet) 200 mg PO BEDTIME [facility] Last Admin: 11/15/22 21:03 Dose: 200 mg Quetiapine Fumarate (Quetiapine Fumarate 50 Mg Tablet) 50 mg PO BID@0900,1500 [facility] Last Admin: 11/16/22 09:12 Dose: 50 mg Trazodone HCl (Trazodone Hcl 50 Mg Tablet) 50 mg PO BEDTIME PRN PRN Reason: Insomnia Allergies Allergies Allergy/AdvReac Type Severity Reaction Status Date / Time No Known Allergies Allergy Verified 11/10/22 08:43 [No Known Allergies*] Assessment & Plan Assessment & Plan (1) Acute anxiety: Status: Acute Code(s): F41.9 - Anxiety disorder, unspecified (2) Adjustment disorder with anxiety: Status: Acute Code(s): F43.22 - Adjustment disorder with anxiety Plan 57 year old male with history of depression, anxiety. He is on disability. 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. Patient presented yesterday to the ED with increased anxiety and feeling unsafe. He reports his neighbor at the rooming house where he lives has schizophrenia and has been increasingly threatening and paranoid towards him. He told him that he could knock his door down and was alluding to damaging his car saying I will take care of the car at night. This? caused severe anxiety and feeling unsafe for patient and he decided to come to the ED. PLAN: q15 CV Continue Clonidine prn for anxiety continue seroquel 200mg qhs Increase Seroquel 50mg BID@0900,1400 Increased to paxil 60 mg qhs will review med hx Collaterals. Restart outpatient medications. Add GBP 100 mg for anxiety. Milieu and group therapy. DC planning. Hospital course: 11/12: Increase GBP to 200 mg TID. Will add Seroquel 25 mg BID during the day in addition to HS Seroquel. 11/13 remains very anxious; added Clondine prn; will review med hx 11/14 continue w/ clondine which is helping; numerous med trials including ssri/snri/antipsychotics/ECT... pt asked for increase in Seroquel to 50mg BID which may also help -says not sure Paxil is helping -afraid of going back to house given threatening umer 11/15 patient continues to feel overall better with anxiety reduced however would like to have Paxil increased to address chronic baseline anxiety; service writer reviewed risks/side effects of increasing dose which patient understood and wants to continue with 11/16 continue current treatment plan; tolerating increased dose of Paxil; if remains stable will hold with current medication regimen Patient educated on: diagnosis and medication risk/benefits Informed Consent: understands Reason for continued inpatient stay Substantial Risk for: stable for discharge Time Spent With Patient Time: Total time managing care of this patient today ____ minutes.
[2022-11-16 13:00] VITALS: BP 99/64; PULSE 74; RESP 18
[2022-11-16 13:30] VITALS: BP 108/66; PULSE 72
[2022-11-16 14:00] VITALS: BP 108/66; PULSE 82; RESP 16; TEMP 36.7; O2SAT 95
[2022-11-16] MEDS: QUEtiapine Fumarate 200 MG TABLET PO (19:54)
[2022-11-16 22:00] VITALS: BP 118/76; PULSE 80; RESP 16; TEMP 36.6; O2SAT 96
[2022-11-17 08:18] VITALS: BP 118/62; PULSE 63; RESP 16; TEMP 36.3; O2SAT 95
[2022-11-17] MEDS: Gabapentin 100 MG CAPSULE 200 MG PO ×3 (08:23→19:57)
[2022-11-17] MEDS: PARoxetine HCL 30 MG TABLET 60 MG PO (08:23)
[2022-11-17] MEDS: QUEtiapine Fumarate 50 MG TABLET PO (08:24)
[2022-11-17] MEDS: atenoloL 25 MG TABLET PO (08:24)
[2022-11-17] MEDS: cloNIDine HCL 0.1 MG TABLET PO ×2 (08:24→12:55)
[2022-11-17] MEDS: lisinopriL 40 MG TABLET PO (08:24)
[2022-11-17] MEDS: Atorvastatin Calcium 10 MG TABLET PO (08:24)
--- NOTE | 2022-11-17 09:28 | HO.PSYCHPN ---
Subjective Subjective Date of Service: 11/17/22 Reason For Visit: SI Interim History: met with patient; discussed with team pt feels anxiety is better overall and says no longer clenching his teeth; thinks it's mostly due to Clonidine. He's not sure if increased Seroquel daily dose has helped so agrees to lower back to 25mg to see if he notices a difference. will let specifications writer know. He's relieved about scary housemate being evicted. Pt will call nursing home director to find out details about hotel (since house is in disrepair). Mental Status Exam Mental Status Exam Narrative: Pt is alert and oriented; behavior is cooperative, friendly but anxious and talkative; patient is not in distress; dressed in casual attire with adequate hygiene; mood is described as good and affect congruent; eye contact appropriate; Speech is verbose; normal volume and prosody; not pressured; no psychomotor agitation/retardation present; thought process is goal directed and circumstantial; Thought content is on treatment, anxiety; otherwise pertinent to relevant topics; no delusional content expressed; denies any SI/HI. There is no evidence of perceptual disturbance. Patients insight and judgment are fair. Diagnostics Vital Signs (24Hr): Vital Signs - 24 hr 11/16/22 13:00 11/16/22 13:30 11/16/22 14:00 Temperature 98.1 F Pulse Rate 74 72 82 Respiratory Rate 18 16 Blood Pressure 99/64 108/66 108/66 Pulse Oximetry 95 Oxygen Delivery Method Room Air 11/16/22 22:00 11/17/22 08:18 Temperature 97.8 F 97.3 F Pulse Rate 80 63 Respiratory Rate 16 16 Blood Pressure 118/76 118/62 Pulse Oximetry 96 95 Oxygen Delivery Method Room Air Room Air BMI result Body Mass Index 41.9 Labs 11/09/22 22:42 11/11/22 07:30 Medications Medications Current Medications Acetaminophen (Acetaminophen 325 Mg Tablet) 650 mg PO Q6H PRN PRN Reason: Headache/Pain Mild Scale (1-3) Last Admin: 11/11/22 08:28 Dose: 650 mg Al Hydroxide/Mg Hydroxide (Magnesium Hydrox/Alum Hydrox 30 Ml Oral.Susp) 30 ml PO Q6H PRN PRN Reason: Heartburn/Nausea Atenolol (Atenolol 25 Mg Tablet) 25 mg PO DAILY [facility]; Protocol Last Admin: 11/17/22 08:24 Dose: 25 mg Atorvastatin Calcium (Atorvastatin Calcium 10 Mg Tablet) 10 mg PO DAILY [facility] Last Admin: 11/17/22 08:24 Dose: 10 mg Clonidine HCl (Clonidine Hcl 0.1 Mg Tablet) 0.1 mg PO Q4H PRN; Protocol PRN Reason: anxiety Last Admin: 11/17/22 08:24 Dose: 0.1 mg Gabapentin (Gabapentin 100 Mg Capsule) 200 mg PO TID [facility] Last Admin: 11/17/22 08:23 Dose: 200 mg Hydroxyzine HCl (Hydroxyzine Hcl 50 Mg Tablet) 50 mg PO Q6H PRN PRN Reason: Anxiety Lisinopril (Lisinopril 40 Mg Tablet) 40 mg PO DAILY [facility]; Protocol Last Admin: 11/17/22 08:24 Dose: 40 mg Magnesium Hydroxide (Milk Of Magnesia 30 Ml Oral.Susp) 30 ml PO DAILY PRN PRN Reason: Constipation Paroxetine HCl (Paroxetine Hcl 30 Mg Tablet) 60 mg PO DAILY [facility] Last Admin: 11/17/22 08:23 Dose: 60 mg Quetiapine Fumarate (Quetiapine Fumarate 200 Mg Tablet) 200 mg PO BEDTIME [facility] Last Admin: 11/16/22 19:54 Dose: 200 mg Quetiapine Fumarate (Quetiapine Fumarate 50 Mg Tablet) 50 mg PO BID@0900,1500 [facility] Last Admin: 11/17/22 08:24 Dose: 50 mg Trazodone HCl (Trazodone Hcl 50 Mg Tablet) 50 mg PO BEDTIME PRN PRN Reason: Insomnia Allergies Allergies Allergy/AdvReac Type Severity Reaction Status Date / Time No Known Allergies Allergy Verified 11/10/22 08:43 [No Known Allergies*] Assessment & Plan Assessment & Plan (1) Acute anxiety: Status: Acute Code(s): F41.9 - Anxiety disorder, unspecified (2) Adjustment disorder with anxiety: Status: Acute Code(s): F43.22 - Adjustment disorder with anxiety Plan 57 year old male with history of depression, anxiety. He is on disability. 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 Patient presented yesterday to the ED with increased anxiety and feeling unsafe. He reports his neighbor at the rooming house where he lives has schizophrenia and has been increasingly threatening and paranoid towards him. He told him that he could knock his door down and was alluding to damaging his car saying I will take care of the car at night. This? caused severe anxiety and feeling unsafe for patient and he decided to come to the ED. PLAN: q15 CV Continue Clonidine prn for anxiety continue seroquel 200mg qhs LOWER back to Seroquel 25mg BID@0900,1400 (not sure if increase made a difference; to avoid risk of side-effects, will try lower dose aagin to see if maters) Increased to paxil 60 mg qhs will review med hx Collaterals. Restart outpatient medications. Add GBP 100 mg for anxiety. Milieu and group therapy. DC planning. Hospital course: 11/12: Increase GBP to 200 mg TID. Will add Seroquel 25 mg BID during the day in addition to HS Seroquel. 11/13 remains very anxious; added Clondine prn; will review med hx 11/14 continue w/ clondine which is helping; numerous med trials including ssri/snri/antipsychotics/ECT... pt asked for increase in Seroquel to 50mg BID which may also help -says not sure Paxil is helping -afraid of going back to house given threatening umer 11/15 patient continues to feel overall better with anxiety reduced however would like to have Paxil increased to address chronic baseline anxiety; specifications writer reviewed risks/side effects of increasing dose which patient understood and wants to continue with 11/16 continue current treatment plan; tolerating increased dose of Paxil; if remains stable will hold with current medication regimen 11/17 LOWER back to Seroquel 25mg BID@0900,1400 (not sure if increase made a difference; to avoid risk of side-effects, will try lower dose aagin to see if maters) -pt seems to be stabilizing; however, will confirm housing situation since concern for quick decompensation if pt were to end up homeless (housing is in disrepair and some talk of nursing home putting pt up in hotel until repairs made). Patient educated on: diagnosis and medication risk/benefits Informed Consent: understands Reason for continued inpatient stay Substantial Risk for: stable for discharge Time Spent With Patient Time: Total time managing care of this patient today ____ minutes.
[2022-11-17 12:56] VITALS: BP 109/64; PULSE 72; RESP 18
[2022-11-17 13:56] VITALS: BP 117/68; PULSE 78
[2022-11-17] MEDS: QUEtiapine Fumarate 25 MG TABLET PO (14:42)
[2022-11-17] MEDS: Magnesium Hydrox/Alum Hydrox 30 ML ORAL.SUSP PO (16:24)
[2022-11-17 18:22] VITALS: BP 102/62; PULSE 61; RESP 16; TEMP 36.8; O2SAT 95
[2022-11-17] MEDS: traZODone HCL 50 MG TABLET PO (19:57)
[2022-11-17] MEDS: QUEtiapine Fumarate 200 MG TABLET PO (19:57)
[2022-11-18 09:15] VITALS: BP 132/82; PULSE 69; RESP 16; TEMP 36.2; O2SAT 97
[2022-11-18] MEDS: Gabapentin 100 MG CAPSULE 200 MG PO ×3 (09:15→19:36)
[2022-11-18] MEDS: Atorvastatin Calcium 10 MG TABLET PO (09:16)
[2022-11-18] MEDS: QUEtiapine Fumarate 25 MG TABLET PO ×2 (09:16→14:20)
[2022-11-18] MEDS: atenoloL 25 MG TABLET PO (09:16)
[2022-11-18] MEDS: lisinopriL 40 MG TABLET PO (09:17)
[2022-11-18] MEDS: cloNIDine HCL 0.1 MG TABLET PO ×3 (09:25→19:11)
[2022-11-18] MEDS: PARoxetine HCL 30 MG TABLET 60 MG PO (09:27)
--- NOTE | 2022-11-18 09:40 | HO.PSYCHPN ---
Subjective Subjective Date of Service: 11/18/22 Reason For Visit: SI Interim History: met with patient; discussed with team Patient reports he slept well; says he does not notice any difference with daytime Seroquel lowered to 25 mg but only been a day so will continue at current dose and revisit. Otherwise overall feeling better. Mental Status Exam Mental Status Exam Narrative: Pt is alert and oriented; behavior is cooperative, friendly but anxious and talkative; patient is not in distress; dressed in casual attire with adequate hygiene; mood is described as good and affect congruent; eye contact appropriate; Speech is verbose; normal volume and prosody; not pressured; no psychomotor agitation/retardation present; thought process is goal directed and circumstantial; Thought content is on treatment, anxiety; otherwise pertinent to relevant topics; no delusional content expressed; denies any SI/HI. There is no evidence of perceptual disturbance. Patients insight and judgment are fair. Diagnostics Vital Signs (24Hr): Vital Signs - 24 hr 11/17/22 12:56 11/17/22 13:56 11/17/22 18:22 Temperature 98.3 F Pulse Rate 72 78 61 Respiratory Rate 18 16 Blood Pressure 109/64 117/68 102/62 Pulse Oximetry 95 Oxygen Delivery Method Room Air BMI result Body Mass Index 41.9 Labs 11/09/22 22:42 11/11/22 07:30 Medications Medications Current Medications Acetaminophen (Acetaminophen 325 Mg Tablet) 650 mg PO Q6H PRN PRN Reason: Headache/Pain Mild Scale (1-3) Last Admin: 11/11/22 08:28 Dose: 650 mg Al Hydroxide/Mg Hydroxide (Magnesium Hydrox/Alum Hydrox 30 Ml Oral.Susp) 30 ml PO Q6H PRN PRN Reason: Heartburn/Nausea Last Admin: 11/17/22 16:24 Dose: 30 ml Atenolol (Atenolol 25 Mg Tablet) 25 mg PO DAILY [facility]; Protocol Last Admin: 11/18/22 09:16 Dose: 25 mg Atorvastatin Calcium (Atorvastatin Calcium 10 Mg Tablet) 10 mg PO DAILY [facility] Last Admin: 11/18/22 09:16 Dose: 10 mg Clonidine HCl (Clonidine Hcl 0.1 Mg Tablet) 0.1 mg PO Q4H PRN; Protocol PRN Reason: anxiety Last Admin: 11/18/22 09:25 Dose: 0.1 mg Gabapentin (Gabapentin 100 Mg Capsule) 200 mg PO TID [facility] Last Admin: 11/18/22 09:15 Dose: 200 mg Hydroxyzine HCl (Hydroxyzine Hcl 50 Mg Tablet) 50 mg PO Q6H PRN PRN Reason: Anxiety Lisinopril (Lisinopril 40 Mg Tablet) 40 mg PO DAILY [facility]; Protocol Last Admin: 11/18/22 09:17 Dose: 40 mg Magnesium Hydroxide (Milk Of Magnesia 30 Ml Oral.Susp) 30 ml PO DAILY PRN PRN Reason: Constipation Paroxetine HCl (Paroxetine Hcl 30 Mg Tablet) 60 mg PO DAILY [facility] Last Admin: 11/18/22 09:27 Dose: 60 mg Quetiapine Fumarate (Quetiapine Fumarate 200 Mg Tablet) 200 mg PO BEDTIME [facility] Last Admin: 11/17/22 19:57 Dose: 200 mg Quetiapine Fumarate (Quetiapine Fumarate 25 Mg Tablet) 25 mg PO BID@0900,1500 [facility] Last Admin: 11/18/22 09:16 Dose: 25 mg Trazodone HCl (Trazodone Hcl 50 Mg Tablet) 50 mg PO BEDTIME PRN PRN Reason: Insomnia Last Admin: 11/17/22 19:57 Dose: 50 mg Allergies Allergies Allergy/AdvReac Type Severity Reaction Status Date / Time No Known Allergies Allergy Verified 11/10/22 08:43 [No Known Allergies*] Assessment & Plan Assessment & Plan (1) Acute anxiety: Status: Acute Code(s): F41.9 - Anxiety disorder, unspecified (2) Adjustment disorder with anxiety: Status: Acute Code(s): F43.22 - Adjustment disorder with anxiety Plan 57 year old male with history of depression, anxiety. He is on disability. 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 Patient presented yesterday to the ED with increased anxiety and feeling unsafe. He reports his neighbor at the rooming house where he lives has schizophrenia and has been increasingly threatening and paranoid towards him. He told him that he could knock his door down and was alluding to damaging his car saying I will take care of the car at night. This? caused severe anxiety and feeling unsafe for patient and he decided to come to the ED. PLAN: q15 CV Continue Clonidine prn for anxiety continue seroquel 200mg qhs LOWER back to Seroquel 25mg BID@0900,1400 (not sure if increase made a difference; to avoid risk of side-effects, will try lower dose aagin to see if maters) Increased to paxil 60 mg qhs will review med hx Collaterals. Restart outpatient medications. Add GBP 100 mg for anxiety. Milieu and group therapy. DC planning. Hospital course: 11/12: Increase GBP to 200 mg TID. Will add Seroquel 25 mg BID during the day in addition to HS Seroquel. 11/13 remains very anxious; added Clondine prn; will review med hx 11/14 continue w/ clondine which is helping; numerous med trials including ssri/snri/antipsychotics/ECT... pt asked for increase in Seroquel to 50mg BID which may also help -says not sure Paxil is helping -afraid of going back to house given threatening umer 11/15 patient continues to feel overall better with anxiety reduced however would like to have Paxil increased to address chronic baseline anxiety; tech writer reviewed risks/side effects of increasing dose which patient understood and wants to continue with 11/16 continue current treatment plan; tolerating increased dose of Paxil; if remains stable will hold with current medication regimen 11/17 LOWER back to Seroquel 25mg BID@0900,1400 (not sure if increase made a difference; to avoid risk of side-effects, will try lower dose aagin to see if maters) -pt seems to be stabilizing; however, will confirm housing situation since concern for quick decompensation if pt were to end up homeless (housing is in disrepair and [place] [facility] of [facility] up in hotel until repairs made). 11/18 continue current regimen; patient stabilizing well; will continue with discharge plans for early next week after confirming housing Patient educated on: diagnosis and medication risk/benefits Informed Consent: understands Reason for continued inpatient stay Substantial Risk for: stable for discharge Time Spent With Patient Time: Total time managing care of this patient today ____ minutes.
[2022-11-18 13:45] VITALS: BP 112/58
[2022-11-18 18:41] VITALS: BP 104/67; PULSE 82; RESP 16; TEMP 36.4; O2SAT 95
[2022-11-18] MEDS: QUEtiapine Fumarate 200 MG TABLET PO (19:36)
[2022-11-19 09:20] VITALS: BP 127/86; PULSE 133; RESP 16; TEMP 36.5
[2022-11-19] MEDS: lisinopriL 40 MG TABLET PO (09:23)
[2022-11-19] MEDS: Gabapentin 100 MG CAPSULE 200 MG PO ×3 (09:23→20:04)
[2022-11-19] MEDS: PARoxetine HCL 30 MG TABLET 60 MG PO (09:23)
[2022-11-19] MEDS: atenoloL 25 MG TABLET PO (09:23)
[2022-11-19] MEDS: Atorvastatin Calcium 10 MG TABLET PO (09:23)
[2022-11-19] MEDS: QUEtiapine Fumarate 25 MG TABLET PO ×2 (09:23→14:23)
[2022-11-19] MEDS: cloNIDine HCL 0.1 MG TABLET PO ×3 (09:24→21:04)
--- NOTE | 2022-11-19 12:04 | HO.PSYCHPN ---
Subjective Subjective Date of Service: 11/19/22 Reason For Visit: SI Interim History: Met with patient; discussed with team Patient reports that he is doing well; sleeping well; Seroquel 25 mg b.i.d. is working just fine and he does not want any medication changes. Mental Status Exam Mental Status Exam Narrative: Pt is alert and oriented; behavior is cooperative, friendly but anxious and talkative; patient is not in distress; dressed in casual attire with adequate hygiene; mood is described as good and affect congruent; eye contact appropriate; Speech is verbose; normal volume and prosody; not pressured; no psychomotor agitation/retardation present; thought process is goal directed and circumstantial; Thought content is on treatment, anxiety; otherwise pertinent to relevant topics; no delusional content expressed; denies any SI/HI. There is no evidence of perceptual disturbance. Patients insight and judgment are fair. Diagnostics Vital Signs (24Hr): Vital Signs - 24 hr 11/18/22 13:45 11/18/22 18:41 11/19/22 09:20 Temperature 97.6 F 97.7 F Pulse Rate 82 133 H Respiratory Rate 16 16 Blood Pressure 112/58 L 104/67 127/86 Pulse Oximetry 95 Oxygen Delivery Method Room Air BMI result Body Mass Index 41.9 Labs 11/09/22 22:42 11/11/22 07:30 Medications Medications Current Medications Acetaminophen (Acetaminophen 325 Mg Tablet) 650 mg PO Q6H PRN PRN Reason: Headache/Pain Mild Scale (1-3) Last Admin: 11/11/22 08:28 Dose: 650 mg Al Hydroxide/Mg Hydroxide (Magnesium Hydrox/Alum Hydrox 30 Ml Oral.Susp) 30 ml PO Q6H PRN PRN Reason: Heartburn/Nausea Last Admin: 11/17/22 16:24 Dose: 30 ml Atenolol (Atenolol 25 Mg Tablet) 25 mg PO DAILY [facility]; Protocol Last Admin: 11/19/22 09:23 Dose: 25 mg Atorvastatin Calcium (Atorvastatin Calcium 10 Mg Tablet) 10 mg PO DAILY [facility] Last Admin: 11/19/22 09:23 Dose: 10 mg Clonidine HCl (Clonidine Hcl 0.1 Mg Tablet) 0.1 mg PO Q4H PRN; Protocol PRN Reason: anxiety Last Admin: 11/19/22 09:24 Dose: 0.1 mg Gabapentin (Gabapentin 100 Mg Capsule) 200 mg PO TID [facility] Last Admin: 11/19/22 09:23 Dose: 200 mg Hydroxyzine HCl (Hydroxyzine Hcl 50 Mg Tablet) 50 mg PO Q6H PRN PRN Reason: Anxiety Lisinopril (Lisinopril 40 Mg Tablet) 40 mg PO DAILY [facility]; Protocol Last Admin: 11/19/22 09:23 Dose: 40 mg Magnesium Hydroxide (Milk Of Magnesia 30 Ml Oral.Susp) 30 ml PO DAILY PRN PRN Reason: Constipation Paroxetine HCl (Paroxetine Hcl 30 Mg Tablet) 60 mg PO DAILY [facility] Last Admin: 11/19/22 09:23 Dose: 60 mg Quetiapine Fumarate (Quetiapine Fumarate 200 Mg Tablet) 200 mg PO BEDTIME [facility] Last Admin: 11/18/22 19:36 Dose: 200 mg Quetiapine Fumarate (Quetiapine Fumarate 25 Mg Tablet) 25 mg PO BID@0900,1500 [facility] Last Admin: 11/19/22 09:23 Dose: 25 mg Trazodone HCl (Trazodone Hcl 50 Mg Tablet) 50 mg PO BEDTIME PRN PRN Reason: Insomnia Last Admin: 11/17/22 19:57 Dose: 50 mg Allergies Allergies Allergy/AdvReac Type Severity Reaction Status Date / Time No Known Allergies Allergy Verified 11/10/22 08:43 [No Known Allergies*] Assessment & Plan Assessment & Plan (1) Acute anxiety: Status: Acute Code(s): F41.9 - Anxiety disorder, unspecified (2) Adjustment disorder with anxiety: Status: Acute Code(s): F43.22 - Adjustment disorder with anxiety Plan 57 year old male with history of depression, anxiety. He is on disability. 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 Patient presented yesterday to the ED with increased anxiety and feeling unsafe. He reports his neighbor at the rooming house where he lives has schizophrenia and has been increasingly threatening and paranoid towards him. He told him that he could knock his door down and was alluding to damaging his car saying I will take care of the car at night. This? caused severe anxiety and feeling unsafe for patient and he decided to come to the ED. PLAN: q15 CV Continue Clonidine prn for anxiety continue seroquel 200mg qhs LOWER back to Seroquel 25mg BID@0900,1400 (not sure if increase made a difference; to avoid risk of side-effects, will try lower dose aagin to see if maters) Increased to paxil 60 mg qhs will review med hx Collaterals. Restart outpatient medications. Add GBP 100 mg for anxiety. Milieu and group therapy. DC planning. Hospital course: 11/12: Increase GBP to 200 mg TID. Will add Seroquel 25 mg BID during the day in addition to HS Seroquel. 11/13 remains very anxious; added Clondine prn; will review med hx 11/14 continue w/ clondine which is helping; numerous med trials including ssri/snri/antipsychotics/ECT... pt asked for increase in Seroquel to 50mg BID which may also help -says not sure Paxil is helping -afraid of going back to house given threatening umer 11/15 patient continues to feel overall better with anxiety reduced however would like to have Paxil increased to address chronic baseline anxiety; headline writer reviewed risks/side effects of increasing dose which patient understood and wants to continue with 11/16 continue current treatment plan; tolerating increased dose of Paxil; if remains stable will hold with current medication regimen 11/17 LOWER back to Seroquel 25mg BID@0900,1400 (not sure if increase made a difference; to avoid risk of side-effects, will try lower dose aagin to see if maters) -pt seems to be stabilizing; however, will confirm housing situation since concern for quick decompensation if pt were to end up homeless (housing is in disrepair and some talk of penitentiary putting pt up in hotel until repairs made). 11/18 continue current regimen; patient stabilizing well; will continue with discharge plans for early next week after confirming housing 11/19 continue current treatment plan Patient educated on: diagnosis and medication risk/benefits Informed Consent: understands Reason for continued inpatient stay Substantial Risk for: stable for discharge Time Spent With Patient Time: Total time managing care of this patient today ____ minutes.
[2022-11-19 14:20] VITALS: BP 103/66; PULSE 64; RESP 16
[2022-11-19 14:21] VITALS: BP 103/66; PULSE 64; RESP 16
[2022-11-19] MEDS: Magnesium Hydrox/Alum Hydrox 30 ML ORAL.SUSP PO (17:02)
[2022-11-19] MEDS: QUEtiapine Fumarate 200 MG TABLET PO (20:04)
[2022-11-19 21:00] VITALS: BP 116/66
[2022-11-20 08:39] VITALS: BP 117/75; PULSE 67; RESP 16; TEMP 36.7; O2SAT 96
[2022-11-20] MEDS: PARoxetine HCL 30 MG TABLET 60 MG PO (08:45)
[2022-11-20] MEDS: Atorvastatin Calcium 10 MG TABLET PO (08:45)
[2022-11-20] MEDS: atenoloL 25 MG TABLET PO (08:45)
[2022-11-20] MEDS: lisinopriL 40 MG TABLET PO (08:45)
[2022-11-20] MEDS: QUEtiapine Fumarate 25 MG TABLET PO (08:45)
[2022-11-20] MEDS: Gabapentin 100 MG CAPSULE 200 MG PO (08:46)
--- NOTE | 2022-11-20 09:40 | HO.PSYCHPN ---
Subjective Subjective Date of Service: 11/20/22 Reason For Visit: SI Interim History: Met with patient; discussed with team Diagnostics Vital Signs (24Hr): Vital Signs - 24 hr 11/19/22 14:21 11/19/22 14:20 11/19/22 21:00 Pulse Rate 64 64 Respiratory Rate 16 16 Blood Pressure 103/66 103/66 116/66 BMI result Body Mass Index 41.9 Labs 11/09/22 22:42 11/11/22 07:30 Medications Medications Current Medications Acetaminophen (Acetaminophen 325 Mg Tablet) 650 mg PO Q6H PRN PRN Reason: Headache/Pain Mild Scale (1-3) Last Admin: 11/11/22 08:28 Dose: 650 mg Al Hydroxide/Mg Hydroxide (Magnesium Hydrox/Alum Hydrox 30 Ml Oral.Susp) 30 ml PO Q6H PRN PRN Reason: Heartburn/Nausea Last Admin: 11/19/22 17:02 Dose: 30 ml Atenolol (Atenolol 25 Mg Tablet) 25 mg PO DAILY [facility]; Protocol Last Admin: 11/20/22 08:45 Dose: 25 mg Atorvastatin Calcium (Atorvastatin Calcium 10 Mg Tablet) 10 mg PO DAILY [facility] Last Admin: 11/20/22 08:45 Dose: 10 mg Clonidine HCl (Clonidine Hcl 0.1 Mg Tablet) 0.1 mg PO Q4H PRN; Protocol PRN Reason: anxiety Last Admin: 11/19/22 21:04 Dose: 0.1 mg Gabapentin (Gabapentin 100 Mg Capsule) 200 mg PO TID [facility] Last Admin: 11/20/22 08:46 Dose: 200 mg Hydroxyzine HCl (Hydroxyzine Hcl 50 Mg Tablet) 50 mg PO Q6H PRN PRN Reason: Anxiety Lisinopril (Lisinopril 40 Mg Tablet) 40 mg PO DAILY [facility]; Protocol Last Admin: 11/20/22 08:45 Dose: 40 mg Magnesium Hydroxide (Milk Of Magnesia 30 Ml Oral.Susp) 30 ml PO DAILY PRN PRN Reason: Constipation Paroxetine HCl (Paroxetine Hcl 30 Mg Tablet) 60 mg PO DAILY [facility] Last Admin: 11/20/22 08:45 Dose: 60 mg Quetiapine Fumarate (Quetiapine Fumarate 200 Mg Tablet) 200 mg PO BEDTIME [facility] Last Admin: 11/19/22 20:04 Dose: 200 mg Quetiapine Fumarate (Quetiapine Fumarate 25 Mg Tablet) 25 mg PO BID@0900,1500 [facility] Last Admin: 11/20/22 08:45 Dose: 25 mg Trazodone HCl (Trazodone Hcl 50 Mg Tablet) 50 mg PO BEDTIME PRN PRN Reason: Insomnia Last Admin: 11/17/22 19:57 Dose: 50 mg Allergies Allergies Allergy/AdvReac Type Severity Reaction Status Date / Time No Known Allergies Allergy Verified 11/10/22 08:43 [No Known Allergies*] Assessment & Plan Assessment & Plan (1) Acute anxiety: Status: Acute Code(s): F41.9 - Anxiety disorder, unspecified (2) Adjustment disorder with anxiety: Status: Acute Code(s): F43.22 - Adjustment disorder with anxiety Plan 57 year old male with history of depression, anxiety. He is on disability. 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 Patient presented yesterday to the ED with increased anxiety and feeling unsafe. He reports his neighbor at the rooming house where he lives has schizophrenia and has been increasingly threatening and paranoid towards him. He told him that he could knock his door down and was alluding to damaging his car saying I will take care of the car at night. This? caused severe anxiety and feeling unsafe for patient and he decided to come to the ED. PLAN: q15 CV Continue Clonidine prn for anxiety continue seroquel 200mg qhs LOWER back to Seroquel 25mg BID@0900,1400 (not sure if increase made a difference; to avoid risk of side-effects, will try lower dose aagin to see if maters) Increased to paxil 60 mg qhs will review med hx Collaterals. Restart outpatient medications. Add GBP 100 mg for anxiety. Milieu and group therapy. DC planning. Hospital course: 11/12: Increase GBP to 200 mg TID. Will add Seroquel 25 mg BID during the day in addition to HS Seroquel. 11/13 remains very anxious; added Clondine prn; will review med hx 11/14 continue w/ clondine which is helping; numerous med trials including ssri/snri/antipsychotics/ECT... pt asked for increase in Seroquel to 50mg BID which may also help -says not sure Paxil is helping -afraid of going back to house given threatening umer 11/15 patient continues to feel overall better with anxiety reduced however would like to have Paxil increased to address chronic baseline anxiety; bid writer reviewed risks/side effects of increasing dose which patient understood and wants to continue with 11/16 continue current treatment plan; tolerating increased dose of Paxil; if remains stable will hold with current medication regimen 11/17 LOWER back to Seroquel 25mg BID@0900,1400 (not sure if increase made a difference; to avoid risk of side-effects, will try lower dose aagin to see if maters) -pt seems to be stabilizing; however, will confirm housing situation since concern for quick decompensation if pt were to end up homeless (housing is in disrepair and some talk of retirement putting pt up in hotel until repairs made). 11/18 continue current regimen; patient stabilizing well; will continue with discharge plans for early next week after confirming housing 11/19 continue current treatment plan Time Spent With Patient Time: Total time managing care of this patient today ____ minutes.
--- NOTE | 2022-11-20 10:53 | PM.PSYDC ---
DS: Providers Provider Date of Service: 11/20/22 Date of admission: 11/10/22 18:17 Date of discharge: 11/20/22 Primary care physician: Radha Physician Attending physician on admission: Phani Cruz Attending physician on discharge: Nael Lisa DS: Diagnosis Discharge Diagnosis (1) Acute anxiety: Status: Acute (2) Adjustment disorder with anxiety: Status: Acute DS: Medications Discharge Medications Home Medications: Home Medications Medication Instructions Recorded Confirmed atenolol 25 mg tablet 25 mg PO DAILY 11/10/22 11/10/22 atorvastatin 10 mg tablet 10 mg PO DAILY 11/10/22 11/10/22 lisinopril 40 mg tablet 40 mg PO DAILY 11/10/22 11/10/22 Previous Rx's Medication Instructions Recorded clonidine HCl 0.1 mg tablet 0.1 mg PO Q4H PRN anxiety 30 days 11/20/22 #90 tabs gabapentin 100 mg capsule 200 mg PO TID 30 days #180 caps 11/20/22 paroxetine HCl 30 mg tablet 60 mg PO DAILY 30 days #60 tabs 11/20/22 quetiapine 200 mg tablet 200 mg PO BEDTIME 30 days #30 tabs 11/20/22 quetiapine 25 mg tablet 25 mg PO BID@0900,1500 30 days #60 11/20/22 tabs Mental Status Exam Mental Status Exam Narrative: Pt is alert and oriented; behavior is cooperative, friendly, calm, talkative; patient is not in distress; dressed in casual attire with adequate hygiene; mood is described as good and affect congruent; eye contact appropriate; Speech is verbose; normal volume and prosody; not pressured; no psychomotor agitation/retardation present; thought process is goal directed, linear; sometimes circumstantial; Thought content is on discharge and WNL; otherwise pertinent to relevant topics; no delusional content expressed; denies any SI/HI. There is no evidence of perceptual disturbance. Patients insight and judgment are fair. DS: Summary Hospital Course Hospital Course: 57 year old male with history of depression, anxiety. He is on disability. 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 Patient presented yesterday to the ED with increased anxiety and feeling unsafe. He reports his neighbor at the rooming house where he lives has schizophrenia and has been increasingly threatening and paranoid towards him. He told him that he could knock his door down and was alluding to damaging his car saying I will take care of the car at night. This? caused severe anxiety and feeling unsafe for patient and he decided to come to the ED. Hospital course On admission patient was anxious but no SI. He was continued on his home medications. However once clonidine was added as a p.r.n., his anxiety significantly improved. Patient's paroxetine was also increased to 60 mg; patient was also started on gabapentin t.i.d. for anxiety which patient was ambivalent about but with which he decided continue. Patient had been on Seroquel 25 mg b.i.d. in the past and this was restarted to good effect. There was 1 incident when patient made a rope out of the bed sheet, which he said he did just to show staff that it was possible and to be careful for other patients who may be suicidal...(patient was adamant that he had no SI at all and this was just done as a demonstration to be helpful); otherwise however, Patient remained in good behavioral and impulse control on the unit. Sometimes he would have some coarse joking with peers but was otherwise appropriate with peers and staff. Patient attended groups. He remained thankful for the medication changes which he said continued to treat his anxiety and that he was feeling better than he had in years. Patient remains stable, back to baseline and felt ready for discharge. Patient's housing was disrupted due to needed repairs and custodial putting patient into a hotel until repairs completed. Patient remained stable, was in a good mood and feeling able to continue treatment as an outpatient. Patient was future oriented and not in imminent risk for harm to self or others. His request for discharge honored. Time spent discussing smoking cessation with patient: 3 to 10 minutes Status at Discharge Functional status at discharge: independent ambulation Overall status at discharge: patient is back to baseline Time Spent with Patient Time attestation: Total time managing care of this patient today ____ minutes. 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 Referrals: Physician,Radha J [Primary Care Provider] - 1 Week Discharge Medications: New paroxetine HCl 30 mg Tablet 60 mg PO DAILY 30 Days Qty: 60 1RF gabapentin 100 mg Capsule 200 mg PO TID 30 Days Qty: 180 1RF quetiapine 25 mg Tablet 25 mg PO BID@0900,1500 30 Days Qty: 60 1RF clonidine HCl 0.1 mg Tablet 0.1 mg PO Q4H PRN (Reason: anxiety) 30 Days Qty: 90 1RF Protocol: Hold for SBP< HOLD for SBP < : 90 Continued atorvastatin 10 mg tablet 10 mg PO DAILY atenolol 25 mg tablet 25 mg PO DAILY lisinopril 40 mg tablet 40 mg PO DAILY quetiapine 200 mg tablet 200 mg PO BEDTIME 30 Days Qty: 30 1RF Discontinued paroxetine HCl 40 mg tablet 40 mg PO DAILY Discharge Orders: Discharge Order (Routine); Ordered 11/20/22 Ordered By: Nael Lisa Diet: Regular diet Activity on Discharge: As tolerated Stand Alone Forms: Patient Portal Discharge page Care Plan Goals: Maintain mood and safe behaviors Take medications as prescribed Practice coping skills Continue with outpatient providers and reach out to them as needed Health Concerns: Mood stability and behaviors HTN High Cholesterol Plan of Treatment: Follow up with your PCP, psychiatric provider and other outpatient providers regarding above concerns Take medications as prescribed Assessment: Risk assessment at time of discharge:? Patient was interviewed prior to discharge and found to be fully oriented and without any SI or HI. Patient has insight and demonstrates good judgment in terms of wanting to pursue treatment. Patient is not in imminent risk of harm to self or others and has a safety plan that includes presenting to the closest ER or calling 911 if feeling unsafe.? Patient has been observed closely by nursing and unit staff throughout admission; patient has not engaged in any behaviors that suggest dangerousness to self or others and has demonstrated appropriate behaviors and impulse control
== END 2022-11-20 12:00 | disposition home or self-care (01) | DRG 882 ==
LOC: HO.ED 11-10 02:03 → HO.PM5 11-10 18:31
PROVIDERS: Physician Assistant; Admitting Provider Social Worker; Emergency Provider Internal Medicine; Visit Provider Social Worker
DX: F43.22 Adjustment disorder with anxiety (principal); F41.1 Generalized anxiety disorder; E78.5 Hyperlipidemia, unspecified; Z20.822 Contact with and (suspected) exposure to COVID-19; Z79.899 Other long term (current) drug therapy
CPT/HCPCS: 36415; 80053; 80061; 80307; 81003; 82607; 82746; 83036; 84443; 85025; 87635; 93005; 99285

== ENCOUNTER 2023-08-06 14:23 | Emergency (ER) | payer MEDICARE, MEDICAID, SELFPAY ==
[2023-08-06 14:34] VITALS: BP 139/97; PULSE 110; RESP 19; TEMP 36.6; O2SAT 98; BMI 39.9
--- NOTE | 2023-08-06 14:35 | ED_ITS ---
HPI - Anxiety General Chief Complaint: Anxiety Stated Complaint: Anxiety Time Seen by Provider: 08/06/23 20:02 Source: patient Mode of arrival: ambulatory Limitations: no limitations History of Present Illness HPI narrative: Patient is a 57-year-old male who presents emergency department for evaluation of anxiety. He reports that he currently is residing in a rooming house in [facility] but he presented here today for evaluation of his ongoing anxiety as he has been to this hospital in the past. He reports a lot of stress surrounding his current living situation as well as roommates. He states that despite taking his anxiety medications he has been unable to control this and feels as though he is having panic attacks. He denies any suicidal or homicidal ideations, denies any drug or alcohol usage. Who states that he would like to be admitted inpatient or assisted with goal to respite. increased anxiety. Reports that he has a history of generalized anxiety disorder. Lives in [place] although likes the treatment here at [facility]. Reports that he lives in a Rooming house and he is going crazy with this. Reports the people he is living with are not cleaning after the himself and smoke detector was taken off the wall and patient is very concerned about this. Making his anxiety worse. Reports he is on medication for anxiety which include Seroquel, clonidine although is not working. Denies any SI or HI or any auditory visualizations thoughts of self-injury. Related Data Home Medications Medication Instructions Recorded Confirmed atorvastatin 10 mg tablet 10 mg PO DAILY 11/10/22 08/06/23 lisinopril 40 mg tablet 40 mg PO DAILY 11/10/22 08/06/23 quetiapine 50 mg tablet 50 mg PO BID PRN anxiety 08/06/23 08/06/23 Previous Rx's Medication Instructions Recorded clonidine HCl 0.1 mg tablet 0.1 mg PO Q4H PRN anxiety 30 days 11/20/22 #90 tabs paroxetine HCl 30 mg tablet 60 mg (2 x 30 mg) PO DAILY 30 days 11/20/22 #60 tabs Allergies Allergy/AdvReac Type Severity Reaction Status Date / Time No Known Allergies Allergy Verified 08/06/23 14:34 [No Known Allergies*] Review of Systems 2 Review of Systems: Yes all other systems are reviewed and are negative PMFSH Past Medical History Attestation statement: The following information was validated with the patient. Source: old records reviewed Medical History Essential hypertension History of congestive heart failure Major depression CHF (congestive heart failure) Hyperlipidemia HTN (hypertension) Depression Generalized anxiety disorder Surgical History History of left hip replacement Social History Social History Household Members: None Housing: House Do you presently have visiting nurse or other home services: No Alcohol intake: unknown Comment: pt appears less anxious, he was sitting in the kitchen talking calmly Patient Tobacco Use Status: Tobacco use Unknown Smoked in Last 30 Days: No Second Hand Smoke Exposure: No Use of substances other than those prescribed or required for medical reasons: Yes Substance Use Type: Marijuana Substance Use Frequency: Daily Advance Directives: No Advance Directives Information Provided: No Healthcare Proxy: No Guardian: No service: No Sexual orientation: Straight/Heterosexual Physical Exam 2 Vital Signs: Vital Signs: Last Vital Signs Temp 96.9 F 08/07/23 07:49 Pulse 67 08/07/23 07:49 Resp 17 08/07/23 07:49 BP 117/80 08/07/23 07:49 Pulse Ox 97 08/07/23 07:49 O2 Del Method Room Air 08/07/23 07:49 BMI result Body Mass Index 39.9 Appearance: Alert.?Oriented to person, place and time. No acute distress.?Normal affect. Eyes: Pupils equal, round and reactive to light.? ENT: Pharynx normal.?? Neck: Normal inspection.? Neck supple.?? CVS: Heart sounds normal. Normal heart rate and rhythm.? Pulses normal.?? Respiratory: No respiratory distress.? Lung sounds clear to auscultation bilaterally?? Abdomen: Soft and non-tender. Normoactive bowel sounds. Skin: Skin warm and dry.? Normal skin color.?? Extremities: No lower extremity edema.? Neuro: Moves all extremities spontaneously. Sensation intact bilaterally. CN II- XII intact. No focal neuro deficits. Ambulates with normal steady gait. Course Course Course Narrative: RME- 14:35pm - 57-year-old male presenting to the ER with complaints of increased anxiety. Reports that he has a history of generalized anxiety disorder. Lives in [place] although likes the treatment here at [facility]. Reports that he lives in a Rooming house and he is going crazy with this. Reports the people he is living with are not cleaning after the himself and smoke detector was taken off the wall and patient is very concerned about this. Making his anxiety worse. Reports he is on medication for anxiety which include Seroquel, clonidine although is not working. Denies any SI or HI or any auditory visualizations thoughts of self-injury. Plan: Labs, UA patient will be sent back to the waiting room he denies any SI or HI and is clinically sober. Stable to go back to the waiting room. Medications Administered Generic Name Dose Route Start Last Admin Trade Name Freq PRN Reason Stop Dose Admin Atorvastatin Calcium 10 mg 08/07/23 09:00 08/07/23 08:08 Atorvastatin Calcium 10 Mg Tablet PO 10 mg DAILY ASHISH Administration Clonidine HCl 0.1 mg 08/07/23 00:16 08/07/23 08:08 Clonidine Hcl 0.1 Mg Tablet PO 0.1 mg Q4H PRN Administration anxiety Protocol Lisinopril 40 mg 08/07/23 09:00 08/07/23 08:08 Lisinopril 40 Mg Tablet PO 40 mg DAILY ASHISH Administration Protocol Paroxetine HCl 60 mg 08/07/23 09:00 08/07/23 08:09 Paroxetine Hcl 30 Mg Tablet PO Not Given DAILY ASHISH Quetiapine Fumarate 50 mg 08/07/23 00:16 08/07/23 00:28 Quetiapine Fumarate 50 Mg Tablet PO 50 mg BID PRN Administration anxiety Medical Decision Making Medical Decision Making [facility] Narrative: Patient is a 57-year-old male with past medical history of hypertension, CHF, hyperlipidemia, anxiety presenting to emergency department for evaluation of increasing anxiety as per HPI. At the time my evaluation he is overall calm and cooperative. He is a bit hyper fixated on his life stressors as detailed in HPI but overall able to redirect. Will obtain basic labs for medical clearance and referred to care team for safe disposition planning anticipate likely respite as opposed to inpatient psychiatric admission. Differential Diagnosis Differential Diagnoses: The differential diagnosis associated with the presentation includes (Anxiety, depression, panic attack) Admission/Observation Consideration of admission/observation: Escalation of care including admission/observation considered 21:00 placed in physician observation so that respite bed search can ensue after evaluated by care team. No distress. Stable vital signs. Consult Healthcare Provider Management of the patient was discussed with: Behavioral Health Provider (As noted above) Lab Data MDM Lab Attestation statement: I reviewed the patient's lab results. 08/06/23 14:54 08/06/23 14:54 Labs: Lab Results 08/06/23 08/06/23 Range/Units 14:54 16:42 WBC 15.0 H (4.8-10.8) X10*3/uL RBC 6.23 H (4.60-5.80) X10*6/uL Hgb 18.0 (14.0-18.0) g/dl Hct 51.1 (42.0-52.0) % MCV 82.0 (80.0-98.0) fL MCH 28.9 (27.0-33.0) pg MCHC 35.2 (31.0-36.0) g/dl RDW 14.4 (11.0-16.0) % Plt Count 349 (160-400) X10*3/uL MPV 10.5 (9.4-12.4) fL Immature Gran % (Auto) 0.6 H (0.0-0.4) % Neut % (Auto) 78.1 H (45-73) % Lymph % (Auto) 12.2 L (20-40) % [place] % (Auto) 7.2 (2-11) % Eos % (Auto) 1.7 (0-4) % Baso % (Auto) 0.2 (0-2) % Lymph # (Auto) 1.8 (1.2-4.9) X10*3/uL [place] # (Auto) 1.1 (0.1-1.2) X10*3/uL Eos # (Auto) 0.3 (0.0-0.4) X10*3/uL Baso # (Auto) 0.0 (0.0-0.2) X10*3/uL Abs Immat Gran (auto) 0.09 H (0.00-0.03) X10*3/uL Absolute Neuts (auto) 11.7 H (2.0-8.3) x10*3/uL Absolute Nucleated RBC 0.000 (0.0-0.012) X10*3/uL Nucleated RBC % (auto) 0.0 (0.0-0.2) /100WBC Sodium 139 (135-145) mmol/L Potassium 4.2 (3.3-5.1) mmol/L Chloride 107 (96-108) mmol/L Carbon Dioxide 23 (22-29) mmol/L Anion Gap 13 (12-20) BUN 10 (9-16) mg/dL Creatinine 1.30 (0.5-1.4) mg/dL Estim Creat Clear Calc 83.0 Estimated GFR 57 Random Glucose 118 H (60-115) mg/dL Calcium 10.1 (8.4-10.2) mg/dL Magnesium 2.1 (1.6-2.6) mg/dL Total Bilirubin 0.9 (0.0-1.0) mg/dL Direct Bilirubin 0.3 (0.0-0.5) mg/dL AST 23 (5-37) U/L ALT 37 (0-40) U/L Alkaline Phosphatase 125 H (39-117) U/L Total Protein 8.3 H (6.5-8.0) g/dL Albumin 4.5 (3.5-5.0) g/dL Urine Color Yellow Urine Appearance Clear Urine pH 6.0 (5.0-9.0) Ur Specific [place] 1.015 (1.005-1.025) Urine Protein Negative (Neg-Trace) mg/dL Urine Glucose (UA) Negative (Negative) mg/dL Urine Ketones 15 (Negative) mg/dL Urine Blood Negative (Negative) Urine Nitrite Negative (Negative) Ur Leukocyte Esterase Small (1+) H (Negative) Urine RBC 0-2 (0-2) /HPF Urine WBC 6-10 H (0-5) /HPF Ur Squamous Epith Cells 0-2 (0-2) /HPF Urine Bacteria None Seen (None Seen) Hyaline Casts 0-2 (0-2) /LPF Urine Opiates Screen Not Detected (Not Detect) Urine Fentanyl Screen Not Detected (Not Detect) Ur Barbiturates Screen Not Detected (Not Detect) Ur Phencyclidine Scrn Not Detected (Not Detect) Ur Amphetamines Screen Not Detected (Not Detect) U Benzodiazepines Scrn Not Detected (Not Detect) Urine Cocaine Screen Not Detected (Not Detect) U Marijuana (THC) Screen POSITIVE H (Not Detect) Ethyl Alcohol < 10 mg/dL COVID-19 (RADHA) Negative (Negative) COVID-19 Clin Com See Note External Record Review External record reviewed: Outpatient record Discharge Plan Discharge Clinical Impression: Anxiety Patient Disposition: Xfer to Respite Facility Instructions: Anxiety (ED) Additional Instructions: 1. Resume all home medications as prescribed. 2. Please follow-up with primary care doctor. Return to the ER for any worsening symptoms. Prescriptions: No Action quetiapine 50 mg tablet 50 mg PO BID PRN (Reason: anxiety) atorvastatin 10 mg tablet 10 mg PO DAILY lisinopril 40 mg tablet 40 mg PO DAILY paroxetine HCl 30 mg Tablet 60 mg PO DAILY 30 Days Qty: 60 1RF clonidine HCl 0.1 mg Tablet 0.1 mg PO Q4H PRN (Reason: anxiety) 30 Days Qty: 90 1RF Protocol: Hold for SBP< HOLD for SBP < : 90 Referrals: Zac Garrett MD [Primary Care Provider] -
[2023-08-06 14:59] LABS: MANUAL DIFF FLAG NO
[2023-08-06 15:02] LABS: Basophils Percent Auto 0.2 % (0-2); Eosinophils Absolute Auto 0.3 X10*3/uL (0.0-0.4); Eosinophils Percent Auto 1.7 % (0-4); Hematocrit 51.1 % (42.0-52.0); Imm Gran Abs Auto 0.09 X10*3/uL (0.00-0.03); Imm Gran Pct Auto 0.6 % (0.0-0.4); Lymphocytes Absolute Auto 1.8 X10*3/uL (1.2-4.9); Lymphocytes Percent Auto 12.2 % (20-40); Mean Corpuscular HGB Conc 35.2 g/dl (31.0-36.0); Mean Corpuscular Hemoglobin 28.9 pg (27.0-33.0); Mean Platelet Volume 10.5 fL (9.4-12.4); Monocytes Absolute Auto 1.1 X10*3/uL (0.1-1.2); Monocytes Percent Auto 7.2 % (2-11); Neutrophils Absolute Auto 11.7 x10*3/uL (2.0-8.3); Neutrophils Percent Auto 78.1 % (45-73); Platelet Count 349 X10*3/uL (160-400); Red Blood Count 6.23 X10*6/uL (4.60-5.80); Red Cell Distribution Width 14.4 % (11.0-16.0)
[2023-08-06 15:10] LABS: Amphetamine Screen Urine Not Detected (Not Detect); Barbiturates, Urine Not Detected (Not Detect); Benzodiazepines Screen Urine Not Detected (Not Detect); Cannabinoid Screen Urine POSITIVE (Not Detect); Cocaine Screen Urine Not Detected (Not Detect); Fentanyl, urine Not Detected (Not Detect); Opiate Screen Urine Not Detected (Not Detect); Phencyclidine Screen Urine Not Detected (Not Detect)
[2023-08-06 15:22] LABS: Alanine Aminotransferase 37 U/L (0-40); Albumin Level 4.5 g/dL (3.5-5.0); Alkaline Phosphatase 125 U/L (39-117); Anion Gap 13 (12-20); Aspartate Amino Transferase 23 U/L (5-37); Bilirubin Direct 0.3 mg/dL (0.0-0.5); Bilirubin Total 0.9 mg/dL (0.0-1.0); Blood Urea Nitrogen 10 mg/dL (9-16); Calcium 10.1 mg/dL (8.4-10.2); Carbon Dioxide 23 mmol/L (22-29); Chloride 107 mmol/L (96-108); Estimated Glomerular Filt Rate 57; Ethanol < 10 mg/dL; Glucose Random 118 mg/dL (60-115); Magnesium 2.1 mg/dL (1.6-2.6); Potassium 4.2 mmol/L (3.3-5.1); Sodium 139 mmol/L (135-145); Total Protein 8.3 g/dL (6.5-8.0)
[2023-08-06 15:23] LABS: Appearance Urine Clear; Color Urine Yellow; Glucose Urine UA Negative (Negative); Leukocyte Esterase Urine Small (1+) (Negative); Nitrite Urine Negative (Negative); Specific Gravity - Urine 1.015 (1.005-1.025); UMIC TRIGGER UACC YES; Urine Blood Negative (Negative); Urine Ketones 15 mg/dL (Negative); Urine Protein Negative (Neg-Trace)
[2023-08-06 15:29] LABS: Bacteria Urine None Seen (None Seen); Hyaline Casts Urine 0-2 /LPF (0-2); RBC Urine 0-2 /HPF (0-2); Squamous Epithelial Cell Urine 0-2 /HPF (0-2); UACC Culture Trigger YES
[2023-08-06 17:20] LABS: COVID-19 Test Negative (Negative); IDNOW Serial# 08D9AD1C
[2023-08-06 19:19] VITALS: BP 105/75; PULSE 98; RESP 17; TEMP 36.5; O2SAT 95
--- NOTE | 2023-08-06 22:12 | MHC.CARE ---
referred to [facility]
[2023-08-07] MEDS: QUEtiapine Fumarate 50 MG TABLET PO (00:28)
[2023-08-07] MEDS: cloNIDine HCL 0.1 MG TABLET PO ×2 (00:28→08:08)
[2023-08-07 06:28] VITALS: BP 115/76; PULSE 64; RESP 18; TEMP 37; O2SAT 98
[2023-08-07 07:49] VITALS: BP 117/80; PULSE 67; RESP 17; TEMP 36.1; O2SAT 97
[2023-08-07] MEDS: Atorvastatin Calcium 10 MG TABLET PO (08:08)
[2023-08-07] MEDS: lisinopriL 40 MG TABLET PO (08:08)
--- NOTE | 2023-08-07 08:14 | MHC.CARE ---
CARE Team activated A-[facility] referral at [facility]
--- NOTE | 2023-08-07 09:58 | MHC.CARE ---
patient accepted to [facility] for 11am, is able to transport himself.
--- NOTE | 2023-08-07 10:29 | PHA.MEDREC ---
Pharmacy Consult ? Medication Reconciliation Pharmacy has completed the medication reconciliation. Reviewed med rec done by nursing
== END 2023-08-07 10:37 ==
PROVIDERS: Physician Assistant Medical; Emergency Provider Emergency Medicine Emergency Medical Services; PCP Family Medicine Sports Medicine
DX: F41.9 Anxiety disorder, unspecified (principal); I10 Essential (primary) hypertension; Z11.52 Encounter for screening for COVID-19; Z79.899 Other long term (current) drug therapy
CPT/HCPCS: 36415; 80053; 80307; 81001; 82248; 83735; 85025; 87086; 87635; 99284; S9485

== ENCOUNTER 2024-03-09 10:19 | Emergency (ER) | payer MEDICARE, MEDICAID, SELFPAY ==
[2024-03-09 10:22] VITALS: BP 130/68; PULSE 95; RESP 20; TEMP 36.1; O2SAT 98; BMI 39.5
--- NOTE | 2024-03-09 10:37 | MHC.EDTECH ---
MSP SGT [facility] OF THE [facility], CALLED TO MAKE US AWARE OF THIS PT WHO SAID HE WAS COMING TO [place] FOR HELP WITH SI THOUGHTS AND STATEMENTS TO HANG SELF DRIVES LISANDRO MOORE
--- NOTE | 2024-03-09 10:46 | PC.NURSE ---
Pt changed into hospital attire, belongings locked in C1 jorge port. 1:1 sitter at bedside for safety. Pt aware of plan for labs and UA. Call serna within reach, all needs met at this time.
--- NOTE | 2024-03-09 11:00 | ED_ITS ---
HPI - Psych General Chief Complaint: Psychiatric Symptoms Stated Complaint: Crisis Time Seen by Provider: 03/09/24 10:43 Source: patient Mode of arrival: ambulatory Limitations: no limitations History of Present Illness ED Provider: DR. Saha HPI Narrative: 58-year-old male history of anxiety and depression with history of SI in the past patient presented to the ED with increased anxiety and feeling unsafe where he live at sober house in the [place]. patient feels suicidal slept all night yesterday with a noose around his neck and looking in the sealing trying to figure out how to hang the rope to the ceiling, patient also thought about overdosing. had superficial abrasion on his left hand that the patient self inflicted yesterday, Patient currently has no plan to hurt himself. Declined alcohol or drug use. Related Data Home Medications ?Medication ?Instructions ?Recorded ?Confirmed atorvastatin 10 mg tablet 10 mg PO DAILY 11/10/22 08/06/23 lisinopril 40 mg tablet 40 mg PO DAILY 11/10/22 08/06/23 quetiapine 50 mg tablet 50 mg PO BID PRN anxiety 08/06/23 08/06/23 Previous Rx's ?Medication ?Instructions ?Recorded clonidine HCl 0.1 mg tablet 0.1 mg PO Q4H PRN anxiety 30 days 11/20/22 #90 tabs paroxetine HCl 30 mg tablet 60 mg (2 x 30 mg) PO DAILY 30 days 11/20/22 #60 tabs Allergies Allergy/AdvReac Type Severity Reaction Status Date / Time No Known Allergies Allergy Verified 03/09/24 10:23 [No Known Allergies*] Review of Systems 2 Review of Systems: All other systems are reviewed and are negative Constitutional: Reports as per HPI and Reports no additional constitutional complaints Eyes: Reports as per HPI and Reports no additional eye complaints Reports system reviewed and no additional complaints, except as documented Cardiovascular: Reports as per HPI and Reports no additional cardiovascular complaints Respiratory: Reports as per HPI and Reports no additional respiratory complaints Gastrointestinal: Reports as per HPI and Reports no additional gastrointestinal complaints Genitourinary: Reports no additional female genitourinary complaints Musculoskeletal: Reports no additional musculoskeletal complaints Skin/Breast: Reports system reviewed and no additional complaints, except as docu Psychiatric: Reports no additional psychiatric complaints Endocrine: Reports no additional endocrine complaints Hematologic/Lymphatic: Reports no additional hematologic/lymphatic complaints Allergic/Immunologic: Reports no additional allergic/immunologic complaints Reports system reviewed and no additional complaints, except as documented and Reports Abnormal speech present [facility] Past Medical History Medical History Essential hypertension History of congestive heart failure Major depression CHF (congestive heart failure) Hyperlipidemia HTN (hypertension) Depression Generalized anxiety disorder Surgical History History of left hip replacement Social History Social History Household Members: None Housing: House Do you presently have visiting nurse or other home services: No Alcohol intake: unknown Comment: pt appears less anxious, he was sitting in the kitchen talking calmly Patient Tobacco Use Status: Tobacco use Unknown Second Hand Smoke Exposure: No Substance Use Type: Marijuana service: No Sexual orientation: Straight/Heterosexual Physical Exam 2 Vital Signs: Vital Signs: Last Vital Signs Temp 97.9 F 03/09/24 11:03 Pulse 81 03/09/24 11:03 Resp 18 03/09/24 11:03 BP 131/84 03/09/24 11:03 Pulse Ox 98 03/09/24 11:03 O2 Del Method Room Air 03/09/24 11:03 BMI result Body Mass Index 39.5 Vital signs have been reviewed and appear to be correct. Blood pressure elevated. Heart rate normal. Respiratory rate normal. Temperature normal. Oxygen saturation normal. Appearance: Appear very anxious, Alert. Oriented X3. No acute distress. Head: Normal external exam. Normocephalic. Atraumatic. No Nelson signs noted. No raccoon eyes noted Eyes: PERRLA. EOMI. Conjunctiva and sclera normal. Eyelids normal. ENT: TM's Normal. Pharynx normal. Uvula midline. Moist mucous membranes. No trismus noted. No drooling noted. No muffled voice noted. Neck: Normal inspection. Neck supple. FROM. No adenopathy. Thyroid Normal. No meningeal signs. No neck mass noted. CVS: Normal heart rate and rhythm. Heart sound normal. No murmurs noted. Pulses normal throughout. Respiratory: No respiratory distress. Painless inspiration. Breath sounds normal. No wheezes/rales/rhonchi noted. Chest nontender. No accessory muscle usage noted or decreased air movement noted. Abdomen: Soft and nontender. Bowel sounds normal in all 4 quadrants. No distention noted. No organomegaly noted. No visible injury noted. Back: No CVA tenderness. Full range of motion noted. Skin: Skin warm and dry. Normal skin color. Normal skin turgor. No rashes/lesions/lacerations noted. Extremities: No lower extremity edema. Extremities exhibit normal range of motion. Extremities nontender. Neuro: Oriented X 3. Cranial nerve exam: II-XII are grossly intact No motor deficit. No sensory deficit. Reflexes normal. Course Reevaluation(s) Reevaluation #1: history of severe anxiety required prior hospitalization, suicidal thoughts. will get medical clearance and care team evaluation. start physician observation. Time: 11:16 Medical Decision Making Differential Diagnosis Differential Diagnoses: The differential diagnosis associated with the presentation includes ( Anxiety, depression, SI, medical clearance, electrolyte derangement, severe anemia, drug use, alcohol intoxication, Aspirin overdose, overdose.) Admission/Observation Consideration of admission/observation: Escalation of care including admission/observation considered Lab Data MDM Lab Attestation statement: I reviewed the patient's lab results. 03/09/24 10:57 03/09/24 10:57 Labs: Lab Results 03/09/24 Range/Units 10:57 WBC 11.8 H (4.8-10.8) X10*3/uL RBC 5.29 (4.60-5.80) X10*6/uL Hgb 16.1 (14.0-18.0) g/dl Hct 44.9 (42.0-52.0) % MCV 84.9 (80.0-98.0) fL MCH 30.4 (27.0-33.0) pg MCHC 35.9 (31.0-36.0) g/dl RDW 14.0 (11.0-16.0) % Plt Count 301 (160-400) X10*3/uL MPV 10.2 (9.4-12.4) fL Immature Gran % (Auto) 0.7 H (0.0-0.4) % Neut % (Auto) 82.0 H (45-73) % Lymph % (Auto) 9.5 L (20-40) % [place] % (Auto) 5.9 (2-11) % Eos % (Auto) 1.7 (0-4) % Baso % (Auto) 0.2 (0-2) % Lymph # (Auto) 1.1 L (1.2-4.9) X10*3/uL [place] # (Auto) 0.7 (0.1-1.2) X10*3/uL Eos # (Auto) 0.2 (0.0-0.4) X10*3/uL Baso # (Auto) 0.0 (0.0-0.2) X10*3/uL Abs Immat Gran (auto) 0.08 H (0.00-0.03) X10*3/uL Absolute Neuts (auto) 9.6 H (2.0-8.3) x10*3/uL Absolute Nucleated RBC 0.000 (0.0-0.012) X10*3/uL Nucleated RBC % (auto) 0.0 (0.0-0.2) /100WBC Urine Color Yellow Urine Appearance Clear Urine pH 5.5 (5.0-9.0) Ur Specific [place] 1.025 (1.005-1.025) Urine Protein Trace (Neg-Trace) mg/dL Urine Glucose (UA) Negative (Negative) mg/dL Urine Ketones Negative (Negative) mg/dL Urine Blood Negative (Negative) Urine Nitrite Negative (Negative) Ur Leukocyte Esterase Moderate (2+) H (Negative) Discharge Plan Discharge Clinical Impression: Suicidal ideation, Acute anxiety Patient Disposition: Still a Patient Prescriptions: No Action quetiapine 50 mg tablet 50 mg PO BID PRN (Reason: anxiety) atorvastatin 10 mg tablet 10 mg PO DAILY lisinopril 40 mg tablet 40 mg PO DAILY paroxetine HCl 30 mg Tablet 60 mg PO DAILY 30 Days Qty: 60 1RF clonidine HCl 0.1 mg Tablet 0.1 mg PO Q4H PRN (Reason: anxiety) 30 Days Qty: 90 1RF Protocol: Hold for SBP< HOLD for SBP < : 90 Print Language: Armenian
[2024-03-09 11:03] VITALS: BP 131/84; PULSE 81; RESP 18; TEMP 36.6; O2SAT 98
[2024-03-09 11:06] LABS: MANUAL DIFF FLAG NO
[2024-03-09 11:07] LABS: Basophils Percent Auto 0.2 % (0-2); Eosinophils Absolute Auto 0.2 X10*3/uL (0.0-0.4); Eosinophils Percent Auto 1.7 % (0-4); Hematocrit 44.9 % (42.0-52.0); Hemoglobin 16.1 g/dl (14.0-18.0); Imm Gran Abs Auto 0.08 X10*3/uL (0.00-0.03); Imm Gran Pct Auto 0.7 % (0.0-0.4); Lymphocytes Absolute Auto 1.1 X10*3/uL (1.2-4.9); Lymphocytes Percent Auto 9.5 % (20-40); Mean Corpuscular HGB Conc 35.9 g/dl (31.0-36.0); Mean Corpuscular Hemoglobin 30.4 pg (27.0-33.0); Mean Corpuscular Volume 84.9 fL (80.0-98.0); Mean Platelet Volume 10.2 fL (9.4-12.4); Monocytes Absolute Auto 0.7 X10*3/uL (0.1-1.2); Monocytes Percent Auto 5.9 % (2-11); Neutrophils Absolute Auto 9.6 x10*3/uL (2.0-8.3); Platelet Count 301 X10*3/uL (160-400); Red Blood Count 5.29 X10*6/uL (4.60-5.80); White Blood Count 11.8 X10*3/uL (4.8-10.8)
[2024-03-09 11:08] LABS: Appearance Urine Clear; Color Urine Yellow; Glucose Urine UA Negative (Negative); Leukocyte Esterase Urine Moderate (2+) (Negative); Nitrite Urine Negative (Negative); PH 5.5 (5.0-9.0); Specific Gravity - Urine 1.025 (1.005-1.025); UMIC TRIGGER UACC YES; Urine Blood Negative (Negative); Urine Ketones Negative (Negative); Urine Protein Trace mg/dL (Neg-Trace)
[2024-03-09 11:13] LABS: Bacteria Urine None Seen (None Seen); Hyaline Casts Urine 0-2 /LPF (0-2); RBC Urine 0-2 /HPF (0-2); Squamous Epithelial Cell Urine 0-2 /HPF (0-2); UACC Culture Trigger YES
--- NOTE | 2024-03-09 11:24 | ECG_ITS ---
Test Reason : MED CLEARENCE Blood Pressure : / mmHG Vent. Rate : 078 BPM Atrial Rate : 078 BPM P-R Int : 172 ms QRS Dur : 084 ms QT Int : 376 ms P-R-T Axes : 045 -37 017 degrees QTc Int : 428 ms Normal sinus rhythm Left axis deviation Abnormal ECG When compared with ECG of 10-NOV-2022 08:50, No significant change was found Referred By: Jasmyn Saha Electronically Signed By:POOL ROJAS
[2024-03-09 11:39] LABS: Amphetamine Screen Urine Not Detected (Not Detect); Barbiturates, Urine Not Detected (Not Detect); Benzodiazepines Screen Urine Not Detected (Not Detect); Buprenorphine Scr Not Detected (Not Detect); Cannabinoid Screen Urine POSITIVE (Not Detect); Cocaine Screen Urine Not Detected (Not Detect); Fentanyl, urine Not Detected (Not Detect); Methadone Screen, Urine Not Detected (Not Detect); Opiate Screen Urine Not Detected (Not Detect); Oxycodone Screen Urine Not Detected (Not Detect); Phencyclidine Screen Urine Not Detected (Not Detect)
[2024-03-09 11:44] LABS: Acetaminophen LAB < 3 mcg/mL (<30); Alanine Aminotransferase 29 U/L (0-40); Albumin Level 4.3 g/dL (3.5-5.0); Alkaline Phosphatase 98 U/L (39-117); Anion Gap 12 (12-20); Aspartate Amino Transferase 20 U/L (5-37); Blood Urea Nitrogen 19 mg/dL (9-16); Calcium 9.2 mg/dL (8.4-10.2); Carbon Dioxide 20 mmol/L (22-29); Chloride 110 mmol/L (96-108); Creatinine Clr Calc Pharmacy 87.2; Estimated Glomerular Filt Rate > 60; Ethanol < 10 mg/dL; Glucose Random 119 mg/dL (60-115); Potassium 4.1 mmol/L (3.3-5.1); Salicylate < 5.0 mg/dL (15-30); Sodium 138 mmol/L (135-145); Total Protein 7.6 g/dL (6.5-8.0)
[2024-03-09] MEDS: LORazepam 1 MG TABLET PO (13:28)
[2024-03-09 15:40] VITALS: BP 140/93; PULSE 76; RESP 16; TEMP 37; O2SAT 98
[2024-03-09] MEDS: QUEtiapine Fumarate 50 MG TABLET PO (16:30)
[2024-03-09 20:30] VITALS: BP 140/93
[2024-03-09] MEDS: cloNIDine HCL 0.2 MG TABLET PO (20:30)
[2024-03-09 20:43] VITALS: BP 104/58; PULSE 75; RESP 18; TEMP 36.6; O2SAT 96
[2024-03-10] MEDS: QUEtiapine Fumarate 50 MG TABLET PO (00:38)
--- NOTE | 2024-03-10 01:52 | PC.NURSE ---
patient had elected to sleep in communal area for his comfort bh1 was agiated demanding phone and minimally compliant. client began to engage client which calmed her down however patient persistently talking to peer for 1.5 hours. redirected about volume.
[2024-03-10 06:00] VITALS: BP 138/90; PULSE 71; RESP 14; TEMP 36.7; O2SAT 97
--- NOTE | 2024-03-10 07:33 | PC.NURSE ---
Assumed care of patient at 0645. Patient is observed resting quietly on the couch in the milieu. No unsafe behaviors observed. Breathing is even and unlabored.
[2024-03-10] MEDS: Atorvastatin Calcium 10 MG TABLET PO (08:34)
[2024-03-10] MEDS: atenoloL 25 MG TABLET PO (08:34)
[2024-03-10] MEDS: lisinopriL 40 MG TABLET PO (08:35)
[2024-03-10] MEDS: cloNIDine HCL 0.2 MG TABLET PO (08:35)
[2024-03-10 11:51] VITALS: BP 126/93; PULSE 79; RESP 20; TEMP 36.6; O2SAT 98
--- NOTE | 2024-03-10 12:12 | MHC.CARE ---
Pt was accepted to [facility] for today 03/10/24. ETA is after 6pm. No nurse to nurse is required by the accepting facility. The accepting provider is Dr. Gregory Pearson and the address is [address] [place] [address]. [facility] asked EMT's to be notified that they are to go to the [facility] upon arrival where admissions is located and they will be directed from there. Pod RN Nate and CARE team have been notified of placement.
[2024-03-10] MEDS: LORazepam 1 MG TABLET 2 MG PO (12:49)
[2024-03-10] MEDS: OLANZapine ODT 10 MG TAB.RAPDIS TRANSLINGU (12:49)
[2024-03-10] MEDS: diphenhydrAMINE HCL 50 MG/ML VIAL IM (14:30)
[2024-03-10] MEDS: Haloperidol Lactate 5 MG/ML VIAL IM (14:30)
[2024-03-10 18:37] VITALS: BP 126/93; PULSE 79; RESP 20; TEMP 36.6; O2SAT 98
== END 2024-03-10 18:39 ==
PROVIDERS: Emergency Provider Emergency Medicine; PCP Family Medicine Sports Medicine
DX: S60.512A Abrasion of left hand, initial encounter (principal); F41.1 Generalized anxiety disorder; F43.0 Acute stress reaction; R45.851 Suicidal ideations; R94.31 Abnormal electrocardiogram [ECG] [EKG]; X83.8XXA Intentional self-harm by other specified means, initial encounter; Y93.89 Activity, other specified; Y92.89 Other specified places as the place of occurrence of the external cause; Y99.8 Other external cause status; Z51.81 Encounter for therapeutic drug level monitoring; Z79.899 Other long term (current) drug therapy
CPT/HCPCS: 36415; 80053; 80143; 80179; 80307; 81001; 85025; 87086; 93005; 96372; 99285; J1200; J1630; S9485